=== PATIENT | male | born 1960 | race Caucasian/White ===

== ENCOUNTER 2017-09-18 17:00 | Emergency (ER) | payer OTHER, SELFPAY ==
[2017-09-18 17:04] VITALS: BP 137/88; PULSE 79; RESP 15; TEMP 36.5; O2SAT 99
[2017-09-18] MEDS: Lidocaine 2% Multi-Dose 50 ML VIAL IJ (18:04)
--- NOTE | 2017-09-18 18:21 | ED.GENADUL_ITS ---
Disposition Clinical Impression: Abscess or cellulitis of chest wall Disposition: HOME Condition: Good Instructions: Cellulitis (ED), Abscess (ED), Abscess Incision and Drainage (GEN ) Additional Instructions: Return immediately if you notice any severe worsening of symptoms including fever chills, significant increase of purulence, and also return for reassessment if you are not seeing signs of improvement over the next 48 hours. Otherwise continue to apply warm compresses 4 times daily for 20 minutes each time to encourage drainage. Prescriptions: Sulfameth/Trimeth Ds [Bactrim Ds Tablet] 1 each PO BID #13 tab Referrals: George Pinto DO [Primary Care Provider] - 1 week (Please follow-up with your primary care provider next week for reassessment) Medical Decision Making - Medical Decision Making Patient presenting to the emergency department for abscess to left anterior chest wall. Patient states that 3 days ago it started as a small pimple which he attempted to pop and then over the last 24 hours he has noticed significant increase in erythema, size, and purulent drainage. Just before arrival he did try to express all the drainage from it but noted all the redness and was concerned. Patient has a approximate 2-1/2 cm indurated abscess to the left anterior chest wall there is significant erythema surrounding the area with some streaking so concern for secondary cellulitis as well. Patient gave verbal consent for incision and drainage of abscess. Area was cleaned with Betadine and injected with 2% lidocaine and approximately 7 mL's were instilled around the area of abscess. Once appropriate anesthetic level was achieved. Was re-scrubbed with Betadine and approximately 1 cm incision was made into the greatest area of purulence and pointing. Drainage was noted of a mix of blood and purulence and hemostats were inserted into the incision to break up all the documents. After fully attempting to remove all purulence only blood was noted to come out of area of incision. Patient was then placed upon Bactrim 1 tab twice daily for 7 days and encouraged to return to the emergency department if not improving in the next 48 hours otherwise to follow-up with his primary care provider next week for reexamination. After discussion of diagnosis and plan of care with patient patient agreed and stated no further needs, questions, or concerns at this time. History of Present Illness - General Chief complaint: Cellulitis Stated complaint: INSECT BITE INFECTED Time Seen by Provider: 09/18/17 17:41 Source: patient, RN notes reviewed Mode of arrival: ambulatory Limitations: no limitations - History of Present Illness Initial comments: Patient reports 5 days ago he noticed a small pimple to his left anterior chest. He still states he attempted to pop this pimple and has been applying warm soaks but over the last 24 hours he has noticed a significant increase in redness drainage and swelling to the area with no redness on the significant part of his upper chest. Patient denies any fever chills, cardiac pain or difficulty breathing. Onset/Timin -: days(s) Location: chest Severity scale (1-10): 4 Quality: aching Consistency: constant Improves with: none Worsens with: none Associated Symptoms: denies other symptoms Treatments Prior to Arrival: none - Related Data Acetaminophen [Tylenol] 650 mg PO BID PRN tab-cap 10/24/13 Cetirizine HCl [Zyrtec] 10 mg PO HS #30 tab.chew 08/29/15 Omeprazole 20 mg PO BID #90 tab-cap 06/09/17 Sulfameth/Trimeth Ds [Bactrim Ds Tablet] 1 each PO BID #13 tab 09/18/17 Allergies Allergy/AdvReac Type Severity Reaction Status Date / Time No Known Allergies Allergy Unverified 09/18/17 17:11 Review of Systems Constitutional: denies: chills, fever Respiratory: no symptoms reported Cardiovascular: denies: chest pain Skin: as per HPI, lesions Comment: All other systems reviewed and negative Past Medical History - Past Medical History Medical history: cancer (colon ) Surgical history: other (Bowel resection, left leg crush injury) - Social History Smoking status: current everyday smoker Alcohol use: occasionally Drug use: none Living Situation: lives with family General Exam - General Limitations: no limitations General appearance: alert, in no apparent distress - Respiratory Respiratory exam: Present: normal lung sounds bilaterally, other (Patient has approximately a 2-1/2 cm area of fluctuance to left anterior chest wall with surrounding erythema that encompasses most of the pectoral region. The area of fluctuance itself is very erythematous but the surrounding area only has mild erythema. Area is warm to touch compared to rest of skin.) - Cardiovascular Cardiovascular Exam: Present: regular rate, normal rhythm, normal heart sounds - Neurological Exam Neurological exam: Present: alert, oriented X3, normal gait. Absent: altered - Psychiatric Psychiatric exam: Present: normal affect, normal mood Course Vital Signs - 24 hr 09/18/17 17:04 Temperature 36.5 C Pulse 79 Respiratory 15 Rate Blood Pressure 137/88 Pulse Oximetry 99
[2017-09-18] MEDS: Sulfameth/Trimeth DS TAB 1 TAB PO ×2 (18:34→18:35)
[2017-09-18 18:40] VITALS: BP 141/73; PULSE 76; RESP 16; TEMP 36.7; O2SAT 99
== END 2017-09-18 18:43 | disposition home or self-care (01) ==
PROVIDERS: Emergency Provider Student in an Organized Health Care Education/Training Program; PCP Emergency Medicine
DX: L02.213 Cutaneous abscess of chest wall (principal)
CPT/HCPCS: 10060; 99283

== ENCOUNTER 2017-10-30 07:24 | Outpatient (CLI) | payer OTHER, SELFPAY ==
[2017-10-30 07:53] LABS: Abs Immature Grans 0.01 k/cumm (0.0-0.09); Absolute Basophil Count 0.03 k/cumm (0.0-0.2); Absolute Eosinophil Count 0.21 k/cumm (0.0-0.7); Absolute Lymphocyte Count 2.05 k/cumm (1.2-3.4); Absolute Neutrophil Count 4.34 k/cumm (1.2-6.7); Basophils % 0.4; Eosinophils % 2.9; HCT 42.7 % (40.0-50.0); HGB 14.4 g/dL (13.5-17.5); Immature Grans % 0.1; Lymphocytes % 28.7; Mean Corp. HGB Concentration 33.7 g/dL (32.0-36.0); Mean Corpuscular Hemoglobin 31.4 pg (27.0-33.0); Mean Corpuscular Volume 93.2 fL (80-95); Mean Platelet Volume 9.7 fL (8.0-11.0); Neutrophils % 60.9; Platelet Count 178 x1000/uL (130-400); RBC 4.58 m/cumm (4.50-6.00); White Blood Cell Count 7.14 k/cumm (4.4-10.8)
[2017-10-30 08:17] LABS: ALT 40 U/L (12-78); AST 20 U/L (15-37); Albumin 3.5 g/dL (3.4-5.0); Alkaline Phosphatase 161 U/L (46-116); Anion Gap 10.4 mmol/L (3-11); BUN 16 mg/dL (7-18); Bilirubin, Total 0.5 mg/dL (0.2-1.0); CO2 25.6 mmol/L (21.0-32.0); CREATININE 0.91 mg/dL (0.70-1.30); Calcium 8.9 mg/dL (8.5-10.1); Chloride 104 mmol/L (98-107); Glucose 94 mg/dL (70-100); Potassium 4.2 mmol/L (3.5-5.1); Sodium 140 mmol/L (136-145); Total Protein 7.3 g/dL (6.4-8.2)
== END 2017-10-30 07:44 ==
PROVIDERS: PCP Emergency Medicine; Visit Provider Internal Medicine Hematology & Oncology
DX: C18.2 Malignant neoplasm of ascending colon (principal)
CPT/HCPCS: 36415; 80053; 82378; 85025

== ENCOUNTER 2018-02-08 16:35 | Emergency (ER) | payer OTHER, SELFPAY ==
[2018-02-08 16:43] VITALS: BP 160/100; PULSE 88; RESP 16; TEMP 36.7; O2SAT 96
--- NOTE | 2018-02-08 17:27 | W.ED.GENAD ---
Discharge Plan Disposition Patient Disposition: HOME Condition: Fair Discharge Details Chief Complaint: DentalOral Clinical Impression: Dental infection Reason For Visit: ? neck infection Primary Care Provider: George Pinto ED Provider: Suzi Barnes Home Meds and New Rx's Prescriptions: New penicillin V potassium 500 mg tablet 500 mg PO QID Qty: 24 RF: 0 Continued cyanocobalamin (vitamin B-12) 1,000 mcg capsule 1,000 mcg PO DAILY RF: 0 acetaminophen [Tylenol] 325 MG tablet 650 mg PO BID PRN RF: 0 cetirizine [Zyrtec] 10 MG tablet,chewable 10 mg PO HS Qty: 30 RF: 12 omeprazole 20 MG capsule,delayed release(DR/EC) 20 mg PO BID Qty: 90 RF: 3 ibuprofen 200 mg Tablet 600 mg PO PRN PRNRF: 0 Discharge Instructions Instructions: Dental Abscess (ED) Additional Instructions: Encourage hydration. Tylenol and/or ibuprofen as needed for discomfort. Penicillin as prescribed. Even if symptoms recur or improve, please take entire course. Please follow-up with dentist as soon as possible for reevaluation. If you develop increased pain, fever/chills, swelling, redness or other new/worsening symptoms please seek care urgently once Referrals: George Pinto, DO [Primary Care Provider] - Medical Decision Making Patient is a 37-year-old male presenting today with chief complaint of dental pain that began 2 days ago. He reports that he has had multiple dental infections recently. Finished chemotherapy for colon cancer last spring and reports that since the chemo, he has had difficulty with infections. Reports that one such infection did migrate down his neck. On exam, pain is primarily in the left lower dentition near the #17 and 18 tooth. Not see any swelling or area of fluctuance to suggest an abscess. However, given the patient's history of progression of his infections, I feel that treatment with antibiotics is appropriate at this time. Will give him enough antibiotics for today and tomorrow as tomorrow is [place]. He will follow-up with dentist in the next 2 weeks. We discussed new/worsening symptoms when to seek care urgently once again. All of his questions and concerns were addressed and he is in agreement this plan. HPI General Mode of arrival: ambulatory. Date/Time Provider Initiated Documentation: 02/08/18 16:49. Limitations to Documentation: no limitations. Information obtained by: patient. History of Present Illness 57 year old M presents to the emergency department with the chief complaint of dental pain, described as moderate, Quality is described as aching, and is localized to the mouth. Patient reports no radiation. Patient started experiencing this day(s) (2) and it has been constant. No relieving factors improve symptom(s), Eating worsens symptoms . Patient notes denies chest pain, cough, fever/chills, headaches, loss of appetite and rash. Patient did receive the following treatments prior to arrival, none Related Data Home Medications Medication Instructions Recorded Confirmed acetaminophen [Tylenol] 650 mg PO BID PRN tab-cap 10/24/13 09/18/17 cetirizine [Zyrtec] 10 mg PO HS #30 tab.chew 08/29/15 02/08/18 omeprazole 20 mg PO BID #90 tab-cap 06/09/17 02/08/18 cyanocobalamin (vitamin B-12) 1,000 mcg PO DAILY 12/18/17 02/08/18 1,000 mcg capsule ibuprofen 600 mg PO PRN PRN 02/08/18 02/08/18 penicillin V potassium 500 mg PO QID #24 tab 02/08/18 Previous Rx's Medication Instructions Recorded omeprazole 20 mg PO BID #90 tab-cap 06/09/17 penicillin V potassium 500 mg PO QID #24 tab 02/08/18 Allergies Allergy/AdvReac Type Severity Reaction Status Date / Time No Known Allergies Allergy Verified 12/18/17 10:14 General Stated Complaint: DentalOral RUEL: 4 Review of Systems Constitutional Reports as per HPI, Denies chills, Denies fatigue, Denies fever(s), Denies headache(s) and Denies poor appetite Eyes Denies change in vision and Denies irritation ENT Reports as per HPI, Denies dysphagia, Denies headache(s), Denies lip swelling and Denies odynophagia Cardiovascular Reports as per HPI and Denies chest pain Respiratory Reports as per HPI and Denies cough Gastrointestinal Reports as per HPI, Denies dysphagia, Denies nausea, Denies odynophagia and Denies vomiting Integumentary/Breasts Reports as per HPI, Denies erythema, Denies rash and Denies skin pain Neurologic Denies headache(s) Endocrine Denies fatigue Allergic/Immunologic Denies lip swelling [facility] Surgical History Colonoscopy - MAC Hemicolectomy Exam Const General: cooperative, healthy appearing, comfortable, no acute distress, well developed and well groomed Nutritional Appearance: average body habitus and well nourished Orientation: alert and awake [facility] Head: normal to inspection, normocephalic and atraumatic Ears: hearing grossly normal bilaterally, external ears normal and TM's normal bilaterally General nose exam: external nose normal and nares normal Face and sinus: normal facial exam, sinuses nontender and face symmetric Mouth: oral mucosae normal, lip normal, tongue normal, oropharynx normal, no muffled voice, no trismus and No restricted motion Teeth and gingiva: abnormal dentition (pain along the posterior aspect of the buccal side of he teeth) and gingiva normal Throat: posterior oropharynx normal, tonsils normal and uvula midline Eyes General: appearance normal, both eyes and all related structures Neck Neck: normal visual inspection, full ROM, no meningeal signs, trachea midline, supple, no anterior neck swelling, lymphadenopathy, no midline deformity and tender (over enlarged lymphnodes) Resp Effort & Inspection: normal respiratory effort, able to speak in complete sentences and no respiratory distress Auscultation: clear to auscultation bilaterally, no rales, no rhonchi and no wheezes Cardio Rate: regular rate Rhythm: regular rhythm Heart Sounds: S1 normal and S2 normal Skin General skin exam: no rashes or lesions noted Trauma: no lacerations or abrasions Neuro General: alert and awake Cognition: normal cognition Speech: speech normal Gait: normal gait Psych Appearance: grossly normal and well kempt Mental Status: mental status grossly normal Speech and Movement: speech and movement normal Course Vital Signs Temperature 36.7 C 02/08/18 16:43 Pulse 88 02/08/18 16:43 Respiratory Rate 16 02/08/18 16:43 Blood Pressure 160/100 H 02/08/18 16:43 Pulse Oximetry 96 02/08/18 16:43 Temperature 36.7 C 02/08/18 16:43 Temperature Source Temporal Artery Scan 02/08/18 16:43 Pulse 88 02/08/18 16:43 Respiratory Rate 16 02/08/18 16:43 Blood Pressure 160/100 H 02/08/18 16:43 Blood Pressure Position Sitting 1224/18 16:43 Pulse Oximetry 96 02/08/18 16:43 Oxygen Delivery Method Room Air 02/08/18 16:43 Oxygen Flow Rate 0 02/08/18 16:43 Pain Level 2 02/08/18 16:43
[2018-02-08] MEDS: Penicillin V POTASSIUM 500 MG TAB 2500 MG PO (17:35)
== END 2018-02-08 17:41 | disposition home or self-care (01) ==
PROVIDERS: Emergency Provider Physician Assistant; PCP Emergency Medicine
DX: K04.7 Periapical abscess without sinus (principal)
CPT/HCPCS: 99283

== ENCOUNTER 2018-03-15 01:27 | Outpatient (CLI) | payer OTHER, SELFPAY ==
[2018-03-17 09:24] LABS: DHEA Sulfate 97 ug/dl (49-362)
[2018-03-17 12:46] LABS: Metanephrine, Free 0.22 nmol/L (<0.50); Normetanephrine, Free 1.2 nmol/L (<0.90)
[2018-03-17 13:38] LABS: Renin Activity, Plasma 1.3 ng/mL/h
== END 2018-03-15 01:47 ==
PROVIDERS: PCP Emergency Medicine; Visit Provider Surgery
DX: E27.9 Disorder of adrenal gland, unspecified (principal)
CPT/HCPCS: 36415; 82533; 82627; 82088; 83835; 84244

== ENCOUNTER 2018-06-15 09:27 | Outpatient (CLI) | payer OTHER, SELFPAY ==
[2018-06-16 11:02] LABS: CEA 1.6 ng/ml
== END 2018-06-15 09:47 ==
PROVIDERS: PCP Emergency Medicine; Visit Provider Internal Medicine Hematology & Oncology
DX: C18.9 Malignant neoplasm of colon, unspecified (principal)
CPT/HCPCS: 36415; 82378

== ENCOUNTER 2018-06-23 11:02 | Day surgery (SDC) | payer OTHER, SELFPAY ==
--- NOTE | 2018-06-23 07:03 | W.PM.OP ---
Date of service: 06/23/18 Time of Service: 14:18 Operative Note DATE OF PROCEDURE: 06/23/18 PRE-OP DIAGNOSIS: Metastatic colorectal cancer POST-OP DIAGNOSIS: same PROCEDURE: Mediport placement left subclavian vein SURGEON: Sophia Stovall ANESTHESIA: MAC and local (2% Lidococaine and 0.5% Marcaine with epi) ESTIMATED BLOOD LOSS: 5 PATHOLOGY: none sent COMPLICATIONS: None Patient was transported to: same day Patient's condition: stable Implants: Power Port REF- [id number] LOT- [id number] Indications: Mr. Arriaga is a pleasant 58 year old male who unfortunately has been diagnosed with metastatic colon cancer. He has undergone a right adrenal gland removal and is getting ready to start chemotherapy again. Risks, benefits, complications of the procedure were reviewed with him. Complications include but are not limited to bleeding, pneumothorax, infection, port malfunction, subclavian vein clot formation and adverse reaction to the medications. Questions were entertained and answered to his satisfaction and he wished to proceed. No guarantees were given or implied. Procedure Description: After informed consent was obtained patient was taken to the operating room and placed in the supine position. Monitors were applied and he was given some sedation. Once sedated and comfortable his left chest was prepped and draped in a sterile surgical fashion. At this point a timeout was done and the patient's name, date of , procedure type and site, antibiotic given were all reviewed. Fire risk was assessed. Next 2% lidocaine mixed with half percent Marcaine with epi was injected around the clavicle on the left side as well as along the old scar and into the subcutaneous tissue. A power port kit was opened and using the large 18-gauge needle the subclavian vein was found and venous blood was easily aspirated. The syringe was removed and the guidewire was placed without any difficulty into the subclavian vein. The needle was removed. Fluoroscopy was then done which confirmed the placement of the guidewire. A small incision was made in the skin with the guidewire entered. The old scar was also opened with a 15 blade. Using cautery a new pocket was created for the port. Using the tunneler the catheter was tunneled from the newly created pocket to the guidewire. The dilator and sheath were then placed over the guidewire into the subclavian vein. The dilator and guidewire were removed. The catheter was then advanced through the sheath into the subclavian vein. While holding the catheter in place at the skin the sheath was removed. Fluoroscopy was then used again and the catheter was noted to be within the atrium and so it was pulled up until it was just above the atrium. The catheter was then cut to the right length and attached to the port. The port was placed into the pocket and fit snugly. The port was flushed with normal saline. 10 cc of blood was then withdrawn and discarded and then 20 cc of blood were drawn out of the port and placed into a red, green, blue and purple top and sent to the lab. The port was then flushed with another 10 cc of normal saline and then heparin. The skin was closed using 4-0 Vicryl. The skin was cleaned and dried and skin affix was applied to the port site as well as to the small stab incision underneath the clavicle. The patient was woken up and taken back to same day surgery in stable condition. Sponge, instrument, and needle counts were correct at the end of the case. A stat chest x-ray was ordered and done in same-day surgery it was read by me and it looked good good positioning of the catheter and no pneumothorax.
--- NOTE | 2018-06-23 07:18 | W.PM.DSUDISC ---
Discharge Plan Disposition Patient Disposition: HOME Condition: Good Discharge Details Reason For Visit: Metastatic colon cancer Attending Provider: Sophia Stovall Primary Care Provider: George Pinto Home Meds and New Rx's Prescriptions: Continued mupirocin 2 % ointment 1 applic TP BID Qty: 22 RF: 0 omeprazole 20 mg capsule,delayed release(DR/EC) 20 mg PO BID Qty: 180 RF: 3 acetaminophen [Tylenol] 325 MG tablet 650 mg PO BID PRN RF: 0 cetirizine [Zyrtec] 10 MG tablet,chewable 10 mg PO HS Qty: 30 RF: 12 Discharge Instructions Instructions: Implanted Venous Access Port (DC) Additional Instructions: Activity at Home after surgery: 1. As tolerated 2. Don't keep your left arm above your head for long periods of time. This may kink the catheter. Pain Medications: 1. Alternate Tylenol 650 mg and Ibuprofen 600 mg every 3 hours Other: 1. You may shower daily. Do not scrub the incisions 2. Do not soak the incisions for 1 week 3. You may alternate ice and heat as needed for pain and swelling Wound Care: 1. Keep the incisions clean and dry Please call our office if you develop: 1. Fevers >101.5 2. Nausea or Vomiting 3. Worsening pain 4. Redness and thick discharge from the wounds If after hours please call the Hospital at and ask to speak to the on-call surgeon Stand Alone Forms: DSU Post op Instructions, Melyssa Ospina (DSU) Activity:: Activity as Tolerated Diet:: As Tolerated Discharge Orders Discharge Orders: Discharge Order (Routine); Ordered 06/23/18 Ordered By: Sophia Stovall DS: Diagnosis Discharge Diagnosis (1) Metastatic colorectal cancer: Status: Acute (2) Encounter for central line placement: Status: Acute
--- NOTE | 2018-06-23 07:21 | PDOC.DSDIS_ITS ---
Discharge Plan Disposition Patient Disposition: HOME Condition: Good Discharge Details Reason For Visit: Metastatic colon cancer Attending Provider: Sophia Stovall Primary Care Provider: George Pinto Home Meds and New Rx's Prescriptions: Continued mupirocin 2 % ointment 1 applic TP BID Qty: 22 RF: 0 omeprazole 20 mg capsule,delayed release(DR/EC) 20 mg PO BID Qty: 180 RF: 3 acetaminophen [Tylenol] 325 MG tablet 650 mg PO BID PRN RF: 0 cetirizine [Zyrtec] 10 MG tablet,chewable 10 mg PO HS Qty: 30 RF: 12 Discharge Instructions Instructions: Implanted Venous Access Port (DC) Additional Instructions: Activity at Home after surgery: 1. As tolerated 2. Don't keep your left arm above your head for long periods of time. This may kink the catheter. Pain Medications: 1. Alternate Tylenol 650 mg and Ibuprofen 600 mg every 3 hours Other: 1. You may shower daily. Do not scrub the incisions 2. Do not soak the incisions for 1 week 3. You may alternate ice and heat as needed for pain and swelling Wound Care: 1. Keep the incisions clean and dry Please call our office if you develop: 1. Fevers >101.5 2. Nausea or Vomiting 3. Worsening pain 4. Redness and thick discharge from the wounds If after hours please call the Hospital at and ask to speak to the on-call surgeon Stand Alone Forms: DSU Post op Instructions, Melyssa Ospina (DSU) Activity:: Activity as Tolerated Diet:: As Tolerated Discharge Orders Discharge Orders: Discharge Order (Routine); Ordered 06/23/18 Ordered By: Sophia Stovall DS: Diagnosis Discharge Diagnosis (1) Metastatic colorectal cancer: Status: Acute (2) Encounter for central line placement: Status: Acute
[2018-06-23 11:11] VITALS: BP 146/98; PULSE 64; RESP 16; TEMP 36.6; O2SAT 98
[2018-06-23] MEDS: Lactated Ringers 1,000 ML 80 ML IV (11:36)
--- NOTE | 2018-06-23 13:35 | DI.RAD_ITS ---
SYMPTOMS/DIAGNOSIS: PORT PLACEMENT CHEST IN THE OR: Fluoroscopy Time: 16.9 sec, 2.63 mGy Fluoroscopy was utilized by Dr. Stovall during the placement of an indwelling central venous catheter. Single hard copy image shows the tip of the catheter at the level of the junction of the superior vena cava and right atrium. Please refer to the procedure report for complete details.
[2018-06-23] MEDS: Lidocaine 2% Multi-Dose 50 ML VIAL (14:17)
[2018-06-23] MEDS: Heparin 500 UNITS/5 ML SYRINGE (14:40)
[2018-06-23] MEDS: Normal Saline 50 ML (14:40)
--- NOTE | 2018-06-23 15:06 | DI.RAD_ITS ---
SYMPTOMS/DIAGNOSIS: S/P LEFT SUBCLAVIAN VEIN [facility] CHEST X-RAY, PORTABLE AP VIEW: There is a left subclavian central venous catheter in place; the tip of the catheter is in good position in the superior vena cava. No pneumothorax is identified. The lungs are clear. No effusions or pneumothoraces are present. The heart size and pulmonary vasculature are within normal limits.
[2018-06-23 15:27] VITALS: BP 140/95; PULSE 60; RESP 17; TEMP 36.5; O2SAT 98
== END 2018-06-23 15:33 | disposition home or self-care (01) ==
LOC: SUR 11:02
PROVIDERS: PCP Emergency Medicine; Visit Provider Surgery
PROC: (CPT 36561; principal; 2018-06-23 12:45)
DX: C18.9 Malignant neoplasm of colon, unspecified (principal); Z45.2 Encounter for adjustment and management of vascular access device; C79.9 Secondary malignant neoplasm of unspecified site
CPT/HCPCS: 36561; 77001; 71045; C1788

== ENCOUNTER 2018-07-01 14:26 | Emergency (ER) | payer OTHER, SELFPAY ==
--- NOTE | 2018-07-01 14:32 | NUR.NOTE ---
pt had a port placed 8 days ago upper left chest. the following day pt noticed weakness in his left leg as well numbness and tingling causing unsteadiness. no other symptoms
[2018-07-01 14:36] VITALS: BP 158/103; PULSE 84; RESP 16; TEMP 37.2; O2SAT 97
--- NOTE | 2018-07-01 15:04 | DI.US_ITS ---
SYMPTOMS/DIAGNOSIS: LEFT KNEE PAIN, H/O SUBCLAVIAN PORT FOR CHEMOTHERAPY, ? DVT DUPLEX VENOUS ULTRASOUND, LEFT LOWER EXTREMITY: Duplex evaluation of the deep venous system was performed according to the usual protocol. The deep veins are freely compressible throughout to the level of the popliteal veins. There is normal Doppler flow visible throughout and there is excellent flow augmentation with manual calf compression. CONCLUSION: No evidence of deep venous thrombosis.
--- NOTE | 2018-07-01 16:12 | ED.GENADUL_ITS ---
Discharge Plan Disposition Patient Disposition: HOME Condition: Stable Discharge Details Chief Complaint: GenMedical Clinical Impression: Left knee pain, Knee buckling Primary Care Provider: George Pinto ED Provider: Trish Shah Home Meds and New Rx's Prescriptions: Continued omeprazole 20 mg capsule,delayed release(DR/EC) 20 mg PO BID Qty: 180 RF: 3 acetaminophen [Tylenol] 325 MG tablet 650 mg PO BID PRN RF: 0 cetirizine [Zyrtec] 10 MG tablet,chewable 10 mg PO HS Qty: 30 RF: 12 Discharge Instructions Instructions: Knee Pain (ED) Additional Instructions: Rest, ice, elevate left knee as much as possible. Wear a knee brace or Dominic wrap to the left knee to help with compression and stability. Follow-up with your primary care doctor or orthopedics for reevaluation of your left knee. 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 No known injury. Denies chest pain, shortness of breath, lower leg pain, weakness or numbness. Patient's primary care doctor Dr. Pinto called to report that patient's left leg appeared cool to touch with some mottling in the lower leg and concerned ab out an arterial embolus and sent to the ER for evaluation. His left PT and PT pulses are palpable. His skin color is pink and at his baseline he states. His left foot is slightly cool to touch which he states has been his baseline since a crush injury in his left lower leg 30 years ago but the remainder of his left leg is warm. No ligamentous instability or pain noted with left knee range of motion. Patient states he feels foolish for coming here and that he would rather go home to rest and ice his left knee. Discussed with patient at length that this does not appear consistent with an arterial embolus, but with his recent left subclavian vein port, can check a Doppler ultrasound to rule out DVT. Also offered patient a left knee x-ray to assess the joint, but he is declining this at this time. 1600 --Doppler ultrasound negative. Patient is requesting to go home at this time. Discussed with patient at length that as he is complaining more of mild left knee pain and buckling sensation, this appears more consistent with an orthopedic complaint rather than a vascular issue. Patient states the skin color and temperature of his left leg is at baseline. He is neurovascularly intact. Patient states he would rather go home and try a knee brace, rest, ice, elevate and follow-up with his primary care doctor. He is instructed to return here immediately with any worsening or new concerning symptoms. Medical Records Medical records reviewed: Yes I reviewed the patient's medical records. Imaging Data Radiologic Study: Radiologist's impression: DUPLEX VENOUS ULTRASOUND, LEFT LOWER EXTREMITY: Duplex evaluation of the deep venous system was performed according to the usual protocol. The deep veins are freely compressible throughout to the level of the popliteal veins. There is normal Doppler flow visible throughout and there is excellent flow augmentation with manual calf compression. CONCLUSION: No evidence of deep venous thrombosis. HPI General Mode of arrival: ambulatory . Date/Time Provider Initiated Documentation: 07/01/18 14:37 . Limitations to Documentation: no limitations . Information obtained by: patient . HPI Narrative: Pt is a 58-year-old male with a history of metastatic colorectal cancer and partial adrenalectomy due to mets who is 8 days status post left chest subclavian vein port for chemo who presents with left knee weakness and pain for the past week. Patient states it feels like his left knee is buckling when he walks. He states he started his second chemo recently. Patient does admit to some pain in the knee with range of motion and weightbearing but states that mainly he feels like his left knee will give out or buckle when he walks. He denies any new injury. He denies any fever or recent travel. He has a history of a crush injury in his left lower leg from 1988 in which his leg was caught under a tree and and has had multiple surgeries in his left lower leg and left ankle fusion since his injury. Patient states he has altered sensation and limited mobility in his lower leg due to this crush injury chronically. Patient was seen at his primary care doctor's office today for his left knee pain and Dr. Pinto thought that his left leg appeared cool to touch and sent into the ER for further evaluation including possibility of arterial embolus. Related Data Home Medications Medication Instructions Recorded Confirmed acetaminophen [Tylenol] 650 mg PO BID PRN tab-cap 10/24/13 07/01/18 cetirizine [Zyrtec] 10 mg PO HS #30 tab.chew 08/29/15 07/01/18 omeprazole 20 mg capsule,delayed 20 mg PO BID #180 tab-cap 04/29/18 07/01/18 release Previous Rx's Medication Instructions Recorded omeprazole 20 mg capsule,delayed 20 mg PO BID #180 tab-cap 04/29/18 release Allergies Allergy/AdvReac Type Severity Reaction Status Date / Time No Known Allergies Allergy Verified 07/01/18 14:39 General Stated Complaint: GenMedical RUEL: 3 Review of Systems Review of Systems All systems reviewed & are unremarkable except as noted in HPI and below Constitutional Reports as per HPI, Denies chills and Denies fever(s) Eyes Denies blurry vision ENT Denies dizziness, Denies sore throat and Denies throat swelling Cardiovascular Denies chest pain and Denies dyspnea Respiratory Denies cough and Denies dyspnea Gastrointestinal Denies abdominal pain, Denies diarrhea and Denies vomiting Genitourinary Denies hematuria and Denies dysuria Musculoskeletal Denies back pain, Denies numbness and Reports other (Left knee pain and weakness) Integumentary/Breasts Denies lesions and Denies rash Neurologic Denies dizziness, Denies focal weakness and Denies numbness Allergic/Immunologic Denies throat swelling [facility] Medical History Encounter for central line placement (Acute ~06/23/18) Metastatic colorectal cancer (Acute) Port-A-Cath in place (Acute ~06/23/18) Surgical History History of partial adrenalectomy (Acute) History of removal of Port-a-Cath (Acute) Colonoscopy - MAC Hemicolectomy Social History Smoking/Tobacco Use Status: Current every day Tobacco Type: cigarettes Alcohol Intake: former Drug use: Never Substance use type: does not use Do you feel safe at home: Yes Do you feel safe in your relationship?: Yes Exam Const General: cooperative, healthy appearing and no acute distress HENMT Head: normal to inspection Face and sinus: normal facial exam Eyes General: appearance normal, both eyes and all related structures Neck Neck: normal visual inspection and No submandibular swelling Lymphatic: no lymphadenopathy noted Chest Chest: normal inspection of the chest and no tenderness Resp Effort & Inspection: normal respiratory effort and able to speak in complete sentences Auscultation: clear to auscultation bilaterally Cardio Rate: regular rate Rhythm: regular rhythm GI Inspection: normal to inspection Palpation: soft, not firm, not rigid and nontender Auscultation: normal bowel sounds Skin General skin exam: no rashes or lesions noted Neuro General: alert, awake and oriented x3 Cognition: normal cognition Speech: speech normal Motor: muscle tone normal throughout Sensory Exam: no sensory deficits noted Extrem General: no calf tenderness bilaterally Other: Left knee: Negative anterior and posterior drawer test. No pain with valgus or varus stress. Negative Olesya's test. Right knee within normal limits. Extensive scarring and chronic changes to left leg and foot due to old crush injury 30 years ago. Skin warm to touch and normal in color and similar to right lower extremity extending from left thigh to left ankle. Left foot slightly cool to touch with atrophy and missing left great toe which is patient's baseline due to crush injury per patient. Left PT pulse palpable and obtained with Doppler as well. Left DP pulse faintly palpable and faintly heard with Doppler. No range of motion at left ankle chronically due to ankle fusion due to crush injury. Psych Appearance: grossly normal Mental Status: mental status grossly normal Speech and Movement: speech and movement normal Affect: normal affect Course Vital Signs Temperature 99.0 F 07/01/18 14:36 Pulse 84 07/01/18 14:36 Respiratory Rate 16 07/01/18 14:36 Blood Pressure 158/103 H 07/01/18 14:36 Pulse Oximetry 97 07/01/18 14:36 Temperature 99.0 F 07/01/18 14:36 Temperature Source Core 07/01/18 14:36 Pulse 84 07/01/18 14:36 Respiratory Rate 16 07/01/18 14:36 Respiratory Effort 07/01/18 14:38 Blood Pressure 158/103 H 07/01/18 14:36 Blood Pressure Position Sitting 07/01/18 14:36 Pulse Oximetry 97 07/01/18 14:36 Oxygen Delivery Method Room Air 07/01/18 14:36 Oxygen Flow Rate 0 07/01/18 14:36 Pain Level 1 07/01/18 14:36
[2018-07-01 16:28] VITALS: BP 158/103; PULSE 84; RESP 16; TEMP 37.2; O2SAT 97
== END 2018-07-01 16:32 | disposition home or self-care (01) ==
PROVIDERS: Emergency Provider Physician Assistant; PCP Emergency Medicine
DX: M25.562 Pain in left knee (principal); C18.0 Malignant neoplasm of cecum
CPT/HCPCS: 99284; 93971

== ENCOUNTER 2018-07-16 01:40 | Outpatient (RCR) | payer OTHER, SELFPAY ==
[2018-06-23 14:56] LABS: Abs Immature Grans 0.01 k/cumm (0.0-0.09); Absolute Basophil Count 0.03 k/cumm (0.0-0.2); Absolute Eosinophil Count 0.59 k/cumm (0.0-0.7); Absolute Lymphocyte Count 2.02 k/cumm (1.2-3.4); Absolute Monocyte Count 0.44 k/cumm (0.11-0.7); Absolute Neutrophil Count 2.96 k/cumm (1.2-6.7); Basophils % 0.5; Eosinophils % 9.8; HCT 39.6 % (40.0-50.0); HGB 13.3 g/dL (13.5-17.5); Immature Grans % 0.2; Lymphocytes % 33.4; Mean Corp. HGB Concentration 33.6 g/dL (32.0-36.0); Mean Corpuscular Hemoglobin 30.3 pg (27.0-33.0); Mean Corpuscular Volume 90.2 fL (80-95); Mean Platelet Volume 9.8 fL (8.0-11.0); Monocytes % 7.3; Neutrophils % 48.8; Platelet Count 196 x1000/uL (130-400); RBC 4.39 m/cumm (4.50-6.00); RBC Distribution Width 13.5 % (11.8-14.1); White Blood Cell Count 6.05 k/cumm (4.4-10.8)
[2018-06-23 15:07] LABS: ALT 35 U/L (12-78); AST 23 U/L (15-37); Albumin 3.2 g/dL (3.4-5.0); Alkaline Phosphatase 114 U/L (46-116); Anion Gap 7.7 mmol/L (3-11); BUN 10 mg/dL (7-18); Bilirubin, Total 0.5 mg/dL (0.2-1.0); CO2 26.3 mmol/L (21.0-32.0); CREATININE 0.88 mg/dL (0.70-1.30); Calcium 7.9 mg/dL (8.5-10.1); Chloride 103 mmol/L (98-107); Glucose 97 mg/dL (70-100); Potassium 3.8 mmol/L (3.5-5.1); Sodium 137 mmol/L (136-145); Total Protein 6.9 g/dL (6.4-8.2)
[2018-06-24 10:11] LABS: CEA 1.5 ng/ml
[2018-07-16] MEDS: Normal Saline Flush 10 ML SYR IVP (08:00)
[2018-07-16 08:22] LABS: Absolute Basophil Count 0.04 k/cumm (0.0-0.2); Absolute Eosinophil Count 0.25 k/cumm (0.0-0.7); Absolute Lymphocyte Count 1.72 k/cumm (1.2-3.4); Absolute Monocyte Count 0.41 k/cumm (0.11-0.7); Absolute Neutrophil Count 1.87 k/cumm (1.2-6.7); Basophils % 0.9; Eosinophils % 5.8; HCT 42.6 % (40.0-50.0); HGB 14.6 g/dL (13.5-17.5); Lymphocytes % 40.1; Mean Corp. HGB Concentration 34.3 g/dL (32.0-36.0); Mean Corpuscular Hemoglobin 30.6 pg (27.0-33.0); Mean Corpuscular Volume 89.3 fL (80-95); Mean Platelet Volume 9.8 fL (8.0-11.0); Monocytes % 9.6; Neutrophils % 43.6; Platelet Count 198 x1000/uL (130-400); RBC 4.77 m/cumm (4.50-6.00); RBC Distribution Width 14.3 % (11.8-14.1); White Blood Cell Count 4.29 k/cumm (4.4-10.8)
[2018-07-16 08:36] LABS: ALT 47 U/L (12-78); AST 26 U/L (15-37); Albumin 3.6 g/dL (3.4-5.0); Alkaline Phosphatase 151 U/L (46-116); Anion Gap 7.8 mmol/L (3-11); BUN 14 mg/dL (7-18); Bilirubin, Total 0.5 mg/dL (0.2-1.0); CO2 26.2 mmol/L (21.0-32.0); CREATININE 0.89 mg/dL (0.70-1.30); Calcium 9.3 mg/dL (8.5-10.1); Chloride 102 mmol/L (98-107); Glucose 101 mg/dL (70-100); Potassium 4.2 mmol/L (3.5-5.1); Sodium 136 mmol/L (136-145); Total Protein 7.4 g/dL (6.4-8.2)
[2018-07-19 10:14] LABS: CEA 0.9 ng/ml
== END 2018-07-16 23:59 | disposition home or self-care (01) ==
LOC: INF 01:40
PROVIDERS: PCP Emergency Medicine; Visit Provider Internal Medicine Hematology & Oncology
DX: C18.9 Malignant neoplasm of colon, unspecified (principal); Z45.2 Encounter for adjustment and management of vascular access device
CPT/HCPCS: 36591; 80053; 82378; 85025

== ENCOUNTER 2018-08-13 08:30 | Outpatient (RCR) | payer OTHER, SELFPAY ==
[2018-07-30] MEDS: Normal Saline Flush 10 ML SYR IVP (08:25)
[2018-07-30 08:49] LABS: Abs Immature Grans 0.01 k/cumm (0.0-0.09); Absolute Basophil Count 0.04 k/cumm (0.0-0.2); Absolute Eosinophil Count 0.18 k/cumm (0.0-0.7); Absolute Lymphocyte Count 1.75 k/cumm (1.2-3.4); Absolute Monocyte Count 0.48 k/cumm (0.11-0.7); Absolute Neutrophil Count 2.17 k/cumm (1.2-6.7); Basophils % 0.9; Eosinophils % 3.9; HCT 41.5 % (40.0-50.0); HGB 14.4 g/dL (13.5-17.5); Immature Grans % 0.2; Lymphocytes % 37.8; Mean Corp. HGB Concentration 34.7 g/dL (32.0-36.0); Mean Corpuscular Hemoglobin 30.8 pg (27.0-33.0); Mean Corpuscular Volume 88.7 fL (80-95); Mean Platelet Volume 9.5 fL (8.0-11.0); Monocytes % 10.4; Neutrophils % 46.8; Platelet Count 194 x1000/uL (130-400); RBC 4.68 m/cumm (4.50-6.00); RBC Distribution Width 14.9 % (11.8-14.1); White Blood Cell Count 4.63 k/cumm (4.4-10.8)
[2018-07-30 09:03] LABS: ALT 39 U/L (12-78); AST 21 U/L (15-37); Albumin 3.6 g/dL (3.4-5.0); Alkaline Phosphatase 156 U/L (46-116); Anion Gap 10.3 mmol/L (3-11); BUN 17 mg/dL (7-18); Bilirubin, Total 0.5 mg/dL (0.2-1.0); CO2 24.7 mmol/L (21.0-32.0); CREATININE 0.86 mg/dL (0.70-1.30); Calcium 9.1 mg/dL (8.5-10.1); Chloride 102 mmol/L (98-107); Glucose 88 mg/dL (70-100); Potassium 4.1 mmol/L (3.5-5.1); Sodium 137 mmol/L (136-145); Total Protein 7.6 g/dL (6.4-8.2)
[2018-08-13] MEDS: Normal Saline Flush 10 ML SYR IVP (08:24)
[2018-08-13 08:28] LABS: Abs Immature Grans 0.01 k/cumm (0.0-0.09); Absolute Basophil Count 0.05 k/cumm (0.0-0.2); Absolute Eosinophil Count 0.16 k/cumm (0.0-0.7); Absolute Lymphocyte Count 2.34 k/cumm (1.2-3.4); Absolute Monocyte Count 0.52 k/cumm (0.11-0.7); Absolute Neutrophil Count 2.87 k/cumm (1.2-6.7); Basophils % 0.8; Eosinophils % 2.7; HCT 41.1 % (40.0-50.0); HGB 14.5 g/dL (13.5-17.5); Immature Grans % 0.2; Lymphocytes % 39.3; Mean Corp. HGB Concentration 35.3 g/dL (32.0-36.0); Mean Corpuscular Hemoglobin 30.7 pg (27.0-33.0); Mean Corpuscular Volume 87.1 fL (80-95); Mean Platelet Volume 9.5 fL (8.0-11.0); Monocytes % 8.7; Neutrophils % 48.3; Platelet Count 189 x1000/uL (130-400); RBC 4.72 m/cumm (4.50-6.00); RBC Distribution Width 14.9 % (11.8-14.1); White Blood Cell Count 5.95 k/cumm (4.4-10.8)
[2018-08-13 08:51] LABS: ALT 38 U/L (12-78); AST 16 U/L (15-37); Albumin 3.6 g/dL (3.4-5.0); Alkaline Phosphatase 168 U/L (46-116); Anion Gap 10.5 mmol/L (3-11); BUN 22 mg/dL (7-18); Bilirubin, Total 0.8 mg/dL (0.2-1.0); CO2 24.5 mmol/L (21.0-32.0); CREATININE 1.07 mg/dL (0.70-1.30); Calcium 9.1 mg/dL (8.5-10.1); Chloride 98 mmol/L (98-107); Glucose 110 mg/dL (70-100); Potassium 3.9 mmol/L (3.5-5.1); Sodium 133 mmol/L (136-145); TSH (W/Ref FT4) 3.27 uIU/mL (0.358-3.74); Total Protein 7.6 g/dL (6.4-8.2)
[2018-08-16 09:30] LABS: CEA 1.1 ng/ml
== END 2018-08-15 23:59 | disposition home or self-care (01) ==
LOC: INF 08:30
PROVIDERS: PCP Emergency Medicine; Visit Provider Internal Medicine Hematology & Oncology
DX: C18.9 Malignant neoplasm of colon, unspecified (principal); Z45.2 Encounter for adjustment and management of vascular access device
CPT/HCPCS: 36591; 80053; 82378; 84443; 85025

== ENCOUNTER 2018-09-10 02:25 | Outpatient (RCR) | payer OTHER, SELFPAY ==
[2018-08-27] MEDS: Normal Saline Flush 10 ML SYR IVP (08:20)
[2018-08-27 08:48] LABS: Abs Immature Grans 0.01 k/cumm (0.0-0.09); Absolute Basophil Count 0.03 k/cumm (0.0-0.2); Absolute Eosinophil Count 0.11 k/cumm (0.0-0.7); Absolute Lymphocyte Count 1.98 k/cumm (1.2-3.4); Absolute Monocyte Count 0.48 k/cumm (0.11-0.7); Absolute Neutrophil Count 2.46 k/cumm (1.2-6.7); Basophils % 0.6; Eosinophils % 2.2; HGB 13.7 g/dL (13.5-17.5); Immature Grans % 0.2; Lymphocytes % 39.1; Mean Corp. HGB Concentration 35.1 g/dL (32.0-36.0); Mean Corpuscular Hemoglobin 31.1 pg (27.0-33.0); Mean Corpuscular Volume 88.4 fL (80-95); Mean Platelet Volume 9.6 fL (8.0-11.0); Monocytes % 9.5; Neutrophils % 48.4; Platelet Count 190 x1000/uL (130-400); RBC 4.41 m/cumm (4.50-6.00); RBC Distribution Width 16.1 % (11.8-14.1); White Blood Cell Count 5.07 k/cumm (4.4-10.8)
[2018-08-27 08:58] LABS: ALT 43 U/L (12-78); AST 18 U/L (15-37); Albumin 3.7 g/dL (3.4-5.0); Alkaline Phosphatase 151 U/L (46-116); Anion Gap 10.5 mmol/L (3-11); BUN 23 mg/dL (7-18); Bilirubin, Total 0.9 mg/dL (0.2-1.0); CO2 24.5 mmol/L (21.0-32.0); CREATININE 0.98 mg/dL (0.70-1.30); Calcium 9.4 mg/dL (8.5-10.1); Chloride 101 mmol/L (98-107); Glucose 106 mg/dL (70-100); Sodium 136 mmol/L (136-145); Total Protein 7.5 g/dL (6.4-8.2)
[2018-08-30 11:18] LABS: CEA 1.5 ng/ml
[2018-09-10] MEDS: Normal Saline Flush 10 ML SYR IVP (07:40)
[2018-09-10 08:19] LABS: Abs Immature Grans 0.01 k/cumm (0.0-0.09); Absolute Basophil Count 0.05 k/cumm (0.0-0.2); Absolute Eosinophil Count 0.13 k/cumm (0.0-0.7); Absolute Lymphocyte Count 1.85 k/cumm (1.2-3.4); Absolute Monocyte Count 0.49 k/cumm (0.11-0.7); Basophils % 1.1; HCT 36.6 % (40.0-50.0); HGB 12.8 g/dL (13.5-17.5); Immature Grans % 0.2; Lymphocytes % 42.4; Mean Corpuscular Hemoglobin 31.4 pg (27.0-33.0); Mean Corpuscular Volume 89.9 fL (80-95); Mean Platelet Volume 9.8 fL (8.0-11.0); Monocytes % 11.2; Neutrophils % 42.1; Platelet Count 177 x1000/uL (130-400); RBC 4.07 m/cumm (4.50-6.00); RBC Distribution Width 17.5 % (11.8-14.1); White Blood Cell Count 4.36 k/cumm (4.4-10.8)
[2018-09-10 08:21] LABS: Absolute Neutrophil Count 1.84 k/cumm (1.2-6.7)
[2018-09-10 08:32] LABS: ALT 42 U/L (12-78); AST 17 U/L (15-37); Albumin 3.4 g/dL (3.4-5.0); Alkaline Phosphatase 128 U/L (46-116); Anion Gap 14.7 mmol/L (3-11); BUN 18 mg/dL (7-18); Bilirubin, Total 0.7 mg/dL (0.2-1.0); CO2 23.3 mmol/L (21.0-32.0); CREATININE 1.01 mg/dL (0.70-1.30); Calcium 9.3 mg/dL (8.5-10.1); Chloride 101 mmol/L (98-107); Glucose 123 mg/dL (70-100); Potassium 3.6 mmol/L (3.5-5.1); Sodium 139 mmol/L (136-145); Total Protein 7.3 g/dL (6.4-8.2)
[2018-09-13 10:12] LABS: CEA 1.7 ng/ml
== END 2018-09-15 23:59 | disposition home or self-care (01) ==
LOC: INF 02:25
PROVIDERS: PCP Emergency Medicine; Visit Provider Internal Medicine Hematology & Oncology
DX: C18.9 Malignant neoplasm of colon, unspecified (principal); Z45.2 Encounter for adjustment and management of vascular access device
CPT/HCPCS: 36591; 80053; 82378; 85025

== ENCOUNTER 2018-10-13 01:20 | Outpatient (CLI) | payer OTHER, SELFPAY ==
--- NOTE | 2018-10-13 08:07 | DI.CT_ITS ---
SYMPTOM/DIAGNOSIS: DYSPNEA ON EXERTION, R06.09, ? PE, SOB, ANEMIA, ON CHEMOTHERAPY, COLON CA PE CHEST CT: CT angiography was performed with multi slice acquisition and multi planar and 3D reconstruction. There are pulmonary emboli seen to branches of the pulmonary arteries in all five lobes. The main pulmonary artery is free of disease. Heart size is within normal limits. No significant pericardial effusion is seen. No evidence of right heart strain is noted. The thoracic aorta is intact. No evidence of dissection or aneurysm. Incidental note is made of an aberrant right subclavian artery. No significant thoracic adenopathy, pleural effusion or pneumothorax is identified. Mild to moderate emphysematous changes are present in the lungs. Dependent atelectatic changes are seen in the lung bases. The tracheobronchial tree is unremarkable. Degenerative changes are present in the spine. IMPRESSION: Findings of multiple bilateral pulmonary emboli. No evidence of right heart failure. The findings were discussed with Dr. Pinto on 10/13/18 at 0920 am.
[2018-10-13] MEDS: Omnipaque 350 MG/ML 100 ML BTL IV (09:06)
[2018-10-13 10:11] LABS: Abs Immature Grans 0.01 k/cumm (0.0-0.09); Absolute Basophil Count 0.03 k/cumm (0.0-0.2); Absolute Eosinophil Count 0.32 k/cumm (0.0-0.7); Absolute Lymphocyte Count 1.44 k/cumm (1.2-3.4); Absolute Monocyte Count 0.58 k/cumm (0.11-0.7); Absolute Neutrophil Count 6.11 k/cumm (1.2-6.7); Basophils % 0.4; Eosinophils % 3.8; HCT 32.6 % (40.0-50.0); HGB 10.9 g/dL (13.5-17.5); Immature Grans % 0.1; Mean Corp. HGB Concentration 33.4 g/dL (32.0-36.0); Mean Corpuscular Hemoglobin 31.5 pg (27.0-33.0); Mean Corpuscular Volume 94.2 fL (80-95); Mean Platelet Volume 9.2 fL (8.0-11.0); Monocytes % 6.8; Neutrophils % 71.9; Platelet Count 167 x1000/uL (130-400); RBC 3.46 m/cumm (4.50-6.00); RBC Distribution Width 17.1 % (11.8-14.1); White Blood Cell Count 8.49 k/cumm (4.4-10.8)
[2018-10-13 11:12] LABS: ALT 25 U/L (16-63); AST 19 U/L (15-37); Albumin 3.3 g/dL (3.4-5.0); Alkaline Phosphatase 117 U/L (46-116); Anion Gap 11.2 mmol/L (3-11); BUN 13 mg/dL (7-18); CO2 23.8 mmol/L (21.0-32.0); CREATININE 0.92 mg/dL (0.70-1.30); Calcium 8.4 mg/dL (8.5-10.1); Chloride 100 mmol/L (98-107); Glucose 108 mg/dL (70-100); NT-proBNP 148 pg/mL; Potassium 4.2 mmol/L (3.5-5.1); Sodium 135 mmol/L (136-145); TSH (W/Ref FT4) 1.94 uIU/mL (0.36-3.74)
[2018-10-13 11:17] LABS: D-Dimer > 7500 ng/mlFEU (<500)
[2018-10-13 11:31] LABS: ESR 70 mm/hr (1-20)
== END 2018-10-13 01:40 ==
PROVIDERS: PCP Emergency Medicine; Visit Provider Emergency Medicine
DX: R06.09 Other forms of dyspnea (principal); R06.02 Shortness of breath; I50.9 Heart failure, unspecified; R42 Dizziness and giddiness; R53.83 Other fatigue; I26.99 Other pulmonary embolism without acute cor pulmonale; D64.9 Anemia, unspecified; Z92.21 Personal history of antineoplastic chemotherapy; C18.2 Malignant neoplasm of ascending colon
CPT/HCPCS: 36415; 71275; 80053; 85652; 83880; 84443; 85025; 85379; J3490

== ENCOUNTER 2018-10-13 10:48 | Observation (INO) | payer OTHER, SELFPAY ==
[2018-10-13] VITALS (39 sets, daily range): BP systolic 110–138; BP diastolic 70–84; PULSE 76–107; RESP 18–185; TEMP 37–38.2; O2SAT 95–98
[2018-10-13 11:25] LABS: HCO3 (Venous) 22 mmol/L (22-28); O2 Sat (Venous) 78 % (70-80); TCO2 (Venous) 21 mmol/L (22-29); pCO2 (Venous) 32 mm/Hg (34-47); pH (Venous) 7.44 (7.32-7.43); pO2 (Venous) 38 mm/Hg (28-44)
[2018-10-13 11:28] LABS: Abs Immature Grans 0.01 k/cumm (0.0-0.09); Absolute Basophil Count 0.02 k/cumm (0.0-0.2); Absolute Eosinophil Count 0.29 k/cumm (0.0-0.7); Absolute Lymphocyte Count 1.23 k/cumm (1.2-3.4); Absolute Monocyte Count 0.54 k/cumm (0.11-0.7); Absolute Neutrophil Count 5.11 k/cumm (1.2-6.7); Basophils % 0.3; HCT 29.1 % (40.0-50.0); HGB 9.8 g/dL (13.5-17.5); Immature Grans % 0.1; Lymphocytes % 17.1; Mean Corp. HGB Concentration 33.7 g/dL (32.0-36.0); Mean Corpuscular Hemoglobin 31.6 pg (27.0-33.0); Mean Corpuscular Volume 93.9 fL (80-95); Mean Platelet Volume 9.6 fL (8.0-11.0); Monocytes % 7.5; Platelet Count 158 x1000/uL (130-400); RBC Distribution Width 16.9 % (11.8-14.1)
[2018-10-13 11:33] LABS: Lactate 0.9 mmol/L (0.6-1.4)
[2018-10-13] MEDS: Acetaminophen 500 MG TAB 1000 MG PO (11:33)
--- NOTE | 2018-10-13 11:39 | W.ED.GENAD ---
Discharge Plan Disposition Patient Disposition: [facility] INPATIENT Condition: Good Discharge Details Chief Complaint: SOB Clinical Impression: Pulmonary emboli Primary Care Provider: George Pinto ED Provider: Bassam Muhammad Home Meds and New Rx's Prescriptions: No Action omeprazole 20 mg capsule,delayed release(DR/EC) 20 mg PO BID Qty: 180 RF: 3 acetaminophen [Tylenol] 325 MG tablet 650 mg PO BID PRN RF: 0 cetirizine [Zyrtec] 10 MG tablet,chewable 10 mg PO HS Qty: 30 RF: 12 vitamin B complex Capsule 1 cap PO DAILY RF: 0 Medical Decision Making This is a pleasant 58-year-old male who presents for evaluation of pulmonary embolism. He has known adrenal cancer, did have a partial adrenalectomy. He is currently receiving chemotherapy. He presents today for 5 weeks of shortness of breath. His primary care provider ordered an outpatient CTA for evaluation of PE, radiology reports demonstrates notable pulmonary emboli. No signs of right heart strain on CT scan. Dr. Palafox did contact the hospitalist who recommended that the patient come to the ER for evaluation prior to admission for further assessment of potential right heart strain. Clinically here in the ED the patient is slightly febrile, he has no white count, no significant left shift or bandemia. Reviewing of the CT scan per radiology demonstrates atelectasis but no significant pneumonia or consolidation. Patient is mildly tachycardic, minimally tachypneic. Portable bedside limited ultrasound demonstrates no pericardial effusion, no evidence of severe right heart strain. EKG demonstrates nonspecific ST depressions in the lateral leads, no clinical evidence of STEMI. Platelets are stable. Lactate is normal, electrolytes normal, patient will be heparinized. Troponin less than 0.05. proBNP normal, no clinical evidence of severe right heart strain. With no severe evidence of pneumonia will hold on antibiotics at this time especially in conjunction with a normal lactate, no white count, no left shift. We will add ESR and CRP for further differentiation. We are pending urinalysis. I do feel that the patient is appropriate for admission here. 12:49 PM Urinalysis is benign. Platelets, hemoglobin normal. Troponin and proBNP normal. No clear evidence of infectious etiology. Suspect mild fever potentially from PE. Will hold on antibiotics for the time being. Heparinization started. Discussed the case with Dr. Jerry, she agrees with the assessment and plan. Patient will be admitted for formal echo, Lovenox training, and admission. I have extensively reviewed the treatment plan with the patient. I have addressed all patient concerns at this time. I have also discussed the plan with the admitting physician and they agree with the current assessment and plan and have agreed to assume responsibility for the patient. All parties demonstrate verbal understanding and agreement with our assessment and plan at this time. EKG 10: 54 Rate 109, intervals normal, sinus tachycardia, nonspecific less than [address] depression in V4 V5 and V6. No significant ST elevation. No evidence of STEMI. No inverted T waves. No Q waves. HPI General Date/Time Provider Initiated Documentation: 10/13/18 10:50. HPI Narrative: This is a 58-year-old male with a past medical history of adrenal cancer, currently receiving chemotherapy, who presents with 5 weeks of shortness of breath. He was seen and assessed by his primary care provider Dr. coto earlier this week, labs were ordered and the patient was sent for CTA to rule out PE. CTA performed today demonstrates evidence of multiple pulmonary emboli, per radiology no acute component of right heart strain. Patient was called and recommended he come to the ER for assessment prior to admission which is certainly appropriate. In regards to the shortness of breath for the last 5 weeks the patient states that it is progressively been getting worse, only present on exertion, not at rest. He denies any severe chest pain or chest tightness. He denies any history of LA. Regularly he walks 6 miles per day prior to the last 5 weeks. He denies any history of blood clots prior to this event. He denies any headache, arm neck or shoulder pain, numbness tingling or weakness. He has no other complaints at this time. No other modifying factors. Related Data Home Medications Medication Instructions Recorded Confirmed acetaminophen [Tylenol] 650 mg PO BID PRN tab-cap 10/24/13 10/13/18 cetirizine [Zyrtec] 10 mg PO HS #30 tab.chew 08/29/15 10/13/18 omeprazole 20 mg capsule,delayed 20 mg PO BID #180 tab-cap 04/29/18 10/13/18 release vitamin B complex 1 cap PO DAILY 10/13/18 10/13/18 Previous Rx's Medication Instructions Recorded omeprazole 20 mg capsule,delayed 20 mg PO BID #180 tab-cap 04/29/18 release Allergies Allergy/AdvReac Type Severity Reaction Status Date / Time grass pollen Allergy Mild Verified 10/13/18 11:01 General Stated Complaint: SOB RUEL: 2 Review of Systems Review of Systems All systems reviewed & are unremarkable except as noted in HPI and below [facility] Medical History (Updated 10/12/18 @ 15:24 by George Pinto DO) Adrenal cancer (Acute) METS from Colon CA Encounter for central line placement (Acute ~06/23/18) Metastatic colorectal cancer (Acute) Port-A-Cath in place (Acute ~06/23/18) L Subclavian SOB (shortness of breath) on exertion (Acute) Surgical History Colonoscopy - MAC 11/18/13;[facility] Hemicolectomy 12/01/16; RIGHT @ [facility] History of partial adrenalectomy (Acute) pt. states he had right adrenal gland removed r/t to tumor. 04/10/18 History of removal of Port-a-Cath (Acute) L subclavian Social History Smoking/Tobacco Use Status: Current-Occasional Tobacco Type: cigarettes Alcohol Intake: former Drug use: Never Substance use type: does not use Do you feel safe at home: Yes Do you feel safe in your relationship?: Yes Exam Narrative Exam Narrative: 1.Const: Well-nourished, Well-developed, appearing stated age 2.Eyes: PERRL, no conjunctival injection, and symmetrical lids. 3.ENT: Atraumatic external nose and ears. Moist MM. Neck: Symmetric, trachea midline, No thyromegaly. 4.CVS: +S1/S2, No murmurs or gallops. Peripheral pulses 2+ and equal in all extremities. Brisk capillary refill in all extremities. 5.RESP: Unlabored respiratory effort. Clear to auscultation bilaterally. No wheezes rales or rhonchi 6.GI: Soft, Nontender/Nondistended, No hepatosplenomegaly. No guarding or rebound. 7.MSK: Normocephalic/Atraumatic, Extremities w/o deformity or ttp No cyanosis or clubbing, Normal movement of all extremities. Chronic scars in the lower extremity secondary to previous injuries. 8.Skin: Warm, Dry. No rashes or lesions. 9.Neuro: brake operator II-XII grossly intact. Sensation grossly intact, no focal neurologic deficits. 10.Psych: (AAO) x3. Appropriate mood and affect Course Vital Signs Pulse Oximetry 97 10/13/18 10:45 Temperature 37.7 C H 10/13/18 10:51 Temperature Source Skin 10/13/18 10:51 Pulse 102 H 10/13/18 11:15 Pulse 99 H 10/13/18 11:20 Respiratory Rate 28 H 10/13/18 11:20 Respiratory Effort Labored 10/13/18 10:57 Blood Pressure 133/82 10/13/18 11:15 Blood Pressure Mean 94 10/13/18 11:15 Blood Pressure Position Supine 10/13/18 10:51 Pulse Oximetry 97 10/13/18 11:20 Oxygen Delivery Method Room Air 10/13/18 10:51 Oxygen Flow Rate 0 10/13/18 10:51 Pain Level 2 10/13/18 10:51 Comment 10/13/18 10:51 Lab/Test Results Lab/Test Results: 10/13/18 11:15 Blood Blood Culture - Pending 10/13/18 11:10 Blood Blood Culture - Pending Laboratory Tests Range/Units 10/13/18 10/13/18 11:15 11:15 VBG pH (7.32-7.43) 7.44 H VBG pCO2 (34-47) mm/Hg 32 L VBG pO2 (28-44) mm/Hg 38 VBG HCO3 (22-28) mmol/L 22 VBG Total CO2 (22-29) mmol/L 21 L VBG O2 Saturation (70-80) % 78 VBG Base Excess (-3-3) mmol/L -2.0 Lactate (0.6-1.4) mmol/L 0.9
[2018-10-13 11:46] LABS: INR 1.1 (0.9-1.1); PTT Activated 28.3 sec (21.0-31.4); Prothrombin Time 11.4 sec (9.3-11.0)
[2018-10-13 11:49] LABS: ALT 26 U/L (16-63); AST 18 U/L (15-37); Albumin 2.9 g/dL (3.4-5.0); Alkaline Phosphatase 102 U/L (46-116); Anion Gap 12.7 mmol/L (3-11); BUN 13 mg/dL (7-18); CO2 21.3 mmol/L (21.0-32.0); CREATININE 0.91 mg/dL (0.70-1.30); Calcium 8.2 mg/dL (8.5-10.1); Chloride 99 mmol/L (98-107); Glucose 120 mg/dL (70-100); NT-proBNP 153 pg/mL; Potassium 3.7 mmol/L (3.5-5.1); Sodium 133 mmol/L (136-145); Total Protein 6.8 g/dL (6.4-8.2)
[2018-10-13 11:52] LABS: Anisocytosis 2+; Diff Comment RBC Morph Reviewed; Hypochromasia 1+; Polychromasia Present
[2018-10-13 11:53] LABS: Troponin I < 0.05 ng/mL (0.00-0.06)
[2018-10-13] MEDS: Normal Saline 1,000 ML 1000 ML IV (12:00)
[2018-10-13 12:08] LABS: C-Reactive Protein 8.47 mg/dL (0.0-0.3)
[2018-10-13 12:39] LABS: Bilirubin Negative (Negative); Blood Negative (Negative); Clarity Clear (Clear); Glucose Negative (Negative); Ketones Negative (Negative); Leukocyte Esterase Negative (Negative); Nitrite Negative (Negative); Specific Gravity <= 1.005 (1.005-1.025); Urobilinogen 0.2 EU/dL (Up TO 0.2); pH 5.5 (5-8)
[2018-10-13 12:51] LABS: Bacteria Negative HPF (Negative); C & S Indicated? No; Casts Negative LPF (Negative); Crystals Negative HPF (Negative); Epithelial Cells Rare HPF (Negative); Mucus Trace (Negative); Other Cells Negative (Negative); RBC 0-2 (0-2); WBC 0-2 HPF (0-5)
--- NOTE | 2018-10-13 13:37 | W.PM.HP.N ---
Date of service: 10/13/18 Time of Service: 13:38 Assessment and Plan (1) Pulmonary embolism: Current visit: Yes Status: Chronic Will be referred to observation. started on heparin in ED, will transition to lovenox. no evidence of right sided heart strain on CT scan or bedside echo performed in ED by ED provider. will obtain formal echocardiogram and bilateral lower extremity US. (2) Metastatic colorectal cancer: Current visit: No Status: Acute followed by [facility] locally. Last chemo was on 10/01/18 he is to have another chemo tx this Thursday. has mediport in place and accessed. uses magic mouth wash prn, has not needed for several days. has diarrhea associated with chemo which he has not had recently (3) Essential hypertension: Current visit: No Status: Acute blood pressures stable off all his medications recently discontinued for hypotension. was taking hctz 25 mg daily, amlodipine 10 mg daily and losartan 100 mg at bedtime, which was decreased to 50 mg, then stopped altogether. continue to monitor blood pressure closely and add medications back as needed. (4) Gastroesophageal reflux disease without esophagitis: Current visit: No Status: Chronic has been stable, continue omeprazole. (5) DVT prophylaxis: Current visit: Yes Status: Acute will be fully anticoagulated. is ambulatory. bilateral lower extremity ultrasounds (6) Discharge planning issues: Current visit: Yes Status: Acute anticipate discharge to home with no services. lovenox teaching: with RN and feels comfortable with administration. History of Present Illness Chief Complaint: shortness of breath Narrative: patient with history of adrenal cancer undergoing chemo at [facility] on 2 week 3 day cycle, due this thursday who was referred to ED for evaluation of bilateral PE's discovered on outpatient work up for his shortness of breath. he had a CTA of the chest which shows no signs of right heart strain. He has been afebrile with no chest pain. he has no similar history. activity increases his shortness of breath which improves with rest, He is able to ambulate very short distances only. no peripheral edema noted. His heart rate was in low 100's on presentation which improved to 90's with IV fluids. he reports his appetite and po intake has been poor for past few weeks. Review of Systems Constitutional Denies chills, Denies difficulty sleeping, Denies fever(s), Denies frequent falls and Denies headache(s) ENT Denies dysphagia, Denies dizziness, Denies headache(s) and Reports mouth lesions Cardiovascular Denies chest pain, Denies syncope, Denies edema, Denies leg edema, Denies lightheadedness, Denies palpitations, Reports dyspnea, Reports dyspnea on exertion and Denies orthopnea Respiratory Denies chest congestion, Denies cough, Denies pain on inspiration, Reports dyspnea, Reports dyspnea on exertion and Denies wheezing Gastrointestinal Denies abdominal pain, Denies dysphagia and Reports diarrhea (associated with chemo, not currently experiencing) Genitourinary Denies difficulty urinating Musculoskeletal Denies back pain and Denies myalgias Integumentary/Breasts Denies lesions Neurologic Denies dizziness, Denies syncope, Denies frequent falls and Denies headache(s) Endocrine Denies palpitations Hematologic/Lymphatic Denies easy bleeding and Denies easy bruising Allergic/Immunologic Denies wheezing [facility] Medical History Adrenal cancer (Acute) METS from Colon CA Encounter for central line placement (Acute ~06/23/18) Metastatic colorectal cancer (Acute) Port-A-Cath in place (Acute ~06/23/18) L Subclavian SOB (shortness of breath) on exertion (Acute) Surgical History Colonoscopy - [facility] 11/18/13;[facility] Hemicolectomy 12/01/16; RIGHT @ [facility] History of partial adrenalectomy (Acute) pt. states he had right adrenal gland removed r/t to tumor. 04/10/18 History of removal of Port-a-Cath (Acute) L subclavian Social History Smoking/Tobacco Use Status: Current-Occasional Tobacco Type: cigarettes Alcohol Intake: former Drug use: Never Substance use type: does not use Do you feel safe at home: Yes Do you feel safe in your relationship?: Yes Meds Home Medications Medication Instructions Recorded Confirmed Type acetaminophen [Tylenol] 650 mg PO BID PRN tab-cap 10/24/13 10/13/18 History cetirizine [Zyrtec] 10 mg PO HS #30 tab.chew 08/29/15 10/13/18 History omeprazole 20 mg capsule,delayed 20 mg PO BID #180 tab-cap 04/29/18 10/13/18 Rx release vitamin B complex 1 cap PO DAILY 10/13/18 10/13/18 History enoxaparin [Lovenox] 100 mg SC Q12H #60 ml 10/14/18 Rx Allergies Allergy/AdvReac Type Severity Reaction Status Date / Time grass pollen Allergy Mild Verified 10/13/18 11:01 Exam Const General: cooperative, healthy appearing, comfortable, no acute distress and well groomed Nutritional Appearance: average body habitus Orientation: alert, awake and oriented x3 HENMT Head: normal to inspection, normocephalic and atraumatic Mouth: moist mucous membranes abnormal (white coat on tongue, ) Throat: posterior oropharynx normal Resp Effort & Inspection: normal respiratory effort Auscultation: crackles bilaterally at the base, diminished lung sounds, no rhonchi, no wheezes and no rubs Tactile Fremitus: tactile fremitus absent Cardio Palpation: normal PMI Rate: regular rate Rhythm: regular rhythm Heart Sounds: no murmurs GI Inspection: normal to inspection Palpation: soft Neuro General: alert, awake and oriented x3 Extrem General: normal to inspection, full ROM and pedal edema present Results Labs : 10/14/18 06:40 10/14/18 06:40 Laboratory Results - last 24 hr 10/13/18 10/13/18 10/13/18 11:15 11:15 11:15 WBC 7.20 RBC 3.10 L Hgb 9.8 L Hct 29.1 L MCV 93.9 MCH 31.6 MCHC 33.7 RDW 16.9 H Plt Count 158 MPV 9.6 Immature Gran % 0.1 Neutrophils % 71.0 Lymphocytes % 17.1 Monocytes % 7.5 Eosinophils % 4.0 Basophils % 0.3 Absolute Neutrophils 5.11 Absolute Lymphocytes 1.23 Absolute Monocytes 0.54 Absolute Eosinophils 0.29 Absolute Basophils 0.02 Differential Comment Rbc morph reviewed RBC Morphology See below Polychromasia Present Hypochromasia 1+ Anisocytosis 2+ PT 11.4 H INR 1.1 APTT 28.3 VBG pH VBG pCO2 VBG pO2 VBG HCO3 VBG Total CO2 VBG O2 Saturation VBG Base Excess Sodium 133 L Potassium 3.7 Chloride 99 Carbon Dioxide 21.3 Anion Gap 12.7 H BUN 13 Creatinine 0.91 Estimated GFR/1.73 m2 >= 60.00 Glucose 120 H Lactate Calcium 8.2 L Total Bilirubin 1.0 AST 18 ALT 26 Alkaline Phosphatase 102 Troponin I < 0.05 C-Reactive Protein NT-Pro-B Natriuret Pep 153 Total Protein 6.8 Albumin 2.9 L Urine Color Urine Clarity Urine pH Ur Specific [place] Urine Protein Urine Ketones Urine Blood Urine Nitrite Urine Bilirubin Urine Urobilinogen Ur Leukocyte Esterase Urine RBC Urine WBC Ur Epithelial Cells Urine Crystals Urine Bacteria Urine Casts Urine Mucus Urine Other Ur Culture Indicated? Urine Glucose 10/13/18 10/13/18 10/13/18 11:15 11:15 11:15 WBC RBC Hgb Hct MCV MCH MCHC RDW Plt Count MPV Immature Gran % Neutrophils % Lymphocytes % Monocytes % Eosinophils % Basophils % Absolute Neutrophils Absolute Lymphocytes Absolute Monocytes Absolute Eosinophils Absolute Basophils Differential Comment RBC Morphology Polychromasia Hypochromasia Anisocytosis PT INR APTT VBG pH 7.44 H VBG pCO2 32 L VBG pO2 38 VBG HCO3 22 VBG Total CO2 21 L VBG O2 Saturation 78 VBG Base Excess -2.0 Sodium Potassium Chloride Carbon Dioxide Anion Gap BUN Creatinine Estimated GFR/1.73 m2 Glucose Lactate 0.9 Calcium Total Bilirubin AST ALT Alkaline Phosphatase Troponin I C-Reactive Protein 8.47 H NT-Pro-B Natriuret Pep Total Protein Albumin Urine Color Urine Clarity Urine pH Ur Specific [place] Urine Protein Urine Ketones Urine Blood Urine Nitrite Urine Bilirubin Urine Urobilinogen Ur Leukocyte Esterase Urine RBC Urine WBC Ur Epithelial Cells Urine Crystals Urine Bacteria Urine Casts Urine Mucus Urine Other Ur Culture Indicated? Urine Glucose 10/13/18 11:45 WBC RBC Hgb Hct MCV MCH MCHC RDW Plt Count MPV Immature Gran % Neutrophils % Lymphocytes % Monocytes % Eosinophils % Basophils % Absolute Neutrophils Absolute Lymphocytes Absolute Monocytes Absolute Eosinophils Absolute Basophils Differential Comment RBC Morphology Polychromasia Hypochromasia Anisocytosis PT INR APTT VBG pH VBG pCO2 VBG pO2 VBG HCO3 VBG Total CO2 VBG O2 Saturation VBG Base Excess Sodium Potassium Chloride Carbon Dioxide Anion Gap BUN Creatinine Estimated GFR/1.73 m2 Glucose Lactate Calcium Total Bilirubin AST ALT Alkaline Phosphatase Troponin I C-Reactive Protein NT-Pro-B Natriuret Pep Total Protein Albumin Urine Color Yellow Urine Clarity Clear Urine pH 5.5 Ur Specific [place] <= 1.005 Urine Protein Trace H Urine Ketones Negative Urine Blood Negative Urine Nitrite Negative Urine Bilirubin Negative Urine Urobilinogen 0.2 Ur Leukocyte Esterase Negative Urine RBC 0-2 Urine WBC 0-2 Ur Epithelial Cells Rare Urine Crystals Negative Urine Bacteria Negative Urine Casts Negative Urine Mucus Trace Urine Other Negative Ur Culture Indicated? No Urine Glucose Negative Last Vital Signs Temp 37.7 C H 10/13/18 10:51 Pulse 86 10/13/18 13:15 Resp 21 10/13/18 13:15 BP 115/71 10/13/18 13:15 Pulse Ox 96 10/13/18 13:15
--- NOTE | 2018-10-13 15:31 | DI.US_ITS ---
SYMPTOM/DIAGNOSIS: BILATERAL PULMONARY EMBOLISM BILATERAL LOWER EXTREMITY ULTRASOUND: The deep veins of the left lower extremity show normal compression, augmentation and color flow. There is no evidence of a deep venous thrombus in the left lower extremity. The saphenofemoral junction on the left is unremarkable. On the right there is occlusive thrombus seen in the distal femoral vein extending through the popliteal vein and in to the posterior tibialis vein. The common femoral vein and proximal femoral veins are patent with normal flow and compression. The right saphenofemoral junction is unremarkable. IMPRESSION: 1. Thrombus seen in the right femoral vein, right popliteal vein and right posterior tibialis veins. 2. No evidence of a left lower extremity deep venous thrombus.
--- NOTE | 2018-10-13 16:24 | DI.VRAD_ITS ---
EXAM: US Duplex Bilateral Lower Extremity Veins EXAM DATE/TIME: 10/13/2018 4:14 PM CLINICAL HISTORY: 58 years old, male; Condition or disease; Other: Bilateral pulmonary embolism; Prior surgery; Surgery date: 6+ months; Surgery type: Multiple post-traumatic surgeries left leg when patient was 30 yo TECHNIQUE: Imaging protocol: Real-time duplex ultrasound of the Bilateral Lower Extremities with 2-D teresa scale, color Doppler flow and spectral waveform analysis with image documentation. Complete exam focused on the bilateral lower extremity veins. COMPARISON: No relevant prior studies available. FINDINGS: Right deep veins: Common femoral and proximal femoral veins patent with normal Doppler flow and compressibility. Occlusive thrombus right distal femoral, right popliteal and posterior tibial veins veins. Nonocclusive thrombus mid right femoral vein. Right superficial veins: Saphenofemoral junction is patent without thrombus. Left deep veins: Unremarkable. The common femoral, femoral, proximal profunda femoral and popliteal veins are patent without thrombus. Normal Doppler waveforms. Normal compressibility and/or augmentation response. Left superficial veins: Saphenofemoral junction is patent without thrombus. Soft tissues: Unremarkable. IMPRESSION: Occlusive thrombus right distal femoral, right popliteal and posterior tibial veins veins. Nonocclusive thrombus mid right femoral vein. Dictated and Authenticated by: Rudolph Caraballo MD. Ordering:ANUSHA Mcmullen MD
[2018-10-13 18:18] LABS: PTT Activated 75.4 sec (21.0-31.4)
[2018-10-13] MEDS: Omeprazole 20 MG CAPCR PO (20:03)
[2018-10-13] MEDS: Acetaminophen 325 MG TAB 650 MG PO (20:09)
[2018-10-13] MEDS: Cetirizine 10 MG TAB PO (21:34)
[2018-10-14 02:43] LABS: PTT Activated 48.4 sec (21.0-31.4)
[2018-10-14 04:10] VITALS: BP 110/71; PULSE 65; RESP 18; TEMP 37.7; O2SAT 97
[2018-10-14 07:00] VITALS: PULSE 74
[2018-10-14 07:22] LABS: Abs Immature Grans 0.01 k/cumm (0.0-0.09); Absolute Basophil Count 0.02 k/cumm (0.0-0.2); Absolute Eosinophil Count 0.38 k/cumm (0.0-0.7); Absolute Lymphocyte Count 1.91 k/cumm (1.2-3.4); Absolute Monocyte Count 0.49 k/cumm (0.11-0.7); Basophils % 0.3; Eosinophils % 6.3; HCT 28.3 % (40.0-50.0); HGB 9.3 g/dL (13.5-17.5); Immature Grans % 0.2; Lymphocytes % 31.8; Mean Corp. HGB Concentration 32.9 g/dL (32.0-36.0); Mean Corpuscular Hemoglobin 31.4 pg (27.0-33.0); Mean Corpuscular Volume 95.6 fL (80-95); Mean Platelet Volume 9.9 fL (8.0-11.0); Monocytes % 8.2; Neutrophils % 53.2; Platelet Count 166 x1000/uL (130-400); RBC 2.96 m/cumm (4.50-6.00); RBC Distribution Width 17.2 % (11.8-14.1); White Blood Cell Count 6.01 k/cumm (4.4-10.8)
[2018-10-14 07:27] VITALS: BP 111/69; PULSE 83; RESP 19; TEMP 37; O2SAT 96
[2018-10-14 07:38] LABS: Anion Gap 11.8 mmol/L (3-11); BUN 12 mg/dL (7-18); CO2 22.2 mmol/L (21.0-32.0); CREATININE 0.84 mg/dL (0.70-1.30); Calcium 8.3 mg/dL (8.5-10.1); Chloride 104 mmol/L (98-107); Glucose 104 mg/dL (70-100); Potassium 3.8 mmol/L (3.5-5.1); Sodium 138 mmol/L (136-145)
--- NOTE | 2018-10-14 08:27 | PHARADMIT ---
Admission Pharmacy Clinical Review multiple PEs (Hx of metastatic colon cancer to adrenals) Code Status Full Code Current Weight Wgt-107.5 kg Renally Cleared and Narrow Therapeutic Index Meds CrCl~ 114 mL/min Meds-OK QTc Value / Action TakenQTc-431 na BP Control, Fever BP-110/71 Tmax-37.7C Electrolytes reviewed Na-138 K+3.8 DVT Prophylaxis Heparin Opiate Usage / Scheduled Bowel Regimen Ordered No No Plt/SCr for Heparin / Enoxaparin Plts-166 SCr- 0.84 INR for Warfarin inr-1.1 H/H stable, WBC/Bands H&H- 9.3/28.3 WBC- 6.01 Antibiotic appropriateness none Cultures and Sensitivities Blood-Pending Surgical ABX d/c within 24 hr na DM control / Insulin Dosing BG-104 Heart Failure (Check EF%) (DOUG's, B-Block, Diuretics) none IV to PO Switch NA Home Meds Reviewed Yes Home Meds Not Ordered Ordered Comments C-REACT PROT-8.47
[2018-10-14] MEDS: Vitamins B Comp w/C TAB 1 TAB PO (08:35)
[2018-10-14] MEDS: Omeprazole 20 MG CAPCR PO (08:35)
--- NOTE | 2018-10-14 09:00 | MERGE_ITS ---
*[facility]* *[facility]* [address] [place] [address] Date of study: 10/14/2018 Transthoracic Echocardiography M-mode, complete 2D, complete spectral Doppler, and color Doppler *STUDY CONCLUSIONS* Summary: 1. Left ventricle: The cavity size was normal. Systolic function was normal. The estimated ejection fraction was 60-65%. Diastolic parameters were normal. There was no evidence of elevated ventricular filling pressure by Doppler parameters. 2. Right ventricle: The cavity size was mildly dilated. Systolic function was normal. 3. Atrial septum: No defect or patent foramen ovale was identified. 4. Pulmonary arteries: Pulmonary systolic pressure was in the range of 20mm Hg to 30mm Hg. 5. Inferior vena cava: The vessel was patent and normal in size. The respirophasic diameter changes were in the normal range (greater than or equal to 50%), consistent with normal central venous pressure. *PATIENT PRESENTATION* Height: 190.5cm (75in ) S/D Pressure: 111 / 69 Weight: 108kg (237.5lb ) BSA: 2.41m^2 Test start time: 09:10 AM. Test stop time: 10:10 AM. PERFORMING Unknown PERFORMING [facility] [employer] SERVICE ADVISER RT Bartolome (Etienne)(CT), [facility] CONSULTING Inessa Jerry ORDERING Inessa Jerry REFERRING Inessa Jerry *PROCEDURE DATA* Procedure information: The patient was identified by two identifiers. This study was interpreted by [facility]. Pertinent images and digital data are archived for permanent storage and are available for subsequent review. No prior study was available for comparison. Study status: Routine. Transthoracic echocardiography. M-mode, complete 2D, complete spectral Doppler, and color Doppler. A Transthoracic Echocardiogram was performed. Scanning was performed from the parasternal, apical, subcostal, and suprasternal notch acoustic windows. Images were obtained using an [id number] cardiac ultrasound machine. Image quality was adequate. Study completion: The patient tolerated the procedure well. History: PMH: Bilateral pulmonary embolism. *CARDIAC ANATOMY* Left ventricle: The cavity size was normal. Systolic function was normal. The estimated ejection fraction was 60-65%. The tissue Doppler parameters were normal. Diastolic parameters were normal. There was no evidence of elevated ventricular filling pressure by Doppler parameters. Aortic valve: Trileaflet. Doppler: There was no stenosis. There was no regurgitation. VTI ratio of LVOT to aortic valve: 0.79. Valve area (VTI): 3.3cm^2. Indexed valve area (VTI): 1.4cm^2/m^2. Peak velocity ratio of LVOT to aortic valve: 0.8. Valve area (Vmax): 3.4cm^2. Indexed valve area (Vmax): 1.4cm^2/m^2. Mean velocity ratio of LVOT to aortic valve: 0.75. Valve area (Vmean): 3.2cm^2. Indexed valve area (Vmean): 1.3cm^2/m^2. Mean gradient (S): 5.2mm Hg. Peak gradient (S): 7.6mm Hg. Aorta: Aortic root: The aortic root was normal in size. Ascending aorta: The ascending aorta was mildly dilated. Mitral valve: Doppler: There was no evidence for stenosis. There was trivial regurgitation. Valve area by pressure half-time: 2.7cm^2. Indexed valve area by pressure half-time: 1.1cm^2/m^2. Left atrium: The atrium was normal in size. Atrial septum: No defect or patent foramen ovale was identified. Right ventricle: The cavity size was mildly dilated. Systolic function was normal. Pulmonic valve: Doppler: There was no evidence for stenosis. There was trivial regurgitation. Peak gradient (S): 2.8mm Hg. Tricuspid valve: Doppler: There was mild regurgitation. Pulmonary artery: Poorly visualized. Pulmonary systolic pressure was in the range of 20mm Hg to 30mm Hg. Right atrium: The atrium was normal in size. Pericardium: There was no pericardial effusion. Systemic veins: Inferior vena cava: Well visualized. The vessel was patent and normal in size. The respirophasic diameter changes were in the normal range (greater than or equal to 50%), consistent with normal central venous pressure. Baseline ECG: Normal sinus rhythm. Measurements Left ventricle Value Reference LV ID, ED, PLAX 5.4 cm 3.5 - 6.0 LV ID, ES, PLAX 3.5 cm 2.1 - 4.0 LV PW thickness, ED, PLAX 1.1 cm LV end-diastolic volume, 1-p A2C 89 ml LV ejection fraction, 1-p A2C 52 % LV end-diastolic volume, 1-p A4C 102 ml LV ejection fraction, 1-p A4C 60 % LV e', lateral 0.111 m/sec LV E/e', lateral 4 LV e', medial 0.102 m/sec LV E/e', medial 4 LV e', average 0.107 m/sec LV E/e', average 4 Ventricular septum Value Reference IVS thickness, ED, PLAX 1.1 cm LVOT Value Reference LVOT ID, A-P 2.3 cm LVOT area 4.3 cm^2 LVOT peak velocity, S 1.1 m/sec LVOT mean velocity, S 0.84 m/sec LVOT VTI, S 19.7 cm LVOT peak gradient, S 4.8 mm Hg LVOT mean gradient, S 3 mm Hg Stroke volume (SV), LVOT DP 84 ml Stroke index (SV/bsa), LVOT DP 35 ml/m^2 Aortic valve Value Reference Aortic valve peak velocity, S 1.4 m/sec Aortic valve mean velocity, S 1.1 m/sec Aortic valve VTI, S 25.0 cm Aortic mean gradient, S 5.2 mm Hg Aortic peak gradient, S 7.6 mm Hg VTI ratio, LVOT/AV 0.79 Aortic valve area, VTI 3.3 cm^2 Velocity ratio, peak, LVOT/AV 0.8 Aortic valve area, peak velocity 3.4 cm^2 Velocity ratio, mean, LVOT/AV 0.75 Aortic valve area, mean velocity 3.2 cm^2 Aortic valve area/bsa, mean velocity 1.3 cm^2/m^2 Aorta Value Reference Aortic root ID, ED 3.7 cm Ascending aorta ID, A-P, S 3.6 cm Left atrium Value Reference LA ID, A-P, ES 3.2 cm LA ID/bsa, A-P 1.3 cm/m^2 <=2.2 LA volume/bsa, ES, 1-p A4C 24 ml/m^2 LA volume, ES, 2-p 49 ml LA volume/bsa, ES, 2-p 21 ml/m^2 LA/aortic root ratio 0.84 Mitral valve Value Reference Mitral E-wave peak velocity 0.45 m/sec Mitral A-wave peak velocity 0.61 m/sec Mitral deceleration time (H) 276 ms 150 - 230 Mitral pressure half-time 80 ms Mitral E/A ratio, peak 0.74 Mitral valve area, PHT, DP 2.7 cm^2 Tricuspid valve Value Reference Tricuspid regurg peak velocity 2.5 m/sec Tricuspid peak RV-RA gradient 24.6 mm Hg Right atrium Value Reference RA area, ES, A4C 15.4 cm^2 8.3 - 19.5 Pulmonic valve Value Reference Pulmonic peak gradient, S 2.8 mm Hg Legend: (L) and (H) breonna values outside specified reference range. I have personally reviewed the images and have reviewed and edited the reported findings. Electronically signed by Mushtaq Menchaca MD 10/14/2018 12:16
[2018-10-14 09:04] LABS: PTT Activated 53.2 sec (21.0-31.4)
--- NOTE | 2018-10-14 09:12 | W.PM.DS.N ---
Date of service: 10/14/18 Time of Service: 09:12 DS: Diagnosis Discharge Diagnosis (1) Pulmonary embolism: Status: Chronic (2) Metastatic colorectal cancer: Status: Acute (3) Essential hypertension: Status: Acute (4) Gastroesophageal reflux disease without esophagitis: Status: Chronic (5) DVT prophylaxis: Status: Acute (6) Discharge planning issues: Status: Acute Discharge Plan Disposition Patient Disposition: HOME Condition: Good Discharge Details Chief Complaint: SOB Clinical Impression: Pulmonary emboli Reason For Visit: PE Admit Date/Time: 10/13/18 12:48 Admit Provider: Inessa Jerry Attending Provider: Inessa Jerry Primary Care Provider: George Pinto ED Provider: Bassam Muhammad Hospital Course Hospital Course: 58 year old male with history of adrenal cancer undergoing chemo at [facility] on 2 week 3 day cycle, due this thursday who was referred to ED for evaluation of bilateral PE's discovered on outpatient work up for his shortness of breath. he had a CTA of the chest which shows no signs of right heart strain. He has been afebrile with no chest pain. he was started on heparin drip and was transitioned to lovenox. his lower extremity ultrasound shows extensive right lower extremity DVT. he also had an echocardiogram prior to discharge. results: 1. Left ventricle: The cavity size was normal. Systolic function was normal. The estimated ejection fraction was 60-65%. Diastolic parameters were normal. There was no evidence of elevated ventricular filling pressure by Doppler parameters. 2. Right ventricle: The cavity size was mildly dilated. Systolic function was normal. 3. Atrial septum: No defect or patent foramen ovale was identified. 4. Pulmonary arteries: Pulmonary systolic pressure was in the range of 20mm Hg to 30mm Hg. 5. Inferior vena cava: The vessel was patent and normal in size. The respirophasic diameter changes were in the normal range (greater than or equal to 50%), consistent with normal central venous pressure. he has remained medically and hemodynamically stable, oxygenating well on room air. he will be discharged to home with no services, instructed on lovonex injection. Home Meds and New Rx's Prescriptions: New enoxaparin [Lovenox] 100 mg/mL syringe 100 mg SC Q12H Qty: 60 RF: 0 Continued omeprazole 20 mg capsule,delayed release(DR/EC) 20 mg PO BID Qty: 180 RF: 3 acetaminophen [Tylenol] 325 MG tablet 650 mg PO BID PRN RF: 0 cetirizine [Zyrtec] 10 MG tablet,chewable 10 mg PO HS Qty: 30 RF: 12 vitamin B complex Capsule 1 cap PO DAILY RF: 0 Discharge Instructions Instructions: Pulmonary Embolism (DC), Deep Venous Thrombosis (DC) Additional Instructions: continue lovenox as directed. Stand Alone Forms: Nursing Discharge Form Referrals: George Pinto DO [Primary Care Provider] - 10/19/18 3:00 pm Activity:: Activity as Tolerated Equipment/Supplies:: No Equipment Needed Diet:: As Tolerated Discharge Orders Discharge Orders: Discharge Order (Routine); Ordered 10/14/18 Ordered By: Kemi Lopez Discharge Data Discharge Date/Time-TO BE ENTERED AT DEPARTURE: 10/14/18 13:40 Exam Const General: cooperative, comfortable and no acute distress HENMT Head: normal to inspection, normocephalic and atraumatic Mouth: oral mucosae normal Neck Neck: normal visual inspection Resp Effort & Inspection: normal respiratory effort Auscultation: crackles bilaterally at the base Cardio Rate: regular rate Rhythm: regular rhythm GI Inspection: normal to inspection Skin General skin exam: no rashes or lesions noted Neuro General: alert, awake and oriented x3 Extrem General: normal to inspection, full ROM and edema Laterality: right (reports it is chronically larger than the left but has been noting cramps and pain for past month) DS: Data Vitals/I&O Vitals and I&O: Vital Signs Temperature 37.0 C 10/14/18 07:27 Temperature Source Tympanic 10/14/18 07:27 Pulse 83 10/14/18 07:27 Pulse Rhythm Regular 10/13/18 20:39 Pulse 87 10/13/18 13:15 Respiratory Rate 19 10/14/18 07:27 Respiratory Effort Non-Labored 10/14/18 04:59 Respiratory Depth Normal 10/14/18 04:59 Respiratory Pattern Normal 10/14/18 04:59 Blood Pressure 111/69 10/14/18 07:27 Blood Pressure Mean 81 10/13/18 13:15 Blood Pressure Position Supine 10/13/18 10:51 Pulse Oximetry 96 10/14/18 07:27 Oxygen Delivery Method Room Air 10/14/18 07:27 Oxygen Flow Rate 0 10/14/18 07:27 Pain Level 0 10/14/18 07:27 Comment 10/14/18 04:10 Intake & Output 10/13/18 10/13/18 10/14/18 11:59 23:59 11:59 Intake Total 1167.65 / 1167.65 240 / 240 Balance 1167.65 / 1167.65 240 / 240 Weight 108.3 kg 108.3 kg 107.5 kg Intake: IV 1167.65 / 1167.65 Oral 240 / 240 Other: Urine Color Yellow Yellow Urine Appearance Clear Clear Urine Odor Normal Normal Voiding Methods Toilet Toilet Labs on day of discharge: Labs from last 24 hours 10/14/18 10/14/18 10/14/18 07:55 06:40 06:40 WBC 6.01 RBC 2.96 L Hgb 9.3 L Hct 28.3 L MCV 95.6 H MCH 31.4 MCHC 32.9 RDW 17.2 H Plt Count 166 MPV 9.9 Immature Gran % 0.2 Neutrophils % 53.2 Lymphocytes % 31.8 Monocytes % 8.2 Eosinophils % 6.3 Basophils % 0.3 Absolute Neutrophils 3.20 Absolute Lymphocytes 1.91 Absolute Monocytes 0.49 Absolute Eosinophils 0.38 Absolute Basophils 0.02 Differential Comment RBC Morphology Polychromasia Hypochromasia Anisocytosis ESR PT INR APTT 53.2 H VBG pH VBG pCO2 VBG pO2 VBG HCO3 VBG Total CO2 VBG O2 Saturation VBG Base Excess Sodium 138 Potassium 3.8 Chloride 104 Carbon Dioxide 22.2 Anion Gap 11.8 H BUN 12 Creatinine 0.84 Estimated GFR/1.73 m2 >= 60.00 Glucose 104 H Lactate Calcium 8.3 L Total Bilirubin AST ALT Alkaline Phosphatase Troponin I C-Reactive Protein NT-Pro-B Natriuret Pep Total Protein Albumin Urine Color Urine Clarity Urine pH Ur Specific [place] Urine Protein Urine Ketones Urine Blood Urine Nitrite Urine Bilirubin Urine Urobilinogen Ur Leukocyte Esterase Urine RBC Urine WBC Ur Epithelial Cells Urine Crystals Urine Bacteria Urine Casts Urine Mucus Urine Other Ur Culture Indicated? Urine Glucose 10/14/18 10/13/18 10/13/18 02:06 17:45 11:45 WBC RBC Hgb Hct MCV MCH MCHC RDW Plt Count MPV Immature Gran % Neutrophils % Lymphocytes % Monocytes % Eosinophils % Basophils % Absolute Neutrophils Absolute Lymphocytes Absolute Monocytes Absolute Eosinophils Absolute Basophils Differential Comment RBC Morphology Polychromasia Hypochromasia Anisocytosis ESR PT INR APTT 48.4 H D 75.4 H D VBG pH VBG pCO2 VBG pO2 VBG HCO3 VBG Total CO2 VBG O2 Saturation VBG Base Excess Sodium Potassium Chloride Carbon Dioxide Anion Gap BUN Creatinine Estimated GFR/1.73 m2 Glucose Lactate Calcium Total Bilirubin AST ALT Alkaline Phosphatase Troponin I C-Reactive Protein NT-Pro-B Natriuret Pep Total Protein Albumin Urine Color Yellow Urine Clarity Clear Urine pH 5.5 Ur Specific [place] <= 1.005 Urine Protein Trace H Urine Ketones Negative Urine Blood Negative Urine Nitrite Negative Urine Bilirubin Negative Urine Urobilinogen 0.2 Ur Leukocyte Esterase Negative Urine RBC 0-2 Urine WBC 0-2 Ur Epithelial Cells Rare Urine Crystals Negative Urine Bacteria Negative Urine Casts Negative Urine Mucus Trace Urine Other Negative Ur Culture Indicated? No Urine Glucose Negative 10/13/18 10/13/18 10/13/18 11:15 11:15 11:15 WBC RBC Hgb Hct MCV MCH MCHC RDW Plt Count MPV Immature Gran % Neutrophils % Lymphocytes % Monocytes % Eosinophils % Basophils % Absolute Neutrophils Absolute Lymphocytes Absolute Monocytes Absolute Eosinophils Absolute Basophils Differential Comment RBC Morphology Polychromasia Hypochromasia Anisocytosis ESR Cancelled PT INR APTT VBG pH VBG pCO2 VBG pO2 VBG HCO3 VBG Total CO2 VBG O2 Saturation VBG Base Excess Sodium Potassium Chloride Carbon Dioxide Anion Gap BUN Creatinine Estimated GFR/1.73 m2 Glucose Lactate 0.9 Calcium Total Bilirubin AST ALT Alkaline Phosphatase Troponin I C-Reactive Protein 8.47 H NT-Pro-B Natriuret Pep Total Protein Albumin Urine Color Urine Clarity Urine pH Ur Specific [place] Urine Protein Urine Ketones Urine Blood Urine Nitrite Urine Bilirubin Urine Urobilinogen Ur Leukocyte Esterase Urine RBC Urine WBC Ur Epithelial Cells Urine Crystals Urine Bacteria Urine Casts Urine Mucus Urine Other Ur Culture Indicated? Urine Glucose 10/13/18 10/13/18 10/13/18 11:15 11:15 11:15 WBC 7.20 RBC 3.10 L Hgb 9.8 L Hct 29.1 L MCV 93.9 MCH 31.6 MCHC 33.7 RDW 16.9 H Plt Count 158 MPV 9.6 Immature Gran % 0.1 Neutrophils % 71.0 Lymphocytes % 17.1 Monocytes % 7.5 Eosinophils % 4.0 Basophils % 0.3 Absolute Neutrophils 5.11 Absolute Lymphocytes 1.23 Absolute Monocytes 0.54 Absolute Eosinophils 0.29 Absolute Basophils 0.02 Differential Comment Rbc morph reviewed RBC Morphology See below Polychromasia Present Hypochromasia 1+ Anisocytosis 2+ ESR PT 11.4 H INR 1.1 APTT 28.3 VBG pH 7.44 H VBG pCO2 32 L VBG pO2 38 VBG HCO3 22 VBG Total CO2 21 L VBG O2 Saturation 78 VBG Base Excess -2.0 Sodium Potassium Chloride Carbon Dioxide Anion Gap BUN Creatinine Estimated GFR/1.73 m2 Glucose Lactate Calcium Total Bilirubin AST ALT Alkaline Phosphatase Troponin I C-Reactive Protein NT-Pro-B Natriuret Pep Total Protein Albumin Urine Color Urine Clarity Urine pH Ur Specific [place] Urine Protein Urine Ketones Urine Blood Urine Nitrite Urine Bilirubin Urine Urobilinogen Ur Leukocyte Esterase Urine RBC Urine WBC Ur Epithelial Cells Urine Crystals Urine Bacteria Urine Casts Urine Mucus Urine Other Ur Culture Indicated? Urine Glucose 10/13/18 11:15 WBC RBC Hgb Hct MCV MCH MCHC RDW Plt Count MPV Immature Gran % Neutrophils % Lymphocytes % Monocytes % Eosinophils % Basophils % Absolute Neutrophils Absolute Lymphocytes Absolute Monocytes Absolute Eosinophils Absolute Basophils Differential Comment RBC Morphology Polychromasia Hypochromasia Anisocytosis ESR PT INR APTT VBG pH VBG pCO2 VBG pO2 VBG HCO3 VBG Total CO2 VBG O2 Saturation VBG Base Excess Sodium 133 L Potassium 3.7 Chloride 99 Carbon Dioxide 21.3 Anion Gap 12.7 H BUN 13 Creatinine 0.91 Estimated GFR/1.73 m2 >= 60.00 Glucose 120 H Lactate Calcium 8.2 L Total Bilirubin 1.0 AST 18 ALT 26 Alkaline Phosphatase 102 Troponin I < 0.05 C-Reactive Protein NT-Pro-B Natriuret Pep 153 Total Protein 6.8 Albumin 2.9 L Urine Color Urine Clarity Urine pH Ur Specific [place] Urine Protein Urine Ketones Urine Blood Urine Nitrite Urine Bilirubin Urine Urobilinogen Ur Leukocyte Esterase Urine RBC Urine WBC Ur Epithelial Cells Urine Crystals Urine Bacteria Urine Casts Urine Mucus Urine Other Ur Culture Indicated? Urine Glucose 10/13/18 11:40 Blood Blood Culture - Pending 10/13/18 11:15 Blood Blood Culture - Pending Preliminary micro results at discharge 10/13/18 11:40 Blood Culture - Pending Blood 10/13/18 11:15 Blood Culture - Pending Blood [facility] Medical History Adrenal cancer (Acute) METS from Colon CA Encounter for central line placement (Acute ~06/23/18) Metastatic colorectal cancer (Acute) Port-A-Cath in place (Acute ~06/23/18) L Subclavian SOB (shortness of breath) on exertion (Acute) Surgical History Colonoscopy - [facility] 11/18/13;[facility] Hemicolectomy 12/01/16; RIGHT @ [facility] History of partial adrenalectomy (Acute) pt. states he had right adrenal gland removed r/t to tumor. 04/10/18 History of removal of Port-a-Cath (Acute) L subclavian Social History Smoking/Tobacco Use Status: Current-Occasional Tobacco Type: cigarettes Alcohol Intake: former Drug use: Never Substance use type: does not use Do you feel safe at home: Yes Do you feel safe in your relationship?: Yes
[2018-10-14 11:16] VITALS: BP 123/73; PULSE 78; RESP 18; TEMP 37.3; O2SAT 99
[2018-10-14] MEDS: Enoxaparin 100 MG/ML SYR SC (11:35)
[2018-10-14 12:51] VITALS: PULSE 79
[2018-10-14] MEDS: Normal Saline Flush 10 ML SYR IVP (13:17)
[2018-10-14] MEDS: Heparin 500 UNITS/5 ML SYRINGE IVP (13:17)
== END 2018-10-14 13:40 | disposition home or self-care (01) ==
LOC: ER 13:16 → MS 13:36
PROVIDERS: Internal Medicine; Nurse Practitioner Acute Care; Admitting Provider Internal Medicine; Emergency Provider Student in an Organized Health Care Education/Training Program; PCP Emergency Medicine; Visit Provider Internal Medicine
DX: I26.99 Other pulmonary embolism without acute cor pulmonale (principal); I82.411 Acute embolism and thrombosis of right femoral vein; I82.431 Acute embolism and thrombosis of right popliteal vein; I82.441 Acute embolism and thrombosis of right tibial vein; C19 Malignant neoplasm of rectosigmoid junction; C79.70 Secondary malignant neoplasm of unspecified adrenal gland; Z45.2 Encounter for adjustment and management of vascular access device; K21.9 Gastro-esophageal reflux disease without esophagitis; I10 Essential (primary) hypertension
CPT/HCPCS: 36415; 80048; 80053; 82805; 85652; 87040; 93005; 96361; 96365; 96366; 96376; 99220; 99238; 99285; 81003; 81015; 83605; 83880; 84484; 85025; 85610; 85730; 86140; 93010; 93306; 93970; 99217; 99284; G0378; J1650

== ENCOUNTER 2018-10-15 01:07 | Outpatient (RCR) | payer OTHER, SELFPAY ==
[2018-09-24] MEDS: Normal Saline Flush 10 ML SYR IVP (06:55)
[2018-09-24 07:20] LABS: Absolute Basophil Count 0.04 k/cumm (0.0-0.2); Absolute Eosinophil Count 0.13 k/cumm (0.0-0.7); Absolute Lymphocyte Count 1.48 k/cumm (1.2-3.4); Absolute Monocyte Count 0.56 k/cumm (0.11-0.7); Absolute Neutrophil Count 1.18 k/cumm (1.2-6.7); Basophils % 1.2; Eosinophils % 3.8; HCT 34.7 % (40.0-50.0); HGB 11.9 g/dL (13.5-17.5); Lymphocytes % 43.7; Mean Corp. HGB Concentration 34.3 g/dL (32.0-36.0); Mean Corpuscular Hemoglobin 31.9 pg (27.0-33.0); Mean Platelet Volume 9.5 fL (8.0-11.0); Monocytes % 16.5; Neutrophils % 34.8; Platelet Count 226 x1000/uL (130-400); RBC 3.73 m/cumm (4.50-6.00); RBC Distribution Width 18.4 % (11.8-14.1); White Blood Cell Count 3.39 k/cumm (4.4-10.8)
[2018-09-24 07:35] LABS: ALT 28 U/L (12-78); AST 15 U/L (15-37); Albumin 3.1 g/dL (3.4-5.0); Alkaline Phosphatase 111 U/L (46-116); Anion Gap 13.9 mmol/L (3-11); BUN 12 mg/dL (7-18); Bilirubin, Total 1.1 mg/dL (0.2-1.0); CO2 23.1 mmol/L (21.0-32.0); CREATININE 1.06 mg/dL (0.70-1.30); Calcium 8.5 mg/dL (8.5-10.1); Chloride 101 mmol/L (98-107); Glucose 140 mg/dL (70-100); Potassium 3.6 mmol/L (3.5-5.1); Sodium 138 mmol/L (136-145); Total Protein 7.1 g/dL (6.4-8.2)
[2018-09-24 07:37] LABS: Anisocytosis 2+; Basophilic Stippling Present; Diff Comment Diff Reviewed; Polychromasia Present
[2018-09-24 10:13] LABS: Ferritin 639 ng/mL (8-388); Vitamin B12 786 pg/mL (193-986)
[2018-09-27 09:28] LABS: CEA 1.8 ng/ml
[2018-10-01] MEDS: Normal Saline Flush 10 ML SYR IVP (07:06)
[2018-10-01 07:17] LABS: Abs Immature Grans 0.08 k/cumm (0.0-0.09); Absolute Basophil Count 0.08 k/cumm (0.0-0.2); Absolute Eosinophil Count 0.36 k/cumm (0.0-0.7); Absolute Lymphocyte Count 2.68 k/cumm (1.2-3.4); Absolute Monocyte Count 0.85 k/cumm (0.11-0.7); Basophils % 0.7; Eosinophils % 3.3; HCT 38.1 % (40.0-50.0); HGB 12.6 g/dL (13.5-17.5); Immature Grans % 0.7; Lymphocytes % 24.6; Mean Corp. HGB Concentration 33.1 g/dL (32.0-36.0); Mean Corpuscular Hemoglobin 31.2 pg (27.0-33.0); Mean Corpuscular Volume 94.3 fL (80-95); Mean Platelet Volume 9.3 fL (8.0-11.0); Monocytes % 7.8; Neutrophils % 62.9; Platelet Count 429 x1000/uL (130-400); RBC 4.04 m/cumm (4.50-6.00); RBC Distribution Width 18.2 % (11.8-14.1); White Blood Cell Count 10.88 k/cumm (4.4-10.8)
[2018-10-01 07:24] LABS: Absolute Neutrophil Count 6.84 k/cumm (1.2-6.7)
[2018-10-01 07:43] LABS: ALT 28 U/L (12-78); AST 20 U/L (15-37); Albumin 3.3 g/dL (3.4-5.0); Alkaline Phosphatase 140 U/L (46-116); Anion Gap 12.2 mmol/L (3-11); BUN 15 mg/dL (7-18); Bilirubin, Total 0.6 mg/dL (0.2-1.0); CO2 23.8 mmol/L (21.0-32.0); CREATININE 1.16 mg/dL (0.70-1.30); Calcium 9.3 mg/dL (8.5-10.1); Chloride 101 mmol/L (98-107); Glucose 135 mg/dL (70-100); Potassium 4.2 mmol/L (3.5-5.1); Sodium 137 mmol/L (136-145); Total Protein 7.8 g/dL (6.4-8.2)
[2018-10-01 07:46] LABS: Folate > 20.0 ng/mL (8.6-20.0)
[2018-10-01 08:06] LABS: Iron 55 ug/dL (50-175); Total Iron Binding Capacity 312 ug/dL (250-450); Transferrin Sat 18 % (20-55)
[2018-10-04 09:13] LABS: CEA 1.6 ng/ml
== END 2018-10-16 23:59 | disposition home or self-care (01) ==
LOC: INF 01:07
PROVIDERS: PCP Emergency Medicine; Visit Provider Internal Medicine Hematology & Oncology
DX: C18.9 Malignant neoplasm of colon, unspecified (principal); Z45.2 Encounter for adjustment and management of vascular access device
CPT/HCPCS: 36591; 80053; 82378; 82607; 82728; 82746; 83540; 83550; 85025

== ENCOUNTER 2018-11-10 01:07 | Outpatient (CLI) | payer OTHER, SELFPAY ==
--- NOTE | 2018-11-10 10:16 | DI.CT_ITS ---
EXAM: CT CHEST/ABD/PEL W CLINICAL HISTORY: STAGE IV COLON CA WITH METS TO OTHER SITE, C18.9, ON CHEMO, RESTAGING. TECHNIQUE: Study was carried out with intravenous administration of 100 cc of Omnipaque 350. COMPARISON: Comparison with 09/06/18 FINDINGS: CHEST CT: Comparison is made with the previous examination of 09/06/2018. There has been no change in the statu s of two right middle lobe nodules adjacent to the minor fissure. A left lung nodule is not demonstr ated on today's examination. There are no demonstrated new areas of nodularity. There is no evidenc e airspace consolidation. There is no evidence of a pleural effusion. There is no evidence of hilar or mediastinal adenopathy. There is no evidence of bony metastasis. There is no evidence of adenopa thy. Abdominal and Pelvic CT: The liver is unremarkable. Gallbladder is intact. There are no stones or ductal dilatation. The spl een is unremarkable. The pancreas is normal. The patient is status post right adrenalectomy. There i s a left adrenal gland mass, which today in the transverse plane measures 4.3 x 2.3 cm, and 2.6 x 3.2 cm in the axial plane somewhat decreased in size when compared with the prior study. The kidneys ar e unremarkable with note again made of a lower pole left renal cyst. No retroperitoneal adenopathy i s identified. The patient is status post right hemicolectomy. There is no evidence of bowel obstruct ion. No localized bowel wall adenopathy is demonstrated. There is no evidence of free air or free f luid in the intraperitoneal space. The bladder is normal. The reproductive organs as visualized are unremarkable. There are atherosclerotic changes involving the aorta without evidence of an aneurysm. There are no bony findings to suggest metastatic disease. IMPRESSION: There has been no interval change in the status of two small right lung nodules. No definite left ab g nodule is noted on today's examination. There is no evidence of adenopathy in the chest. A left ad renal mass somewhat decreased in size today measuring 2.6 x 3.2 cm. Compared with the previous measu rement of 5.1 by 2.4 cm. There is no evidence of retroperitoneal adenopathy. No enlarged lymph node s are demonstrated in the pelvis. There are no bony findings to suggest metastatic disease. Interval decrease in the size of a left adrenal mass is demonstrated. There is no evidence of hepatic metastasis or intra-abdominal or retroperitoneal adenopathy.
[2018-11-10] MEDS: Omnipaque 350 MG/ML 50 ML BTL PO (10:19)
[2018-11-10] MEDS: Breeza Beverage 473 ML BTL PO (10:20)
[2018-11-10] MEDS: Omnipaque 350 MG/ML 100 ML BTL IV (10:20)
== END 2018-11-10 01:27 ==
PROVIDERS: PCP Emergency Medicine; Visit Provider Internal Medicine Hematology & Oncology
DX: C18.9 Malignant neoplasm of colon, unspecified (principal); Z92.21 Personal history of antineoplastic chemotherapy; Z90.49 Acquired absence of other specified parts of digestive tract; R91.8 Other nonspecific abnormal finding of lung field; E27.8 Other specified disorders of adrenal gland
CPT/HCPCS: 74177; 71260; J3490; Q9967

== ENCOUNTER 2018-11-10 01:17 | Outpatient (RCR) | payer OTHER, SELFPAY ==
[2018-10-22] MEDS: Normal Saline Flush 10 ML SYR IVP (07:11)
[2018-10-22 07:21] LABS: Abs Immature Grans 0.02 k/cumm (0.0-0.09); Absolute Basophil Count 0.04 k/cumm (0.0-0.2); Absolute Eosinophil Count 0.27 k/cumm (0.0-0.7); Absolute Lymphocyte Count 1.98 k/cumm (1.2-3.4); Absolute Monocyte Count 0.51 k/cumm (0.11-0.7); Absolute Neutrophil Count 2.27 k/cumm (1.2-6.7); Basophils % 0.8; Eosinophils % 5.3; HCT 35.1 % (40.0-50.0); Immature Grans % 0.4; Lymphocytes % 38.9; Mean Corp. HGB Concentration 31.3 g/dL (32.0-36.0); Mean Corpuscular Hemoglobin 30.7 pg (27.0-33.0); Mean Platelet Volume 9.2 fL (8.0-11.0); Neutrophils % 44.6; Platelet Count 478 x1000/uL (130-400); RBC 3.58 m/cumm (4.50-6.00); RBC Distribution Width 17.4 % (11.8-14.1); White Blood Cell Count 5.09 k/cumm (4.4-10.8)
[2018-10-22 07:37] LABS: ALT 39 U/L (16-63); AST 23 U/L (15-37); Alkaline Phosphatase 140 U/L (46-116); Anion Gap 10.9 mmol/L (3-11); BUN 13 mg/dL (7-18); Bilirubin, Total 0.3 mg/dL (0.2-1.0); CO2 23.1 mmol/L (21.0-32.0); CREATININE 0.97 mg/dL (0.70-1.30); Chloride 105 mmol/L (98-107); Glucose 130 mg/dL (70-100); Potassium 3.9 mmol/L (3.5-5.1); Sodium 139 mmol/L (136-145); Total Protein 7.5 g/dL (6.4-8.2)
[2018-10-25 11:48] LABS: CEA 1.3 ng/ml
[2018-11-05] MEDS: Normal Saline Flush 10 ML SYR IVP (08:24)
[2018-11-05 08:29] LABS: Abs Immature Grans 0.01 k/cumm (0.0-0.09); Absolute Basophil Count 0.01 k/cumm (0.0-0.2); Absolute Eosinophil Count 0.15 k/cumm (0.0-0.7); Absolute Lymphocyte Count 1.77 k/cumm (1.2-3.4); Absolute Monocyte Count 0.52 k/cumm (0.11-0.7); Absolute Neutrophil Count 2.81 k/cumm (1.2-6.7); Basophils % 0.2; Eosinophils % 2.8; HCT 34.9 % (40.0-50.0); HGB 11.1 g/dL (13.5-17.5); Immature Grans % 0.2; Lymphocytes % 33.6; Mean Corp. HGB Concentration 31.8 g/dL (32.0-36.0); Mean Corpuscular Hemoglobin 31.3 pg (27.0-33.0); Mean Corpuscular Volume 98.3 fL (80-95); Monocytes % 9.9; Neutrophils % 53.3; Platelet Count 273 x1000/uL (130-400); RBC 3.55 m/cumm (4.50-6.00); RBC Distribution Width 16.8 % (11.8-14.1); White Blood Cell Count 5.27 k/cumm (4.4-10.8)
[2018-11-05 08:43] LABS: ALT 50 U/L (16-63); AST 26 U/L (15-37); Albumin 3.3 g/dL (3.4-5.0); Alkaline Phosphatase 116 U/L (46-116); Anion Gap 11.1 mmol/L (3-11); BUN 12 mg/dL (7-18); Bilirubin, Total 0.5 mg/dL (0.2-1.0); CO2 22.9 mmol/L (21.0-32.0); CREATININE 0.89 mg/dL (0.70-1.30); Calcium 8.6 mg/dL (8.5-10.1); Chloride 106 mmol/L (98-107); Glucose 116 mg/dL (70-100); Potassium 3.9 mmol/L (3.5-5.1); Sodium 140 mmol/L (136-145); Total Protein 7.3 g/dL (6.4-8.2)
[2018-11-10] MEDS: Normal Saline Flush 10 ML SYR IVP (08:05)
[2018-11-10] MEDS: Heparin 500 UNITS/5 ML SYRINGE IV (08:18)
== END 2018-11-15 23:59 | disposition home or self-care (01) ==
LOC: INF 01:17
PROVIDERS: PCP Emergency Medicine; Visit Provider Internal Medicine Hematology & Oncology
DX: C18.9 Malignant neoplasm of colon, unspecified (principal); Z45.2 Encounter for adjustment and management of vascular access device
CPT/HCPCS: 36591; 80053; 96523; 82378; 85025

== ENCOUNTER 2018-12-03 02:38 | Outpatient (RCR) | payer OTHER, SELFPAY ==
[2018-11-19] MEDS: Normal Saline Flush 10 ML SYR IVP (07:09)
[2018-11-19 07:15] LABS: Abs Immature Grans 0.01 k/cumm (0.0-0.09); Absolute Basophil Count 0.04 k/cumm (0.0-0.2); Absolute Eosinophil Count 0.16 k/cumm (0.0-0.7); Absolute Lymphocyte Count 1.46 k/cumm (1.2-3.4); Absolute Monocyte Count 0.35 k/cumm (0.11-0.7); Absolute Neutrophil Count 2.43 k/cumm (1.2-6.7); Basophils % 0.9; Eosinophils % 3.6; HCT 36.7 % (40.0-50.0); HGB 11.8 g/dL (13.5-17.5); Immature Grans % 0.2; Lymphocytes % 32.8; Mean Corp. HGB Concentration 32.2 g/dL (32.0-36.0); Mean Corpuscular Hemoglobin 31.6 pg (27.0-33.0); Mean Corpuscular Volume 98.1 fL (80-95); Mean Platelet Volume 9.2 fL (8.0-11.0); Monocytes % 7.9; Neutrophils % 54.6; Platelet Count 279 x1000/uL (130-400); RBC 3.74 m/cumm (4.50-6.00); RBC Distribution Width 16.5 % (11.8-14.1); White Blood Cell Count 4.45 k/cumm (4.4-10.8)
[2018-11-19 07:46] LABS: ALT 47 U/L (16-63); AST 25 U/L (15-37); Albumin 3.5 g/dL (3.4-5.0); Alkaline Phosphatase 128 U/L (46-116); BUN 11 mg/dL (7-18); Bilirubin, Total 0.5 mg/dL (0.2-1.0); CREATININE 0.85 mg/dL (0.70-1.30); Calcium 9.1 mg/dL (8.5-10.1); Chloride 105 mmol/L (98-107); Glucose 136 mg/dL (70-100); Potassium 3.8 mmol/L (3.5-5.1); Sodium 140 mmol/L (136-145); Total Protein 7.5 g/dL (6.4-8.2)
[2018-11-22 09:23] LABS: CEA 1.4 ng/ml
[2018-12-03] MEDS: Normal Saline Flush 10 ML SYR IVP (07:19)
[2018-12-03 07:26] LABS: Abs Immature Grans 0.01 k/cumm (0.0-0.09); Absolute Basophil Count 0.03 k/cumm (0.0-0.2); Absolute Eosinophil Count 0.14 k/cumm (0.0-0.7); Absolute Lymphocyte Count 1.54 k/cumm (1.2-3.4); Absolute Monocyte Count 0.33 k/cumm (0.11-0.7); Absolute Neutrophil Count 1.98 k/cumm (1.2-6.7); Basophils % 0.7; Eosinophils % 3.5; HCT 38.2 % (40.0-50.0); HGB 12.3 g/dL (13.5-17.5); Immature Grans % 0.2; Lymphocytes % 38.2; Mean Corp. HGB Concentration 32.2 g/dL (32.0-36.0); Mean Corpuscular Hemoglobin 31.4 pg (27.0-33.0); Mean Corpuscular Volume 97.4 fL (80-95); Mean Platelet Volume 9.6 fL (8.0-11.0); Monocytes % 8.2; Neutrophils % 49.2; Platelet Count 238 x1000/uL (130-400); RBC 3.92 m/cumm (4.50-6.00); RBC Distribution Width 16.3 % (11.8-14.1); White Blood Cell Count 4.03 k/cumm (4.4-10.8)
[2018-12-03 07:53] LABS: ALT 44 U/L (16-63); AST 25 U/L (15-37); Albumin 3.4 g/dL (3.4-5.0); Alkaline Phosphatase 120 U/L (46-116); Anion Gap 11.6 mmol/L (3-11); BUN 12 mg/dL (7-18); Bilirubin, Total 0.5 mg/dL (0.2-1.0); CO2 24.4 mmol/L (21.0-32.0); CREATININE 0.88 mg/dL (0.70-1.30); Calcium 9.4 mg/dL (8.5-10.1); Chloride 105 mmol/L (98-107); Glucose 140 mg/dL (70-100); Potassium 3.6 mmol/L (3.5-5.1); Sodium 141 mmol/L (136-145); Total Protein 7.1 g/dL (6.4-8.2)
[2018-12-06 10:55] LABS: CEA 2.4 ng/ml
== END 2018-12-16 23:59 | disposition home or self-care (01) ==
LOC: INF 02:38
PROVIDERS: PCP Emergency Medicine; Visit Provider Internal Medicine Hematology & Oncology
DX: C18.9 Malignant neoplasm of colon, unspecified (principal); Z45.2 Encounter for adjustment and management of vascular access device
CPT/HCPCS: 36591; 80053; 82378; 85025

== ENCOUNTER 2018-12-16 07:34 | Outpatient (CLI) | payer OTHER, SELFPAY ==
[2018-12-16 08:13] LABS: Absolute Basophil Count 0.04 k/cumm (0.0-0.2); Absolute Eosinophil Count 0.15 k/cumm (0.0-0.7); Absolute Lymphocyte Count 1.59 k/cumm (1.2-3.4); Absolute Monocyte Count 0.45 k/cumm (0.11-0.7); Basophils % 0.9; Eosinophils % 3.3; HCT 37.9 % (40.0-50.0); HGB 12.4 g/dL (13.5-17.5); Lymphocytes % 35.1; Mean Corp. HGB Concentration 32.7 g/dL (32.0-36.0); Mean Corpuscular Hemoglobin 31.6 pg (27.0-33.0); Mean Corpuscular Volume 96.4 fL (80-95); Mean Platelet Volume 9.1 fL (8.0-11.0); Monocytes % 9.9; Neutrophils % 50.8; Platelet Count 222 x1000/uL (130-400); RBC 3.93 m/cumm (4.50-6.00); RBC Distribution Width 16.5 % (11.8-14.1); White Blood Cell Count 4.53 k/cumm (4.4-10.8)
[2018-12-16 08:34] LABS: ALT 55 U/L (16-63); AST 25 U/L (15-37); Albumin 3.6 g/dL (3.4-5.0); Alkaline Phosphatase 117 U/L (46-116); Anion Gap 6.6 mmol/L (3-11); BUN 14 mg/dL (7-18); Bilirubin, Total 0.4 mg/dL (0.2-1.0); CO2 26.4 mmol/L (21.0-32.0); CREATININE 0.96 mg/dL (0.70-1.30); Calcium 9.2 mg/dL (8.5-10.1); Chloride 106 mmol/L (98-107); Glucose 97 mg/dL (70-100); Potassium 4.4 mmol/L (3.5-5.1); Sodium 139 mmol/L (136-145); Total Protein 7.2 g/dL (6.4-8.2)
[2018-12-17 11:07] LABS: CEA 1.2 ng/ml
== END 2018-12-16 07:54 ==
PROVIDERS: PCP Emergency Medicine; Visit Provider Internal Medicine Hematology & Oncology
DX: C18.9 Malignant neoplasm of colon, unspecified (principal)
CPT/HCPCS: 36415; 80053; 82378; 85025

== ENCOUNTER 2019-01-11 00:50 | Outpatient (CLI) | payer OTHER, SELFPAY ==
--- NOTE | 2019-01-11 08:00 | DI.CT_ITS ---
EXAM: CT CHEST/ABD/PEL W CLINICAL HISTORY: PRIMARY COLON CA WITH METS TO OTHER SITES,C18.9,METASTATIC TO TECHNIQUE: Post IV and oral contrast. 100 cc's of Omnipaque 350 was utilized. COMPARISON: CT CHEST/ABD/PEL W from 11/10/2018 FINDINGS: Chest CT: An aberrant right subclavian artery is again noted. The heart size is normal. The aorta and pulmonary arteries are unremarkable. No pleural or pericardial effusions are seen. There are mi ld underlying emphysematous changes. Minimal nodularity is again noted along the right minor fissure . No pulmonary nodules, infiltrates or adenopathy is seen. No suspicious bony lesions are seen in t he thoracic spine. Abdomen and pelvic CT: The liver, gallbladder, spleen, pancreas and kidneys are unremarkable. The p atient is again noted to be status post right adrenalectomy. Low-density masses are again noted on t he left adrenal gland which appear unchanged. No adenopathy is seen in the abdomen or pelvis. No marino wel dilatation is seen. There are no suspicious bony abnormalities. IMPRESSION: Stable tiny nodules in region of the right minor fissure. Stable low-density lesions of the left adr enal gland. No new abnormalities are seen.
[2019-01-11] MEDS: Omnipaque 350 MG/ML 50 ML BTL IJ (09:51)
[2019-01-11] MEDS: Breeza Beverage 473 ML BTL PO (09:52)
[2019-01-11] MEDS: Omnipaque 350 MG/ML 100 ML BTL IJ (09:52)
== END 2019-01-11 01:10 ==
PROVIDERS: PCP Emergency Medicine; Visit Provider Internal Medicine Hematology & Oncology
DX: C18.2 Malignant neoplasm of ascending colon (principal); C79.72 Secondary malignant neoplasm of left adrenal gland; R91.8 Other nonspecific abnormal finding of lung field; J43.8 Other emphysema
CPT/HCPCS: 74177; 71260; J3490; Q9967

== ENCOUNTER 2019-01-11 01:15 | Outpatient (RCR) | payer OTHER, SELFPAY ==
[2018-12-31] MEDS: Normal Saline Flush 10 ML SYR IVP (07:17)
[2018-12-31 07:22] LABS: Absolute Basophil Count 0.03 k/cumm (0.0-0.2); Absolute Eosinophil Count 0.12 k/cumm (0.0-0.7); Absolute Lymphocyte Count 1.49 k/cumm (1.2-3.4); Absolute Monocyte Count 0.37 k/cumm (0.11-0.7); Absolute Neutrophil Count 1.81 k/cumm (1.2-6.7); Basophils % 0.8; Eosinophils % 3.1; HCT 39.3 % (40.0-50.0); HGB 12.5 g/dL (13.5-17.5); Mean Corp. HGB Concentration 31.8 g/dL (32.0-36.0); Mean Corpuscular Hemoglobin 30.6 pg (27.0-33.0); Mean Corpuscular Volume 96.1 fL (80-95); Mean Platelet Volume 9.9 fL (8.0-11.0); Monocytes % 9.7; Neutrophils % 47.4; Platelet Count 195 x1000/uL (130-400); RBC 4.09 m/cumm (4.50-6.00); RBC Distribution Width 16.9 % (11.8-14.1); White Blood Cell Count 3.82 k/cumm (4.4-10.8)
[2018-12-31 08:40] LABS: ALT 46 U/L (16-63); AST 22 U/L (15-37); Albumin 3.6 g/dL (3.4-5.0); Alkaline Phosphatase 109 U/L (46-116); Anion Gap 10.6 mmol/L (3-11); BUN 15 mg/dL (7-18); Bilirubin, Total 0.4 mg/dL (0.2-1.0); CO2 22.4 mmol/L (21.0-32.0); CREATININE 0.93 mg/dL (0.70-1.30); Calcium 8.9 mg/dL (8.5-10.1); Chloride 108 mmol/L (98-107); Glucose 107 mg/dL (70-100); Sodium 141 mmol/L (136-145); Total Protein 7.2 g/dL (6.4-8.2)
[2019-01-03 17:31] LABS: CEA 1.4 ng/mL (See Note)
== END 2019-01-15 23:59 | disposition home or self-care (01) ==
LOC: INF 01:15
PROVIDERS: PCP Emergency Medicine; Visit Provider Internal Medicine Hematology & Oncology
DX: C18.9 Malignant neoplasm of colon, unspecified (principal); Z45.2 Encounter for adjustment and management of vascular access device
CPT/HCPCS: 36591; 80053; 82378; 85025

== ENCOUNTER 2019-02-11 04:51 | Outpatient (RCR) | payer OTHER, SELFPAY ==
[2019-01-21] MEDS: Normal Saline Flush 10 ML SYR IVP (07:40)
[2019-01-21 08:06] LABS: Abs Immature Grans 0.02 k/cumm (0.0-0.09); Absolute Basophil Count 0.04 k/cumm (0.0-0.2); Absolute Eosinophil Count 0.22 k/cumm (0.0-0.7); Absolute Lymphocyte Count 1.77 k/cumm (1.2-3.4); Absolute Monocyte Count 0.56 k/cumm (0.11-0.7); Absolute Neutrophil Count 1.72 k/cumm (1.2-6.7); Basophils % 0.9; Eosinophils % 5.1; HCT 41.8 % (40.0-50.0); HGB 13.4 g/dL (13.5-17.5); Immature Grans % 0.5; Lymphocytes % 40.9; Mean Corp. HGB Concentration 32.1 g/dL (32.0-36.0); Mean Corpuscular Hemoglobin 31.2 pg (27.0-33.0); Mean Corpuscular Volume 97.2 fL (80-95); Monocytes % 12.9; Neutrophils % 39.7; Platelet Count 238 x1000/uL (130-400); RBC Distribution Width 17.3 % (11.8-14.1); White Blood Cell Count 4.33 k/cumm (4.4-10.8)
[2019-01-21 09:07] LABS: ALT 52 U/L (16-63); AST 25 U/L (15-37); Albumin 3.7 g/dL (3.4-5.0); Alkaline Phosphatase 128 U/L (46-116); Anion Gap 9.5 mmol/L (3-11); BUN 15 mg/dL (7-18); Bilirubin, Total 0.4 mg/dL (0.2-1.0); CO2 24.5 mmol/L (21.0-32.0); CREATININE 0.86 mg/dL (0.70-1.30); Calcium 9.2 mg/dL (8.5-10.1); Chloride 106 mmol/L (98-107); Glucose 96 mg/dL (74-106); Potassium 4.1 mmol/L (3.5-5.1); Sodium 140 mmol/L (136-145); Total Protein 7.4 g/dL (6.4-8.2)
[2019-01-24 11:13] LABS: CEA 1.9 ng/mL (See Note)
[2019-02-11] MEDS: Normal Saline Flush 10 ML SYR IVP (08:07)
[2019-02-11 08:18] LABS: Abs Immature Grans 0.03 k/cumm (0.0-0.09); Absolute Basophil Count 0.03 k/cumm (0.0-0.2); Absolute Eosinophil Count 0.23 k/cumm (0.0-0.7); Absolute Lymphocyte Count 1.69 k/cumm (1.2-3.4); Absolute Monocyte Count 0.52 k/cumm (0.11-0.7); Absolute Neutrophil Count 1.62 k/cumm (1.2-6.7); Basophils % 0.7; Eosinophils % 5.6; HCT 39.6 % (40.0-50.0); HGB 12.8 g/dL (13.5-17.5); Immature Grans % 0.7; Mean Corp. HGB Concentration 32.3 g/dL (32.0-36.0); Mean Corpuscular Hemoglobin 31.4 pg (27.0-33.0); Mean Corpuscular Volume 97.3 fL (80-95); Mean Platelet Volume 9.4 fL (8.0-11.0); Monocytes % 12.6; Neutrophils % 39.4; Platelet Count 223 x1000/uL (130-400); RBC 4.07 m/cumm (4.50-6.00); White Blood Cell Count 4.12 k/cumm (4.4-10.8)
[2019-02-11 08:27] LABS: ALT 58 U/L (16-63); AST 33 U/L (15-37); Albumin 3.6 g/dL (3.4-5.0); Alkaline Phosphatase 120 U/L (46-116); Anion Gap 9.8 mmol/L (3-11); BUN 14 mg/dL (7-18); Bilirubin, Total 0.4 mg/dL (0.2-1.0); CO2 25.2 mmol/L (21.0-32.0); CREATININE 0.75 mg/dL (0.70-1.30); Chloride 107 mmol/L (98-107); Glucose 102 mg/dL (74-106); Potassium 4.3 mmol/L (3.5-5.1); Sodium 142 mmol/L (136-145); Total Protein 7.2 g/dL (6.4-8.2)
[2019-02-14 11:22] LABS: CEA 1.4 ng/mL (See Note)
== END 2019-02-15 23:59 | disposition home or self-care (01) ==
LOC: INF 04:51
PROVIDERS: PCP Emergency Medicine; Visit Provider Internal Medicine Hematology & Oncology
DX: C18.9 Malignant neoplasm of colon, unspecified (principal); Z45.2 Encounter for adjustment and management of vascular access device
CPT/HCPCS: 36591; 80053; 82378; 85025

== ENCOUNTER 2019-03-03 00:51 | Outpatient (CLI) | payer OTHER, SELFPAY ==
[2019-03-03] MEDS: Breeza Beverage 473 ML BTL PO ×2 (09:24→09:25)
[2019-03-03] MEDS: Omnipaque 350 MG/ML 50 ML BTL PO (09:24)
[2019-03-03] MEDS: Omnipaque 350 MG/ML 100 ML BTL IJ (09:30)
[2019-03-03] MEDS: Normal Saline - Diluent 50 ML VIAL IV (09:32)
--- NOTE | 2019-03-03 10:10 | DI.CT_ITS ---
EXAM: CT CHEST/ABD/PEL W CLINICAL HISTORY: COLON CANCER W/ METASTASIS TO OTHER SITES C18.9, RESTAGING TECHNIQUE: After IV and oral contrast. COMPARISON: CT CHEST/ABD/PELVIS W/CONTRAST-M2 from 09/06/2018 CT CHEST PE CTA from 10/13/2018 CT CHEST/ABD/PEL W from 01/11/2019 FINDINGS: Chest CT: Emphysematous changes are again noted. There is stable nodularity along the right minor fissure. No suspicious pulmonary nodules, adenopathy, infiltrates, pleural or pericardial effusions are seen. There are no suspicious bony abnormalities. Abdomen and pelvic CT: The liver shows mild fatty infiltration. Gallbladder, spleen, pancreas and ri ght kidney are unremarkable. A left renal cyst is again noted. The left adrenal gland is again note d to be enlarged with multiple low-density masses. The left adrenal gland now measures 5.5 AP by 4.3 cm transverse by roughly 5.2 cm cephalo caudad. This has increased when compared with the previous exam. It also has a more heterogeneous appearance. The patient is status post right adrenalectomy. No adenopathy is seen. The stomach, small bowel and colon are unremarkable. The appendix appears no rmal. Bladder and prostate also appear normal. No lytic or blastic bony lesions are identified. Th ere is a chronic deformity of the left posterior ilium. IMPRESSION: Stable appearance of the chest. Interval increase in size of the left adrenal gland with multiple lo w-density masses.
== END 2019-03-03 01:11 ==
PROVIDERS: PCP Emergency Medicine; Visit Provider Internal Medicine Hematology & Oncology
DX: C18.9 Malignant neoplasm of colon, unspecified (principal); Z12.89 Encounter for screening for malignant neoplasm of other sites; J43.9 Emphysema, unspecified; K76.0 Fatty (change of) liver, not elsewhere classified; D35.02 Benign neoplasm of left adrenal gland; N28.1 Cyst of kidney, acquired
CPT/HCPCS: 74177; 71260; J3490; Q9967

== ENCOUNTER 2019-03-11 04:04 | Outpatient (RCR) | payer OTHER, SELFPAY ==
[2019-02-25] MEDS: Normal Saline Flush 10 ML SYR IVP (07:40)
[2019-02-25 07:41] LABS: Abs Immature Grans 0.01 k/cumm (0.0-0.09); Absolute Basophil Count 0.02 k/cumm (0.0-0.2); Absolute Eosinophil Count 0.22 k/cumm (0.0-0.7); Absolute Lymphocyte Count 1.41 k/cumm (1.2-3.4); Absolute Monocyte Count 0.49 k/cumm (0.11-0.7); Absolute Neutrophil Count 3.03 k/cumm (1.2-6.7); Basophils % 0.4; Eosinophils % 4.2; HCT 38.7 % (40.0-50.0); HGB 12.8 g/dL (13.5-17.5); Immature Grans % 0.2 %; Lymphocytes % 27.2; Mean Corp. HGB Concentration 33.1 g/dL (32.0-36.0); Mean Corpuscular Hemoglobin 31.9 pg (27.0-33.0); Mean Corpuscular Volume 96.5 fL (80-95); Mean Platelet Volume 9.1 fL (8.0-11.0); Monocytes % 9.5; Neutrophils % 58.5; Platelet Count 212 x1000/uL (130-400); RBC 4.01 m/cumm (4.50-6.00); RBC Distribution Width 14.9 % (11.8-14.1); White Blood Cell Count 5.18 k/cumm (4.4-10.8)
[2019-02-25 08:01] LABS: ALT 27 U/L (16-63); AST 18 U/L (15-37); Albumin 3.6 g/dL (3.4-5.0); Alkaline Phosphatase 132 U/L (46-116); BUN 16 mg/dL (7-18); Bilirubin, Total 0.7 mg/dL (0.2-1.0); CREATININE 0.92 mg/dL (0.70-1.30); Calcium 9.1 mg/dL (8.5-10.1); Chloride 107 mmol/L (98-107); Glucose 91 mg/dL (74-106); Potassium 4.1 mmol/L (3.5-5.1); Sodium 142 mmol/L (136-145)
[2019-02-28 10:41] LABS: CEA 1.2 ng/mL (See Note)
[2019-03-11] MEDS: Normal Saline Flush 10 ML SYR IVP (07:15)
[2019-03-11 07:45] LABS: Abs Immature Grans 0.01 k/cumm (0.0-0.09); Absolute Basophil Count 0.02 k/cumm (0.0-0.2); Absolute Eosinophil Count 0.17 k/cumm (0.0-0.7); Absolute Lymphocyte Count 1.34 k/cumm (1.2-3.4); Absolute Monocyte Count 0.54 k/cumm (0.11-0.7); Absolute Neutrophil Count 3.13 k/cumm (1.2-6.7); Basophils % 0.4; Eosinophils % 3.3; HCT 38.5 % (40.0-50.0); HGB 12.5 g/dL (13.5-17.5); Immature Grans % 0.2 %; Lymphocytes % 25.7; Mean Corp. HGB Concentration 32.5 g/dL (32.0-36.0); Mean Corpuscular Hemoglobin 31.6 pg (27.0-33.0); Mean Corpuscular Volume 97.2 fL (80-95); Mean Platelet Volume 9.5 fL (8.0-11.0); Monocytes % 10.4; Platelet Count 221 x1000/uL (130-400); RBC 3.96 m/cumm (4.50-6.00); RBC Distribution Width 14.9 % (11.8-14.1); White Blood Cell Count 5.21 k/cumm (4.4-10.8)
[2019-03-11 07:54] LABS: ALT 26 U/L (16-63); AST 19 U/L (15-37); Albumin 3.6 g/dL (3.4-5.0); Alkaline Phosphatase 145 U/L (46-116); Anion Gap 10.1 mmol/L (3-11); BUN 12 mg/dL (7-18); Bilirubin, Total 0.5 mg/dL (0.2-1.0); CO2 25.9 mmol/L (21.0-32.0); CREATININE 0.83 mg/dL (0.70-1.30); Chloride 106 mmol/L (98-107); Glucose 95 mg/dL (74-106); Potassium 4.3 mmol/L (3.5-5.1); Sodium 142 mmol/L (136-145); Total Protein 7.1 g/dL (6.4-8.2)
[2019-03-11 09:27] LABS: Magnesium 1.9 mg/dL (1.8-2.4)
[2019-03-14 11:05] LABS: CEA 1.8 ng/mL (See Note)
== END 2019-03-18 23:59 | disposition home or self-care (01) ==
LOC: INF 04:04
PROVIDERS: PCP Emergency Medicine; Visit Provider Internal Medicine Hematology & Oncology
DX: C18.9 Malignant neoplasm of colon, unspecified (principal); Z45.2 Encounter for adjustment and management of vascular access device
CPT/HCPCS: 36591; 80053; 82378; 83735; 85025

== ENCOUNTER 2019-04-08 02:50 | Outpatient (RCR) | payer OTHER, SELFPAY ==
[2019-03-25] MEDS: Normal Saline Flush 10 ML SYR IVP (07:25)
[2019-03-25 07:44] LABS: Abs Immature Grans 0.01 k/cumm (0.0-0.09); Absolute Basophil Count 0.03 k/cumm (0.0-0.2); Absolute Eosinophil Count 0.15 k/cumm (0.0-0.7); Absolute Lymphocyte Count 1.53 k/cumm (1.2-3.4); Absolute Monocyte Count 0.37 k/cumm (0.11-0.7); Absolute Neutrophil Count 3.21 k/cumm (1.2-6.7); Basophils % 0.6; Eosinophils % 2.8; HGB 13.9 g/dL (13.5-17.5); Immature Grans % 0.2 %; Lymphocytes % 28.9; Mean Corp. HGB Concentration 33.1 g/dL (32.0-36.0); Mean Corpuscular Hemoglobin 31.9 pg (27.0-33.0); Mean Corpuscular Volume 96.3 fL (80-95); Mean Platelet Volume 10.2 fL (8.0-11.0); Neutrophils % 60.5; Platelet Count 239 x1000/uL (130-400); RBC 4.36 m/cumm (4.50-6.00); RBC Distribution Width 15.2 % (11.8-14.1)
[2019-03-25 07:46] LABS: ALT 31 U/L (16-63); AST 24 U/L (15-37); Albumin 3.8 g/dL (3.4-5.0); Alkaline Phosphatase 143 U/L (46-116); Anion Gap 9.9 mmol/L (3-11); BUN 11 mg/dL (7-18); Bilirubin, Total 0.6 mg/dL (0.2-1.0); CO2 25.1 mmol/L (21.0-32.0); CREATININE 0.89 mg/dL (0.70-1.30); Calcium 8.9 mg/dL (8.5-10.1); Chloride 106 mmol/L (98-107); Glucose 114 mg/dL (74-106); Magnesium 1.9 mg/dL (1.8-2.4); Potassium 3.7 mmol/L (3.5-5.1); Sodium 141 mmol/L (136-145); Total Protein 7.3 g/dL (6.4-8.2)
[2019-03-28 09:58] LABS: CEA 1.1 ng/mL (See Note)
[2019-04-08] MEDS: Normal Saline Flush 10 ML SYR IVP (08:00)
[2019-04-08 08:40] LABS: Abs Immature Grans 0.01 k/cumm (0.0-0.09); Absolute Basophil Count 0.04 k/cumm (0.0-0.2); Absolute Eosinophil Count 0.23 k/cumm (0.0-0.7); Absolute Lymphocyte Count 1.72 k/cumm (1.2-3.4); Absolute Monocyte Count 0.56 k/cumm (0.11-0.7); Absolute Neutrophil Count 5.15 k/cumm (1.2-6.7); Basophils % 0.5; HCT 41.5 % (40.0-50.0); HGB 13.6 g/dL (13.5-17.5); Immature Grans % 0.1 %; Lymphocytes % 22.3; Mean Corp. HGB Concentration 32.8 g/dL (32.0-36.0); Mean Corpuscular Hemoglobin 31.8 pg (27.0-33.0); Mean Platelet Volume 9.9 fL (8.0-11.0); Monocytes % 7.3; Neutrophils % 66.8; Platelet Count 264 x1000/uL (130-400); RBC 4.28 m/cumm (4.50-6.00); RBC Distribution Width 14.9 % (11.8-14.1); White Blood Cell Count 7.71 k/cumm (4.4-10.8)
[2019-04-08 08:53] LABS: ALT 33 U/L (16-63); AST 22 U/L (15-37); Albumin 3.7 g/dL (3.4-5.0); Alkaline Phosphatase 140 U/L (46-116); Anion Gap 10.8 mmol/L (3-11); BUN 13 mg/dL (7-18); Bilirubin, Total 0.4 mg/dL (0.2-1.0); CO2 24.2 mmol/L (21.0-32.0); CREATININE 0.79 mg/dL (0.70-1.30); Calcium 8.7 mg/dL (8.5-10.1); Chloride 109 mmol/L (98-107); Glucose 95 mg/dL (74-106); Magnesium 1.8 mg/dL (1.8-2.4); Potassium 4.4 mmol/L (3.5-5.1); Sodium 144 mmol/L (136-145); Total Protein 7.2 g/dL (6.4-8.2)
[2019-04-11 10:17] LABS: CEA 0.7 ng/mL (See Note)
== END 2019-04-16 23:59 | disposition home or self-care (01) ==
LOC: INF 02:50
PROVIDERS: PCP Emergency Medicine; Visit Provider Internal Medicine Hematology & Oncology
DX: C18.9 Malignant neoplasm of colon, unspecified (principal); Z45.2 Encounter for adjustment and management of vascular access device
CPT/HCPCS: 36591; 80053; 82378; 83735; 85025

== ENCOUNTER 2019-05-06 03:14 | Outpatient (RCR) | payer OTHER, SELFPAY ==
[2019-04-22] MEDS: Normal Saline Flush 10 ML SYR IVP (09:04)
[2019-04-22 09:14] LABS: Abs Immature Grans 0.01 k/cumm (0.0-0.09); Absolute Basophil Count 0.03 k/cumm (0.0-0.2); Absolute Eosinophil Count 0.21 k/cumm (0.0-0.7); Absolute Lymphocyte Count 1.71 k/cumm (1.2-3.4); Absolute Neutrophil Count 4.98 k/cumm (1.2-6.7); Basophils % 0.4; Eosinophils % 2.8; HCT 41.8 % (40.0-50.0); HGB 13.7 g/dL (13.5-17.5); Immature Grans % 0.1 %; Lymphocytes % 22.7; Mean Corp. HGB Concentration 32.8 g/dL (32.0-36.0); Mean Corpuscular Hemoglobin 31.1 pg (27.0-33.0); Mean Corpuscular Volume 94.8 fL (80-95); Mean Platelet Volume 9.9 fL (8.0-11.0); Platelet Count 238 x1000/uL (130-400); RBC 4.41 m/cumm (4.50-6.00); RBC Distribution Width 14.9 % (11.8-14.1); White Blood Cell Count 7.54 k/cumm (4.4-10.8)
[2019-04-22 09:29] LABS: ALT 39 U/L (16-63); AST 25 U/L (15-37); Albumin 3.7 g/dL (3.4-5.0); Alkaline Phosphatase 134 U/L (46-116); Anion Gap 10.8 mmol/L (3-11); BUN 9 mg/dL (7-18); Bilirubin, Total 0.5 mg/dL (0.2-1.0); CO2 25.2 mmol/L (21.0-32.0); Calcium 8.8 mg/dL (8.5-10.1); Chloride 105 mmol/L (98-107); Glucose 91 mg/dL (74-106); Magnesium 1.5 mg/dL (1.8-2.4); Potassium 4.1 mmol/L (3.5-5.1); Sodium 141 mmol/L (136-145); Total Protein 7.2 g/dL (6.4-8.2)
[2019-04-25 13:34] LABS: CEA 1.6 ng/mL (See Note)
[2019-05-06 08:11] LABS: Abs Immature Grans 0.01 k/cumm (0.0-0.09); Absolute Basophil Count 0.02 k/cumm (0.0-0.2); Absolute Eosinophil Count 0.18 k/cumm (0.0-0.7); Absolute Lymphocyte Count 1.52 k/cumm (1.2-3.4); Absolute Monocyte Count 0.42 k/cumm (0.11-0.7); Absolute Neutrophil Count 5.45 k/cumm (1.2-6.7); Basophils % 0.3; Eosinophils % 2.4; HCT 41.5 % (40.0-50.0); HGB 13.6 g/dL (13.5-17.5); Immature Grans % 0.1 %; Mean Corp. HGB Concentration 32.8 g/dL (32.0-36.0); Mean Corpuscular Volume 94.5 fL (80-95); Mean Platelet Volume 9.9 fL (8.0-11.0); Monocytes % 5.5; Neutrophils % 71.7; Platelet Count 272 x1000/uL (130-400); RBC 4.39 m/cumm (4.50-6.00); RBC Distribution Width 14.9 % (11.8-14.1)
[2019-05-06] MEDS: Normal Saline Flush 10 ML SYR IVP (08:11)
[2019-05-06 08:25] LABS: ALT 39 U/L (16-63); AST 23 U/L (15-37); Albumin 3.4 g/dL (3.4-5.0); Alkaline Phosphatase 147 U/L (46-116); Anion Gap 10.2 mmol/L (3-11); BUN 12 mg/dL (7-18); Bilirubin, Total 0.4 mg/dL (0.2-1.0); CO2 24.8 mmol/L (21.0-32.0); CREATININE 0.84 mg/dL (0.70-1.30); Calcium 8.9 mg/dL (8.5-10.1); Chloride 107 mmol/L (98-107); Glucose 116 mg/dL (74-106); Magnesium 1.4 mg/dL (1.8-2.4); Sodium 142 mmol/L (136-145); Total Protein 7.3 g/dL (6.4-8.2)
== END 2019-05-17 23:59 | disposition home or self-care (01) ==
LOC: INF 03:14
PROVIDERS: PCP Emergency Medicine; Visit Provider Internal Medicine Hematology & Oncology
DX: C18.9 Malignant neoplasm of colon, unspecified (principal); Z45.2 Encounter for adjustment and management of vascular access device
CPT/HCPCS: 36591; 80053; 82378; 83735; 85025

== ENCOUNTER 2019-05-17 03:21 | Outpatient (CLI) | payer OTHER, SELFPAY ==
[2019-05-17] MEDS: Omnipaque 350 MG/ML 50 ML BTL IJ (08:24)
[2019-05-17] MEDS: Breeza Beverage 473 ML BTL PO (08:26)
[2019-05-17 09:26] LABS: Abs Immature Grans 0.01 k/cumm (0.0-0.09); Absolute Basophil Count 0.02 k/cumm (0.0-0.2); Absolute Eosinophil Count 0.13 k/cumm (0.0-0.7); Absolute Lymphocyte Count 1.37 k/cumm (1.2-3.4); Absolute Monocyte Count 0.43 k/cumm (0.11-0.7); Absolute Neutrophil Count 3.17 k/cumm (1.2-6.7); Basophils % 0.4; Eosinophils % 2.5; HCT 41.1 % (40.0-50.0); HGB 13.6 g/dL (13.5-17.5); Immature Grans % 0.2 %; Lymphocytes % 26.7; Mean Corp. HGB Concentration 33.1 g/dL (32.0-36.0); Mean Corpuscular Hemoglobin 31.3 pg (27.0-33.0); Mean Corpuscular Volume 94.7 fL (80-95); Mean Platelet Volume 9.8 fL (8.0-11.0); Monocytes % 8.4; Neutrophils % 61.8; Platelet Count 252 x1000/uL (130-400); RBC 4.34 m/cumm (4.50-6.00); RBC Distribution Width 14.9 % (11.8-14.1); White Blood Cell Count 5.13 k/cumm (4.4-10.8)
[2019-05-17 09:45] LABS: ALT 40 U/L (16-63); AST 22 U/L (15-37); Albumin 3.6 g/dL (3.4-5.0); Alkaline Phosphatase 137 U/L (46-116); Anion Gap 8.1 mmol/L (3-11); BUN 13 mg/dL (7-18); Bilirubin, Total 0.4 mg/dL (0.2-1.0); CO2 27.9 mmol/L (21.0-32.0); CREATININE 0.86 mg/dL (0.70-1.30); Chloride 107 mmol/L (98-107); Glucose 91 mg/dL (74-106); Magnesium 1.7 mg/dL (1.8-2.4); Potassium 4.3 mmol/L (3.5-5.1); Sodium 143 mmol/L (136-145); Total Protein 7.3 g/dL (6.4-8.2)
[2019-05-17] MEDS: Omnipaque 350 MG/ML 100 ML BTL IJ (10:00)
[2019-05-17] MEDS: Normal Saline - Diluent 50 ML VIAL IV (10:00)
--- NOTE | 2019-05-17 10:12 | DI.CT_ITS ---
EXAM: CT CHEST/ABD/PEL W CLINICAL HISTORY: PRIMARY COLON CA WITH METS TO OTHER SITS, C18.9,ADRENAL METS. TECHNIQUE: Imaging Protocol: Axial computed tomography images with coronal and sagittal reformatted images were created and reviewed CONTRAST MATERIAL: Intravenous: Omnipaque 350 Contrast volume:100 ml Oral: yes COMPARISON: CT CHEST/ABD/PEL W from 03/03/2019 FINDINGS: CHEST: Thyroid: Normal Tracheobronchial tree: Patent where visualized. Mediastinum and Rebekah: No dominant adenopathy or fluid collection. Pulmonary parenchyma: No consolidation or dominant measurable mass. Mild emphysematous changes. Min imal areas of scarring. Pleura: No effusion or pneumothorax. Lymph nodes: Stable tiny hilar and mediastinal lymph nodes, less than a centimeter in size.. Aorta: Thoracic portion non-dilated. Aberrant right subclavian artery. Heart: Normal in size. No pericardial effusion Bones: Degenerative disc changes in the mid to lower thoracic spine. ABDOMEN: Liver: Normal density. No measurable mass. Gallbladder and biliary tract: No radiodense calculus or dilation. Pancreas: Normal density, no abnormal calcifications or inflammatory process. Spleen: Normal. Kidneys: Normal size, contour and axis. No radiodense stones or obstructive uropathy. No masses seen. A left renal cyst is again noted. Adrenal glands: Status post right adrenalectomy. There is again noted to be enlargement of the left adrenal gland with multiple masses. The overall size has decreased when compared with the previous e xam, with the overall measurement of the left adrenal 4.7 x 2.6 cm. Aorta: Abdominal portion non-dilated. [id number] calcifications Lymph nodes: Within normal limits. PELVIS: Bladder: Symmetric distention, no gross wall thickening. Bowel: No obstruction or bowel wall thickening. Peritoneal cavity: No ascites, collection or mesenteric inflammatory response. Bones: Within normal limits. Reproductive organs: Within normal limits. IMPRESSION: Stable appearance of the chest with small hilar and mediastinal lymph nodes. Interval overall decrease in size left adrenal gland with multiple small masses. No new findings a re seen. DATA REPOSITORY: All CT scans at this facility are submitted to the National Radiology Data Registry (NRDR) Dose Index Registry (DIR) with the [employer] ([employer]). RADIATION OPTIMIZATION: All CT scans at this facility use at least one of these dose optimization te chniques: automated exposure control; mA and/or kV adjustment per patient size (includes targeted exa ms where dose is matched to clinical indication); or iterative reconstruction.
[2019-05-18 10:14] LABS: CEA 1.1 ng/mL (See Note)
== END 2019-05-17 03:41 ==
PROVIDERS: PCP Emergency Medicine; Visit Provider Internal Medicine Hematology & Oncology
DX: C18.2 Malignant neoplasm of ascending colon (principal); C79.72 Secondary malignant neoplasm of left adrenal gland; R59.0 Localized enlarged lymph nodes; N28.1 Cyst of kidney, acquired
CPT/HCPCS: 74177; 80053; 71260; 82378; 83735; 85025; J3490; Q9967

== ENCOUNTER 2019-06-03 01:58 | Outpatient (RCR) | payer OTHER, SELFPAY ==
[2019-05-20] MEDS: Normal Saline Flush 10 ML SYR IVP (08:00)
[2019-06-03] MEDS: Normal Saline Flush 10 ML SYR IVP (08:01)
[2019-06-03 08:13] LABS: Abs Immature Grans 0.02 k/cumm (0.0-0.09); Absolute Basophil Count 0.02 k/cumm (0.0-0.2); Absolute Eosinophil Count 0.17 k/cumm (0.0-0.7); Absolute Lymphocyte Count 1.45 k/cumm (1.2-3.4); Absolute Monocyte Count 0.39 k/cumm (0.11-0.7); Basophils % 0.3; HCT 41.6 % (40.0-50.0); HGB 13.6 g/dL (13.5-17.5); Immature Grans % 0.3 %; Lymphocytes % 25.2; Mean Corp. HGB Concentration 32.7 g/dL (32.0-36.0); Mean Corpuscular Hemoglobin 30.4 pg (27.0-33.0); Mean Corpuscular Volume 93.1 fL (80-95); Mean Platelet Volume 10.1 fL (8.0-11.0); Monocytes % 6.8; Neutrophils % 64.4; Platelet Count 228 x1000/uL (130-400); RBC 4.47 m/cumm (4.50-6.00); RBC Distribution Width 15.1 % (11.8-14.1); White Blood Cell Count 5.75 k/cumm (4.4-10.8)
[2019-06-03 08:27] LABS: ALT 36 U/L (16-63); AST 23 U/L (15-37); Albumin 3.5 g/dL (3.4-5.0); Alkaline Phosphatase 152 U/L (46-116); Anion Gap 9.2 mmol/L (3-11); BUN 12 mg/dL (7-18); Bilirubin, Total 0.6 mg/dL (0.2-1.0); CO2 25.8 mmol/L (21.0-32.0); Calcium 8.6 mg/dL (8.5-10.1); Chloride 105 mmol/L (98-107); Glucose 112 mg/dL (74-106); Magnesium 1.4 mg/dL (1.8-2.4); Potassium 3.6 mmol/L (3.5-5.1); Sodium 140 mmol/L (136-145); Total Protein 7.2 g/dL (6.4-8.2)
[2019-06-06 10:41] LABS: CEA 1.4 ng/mL (See Note)
== END 2019-06-16 23:59 | disposition home or self-care (01) ==
LOC: INF 01:58
PROVIDERS: PCP Emergency Medicine; Visit Provider Internal Medicine Hematology & Oncology
DX: C18.9 Malignant neoplasm of colon, unspecified (principal); Z45.2 Encounter for adjustment and management of vascular access device
CPT/HCPCS: 36591; 80053; 96523; 82378; 83735; 85025

== ENCOUNTER 2019-07-15 02:52 | Outpatient (RCR) | payer OTHER, SELFPAY ==
[2019-06-17 08:04] LABS: Abs Immature Grans 0.01 k/cumm (0.0-0.09); Absolute Basophil Count 0.03 k/cumm (0.0-0.2); Absolute Eosinophil Count 0.15 k/cumm (0.0-0.7); Absolute Lymphocyte Count 1.46 k/cumm (1.2-3.4); Absolute Monocyte Count 0.53 k/cumm (0.11-0.7); Absolute Neutrophil Count 5.08 k/cumm (1.2-6.7); Basophils % 0.4; Eosinophils % 2.1; HGB 13.8 g/dL (13.5-17.5); Immature Grans % 0.1 %; Lymphocytes % 20.1; Mean Corp. HGB Concentration 33.7 g/dL (32.0-36.0); Mean Corpuscular Hemoglobin 31.2 pg (27.0-33.0); Mean Corpuscular Volume 92.6 fL (80-95); Mean Platelet Volume 10.1 fL (8.0-11.0); Monocytes % 7.3; Platelet Count 241 x1000/uL (130-400); RBC 4.43 m/cumm (4.50-6.00); RBC Distribution Width 15.1 % (11.8-14.1); White Blood Cell Count 7.26 k/cumm (4.4-10.8)
[2019-06-17] MEDS: Normal Saline Flush 10 ML SYR IVP (08:13)
[2019-06-17 08:18] LABS: ALT 33 U/L (16-63); AST 22 U/L (15-37); Albumin 3.5 g/dL (3.4-5.0); Alkaline Phosphatase 151 U/L (46-116); Anion Gap 9.1 mmol/L (3-11); BUN 9 mg/dL (7-18); Bilirubin, Total 0.7 mg/dL (0.2-1.0); CO2 24.9 mmol/L (21.0-32.0); CREATININE 0.85 mg/dL (0.70-1.30); Calcium 8.8 mg/dL (8.5-10.1); Chloride 105 mmol/L (98-107); Glucose 117 mg/dL (74-106); Magnesium 1.4 mg/dL (1.8-2.4); Potassium 3.8 mmol/L (3.5-5.1); Sodium 139 mmol/L (136-145); Total Protein 7.3 g/dL (6.4-8.2)
[2019-06-20 09:50] LABS: CEA 1.6 ng/mL (See Note)
[2019-07-01] MEDS: Normal Saline Flush 10 ML SYR IVP (07:55)
[2019-07-01 08:13] LABS: Abs Immature Grans 0.01 k/cumm (0.0-0.09); Absolute Basophil Count 0.04 k/cumm (0.0-0.2); Absolute Eosinophil Count 0.17 k/cumm (0.0-0.7); Absolute Lymphocyte Count 1.53 k/cumm (1.2-3.4); Absolute Monocyte Count 0.32 k/cumm (0.11-0.7); Absolute Neutrophil Count 2.72 k/cumm (1.2-6.7); Basophils % 0.8; Eosinophils % 3.5; HCT 40.9 % (40.0-50.0); HGB 13.4 g/dL (13.5-17.5); Immature Grans % 0.2 %; Lymphocytes % 31.9; Mean Corp. HGB Concentration 32.8 g/dL (32.0-36.0); Mean Corpuscular Volume 91.7 fL (80-95); Mean Platelet Volume 10.3 fL (8.0-11.0); Monocytes % 6.7; Neutrophils % 56.9; Platelet Count 252 x1000/uL (130-400); RBC 4.46 m/cumm (4.50-6.00); RBC Distribution Width 15.5 % (11.8-14.1); White Blood Cell Count 4.79 k/cumm (4.4-10.8)
[2019-07-01 08:29] LABS: ALT 33 U/L (16-63); AST 24 U/L (15-37); Albumin 3.4 g/dL (3.4-5.0); Alkaline Phosphatase 141 U/L (46-116); Anion Gap 8.5 mmol/L (3-11); BUN 9 mg/dL (7-18); Bilirubin, Total 0.7 mg/dL (0.2-1.0); CO2 25.5 mmol/L (21.0-32.0); CREATININE 0.88 mg/dL (0.70-1.30); Calcium 8.7 mg/dL (8.5-10.1); Chloride 105 mmol/L (98-107); Glucose 117 mg/dL (74-106); Magnesium 1.6 mg/dL (1.8-2.4); Potassium 3.8 mmol/L (3.5-5.1); Sodium 139 mmol/L (136-145); Total Protein 6.9 g/dL (6.4-8.2)
[2019-07-04 10:53] LABS: CEA 1.7 ng/mL (See Note)
[2019-07-15 07:35] LABS: Abs Immature Grans 0.01 k/cumm (0.0-0.09); Absolute Basophil Count 0.02 k/cumm (0.0-0.2); Absolute Eosinophil Count 0.19 k/cumm (0.0-0.7); Absolute Lymphocyte Count 1.39 k/cumm (1.2-3.4); Absolute Neutrophil Count 4.57 k/cumm (1.2-6.7); Basophils % 0.3; Eosinophils % 2.8; HCT 39.7 % (40.0-50.0); HGB 13.1 g/dL (13.5-17.5); Immature Grans % 0.1 %; Lymphocytes % 20.8; Mean Corpuscular Hemoglobin 29.8 pg (27.0-33.0); Mean Corpuscular Volume 90.4 fL (80-95); Mean Platelet Volume 10.2 fL (8.0-11.0); Monocytes % 7.5; Neutrophils % 68.5; Platelet Count 243 x1000/uL (130-400); RBC 4.39 m/cumm (4.50-6.00); RBC Distribution Width 15.3 % (11.8-14.1); White Blood Cell Count 6.68 k/cumm (4.4-10.8)
[2019-07-15] MEDS: Normal Saline Flush 10 ML SYR IVP (07:40)
[2019-07-15 07:47] LABS: ALT 31 U/L (16-63); AST 21 U/L (15-37); Albumin 3.3 g/dL (3.4-5.0); Alkaline Phosphatase 141 U/L (46-116); Anion Gap 6.2 mmol/L (3-11); BUN 8 mg/dL (7-18); Bilirubin, Total 0.5 mg/dL (0.2-1.0); CO2 25.8 mmol/L (21.0-32.0); CREATININE 0.83 mg/dL (0.70-1.30); Calcium 8.8 mg/dL (8.5-10.1); Chloride 106 mmol/L (98-107); Glucose 99 mg/dL (74-106); Magnesium 1.6 mg/dL (1.8-2.4); Potassium 3.9 mmol/L (3.5-5.1); Sodium 138 mmol/L (136-145)
[2019-07-18 10:37] LABS: CEA 2.1 ng/mL (See Note)
== END 2019-07-17 23:59 | disposition home or self-care (01) ==
LOC: INF 02:52
PROVIDERS: PCP Emergency Medicine; Visit Provider Internal Medicine Hematology & Oncology
DX: C18.9 Malignant neoplasm of colon, unspecified (principal); Z45.2 Encounter for adjustment and management of vascular access device
CPT/HCPCS: 36591; 80053; 82378; 83735; 85025

== ENCOUNTER 2019-07-27 07:18 | Outpatient (CLI) | payer OTHER, SELFPAY ==
--- NOTE | 2019-07-27 09:50 | DI.CT_ITS ---
EXAM: CT CHEST/ABD/PEL W CLINICAL HISTORY: PRIMARY COLON CA WITH METASTASIS,C18.9,ADRENAL METS, ON THERAPY, RESTAGING TECHNIQUE: Imaging Protocol: Axial computed tomography images with coronal and sagittal reformatted images were created and reviewed CONTRAST MATERIAL: Intravenous: Omnipaque 350 Contrast volume:100 mL Oral: Yes COMPARISON: CT CT CHEST/ABD/PEL W from 05/17/2019 FINDINGS: CHEST: Tracheobronchial tree: Patent where visualized. Mediastinum and Rebekah: No dominant adenopathy or fluid collection. Pulmonary parenchyma: No consolidation or dominant measurable mass. Centrilobular and paraseptal emph ysematous changes are present. Small peripheral nodules are again seen within the lungs. No new pul monary nodules are present. Dependent atelectatic changes are seen in the lung bases. Pleura: No effusion or pneumothorax. Heart: The heart is not dilated. Mild coronary artery calcification is present. No significant peric ardial effusion. Aorta: Thoracic aorta non-dilated. Note is again made of an aberrant right subclavian artery. Lymph nodes: Within normal limits. Bones:Degenerative changes are seen in the spine. ABDOMEN: Liver: Normal density. No measurable mass. Portal, Superior Mesenteric, and Splenic Veins: Unremarkable. Gallbladder and Biliary Tract: No radiodense calculus or dilation. Pancreas: Normal density, no abnormal calcifications or inflammatory process. Spleen: Normal. Adrenals: Status post right adrenalectomy. The left adrenal gland is enlarged and nodular measuring 5.7 cm x 3.8 cm. This compares with 4.8 x 3 cm on the prior examination. Kidneys: Normal size, contour and axis. No radiodense stones or obstructive uropathy. No masses seen. There is a stable cyst on the left kidney. Abdominal Aorta: Abdominal portion non-dilated. Atherosclerosis. Bowel: No obstruction or bowel wall thickening. No evidence of acute appendicitis. Peritoneal Cavity: No ascites, collection or mesenteric inflammatory response. Lymph Nodes: Within normal limits. Bones: Degenerative changes are present. Soft Tissues: Unremarkable. PELVIS: Bladder: Symmetric distention, no gross wall thickening. Reproductive Organs: Unremarkable as visualized. Lymph Nodes: Within normal limits. Bones: Degenerative changes are present. IMPRESSION: 1. Interval increase in size of left adrenal gland. 2. Otherwise stable findings of the chest, abdomen and pelvis. RADIATION DOSE DELIVERED: 1,865.12mGy.cm Total DLP DATA REPOSITORY: All CT scans at this facility are submitted to the National Radiology Data Registry (NRDR) Dose Index Registry (DIR) with the [employer] (ACR). RADIATION OPTIMIZATION: All CT scans at this facility use at least one of these dose optimization te chniques: automated exposure control; mA and/or kV adjustment per patient size (includes targeted exa ms where dose is matched to clinical indication); or iterative reconstruction.
[2019-07-27] MEDS: Normal Saline - Diluent 50 ML VIAL IV (09:52)
[2019-07-27] MEDS: Omnipaque 350 MG/ML 100 ML BTL IJ (09:52)
[2019-07-27] MEDS: Normal Saline Flush 10 ML SYR IVP (09:53)
[2019-07-27] MEDS: Omnipaque 350 MG/ML 50 ML BTL PO (09:54)
[2019-07-27] MEDS: Breeza Beverage 473 ML BTL PO ×2 (09:54→09:55)
== END 2019-07-27 07:38 ==
PROVIDERS: PCP Emergency Medicine; Visit Provider Internal Medicine Hematology & Oncology
DX: C18.2 Malignant neoplasm of ascending colon (principal); C79.72 Secondary malignant neoplasm of left adrenal gland; J43.8 Other emphysema; Z92.21 Personal history of antineoplastic chemotherapy
CPT/HCPCS: 74177; 71260; J3490; Q9967

== ENCOUNTER 2019-08-06 12:37 | Emergency (ER) | payer OTHER, SELFPAY ==
[2019-08-06] VITALS (21 sets, daily range): BP systolic 121–134; BP diastolic 72–89; PULSE 65–86; RESP 17–28; TEMP 36.3; O2SAT 93–99
--- NOTE | 2019-08-06 13:19 | ED.GENADUL_ITS ---
Discharge Plan Disposition Patient Disposition: HOME Condition: Stable Discharge Details Chief Complaint: Dizzy/Sync Clinical Impression: Acute otitis media, right, Pre-syncope, Hypomagnesemia Primary Care Provider: George Pinto ED Provider: Koko Tejaad Home Meds and New Rx's Prescriptions: New amoxicillin-pot clavulanate [Augmentin] 875-125 mg tablet 1 tab PO BID Qty: 13 RF: 0 Continued losartan 25 mg tablet 25 mg PO DAILY Qty: 30 RF: 4 Eliquis 5 mg tablet 5 mg PO BID RF: 0 acetaminophen [Tylenol] 325 MG tablet 650 mg PO BID PRN RF: 0 cetirizine [Zyrtec] 10 MG tablet,chewable 10 mg PO HS Qty: 30 RF: 12 omeprazole 20 mg capsule,delayed release(DR/EC) 20 mg PO BID Qty: 180 RF: 3 magnesium oxide 400 mg (241.3 mg magnesium) tablet 400 mg PO BID RF: 0 vitamin B complex Capsule 1 cap PO DAILY RF: 0 Discharge Instructions Instructions: Ear Infection (ED), Hypomagnesemia (ED), Near Syncope (ED) Additional Instructions: Please drink plenty of fluids to stay hydrated. Take antibiotic as prescribed. Rest over the next few days. Please contact your primary care physician to arrange follow-up. Return to the ER for any worsening or new concerning symptoms. 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 Patient had an episode just prior to arrival today. Episodes are brief and always occur after having just stood up. I am concerned about the potential for orthostatic hypotension possibly as a side effect of chemotherapy. Orthostatic vital signs here are normal at this time. Patient notes she has been maintaining adequate hydration. Consider arrhythmia. Will check screening ECG. I did interpret telemetry monitor and no arrhythmia noted. Of note, patient states he had similar symptoms in the past years ago when he had a sinus infection. Patient has had recent fullness in his right ear that did seem to improve after he had wax cleared couple days ago. On examination of his ears, left TM is normal, right TM is bulging with hyperemia. Consider otitis media. -- screening ECG was reviewed and interpreted by me: Sinus rhythm 81 bpm, normal axis, no STEMI, no signs of HOCM, Brugada or WPW. --Labs reviewed and patient does have mild hypomagnesemia. Magnesium 800 mg was administered. Labs otherwise nondiagnostic. Plan will be to discharge him to follow-up with PCP. I will treat for otitis media with Augmentin. Patient may benefit from outpatient Holter monitor placement should symptoms persist. Patient was encouraged to rest and maintain adequate hydration over the next few days. HPI General Mode of arrival: ambulatory . Date/Time Provider Initiated Documentation: 08/06/19 12:55 . Limitations to Documentation: no limitations . Information obtained by: patient . HPI Narrative: 59-year-old male with history of adrenal cancer status post removal, colon cancer, currently on immunomodulator and chemotherapy, here with intermittent dizzy spells. Patient notes he is had 3 spells over the past 4 days. Spells always occur shortly after standing up. They are brief lasting seconds. When they occur his has noted that he seems a bit confused. Today episode occurred just prior to arrival after spending the morning outside golfing. He has no associated chest pain or shortness of breath. No abdominal pain. No nausea or vomiting. Related Data Home Medications Medication Instructions Recorded Confirmed acetaminophen [Tylenol] 650 mg PO BID PRN tab-cap 10/24/13 08/06/19 cetirizine [Zyrtec] 10 mg PO HS #30 tab.chew 08/29/15 08/06/19 vitamin B complex 1 cap PO DAILY 10/13/18 08/06/19 losartan 25 mg tablet 25 mg PO DAILY #30 tab 11/04/18 08/06/19 apixaban 5 mg tablet 5 mg PO BID 02/18/19 08/06/19 omeprazole 20 mg capsule,delayed 20 mg PO BID #180 tab-cap 04/29/19 08/06/19 release amoxicillin-pot clavulanate 1 tab PO BID #13 tab 08/06/19 [Augmentin] magnesium oxide 400 mg PO BID 08/06/19 08/06/19 Previous Rx's Medication Instructions Recorded losartan 25 mg tablet 25 mg PO DAILY #30 tab 09/19/19 omeprazole 20 mg capsule,delayed 20 mg PO BID #180 tab-cap 04/29/19 release amoxicillin-pot clavulanate 1 tab PO BID #13 tab 08/06/19 [Augmentin] Allergies Allergy/AdvReac Type Severity Reaction Status Date / Time grass pollen Allergy Mild Verified 02/18/19 16:01 General Stated Complaint: Dizzy/Sync RUEL: 3 Review of Systems Constitutional Constitutional: Denies fever(s) ENT Ears, Nose, Mouth, and Throat: Reports as per HPI, Denies vertigo and Denies sore throat Comments: Patient notes right ear fullness recently, had wax cleared 2 days ago and seemed to improve Cardiovascular Cardiovascular: Denies chest pain, Denies leg edema and Denies dyspnea Respiratory Respiratory: Denies cough and Denies dyspnea Gastrointestinal Gastrointestinal: Denies abdominal pain and Denies vomiting Integumentary/Breasts Skin/Breast: Denies rash Neurologic Neurologic: Reports as per HPI and Denies vertigo [facility] Medical History Adrenal cancer (Acute) METS from Colon CA Encounter for central line placement (Acute ~06/23/18) Metastatic colorectal cancer (Acute) Port-A-Cath in place (Acute ~06/23/18) L Subclavian SOB (shortness of breath) on exertion (Acute) Surgical History Colonoscopy - MAC 11/18/13;[facility] Hemicolectomy 12/01/16; RIGHT @ [facility] History of partial adrenalectomy (Acute) pt. states he had right adrenal gland removed r/t to tumor. 04/10/18 History of removal of Port-a-Cath (Acute) L subclavian Family History Mother , age 82 No problems noted. Father No problems noted. Social History Smoking/Tobacco Use Status: Current-Occasional Tobacco Type: cigarettes Quit status: quit date established Smoking risk assessment performed?: Yes Alcohol Intake: current Alcohol Intake frequency: holidays/special occasions only Alcohol type: beer Drug use: Never Substance use type: does not use Caregiver/Support person: Yes Household members: spouse and children Housing: house Communication Needs: None Do you need help understanding health information?: Rarely Pets and animals: Yes Sexually active: Yes Do you think of yourself as: straight/heterosexual Current gender identity: male What is your relationship status?: How often do you talk on the phone with friends or family?: three or more times per week How often do you get together with friends or relatives?: once per week How often do you attend orthodox or zoroastrianism services?: 1-3 times per year Do you belong to any clubs or organized social groups?: no Panel score (0-1 are the most socially isolated patients): 2 What type of physical activity do you participate in: walking Duration: 30-45 minutes/day Frequency: daily Kesha/Scientologist: Mosque Special kesha needs: No Seatbelt use: always Drive intox or ride w/intox industrial tractor driver: No Do you feel safe at home: Yes Do you feel safe in your relationship?: Yes Exam Const General: cooperative and no acute distress HENMT Mouth: moist mucous membranes Eyes Conjunctivae: normal conjunctivae Sclera: normal sclerae Neck Neck: supple Resp Auscultation: clear to auscultation bilaterally, no rales, no rhonchi and no wheezes Cardio Jugular venous pressure: no JVD Rate: regular rate and not tachycardic Rhythm: regular rhythm Heart Sounds: S1 normal, S2 normal, no click, no gallops and no murmurs GI Palpation: soft, not firm, no guarding, no masses, not rigid and nontender Skin General skin exam: no rashes or lesions noted Neuro General: patient alert, patient awake, patient oriented x3 and tone normal Cranial Nerves: CN's II-XI intact bilaterally Cognition: normal cognition Speech: speech normal Gait: normal gait Motor: strength 5/5 throughout Sensory Exam: no sensory deficits noted Extrem General: no edema Psych Appearance: grossly normal Mental Status: mental status grossly normal Speech and Movement: speech and movement normal Course Vital Signs Vital signs: Vital Signs Temperature 36.3 C L 08/06/19 12:49 Pulse 81 08/06/19 12:49 Respiratory Rate 20 08/06/19 12:49 Blood Pressure 134/89 08/06/19 12:49 Pulse Oximetry 97 08/06/19 12:49 Temperature 36.3 C L 08/06/19 12:49 Temperature Source Skin 08/06/19 12:49 Pulse 81 08/06/19 12:49 Respiratory Rate 20 08/06/19 12:49 Respiratory Effort Non-Labored 08/06/19 12:56 Blood Pressure 134/89 08/06/19 12:49 Blood Pressure Position Sitting 08/06/19 12:49 Pulse Oximetry 97 08/06/19 12:49 Oxygen Delivery Method Room Air 08/06/19 12:49 Oxygen Flow Rate 0 08/06/19 12:49 Pain Level 0 08/06/19 12:49
[2019-08-06 13:28] LABS: Abs Immature Grans 0.02 k/cumm (0.0-0.09); Absolute Basophil Count 0.02 k/cumm (0.0-0.2); Absolute Eosinophil Count 0.25 k/cumm (0.0-0.7); Absolute Lymphocyte Count 1.49 k/cumm (1.2-3.4); Absolute Monocyte Count 0.52 k/cumm (0.11-0.7); Absolute Neutrophil Count 3.68 k/cumm (1.2-6.7); Basophils % 0.3; Eosinophils % 4.2; HGB 12.5 g/dL (13.5-17.5); Immature Grans % 0.3 %; Lymphocytes % 24.9; Mean Corp. HGB Concentration 32.9 g/dL (32.0-36.0); Mean Corpuscular Hemoglobin 29.9 pg (27.0-33.0); Mean Corpuscular Volume 90.9 fL (80-95); Mean Platelet Volume 9.7 fL (8.0-11.0); Monocytes % 8.7; Neutrophils % 61.6; Platelet Count 233 x1000/uL (130-400); RBC 4.18 m/cumm (4.50-6.00); RBC Distribution Width 15.8 % (11.8-14.1); White Blood Cell Count 5.98 k/cumm (4.4-10.8)
[2019-08-06 13:44] LABS: ALT 32 U/L (16-63); AST 21 U/L (15-37); Albumin 3.3 g/dL (3.4-5.0); Alkaline Phosphatase 141 U/L (46-116); Anion Gap 8.6 mmol/L (3-11); BUN 13 mg/dL (7-18); Bilirubin, Total 0.4 mg/dL (0.2-1.0); CO2 26.4 mmol/L (21.0-32.0); CREATININE 0.88 mg/dL (0.70-1.30); Calcium 8.6 mg/dL (8.5-10.1); Chloride 106 mmol/L (98-107); Glucose 93 mg/dL (74-106); Magnesium 1.6 mg/dL (1.8-2.4); Potassium 3.7 mmol/L (3.5-5.1); Sodium 141 mmol/L (136-145); Total Protein 6.7 g/dL (6.4-8.2); Troponin I < 0.05 ng/mL (<0.06)
[2019-08-06] MEDS: Magnesium Oxide 400 MG TAB 800 MG PO (14:05)
[2019-08-06] MEDS: Amoxicillin 875/Clav. 125 TAB PO (14:55)
== END 2019-08-06 15:12 | disposition home or self-care (01) ==
PROVIDERS: Emergency Provider Student in an Organized Health Care Education/Training Program; PCP Emergency Medicine
DX: H66.91 Otitis media, unspecified, right ear (principal); R42 Dizziness and giddiness; E83.42 Hypomagnesemia; C18.9 Malignant neoplasm of colon, unspecified; Z79.899 Other long term (current) drug therapy
CPT/HCPCS: 36415; 80053; 93005; 99284; 83735; 84484; 85025; 93010

== ENCOUNTER 2019-08-11 07:47 | Outpatient (CLI) | payer OTHER, SELFPAY ==
--- NOTE | 2019-08-11 09:15 | DI.CT_ITS ---
EXAM: CT HEAD WO/W CLINICAL HISTORY: mets. possible seizure, C79.9 MALIGNANT NEOPLASM TECHNIQUE: COMPARISON: No exams were available for comparison FINDINGS: Noncontrast cranial CT was performed followed contrast enhanced CT with intravenous infusion of 100 c c of Omnipaque 350. There is a ring-enhancing lesion measuring 21 x 26 millimeters in diameter on tr ansaxial images located in the head of the caudate nucleus on the right with marked surrounding edema and moderate midline shift to the. In the setting of known primary malignancy, the findings are hig hly suggestive of metastatic disease. Additionally there is a 7 x 4 millimeter in diameter enhancing lesion of the right frontal lobe near the apex just to the right of midline with surrounding edema noted at this site as well, this lesion is also likely to represent a metastatic focus. No additional focal lesions identified. The orbital and temporal bone structures appear intact. Vis ualized paranasal sinuses and mastoid air cells are clear. No evidence of acute hemorrhage in the brain. IMPRESSION: Findings highly suggestive of intracranial metastatic lesions as described above.
[2019-08-11] MEDS: Omnipaque 350 MG/ML 100 ML BTL IJ (09:34)
== END 2019-08-11 08:07 ==
PROVIDERS: PCP Emergency Medicine; Visit Provider Emergency Medicine
DX: C79.31 Secondary malignant neoplasm of brain (principal); C18.2 Malignant neoplasm of ascending colon; C79.72 Secondary malignant neoplasm of left adrenal gland
CPT/HCPCS: 70470; J3490

== ENCOUNTER 2019-08-12 04:17 | Outpatient (RCR) | payer OTHER, SELFPAY ==
[2019-07-29] MEDS: Normal Saline Flush 10 ML SYR IVP (07:47)
[2019-07-29 07:49] LABS: Abs Immature Grans 0.01 k/cumm (0.0-0.09); Absolute Basophil Count 0.02 k/cumm (0.0-0.2); Absolute Eosinophil Count 0.21 k/cumm (0.0-0.7); Absolute Lymphocyte Count 1.56 k/cumm (1.2-3.4); Absolute Monocyte Count 0.39 k/cumm (0.11-0.7); Absolute Neutrophil Count 3.55 k/cumm (1.2-6.7); Basophils % 0.3; Eosinophils % 3.7; HCT 40.1 % (40.0-50.0); HGB 13.3 g/dL (13.5-17.5); Immature Grans % 0.2 %; Lymphocytes % 27.2; Mean Corp. HGB Concentration 33.2 g/dL (32.0-36.0); Mean Corpuscular Volume 90.3 fL (80-95); Mean Platelet Volume 10.1 fL (8.0-11.0); Monocytes % 6.8; Neutrophils % 61.8; Platelet Count 239 x1000/uL (130-400); RBC 4.44 m/cumm (4.50-6.00); RBC Distribution Width 15.8 % (11.8-14.1); White Blood Cell Count 5.74 k/cumm (4.4-10.8)
[2019-07-29 08:28] LABS: ALT 30 U/L (16-63); AST 21 U/L (15-37); Albumin 3.3 g/dL (3.4-5.0); Alkaline Phosphatase 144 U/L (46-116); Anion Gap 8.5 mmol/L (3-11); BUN 10 mg/dL (7-18); Bilirubin, Total 0.6 mg/dL (0.2-1.0); CO2 25.5 mmol/L (21.0-32.0); CREATININE 0.84 mg/dL (0.70-1.30); Calcium 8.8 mg/dL (8.5-10.1); Chloride 108 mmol/L (98-107); Glucose 125 mg/dL (74-106); Magnesium 1.7 mg/dL (1.8-2.4); Potassium 3.8 mmol/L (3.5-5.1); Sodium 142 mmol/L (136-145)
[2019-08-01 10:16] LABS: CEA 1.9 ng/mL (See Note)
[2019-08-12] MEDS: Normal Saline Flush 10 ML SYR IVP (08:13)
[2019-08-12 08:34] LABS: Abs Immature Grans 0.01 k/cumm (0.0-0.09); Absolute Basophil Count 0.03 k/cumm (0.0-0.2); Absolute Eosinophil Count 0.19 k/cumm (0.0-0.7); Absolute Lymphocyte Count 1.37 k/cumm (1.2-3.4); Absolute Neutrophil Count 4.24 k/cumm (1.2-6.7); Basophils % 0.5; HCT 41.9 % (40.0-50.0); HGB 13.7 g/dL (13.5-17.5); Immature Grans % 0.2 %; Lymphocytes % 21.6; Mean Corp. HGB Concentration 32.7 g/dL (32.0-36.0); Mean Corpuscular Hemoglobin 29.5 pg (27.0-33.0); Mean Corpuscular Volume 90.3 fL (80-95); Mean Platelet Volume 10.1 fL (8.0-11.0); Monocytes % 7.9; Neutrophils % 66.8; Platelet Count 267 x1000/uL (130-400); RBC 4.64 m/cumm (4.50-6.00); RBC Distribution Width 15.8 % (11.8-14.1); White Blood Cell Count 6.34 k/cumm (4.4-10.8)
[2019-08-12 08:46] LABS: ALT 29 U/L (16-63); AST 23 U/L (15-37); Albumin 3.7 g/dL (3.4-5.0); Alkaline Phosphatase 140 U/L (46-116); Anion Gap 9.5 mmol/L (3-11); BUN 9 mg/dL (7-18); Bilirubin, Total 0.8 mg/dL (0.2-1.0); CO2 26.5 mmol/L (21.0-32.0); CREATININE 0.94 mg/dL (0.70-1.30); Calcium 9.2 mg/dL (8.5-10.1); Chloride 103 mmol/L (98-107); Glucose 97 mg/dL (74-106); Magnesium 1.8 mg/dL (1.8-2.4); Potassium 3.7 mmol/L (3.5-5.1); Sodium 139 mmol/L (136-145); Total Protein 7.4 g/dL (6.4-8.2)
[2019-08-15 10:32] LABS: CEA 2.7 ng/mL (See Note)
== END 2019-08-16 23:59 | disposition home or self-care (01) ==
LOC: INF 04:17
PROVIDERS: PCP Emergency Medicine; Visit Provider Internal Medicine Hematology & Oncology
DX: C18.2 Malignant neoplasm of ascending colon (principal); Z45.2 Encounter for adjustment and management of vascular access device
CPT/HCPCS: 36591; 80053; 82378; 83735; 85025

== ENCOUNTER 2019-08-31 00:46 | Outpatient (CLI) | payer OTHER, SELFPAY ==
[2019-08-31] MEDS: Gadoterate meglumine 20 ML VIAL IV (11:43)
[2019-08-31] MEDS: Normal Saline Flush 10 ML SYR IV (11:44)
--- NOTE | 2019-08-31 12:00 | DI.MRI_ITS ---
EXAM: MR BRAIN WO/W CLINICAL HISTORY: STEREOTACTIC RADIOSURGERY PLANNING PROTOCOL, MALIGNANT NEOPLASM OF BRAIN,c79.31,ME TASTATIC COLORECTAL CA TECHNIQUE: Multiplanar multisequence MRI was performed. FINDINGS: MR examination of the brain was performed according to the usual protocol with additional post contra st axial and coronal T1 weighted images. The examination is compared with most recent prior study of August 11 from [facility], the previously described right caudate nucleus mass is again seen and has decrea sed in size from 25 x 27 by 28 millimeters on the prior study to about 26 x 24 x 22 millimeters on e current examination. The degree of surrounding edema seen on FLAIR imaging appears a little less ex tensive on today's examination. Decreased midline shift also noted in comparison with prior examinati on. No hydrocephalus. The previously noted enhancing lesion of the right parietal lobe is again seen as well, this has decr eased in size and now measures about 10 x 5 millimeters in diameter on axial imaging. No new lesion i dentified. Scattered focal white matter signal abnormalities seen consistent with mild microvascular ischemic change. IMPRESSION: Interval decrease in size of 2 presumed metastatic lesions, right caudate nucleus and right parietal cortex, in comparison with previous examination of August 11. DATA REPOSITORY:
== END 2019-08-31 01:06 ==
PROVIDERS: PCP Emergency Medicine; Visit Provider Radiology Radiation Oncology
DX: C79.31 Secondary malignant neoplasm of brain (principal); C18.2 Malignant neoplasm of ascending colon
CPT/HCPCS: 70553

== ENCOUNTER 2019-09-09 04:24 | Outpatient (RCR) | payer OTHER, SELFPAY ==
[2019-08-23] MEDS: Normal Saline Flush 10 ML SYR IVP (10:40)
[2019-08-23 10:52] LABS: Abs Immature Grans 0.12 k/cumm (0.0-0.09); Absolute Basophil Count 0.01 k/cumm (0.0-0.2); Absolute Eosinophil Count 0.01 k/cumm (0.0-0.7); Absolute Lymphocyte Count 1.23 k/cumm (1.2-3.4); Absolute Monocyte Count 0.87 k/cumm (0.11-0.7); Absolute Neutrophil Count 12.57 k/cumm (1.2-6.7); Basophils % 0.1; Eosinophils % 0.1; HCT 43.3 % (40.0-50.0); Immature Grans % 0.8 %; Lymphocytes % 8.3; Mean Corp. HGB Concentration 32.3 g/dL (32.0-36.0); Mean Corpuscular Hemoglobin 29.5 pg (27.0-33.0); Mean Corpuscular Volume 91.4 fL (80-95); Mean Platelet Volume 10.5 fL (8.0-11.0); Monocytes % 5.9; Neutrophils % 84.8; Platelet Count 252 x1000/uL (130-400); RBC 4.74 m/cumm (4.50-6.00); RBC Distribution Width 17.4 % (11.8-14.1); White Blood Cell Count 14.82 k/cumm (4.4-10.8)
[2019-08-23 11:04] LABS: ALT 32 U/L (16-63); AST 17 U/L (15-37); Alkaline Phosphatase 157 U/L (46-116); Anion Gap 9.2 mmol/L (3-11); BUN 17 mg/dL (7-18); Bilirubin, Total 0.5 mg/dL (0.2-1.0); CO2 24.8 mmol/L (21.0-32.0); CREATININE 0.75 mg/dL (0.70-1.30); Calcium 8.3 mg/dL (8.5-10.1); Chloride 105 mmol/L (98-107); Glucose 130 mg/dL (74-106); Potassium 3.7 mmol/L (3.5-5.1); Sodium 139 mmol/L (136-145); Total Protein 6.8 g/dL (6.4-8.2)
[2019-08-23 13:26] LABS: Magnesium 1.8 mg/dL (1.8-2.4)
[2019-08-24 08:51] LABS: CEA 2.6 ng/mL (See Note)
[2019-09-09] MEDS: Normal Saline Flush 10 ML SYR IVP (07:10)
[2019-09-09] MEDS: Heparin 500 UNITS/5 ML SYRINGE IV (07:10)
[2019-09-09 07:18] LABS: Abs Immature Grans 0.03 k/cumm (0.0-0.09); Absolute Eosinophil Count 0.08 k/cumm (0.0-0.7); Absolute Lymphocyte Count 1.12 k/cumm (1.2-3.4); Absolute Monocyte Count 0.76 k/cumm (0.11-0.7); Absolute Neutrophil Count 4.19 k/cumm (1.2-6.7); Eosinophils % 1.3; HCT 42.2 % (40.0-50.0); Immature Grans % 0.5 %; Lymphocytes % 18.1; Mean Corp. HGB Concentration 33.2 g/dL (32.0-36.0); Mean Corpuscular Hemoglobin 30.6 pg (27.0-33.0); Mean Corpuscular Volume 92.3 fL (80-95); Mean Platelet Volume 9.6 fL (8.0-11.0); Monocytes % 12.3; Neutrophils % 67.8; Platelet Count 144 x1000/uL (130-400); RBC 4.57 m/cumm (4.50-6.00); RBC Distribution Width 19.3 % (11.8-14.1); White Blood Cell Count 6.18 k/cumm (4.4-10.8)
[2019-09-09 07:33] LABS: ALT 50 U/L (16-63); AST 36 U/L (15-37); Albumin 2.8 g/dL (3.4-5.0); Alkaline Phosphatase 162 U/L (46-116); BUN 17 mg/dL (7-18); Bilirubin, Total 0.7 mg/dL (0.2-1.0); CREATININE 0.78 mg/dL (0.70-1.30); Calcium 8.3 mg/dL (8.5-10.1); Chloride 103 mmol/L (98-107); Glucose 128 mg/dL (74-106); Magnesium 1.7 mg/dL (1.8-2.4); Potassium 3.6 mmol/L (3.5-5.1); Sodium 138 mmol/L (136-145); Total Protein 6.4 g/dL (6.4-8.2)
[2019-09-12 09:19] LABS: CEA 6.7 ng/mL (See Note)
== END 2019-09-16 23:59 | disposition home or self-care (01) ==
LOC: INF 04:24
PROVIDERS: PCP Emergency Medicine; Visit Provider Internal Medicine Hematology & Oncology
DX: C18.2 Malignant neoplasm of ascending colon (principal); Z45.2 Encounter for adjustment and management of vascular access device
CPT/HCPCS: 36591; 80053; 82378; 83735; 85025

== ENCOUNTER 2019-09-26 20:00 | Inpatient (IN) | payer OTHER, SELFPAY ==
[2019-09-26 20:04] VITALS: BP 110/78; PULSE 127; RESP 18; TEMP 37.3; O2SAT 95
--- NOTE | 2019-09-26 20:33 | W.ED.GENAD ---
Discharge Plan Disposition Patient Disposition: [facility] INPATIENT Condition: Stable Discharge Details Chief Complaint: Fever Clinical Impression: Fever Admit Date/Time: 09/28/19 14:20 Admit Provider: Rudolph Marino Attending Provider: Inessa Jerry Primary Care Provider: George Pinto ED Provider: Suzi Barnes Discharge Instructions Activity:: Activity as Tolerated Equipment/Supplies:: No Equipment Needed Diet:: As Tolerated Discharge Orders Discharge Orders: Discharge Order (Routine); Ordered 09/29/19 Ordered By: Inessa Jerry Discharge Data Discharge Date/Time-TO BE ENTERED AT DEPARTURE: 09/27/19 00:55 Medical Decision Making Patient is a pleasant 59-year-old gentleman currently undergoing chemotherapy for colon cancer removal to assist with the adrenal gland and head. He reports that he was noted by his to have a temp of 102 ?F this afternoon after receiving chemotherapy. He states it was quite unusual for him. He does report he has a chronic cough. Patient denies any shortness of breath or chest pain. States that his cough may have increased slightly. He denies any hemoptysis. His does report that she is concerned that he did appear more short of breath than his baseline. He denies any GI upset. No HEENT complaints. Denies any headache. Denies any rash. On exam, patient appears to be in no acute distress. He is notably tachycardic with a heart rate of 127. His lungs are clear but patient is tachypneic. Heart sounds are otherwise normal. Normal abdominal exam. No rash. No nuchal rigidity. I am concerned with the patient's history, tachycardia, tachypnea and current diagnosis that he may have a pulmonary embolism. I do feel that CT for PE protocol would be appropriate. This will also evaluate further for any infectious etiologies. I am concerned as well for potential neutropenic fever. Patient is currently afebrile although to give him Tylenol prior to arrival. Pulmonary arteries: Pulmonary arteries well opacified. No evidence of pulmonary arterial embolism. Aorta: Thoracic aorta is unremarkable in appearance. 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 This is a normal variation. Lungs: Emphysematous lung changes. Multiple areas of subpleural blebs. Bronchiectasis. Interstitial septal thickening. No acute lung infiltrates or consolidation. Nonspecific right middle lobe nodule measuring 7 by 6 mm on series 5, image 374. This appears to be associated with the horizontal fissure. There is a vague small ground-glass opacification in the right upper lobe on series 5, image 151. This measures approximately 10 mm. Pleural space: No pleural effusion. Heart: Unremarkable. No cardiomegaly. No pericardial effusion. Lymph nodes: Posterior right mediastinal lymph node measuring 14 x 13 mm. See series 4, image 36. Subcarinal lymph node measuring 11 x 10 mm. Subcentimeter right paratracheal lymph node. Adrenals: Suggestion of a left adrenal mass. This is seen in a limited fashion and measures approximately 3.8 cm on this limited view. Recommend clinical correlation. Bones/joints: Degenerative thoracic spine. No acute fracture. Soft tissues: Unremarkable. IMPRESSION: 1. No evidence of pulmonary arterial embolism. 2. Emphysematous lung changes and bronchiectasis. 3. Small right middle lobe nodular focus which appears to be within the region of the horizontal fissure. 4. Ill-defined right apical ground-glass opacification measuring 10 mm. 5. Left chest Port-A-Cath suggesting patient has a known history of malignancy. Recommend clinical correlation. 6. Mildly enlarged mediastinal lymph nodes. 7. Possible left adrenal mass. Labs reviewed. White count of 3.29 with an ANC of 2.96. Hemoglobin stable at 12.9. This is unchanged from last week. Patient's anion gap is 13.1. His initial lactate is was 2.7, he is currently downtrending 1.5 after hydration. Magnesium is 1.2, I did offer IV replenishment of this magnesium which patient declines. He reports that he has had hypomagnesemia historically and does have oral supplementation who prefer to take at home. Alk phos is elevated at 136 but this is baseline for the patient. Albumin is low at 3.0. This is also baseline patient. Urine without evidence to suggest infection. Patient does remain febrile with a low-grade temp of 100.3 ?F. Consulted with Dr. Weller with oncology at [facility]. We discussed presentation, course and labs thus far. He will call back after discussing case with his attending. He attempted to get ahold of his attending but was unable to do so. He advised keeping patietn overnight for observation and continued workup with plan to touch base in the morning with heme/onc once again. They advised that we could hold off on abx at this point. However, advised Vanc and cefapime if patient began to appear septic. Discussed with patient and who are in agreement Consulted with Dr. Marino who agrees to admission, he has asked that I place holding orders. HPI General Mode of arrival: ambulatory. Date/Time Provider Initiated Documentation: 09/26/19 20:05. Limitations to Documentation: no limitations. Information obtained by: patient and RN notes reviewed. HPI Narrative: Patient is a pleasant 59-year-old gentleman presenting today with chief complaint of fever. Patient is currently undergoing his 43rd round of a chemotherapy for colon cancer with metastasis to the adrenals and brain. States that today he noted fever with a T-max of 102 as recorded by his . States that he has been feeling more short of breath. States over the past few days he has been more fatigued and foggy than his typical. He does report a chronic headache that is unchanged from baseline. He also reports chronic chemotherapy cough. States the cough has been slightly worse today. Reports that typically he does not develop a fever after chemotherapy. Denies any GI upset. No headache, Related Data Home Medications Medication Instructions Recorded Confirmed acetaminophen [Tylenol] 650 mg PO BID PRN tab-cap 10/24/13 09/26/19 cetirizine [Zyrtec] 10 mg PO HS #30 tab.chew 08/29/15 09/26/19 vitamin B complex 1 cap PO DAILY 10/13/18 09/26/19 apixaban 5 mg tablet 5 mg PO BID 02/18/19 09/26/19 omeprazole 20 mg capsule,delayed 20 mg PO BID #180 tab-cap 04/29/19 09/26/19 release levetiracetam 500 mg PO BID 09/26/19 09/26/19 losartan 25 mg PO DAILY PRN 09/26/19 09/26/19 levofloxacin [Levaquin] 750 mg PO QAM #4 tab 09/29/19 Previous Rx's Medication Instructions Recorded omeprazole 20 mg capsule,delayed 20 mg PO BID #180 tab-cap 04/29/19 release levofloxacin [Levaquin] 750 mg PO QAM #4 tab 09/29/19 Allergies Allergy/AdvReac Type Severity Reaction Status Date / Time grass pollen Allergy Mild Verified 09/26/19 20:12 General Stated Complaint: Fever RUEL: 3 Review of Systems Constitutional Constitutional: Reports as per HPI, Denies chills, Reports fever(s), Denies headache(s) and Denies poor appetite Eyes Eyes: Reports as per HPI, Denies eye discharge and Denies irritation ENT Ears, Nose, Mouth, and Throat: Reports as per HPI and Denies headache(s) Cardiovascular Cardiovascular: Reports as per HPI, Denies chest pain, Denies chest pain at rest, Denies chest pain with activity, Denies dyspnea and Denies dyspnea on exertion Respiratory Respiratory: Reports as per HPI, Denies chest congestion, Reports cough (largely chronic cough.), Denies hemoptysis, Denies pain on inspiration, Denies pain with cough, Denies dyspnea and Denies dyspnea on exertion Gastrointestinal Gastrointestinal: Reports as per HPI, Denies abdominal pain, Denies change in bowel habits, Denies nausea and Denies vomiting Integumentary/Breasts Skin/Breast: Reports as per HPI and Denies rash Neurologic Neurologic: Reports as per HPI and Denies headache(s) [facility] Medical History Adrenal cancer (Acute) METS from Colon CA Chronic diarrhea (Acute) Encounter for central line placement (Acute ~06/23/18) Metastatic colorectal cancer (Chronic) Port-A-Cath in place (Acute ~06/23/18) L Subclavian SOB (shortness of breath) on exertion (Acute) Surgical History Colonoscopy - MAC 11/18/13;[facility] Hemicolectomy 12/01/16; RIGHT @ [facility] History of partial adrenalectomy (Acute) pt. states he had right adrenal gland removed r/t to tumor. 04/10/18 History of removal of Port-a-Cath (Acute) L subclavian Family History Mother , age 82 No problems noted. Father No problems noted. Social History Smoking/Tobacco Use Status: Current-Occasional Tobacco Type: cigarettes Quit status: quit date established Smoking risk assessment performed?: Yes Alcohol Intake: former Drug use: Never Substance use type: does not use Details: no alcohol for 2 years Caregiver/Support person: Yes Household members: spouse and children Housing: house Communication Needs: None Do you need help understanding health information?: Rarely Pets and animals: Yes Sexually active: Yes Do you think of yourself as: straight/heterosexual Current gender identity: male What is your relationship status?: How often do you talk on the phone with friends or family?: three or more times per week How often do you get together with friends or relatives?: once per week How often do you attend hoahaoism or presybeterian services?: 1-3 times per year Do you belong to any clubs or organized social groups?: no Panel score (0-1 are the most socially isolated patients): 2 What type of physical activity do you participate in: walking Duration: 30-45 minutes/day Frequency: daily Kesha/Yazidi: Islam Special kesha needs: No Seatbelt use: always Drive intox or ride w/intox tour driver: No Do you feel safe at home: Yes Do you feel safe in your relationship?: Yes Exam Const General: cooperative, healthy appearing, comfortable, no acute distress, well developed and well groomed Nutritional Appearance: average body habitus and well nourished Orientation: alert and awake [facility] Head: normal to inspection, normocephalic and atraumatic Ears: hearing grossly normal bilaterally, external ears normal and TM's normal bilaterally General nose exam: external nose normal and nares normal Face and sinus: normal facial exam, sinuses nontender and face symmetric Mouth: oral mucosae normal, lip normal, tongue normal, oropharynx normal and moist mucous membranes Teeth and gingiva: dentition normal Throat: posterior oropharynx normal, tonsils normal and uvula midline Eyes General: appearance normal, both eyes and all related structures Neck Neck: normal visual inspection, full ROM, no lymphadenopathy and no meningeal signs Resp Effort & Inspection: normal respiratory effort, able to speak in complete sentences and no respiratory distress Auscultation: clear to auscultation bilaterally, no rales, no rhonchi and no wheezes Cardio Rate: regular rate Rhythm: regular rhythm Heart Sounds: S1 normal and S2 normal GI Inspection: normal to inspection Palpation: soft, no hepatosplenomegaly, not firm, no guarding, not rigid and nontender Percussion: normal to percussion Auscultation: normal bowel sounds Back/Spine/Pelvis Back: no CVA tenderness Skin General skin exam: no rashes or lesions noted Neuro General: patient alert and patient awake Cognition: normal cognition Speech: speech normal Gait: normal gait Psych Appearance: grossly normal and well kempt Mental Status: mental status grossly normal Speech and Movement: speech and movement normal Course Vital Signs Vital signs: Vital Signs Temperature 37.3 C 09/26/19 20:04 Pulse 127 H 09/26/19 20:04 Respiratory Rate 18 09/26/19 20:04 Blood Pressure 110/78 09/26/19 20:04 Pulse Oximetry 95 09/26/19 20:04 Temperature 37.3 C 09/26/19 20:04 Temperature Source Skin 09/26/19 20:04 Pulse 127 H 09/26/19 20:04 Respiratory Rate 18 09/26/19 20:04 Respiratory Effort 09/26/19 20:14 Blood Pressure 110/78 09/26/19 20:04 Blood Pressure Position Sitting 09/26/19 20:04 Pulse Oximetry 95 09/26/19 20:04 Oxygen Delivery Method Room Air 09/26/19 20:04 Oxygen Flow Rate 0 09/26/19 20:04 Pain Level 2 09/26/19 20:04 Comment dull throb/headache 09/26/19 20:04
[2019-09-26 20:58] LABS: Abs Immature Grans 0.03 10^3/uL (0.0-0.06); Absolute Basophil Count 0.01 10^3/uL (0.0-0.2); Absolute Monocyte Count 0.19 10^3/uL (0.1-0.8); Absolute Neutrophil Count 2.96 10^3/uL (1.2-6.7); Basophils % 0.3; HCT 39.6 % (40.0-50.0); HGB 12.9 g/dL (13.5-17.5); Immature Grans % 0.9; MCH 29.6 pg (27.0-33.0); MCHC 32.6 % (32.0-36.0); MCV 90.8 fL (80-95); MPV 9.4 fL (8.0-11.0); Monocytes % 5.8; Nucleated RBC 0 %; Platelet Count 196 10^3/uL (130-400); RBC 4.36 10^6/uL (4.36-5.78); RDW 17.5 % (11.8-14.1); RDW-SD 57.8 fL; WBC 3.29 10^3/uL (4.4-10.8)
[2019-09-26] MEDS: Lactated Ringers 1,000 ML 500 ML IV (21:05)
[2019-09-26 21:11] LABS: Lactate 2.7 mmol/L (0.6-1.4)
[2019-09-26 21:12] VITALS: BP 119/66; PULSE 111; RESP 24; TEMP 38; O2SAT 95
[2019-09-26 21:30] LABS: ALT 43 U/L (16-63); AST 29 U/L (15-37); Alkaline Phosphatase 136 U/L (46-116); Anion Gap 13.1 mmol/L (3-11); BUN 14 mg/dL (7-18); Bilirubin, Total 0.6 mg/dL (0.2-1.0); CO2 19.9 mmol/L (21.0-32.0); CREATININE 1.14 mg/dL (0.70-1.30); Calcium 9.2 mg/dL (8.5-10.1); Chloride 104 mmol/L (98-107); Glucose 163 mg/dL (74-106); Magnesium 1.2 mg/dL (1.8-2.4); Sodium 137 mmol/L (136-145); Total Protein 7.2 g/dL (6.4-8.2)
--- NOTE | 2019-09-26 21:30 | DI.CT_ITS ---
EXAM: CT CHEST PE CTA CLINICAL HISTORY: SOB, tachycardia, fever, hx of DVT. TECHNIQUE: Imaging Protocol: Axial CT angiography was performed with multi-slice acquisition and mu lti-planar and/or 3D reconstructions. CONTRAST MATERIAL: Intravenous: Omnipaque 350 Contrast volume:100 mL COMPARISON: CT CT CHEST/ABD/PEL W from 07/27/2019 FINDINGS: Pulmonary Arteries: No evidence of filling defect to suggest pulmonary emboli. Tracheobronchial tree: Mild bronchiectasis. Mediastinum and Rebekah: Stable mediastinal lymph nodes. Pulmonary parenchyma: Emphysematous changes within the lungs. Scattered interstitial septal thickeni ng. No acute consolidating infiltrates. The right middle lobe nodule associated with the horizontal fissure is stable. Dependent changes are seen in the lung bases. This likely reflects atelectasis. Pleura: No effusion or pneumothorax. Heart: The heart is not dilated. No pericardial effusion. Mild coronary artery calcification. Aorta: Thoracic aorta non-dilated. Atherosclerosis. 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 This is a normal variant. Upper abdomen: The superior aspect of the patient's known left adrenal mass is seen. Bones: Degenerative changes are seen in the spine. Tubes, Catheters, and Lines: There is a left-sided Port-A-Cath. Soft tissues: Unremarkable. IMPRESSION: 1. No evidence of pulmonary embolism, thoracic aortic dissection or aneurysm. 2. Stable mediastinal lymph nodes, right middle lobe nodule and pulmonary emphysema and bronchiectasi s. 3. Superior aspect of the patient's known left adrenal mass is identified. It is incompletely imaged . RADIATION DOSE DELIVERED: 494.26mGy.cm Total DLP DATA REPOSITORY: All CT scans at this facility are submitted to the National Radiology Data Registry (NRDR) Dose Index Registry (DIR) with the [employer] (ACR). RADIATION OPTIMIZATION: All CT scans at this facility use at least one of these dose optimization te chniques: automated exposure control; mA and/or kV adjustment per patient size (includes targeted exa ms where dose is matched to clinical indication); or iterative reconstruction.
[2019-09-26 21:31] LABS: Troponin I < 0.05 ng/mL (<0.06)
[2019-09-26] MEDS: Omnipaque 350 MG/ML 100 ML BTL IJ (22:03)
[2019-09-26] MEDS: Normal Saline - Diluent 50 ML VIAL IV (22:04)
[2019-09-26] MEDS: Normal Saline Flush 10 ML SYR IVP (22:04)
[2019-09-26 22:13] VITALS: BP 104/61; PULSE 98; RESP 26; TEMP 38.1; O2SAT 100
--- NOTE | 2019-09-26 22:23 | DI.VRAD_ITS ---
PROCEDURE INFORMATION: Exam: CT Angiography Chest With Contrast Exam date and time: 09/26/2019 9:56 PM Age: 59 years old Clinical indication: Fever and shortness of breath and other: Tachycardia; Patient HX: SOB, tachycardia, fever, HX of dvt TECHNIQUE: Imaging protocol: Computed tomographic angiography of the chest with intravenous contrast. 3D rendering: MIP and/or 3D reconstructed images were created by the technologist. COMPARISON: CT CHEST PE CTA 10/13/2018 8:33 AM FINDINGS: Tubes, catheters and devices: Left chest Port-A-Cath is noted. Pulmonary arteries: Pulmonary arteries well opacified. No evidence of pulmonary arterial embolism. Aorta: Thoracic aorta is unremarkable in appearance. 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 This is a normal variation. Lungs: Emphysematous lung changes. Multiple areas of subpleural blebs. Bronchiectasis. Interstitial septal thickening. No acute lung infiltrates or consolidation. Nonspecific right middle lobe nodule measuring 7 by 6 mm on series 5, image 374. This appears to be associated with the horizontal fissure. There is a vague small ground-glass opacification in the right upper lobe on series 5, image 151. This measures approximately 10 mm. Pleural space: No pleural effusion. Heart: Unremarkable. No cardiomegaly. No pericardial effusion. Lymph nodes: Posterior right mediastinal lymph node measuring 14 x 13 mm. See series 4, image 36. Subcarinal lymph node measuring 11 x 10 mm. Subcentimeter right paratracheal lymph node. Adrenals: Suggestion of a left adrenal mass. This is seen in a limited fashion and measures approximately 3.8 cm on this limited view. Recommend clinical correlation. Bones/joints: Degenerative thoracic spine. No acute fracture. Soft tissues: Unremarkable. IMPRESSION: 1. No evidence of pulmonary arterial embolism. 2. Emphysematous lung changes and bronchiectasis. 3. Small right middle lobe nodular focus which appears to be within the region of the horizontal fissure. 4. Ill-defined right apical ground-glass opacification measuring 10 mm. 5. Left chest Port-A-Cath suggesting patient has a known history of malignancy. Recommend clinical correlation. 6. Mildly enlarged mediastinal lymph nodes. 7. Possible left adrenal mass. Dictated and Authenticated by: Reynaldo Allan MD. Ordering:JASON Archer MD
--- NOTE | 2019-09-26 22:41 | NUR.NOTE ---
resting comfortably, reports he feels better since receiving IVF.
[2019-09-26 22:55] LABS: Bilirubin Negative (Negative); Blood Negative (Negative); Clarity Clear (Clear); Glucose Negative (Negative); Ketones Negative (Negative); Leukocyte Esterase Negative (Negative); Nitrite Negative (Negative); Specific Gravity 1.015 (1.005-1.025); Urobilinogen 0.2 EU/dL (Up TO 0.2); pH 5.5 (5-8)
[2019-09-26 22:56] LABS: Lactate 1.5 mmol/L (0.6-1.4)
[2019-09-26 23:33] VITALS: BP 113/77; PULSE 93; RESP 20; TEMP 37.7; O2SAT 97
[2019-09-27] VITALS (9 sets, daily range): BP systolic 100–129; BP diastolic 63–81; PULSE 75–92; RESP 17–20; TEMP 36.7–38.4; O2SAT 94–99
[2019-09-27] MEDS: MAGNESIUM SULFATE 2 GM/50 ML BAG IVPB (00:10)
[2019-09-27] MEDS: Acetaminophen 325 MG TAB 650 MG PO ×2 (00:45→20:12)
--- NOTE | 2019-09-27 05:36 | W.PM.HP.N ---
Date of service: 09/27/19 Time of Service: 05:36 Assessment and Plan Assessment and plan (1) Fever: Status: Acute Assessment and plan: Fever. No signs or symptoms suggestive or indicative of specific source. Will repeat CBC, lactate, HCO3 (and Mg, which was low), await blood cxx and COVID screen. History of Present Illness History of Present Illness Chief Complaint: fever Narrative: 59 male with h/o metastatic colon CA, undergoing chemo, felt feverish yesterday, temp at home >102, came to ER for eval. Did feel a little more SOB than usual, but otherwise no new or specific symptoms whatsoever. In ER findings of note for temp 38.1, WBC 3.2 with ANC 2.9, lactate 2.7 (1.5 after IVF), HCO3 19, neg U/A, chest CTA neg PE and showing baseline COPD and question vague ground glass opacity right apex. Case reviewed with oncology, advised no Abx, but inpatient observation. This morning patient states he feels fine, his usual self. No similar illness at home, no travel, no visitors. Works from home. Review of Systems All systems reviewed & are unremarkable except as noted in HPI and below [facility] Medical History (Updated 09/27/19 @ 05:47 by Rudolph Marino MD) Adrenal cancer (Acute) METS from Colon CA Encounter for central line placement (Acute ~06/23/18) Metastatic colorectal cancer (Acute) Port-A-Cath in place (Acute ~06/23/18) L Subclavian SOB (shortness of breath) on exertion (Acute) Surgical History Colonoscopy - MAC 11/18/13;[facility] Hemicolectomy 12/01/16; RIGHT @ [facility] History of partial adrenalectomy (Acute) pt. states he had right adrenal gland removed r/t to tumor. 04/10/18 History of removal of Port-a-Cath (Acute) L subclavian Family History Mother , age 82 No problems noted. Father No problems noted. Social History Smoking/Tobacco Use Status: Current-Occasional Tobacco Type: cigarettes Quit status: quit date established Smoking risk assessment performed?: Yes Alcohol Intake: former Drug use: Never Substance use type: does not use Details: no alcohol for 2 years Caregiver/Support person: Yes Household members: spouse and children Housing: house Communication Needs: None Do you need help understanding health information?: Rarely Pets and animals: Yes Sexually active: Yes Do you think of yourself as: straight/heterosexual Current gender identity: male What is your relationship status?: How often do you talk on the phone with friends or family?: three or more times per week How often do you get together with friends or relatives?: once per week How often do you attend druze or islam services?: 1-3 times per year Do you belong to any clubs or organized social groups?: no Panel score (0-1 are the most socially isolated patients): 2 What type of physical activity do you participate in: walking Duration: 30-45 minutes/day Frequency: daily Kesha/Moravian: Pentecostal Special kesha needs: No Seatbelt use: always Drive intox or ride w/intox street flusher driver: No Do you feel safe at home: Yes Do you feel safe in your relationship?: Yes Meds Home Medications and Allergies Home Medications Medication Instructions Recorded Confirmed Type acetaminophen [Tylenol] 650 mg PO BID PRN tab-cap 10/24/13 09/26/19 History cetirizine [Zyrtec] 10 mg PO HS #30 tab.chew 08/29/15 09/26/19 History vitamin B complex 1 cap PO DAILY 10/13/18 09/26/19 History apixaban 5 mg tablet 5 mg PO BID 02/18/19 09/26/19 History omeprazole 20 mg capsule,delayed 20 mg PO BID #180 tab-cap 04/29/19 09/26/19 Rx release amoxicillin-pot clavulanate 1 tab PO BID #13 tab 08/06/19 08/10/19 Rx [Augmentin] levetiracetam 500 mg PO BID 09/26/19 09/26/19 History losartan 25 mg PO DAILY PRN 09/26/19 09/26/19 History Allergies Allergy/AdvReac Type Severity Reaction Status Date / Time grass pollen Allergy Mild Verified 09/26/19 20:12 Exam Narrative Exam Narrative: 128/80, 92, 37.1, 19, 99% RA. HEENT atraumatic; neck supple; lungs diminished but clear; heart RRR w/o MRG;port site left upper chest w/o erythema or D/C; abdomen soft and NT; extremities 1+chronic lymphedema; neuro ox3, moves all 4s Results Labs Result diagrams: 09/26/19 20:50 09/26/19 20:50 Labs: Laboratory Results - last 24 hr 09/26/19 09/26/19 09/26/19 20:50 20:50 20:50 WBC 3.29 L RBC 4.36 Hgb 12.9 L Hct 39.6 L MCV 90.8 MCH 29.6 MCHC 32.6 RDW 17.5 H Plt Count 196 MPV 9.4 Immature Gran % 0.9 Neutrophils % 90.0 Lymphocytes % 3.0 Monocytes % 5.8 Eosinophils % 0.0 Basophils % 0.3 Absolute Neutrophils 2.96 Absolute Lymphocytes 0.10 L Absolute Monocytes 0.19 Absolute Eosinophils 0.00 Absolute Basophils 0.01 Sodium 137 Potassium 4.0 Chloride 104 Carbon Dioxide 19.9 L Anion Gap 13.1 H BUN 14 Creatinine 1.14 Estimated GFR/1.73 m2 >= 60.00 Glucose 163 H Lactate 2.7 H* Calcium 9.2 Magnesium 1.2 L Total Bilirubin 0.6 AST 29 ALT 43 Alkaline Phosphatase 136 H Troponin I < 0.05 Total Protein 7.2 Albumin 3.0 L Urine Color Urine Clarity Urine pH Ur Specific [place] Urine Protein Urine Ketones Urine Blood Urine Nitrite Urine Bilirubin Urine Urobilinogen Ur Leukocyte Esterase Urine Glucose 09/26/19 09/26/19 22:47 22:53 WBC RBC Hgb Hct MCV MCH MCHC RDW Plt Count MPV Immature Gran % Neutrophils % Lymphocytes % Monocytes % Eosinophils % Basophils % Absolute Neutrophils Absolute Lymphocytes Absolute Monocytes Absolute Eosinophils Absolute Basophils Sodium Potassium Chloride Carbon Dioxide Anion Gap BUN Creatinine Estimated GFR/1.73 m2 Glucose Lactate 1.5 H Calcium Magnesium Total Bilirubin AST ALT Alkaline Phosphatase Troponin I Total Protein Albumin Urine Color Yellow Urine Clarity Clear Urine pH 5.5 Ur Specific [place] 1.015 Urine Protein Negative Urine Ketones Negative Urine Blood Negative Urine Nitrite Negative Urine Bilirubin Negative Urine Urobilinogen 0.2 Ur Leukocyte Esterase Negative Urine Glucose Negative Last Vital Signs Temp 37.1 C 09/27/19 03:45 Pulse 92 H 09/27/19 01:00 Resp 19 09/27/19 01:00 BP 128/80 09/27/19 01:00 Pulse Ox 99 09/27/19 01:00 COVID-19 Screening Have you,or household,traveled outside [place] in last 14 days?: No Had IN PERSON contact w/suspected or confirmed C-19 person: No
[2019-09-27 06:39] LABS: Lactate 1.2 mmol/L (0.6-1.4)
[2019-09-27 06:40] LABS: Abs Immature Grans 0.02 10^3/uL (0.0-0.06); Absolute Basophil Count 0.01 10^3/uL (0.0-0.2); Absolute Eosinophil Count 0.01 10^3/uL (0.0-0.7); Absolute Lymphocyte Count 0.13 10^3/uL (1.2-3.4); Absolute Monocyte Count 0.16 10^3/uL (0.1-0.8); Absolute Neutrophil Count 2.49 10^3/uL (1.2-6.7); Basophils % 0.4; Eosinophils % 0.4; HCT 35.5 % (40.0-50.0); HGB 11.5 g/dL (13.5-17.5); Immature Grans % 0.7; Lymphocytes % 4.6; MCH 29.6 pg (27.0-33.0); MCHC 32.4 % (32.0-36.0); MCV 91.5 fL (80-95); MPV 9.5 fL (8.0-11.0); Monocytes % 5.7; Neutrophils % 88.2; Nucleated RBC 0 %; Platelet Count 156 10^3/uL (130-400); RBC 3.88 10^6/uL (4.36-5.78); RDW 17.7 % (11.8-14.1); RDW-SD 59.2 fL; WBC 2.82 10^3/uL (4.4-10.8)
[2019-09-27 06:51] LABS: Anion Gap 7.1 mmol/L (3-11); CO2 24.9 mmol/L (21.0-32.0); Chloride 106 mmol/L (98-107); Magnesium 1.6 mg/dL (1.8-2.4); Potassium 4.2 mmol/L (3.5-5.1); Sodium 138 mmol/L (136-145)
[2019-09-27] MEDS: Apixaban 5 MG TAB PO ×2 (07:45→20:12)
[2019-09-27] MEDS: Omeprazole 20 MG CAPCR PO ×2 (07:45→16:27)
[2019-09-27] MEDS: levETIRAcetam 500 MG TAB PO ×2 (07:45→20:12)
[2019-09-27] MEDS: MAGNESIUM SULFATE 4 GM/100 ML BAG IVPB (07:58)
--- NOTE | 2019-09-27 09:13 | PHA.REVIEW ---
Pharmacy Admission Review - Admission Clinical Review (Last Reviewed 08/06/19 @ 13:29 by Koko Tejada MD) Fever (Acute) grass pollen Allergy (Mild, Verified 09/26/19 20:12) Height 6 ft 3 in Weight 109.769 kg - Renal Dosing Renal Dosing: BUN 14 mg/dL (7-18) 09/26/19 20:50 Creatinine 1.14 mg/dL (0.70-1.30) 09/26/19 20:50 Medications needing adjustments: Reviewed (Crcl ~83 mL/min current meds okay) - Anticoagulation Anticoagulation: Hgb 11.5 g/dL (13.5-17.5) L 09/27/19 06:33 Hct 35.5 % (40.0-50.0) L 09/27/19 06:33 Plt Count 156 10^3/uL (130-400) 09/27/19 06:33 Creatinine 1.14 mg/dL (0.70-1.30) 09/26/19 20:50 DVT Prohphylaxis: N/A Therapeutic Anticoagulation: Reviewed Medications: Apixaban - Opiate Usage Evaluate Pain Scale/Pains Meds: N/A - Relevant Labs Sodium 138 mmol/L (136-145) 09/27/19 06:33 Potassium 4.2 mmol/L (3.5-5.1) 09/27/19 06:33 Chloride 106 mmol/L (98-107) 09/27/19 06:33 Magnesium 1.6 mg/dL (1.8-2.4) L 09/27/19 06:33 Electrolytes, C-Reactive P, ESR: Reviewed (IV mag replacement ordered) - DM Control DM Control: Glucose 163 mg/dL (74-106) H 09/26/19 20:50 Insulin Dosing: N/A (BG elevated some on admission, no DM noted in pt's medical history) - Heart Failure/CA Heart Failure/CA: Troponin I < 0.05 ng/mL (<0.06) 09/26/19 20:50 EF%, DOUG's, B-Blockers, Diuretics: N/A - BP Control BP Control: Blood Pressure 113/74 Blood Pressure 128/80 Blood Pressure 114/72 Blood Pressure 113/77 Blood Pressure 104/61 If elevated: N/A - Qtc Review If Elevated: N/A (no recent EKG) - IV to PO Switch IV Medications: N/A - Home Meds Home Med List reviewed: Intervened (noticed mag oxide 400 mg BID for 90 day supply from 08/28/2019 and nystatin suspension for 12 day supply from yesterday on external med history that were not on pt's home med list. Mentioned to provider.) Relevent Home Meds Not ordered & why?: cetirizine, vitamin B complex - Current meds Current Medication Order Review: Intervened (multiple PRN acetaminophen orders, mentioned to provider. Duplicate med orders and DI med orders discontinued.) - Comments Comments/Follow Ups: Watch BP (losartan has hold parameters), mag, for culture results and for med changes. Blood cultures pending. Oncology advised no empiric antibiotics per H&P.
--- NOTE | 2019-09-27 10:11 | INITIAL_ITS ---
- If Service Date Differs Date of service: 09/27/19 Time of Service: 10:11 Care Management Initial Assess REASON FOR HOSPITALIZATION:: Fever PAST MEDICAL HISTORY/PAST SURGICAL HISTORY:: Medical History. Adrenal cancer (Acute). METS from Colon CA. Encounter for central line placement (Acute ~06/23/18). Metastatic colorectal cancer (Acute). Port-A-Cath in place (Acute ~06/23/18). L Subclavian. SOB (shortness of breath) on exertion (Acute). Surgical History. Colonoscopy - MAC. 11/18/13;[facility]. Hemicolectomy. 12/01/16; RIGHT @ [facility]. History of partial adrenalectomy (Acute). pt. states he had right adrenal gland removed r/t to tumor. 04/10/18. History of removal of Port-a-Cath (Acute). L subclavian PREVIOUS FUNCTIONAL STATUS/SOCIAL/FAMILY SUPPORTS:: Low lives in [place] with his , Aury. He works at [employer], but he is working from home. He has two adult daughters, Kiarra and Paige. He reported that he has had 43 chemo treatments for his cancer, which is metastatic. He stated that he has won the many battles that he has been in, but he wishes there would not be any more battles to fight. CURRENT FUNCTIONAL STATUS:: Low was lying in bed when CM met with him. He stated that he is doing better today. He reported that his fever has subsided, and that he was being kept overnight for monitoring. He stated that his would be here in the morning to remove the infusion needle from his port-a-cath. Per MD, blood cultures are pending. CM will continue to follow. ADVANCE DIRECTIVES:: On file, Aury listed as agent. Has patient been provided with info about the portal/API?: Yes Did the patient sign up for the portal?: Yes (previously signed up) CODE STATUS:: Full Code INSURANCE COVERAGE / FINANCIAL ISSUES:: Debbie CURRENT HOME/COMMUNITY SERVICES/EQUIPMENT:: No current equipment or services in the community. PRIMARY CARE PHYSICIAN:: Dr. Pinto POTENTIAL DISCHARGE NEEDS:: Follow up appointments PATIENT/FAMILY EDUCATION NEEDS:: Review discharge instructions regarding activity levels and medications, discussion of self care needs including ask me three. ANTICIPATED BARRIERS TO DISCHARGE:: None identified at this time. TRANSPORTATION:: Via private vehicle by family. PLAN:: Anticipate Low will return home with no additional services once medically cleared. His will drive him home via private vehicle. He will follow up with his PCP and discharge plan of care. CM will continue to follow.
[2019-09-27 13:30] LABS: COVID-19 RT-PCR UVMMC Result Negative (Negative)
--- NOTE | 2019-09-27 13:30 | DI.US_ITS ---
EXAM: US EXTREMITY VENOUS BI CLINICAL HISTORY: BLE edema, L>R, concern for DVT. TECHNIQUE: Bilateral lower extremity venous ultrasound performed using grayscale, color-flow, and sp ectral Doppler analysis. COMPARISON: US US extremity venous BI from 10/13/2018 FINDINGS: The bilateral common femoral, femoral and left popliteal vein demonstrate normal compressibility, aug mentation, and color Doppler. There is hypoechoic noncompressible thrombus in the right popliteal ve in extending inferiorly through 1 of the posterior tibialis veins. It measures approximately 18 cm i n length. The left posterior tibial veins are patent. The saphenofemoral junctions are unremarkable. There is no evidence of a Bruner's cyst. The soft tissues are unremarkable. IMPRESSION: Right: DVT extending from the right popliteal vein into the posterior tibialis veins. Left: Negative for DVT DATA REPOSITORY:
--- NOTE | 2019-09-27 13:33 | PGE_ITS ---
Date of Service Date of service: 09/27/19 Time of Service: 13:33 Subjective Subjective Interval history since last seen: Patient seen in brief follow up. He states he feels great. He is presently getting his fulfox infusion via pump, which is supposed end tomorrow am at 9. His usually takes it off of him. He denies dizziness, chest pain, shortness of breath, nausea. He is having diarrhea - normal for him while on chemo. He still has a little bit of his dry chemo cough. He states that his LLE is chronically more swollen than his right after an injury. Physical exam benign. VSS. Last recorded temp 37.7. Blood cultures and COVID-19 PCR are still pending. I have added stool studies and venous dopplers of BLEs to his workup. Objective Objective Clinical Data: Abnormal lab results 09/26/19 09/26/19 09/26/19 Range/Units 20:50 20:50 20:50 WBC 3.29 L (4.4-10.8) 10^3/uL RBC (4.36-5.78) 10^6/uL Hgb 12.9 L (13.5-17.5) g/dL Hct 39.6 L (40.0-50.0) % RDW 17.5 H (11.8-14.1) % Absolute Lymphocytes 0.10 L (1.2-3.4) 10^3/uL Carbon Dioxide 19.9 L (21.0-32.0) mmol/L Anion Gap 13.1 H (3-11) mmol/L Glucose 163 H (74-106) mg/dL Lactate 2.7 H* (0.6-1.4) mmol/L Magnesium 1.2 L (1.8-2.4) mg/dL Alkaline Phosphatase 136 H (46-116) U/L Albumin 3.0 L (3.4-5.0) g/dL 09/26/19 09/27/19 09/27/19 Range/Units 22:53 06:33 06:33 WBC 2.82 L (4.4-10.8) 10^3/uL RBC 3.88 L (4.36-5.78) 10^6/uL Hgb 11.5 L (13.5-17.5) g/dL Hct 35.5 L (40.0-50.0) % RDW 17.7 H (11.8-14.1) % Absolute Lymphocytes 0.13 L (1.2-3.4) 10^3/uL Carbon Dioxide (21.0-32.0) mmol/L Anion Gap (3-11) mmol/L Glucose (74-106) mg/dL Lactate 1.5 H (0.6-1.4) mmol/L Magnesium 1.6 L (1.8-2.4) mg/dL Alkaline Phosphatase (46-116) U/L Albumin (3.4-5.0) g/dL Vital Signs Temperature 37.7 C H 09/27/19 07:51 Temperature Source Tympanic 09/27/19 07:51 Pulse 75 09/27/19 07:51 Pulse Rhythm Regular 09/27/19 07:45 Respiratory Rate 18 09/27/19 07:51 Respiratory Effort Non-Labored 09/27/19 07:45 Respiratory Depth Normal 09/27/19 07:45 Respiratory Pattern Normal 09/27/19 07:45 Blood Pressure 113/74 09/27/19 07:51 Blood Pressure Position Sitting 09/26/19 20:04 Pulse Oximetry 96 09/27/19 07:51 Oxygen Delivery Method Room Air 09/27/19 07:51 Oxygen Flow Rate 0 09/27/19 07:51 Pain Level 0 09/27/19 07:51 Comment dull throb/headache 09/26/19 20:04 Intake & Output 09/26/19 09/27/19 09/27/19 23:59 11:59 23:59 Intake Total 1000 / 999 360 / 360 Balance 1000 / 999 360 / 360 Weight 109.769 kg Intake: IV 1000 / 1000 Oral 360 / 360 Other: Voiding Methods Toilet Laboratory Results WBC 2.82 10^3/uL (4.4-10.8) L 09/27/19 06:33 RBC 3.88 10^6/uL (4.36-5.78) L 09/27/19 06:33 Hgb 11.5 g/dL (13.5-17.5) L 09/27/19 06:33 Hct 35.5 % (40.0-50.0) L 09/27/19 06:33 MCV 91.5 fL (80-95) 09/27/19 06:33 MCH 29.6 pg (27.0-33.0) 09/27/19 06:33 MCHC 32.4 % (32.0-36.0) 09/27/19 06:33 RDW 17.7 % (11.8-14.1) H 09/27/19 06:33 Plt Count 156 10^3/uL (130-400) 09/27/19 06:33 MPV 9.5 fL (8.0-11.0) 09/27/19 06:33 Immature Gran % 0.7 09/27/19 06:33 Neutrophils % 88.2 09/27/19 06:33 Lymphocytes % 4.6 09/27/19 06:33 Monocytes % 5.7 09/27/19 06:33 Eosinophils % 0.4 09/27/19 06:33 Basophils % 0.4 09/27/19 06:33 Absolute Neutrophils 2.49 10^3/uL (1.2-6.7) 09/27/19 06:33 Absolute Lymphocytes 0.13 10^3/uL (1.2-3.4) L 09/27/19 06:33 Absolute Monocytes 0.16 10^3/uL (0.1-0.8) 09/27/19 06:33 Absolute Eosinophils 0.01 10^3/uL (0.0-0.7) 09/27/19 06:33 Absolute Basophils 0.01 10^3/uL (0.0-0.2) 09/27/19 06:33 Sodium 138 mmol/L (136-145) 09/27/19 06:33 Potassium 4.2 mmol/L (3.5-5.1) 09/27/19 06:33 Chloride 106 mmol/L (98-107) 09/27/19 06:33 Carbon Dioxide 24.9 mmol/L (21.0-32.0) 09/27/19 06:33 Anion Gap 7.1 mmol/L (3-11) 09/27/19 06:33 BUN 14 mg/dL (7-18) 09/26/19 20:50 Creatinine 1.14 mg/dL (0.70-1.30) 09/26/19 20:50 Estimated GFR/1.73 m2 >= 60.00 (mL/min/1.73m2) 09/26/19 20:50 Glucose 163 mg/dL (74-106) H 09/26/19 20:50 Lactate 1.2 mmol/L (0.6-1.4) 09/27/19 06:33 Calcium 9.2 mg/dL (8.5-10.1) 09/26/19 20:50 Magnesium 1.6 mg/dL (1.8-2.4) L 09/27/19 06:33 Total Bilirubin 0.6 mg/dL (0.2-1.0) 09/26/19 20:50 AST 29 U/L (15-37) 09/26/19 20:50 ALT 43 U/L (16-63) 09/26/19 20:50 Alkaline Phosphatase 136 U/L (46-116) H 09/26/19 20:50 Troponin I < 0.05 ng/mL (<0.06) 09/26/19 20:50 Total Protein 7.2 g/dL (6.4-8.2) 09/26/19 20:50 Albumin 3.0 g/dL (3.4-5.0) L 09/26/19 20:50 Urine Color Yellow (Yellow) 09/26/19 22:47 Urine Clarity Clear (Clear) 09/26/19 22:47 Urine pH 5.5 (5-8) 09/26/19 22:47 Ur Specific [place] 1.015 (1.005-1.025) 09/26/19 22:47 Urine Protein Negative mg/dL (Negative) 09/26/19 22:47 Urine Ketones Negative mg/dL (Negative) 09/26/19 22:47 Urine Blood Negative (Negative) 09/26/19 22:47 Urine Nitrite Negative (Negative) 09/26/19 22:47 Urine Bilirubin Negative (Negative) 09/26/19 22:47 Urine Urobilinogen 0.2 EU/dL (Up TO 0.2) 09/26/19 22:47 Ur Leukocyte Esterase Negative (Negative) 09/26/19 22:47 Urine Glucose Negative mg/dL (Negative) 09/26/19 22:47 COVID-19 PCR Negative (Negative) 09/27/19 00:18 Nasopharyn COVID-19 PCR Not Applicable 09/27/19 00:18 Ref Test Perform Site [facility] 09/27/19 00:18
--- NOTE | 2019-09-28 | DI.US_ITS ---
EXAM: US UPPER EXTREMITY VENOUS LT CLINICAL HISTORY: left upper extremity edema. TECHNIQUE: Ultrasound examination of the left upper extremity venous system(s) is performed using gr ayscale, color-flow, and spectral Doppler analysis. COMPARISON: No exams were available for comparison FINDINGS: The left axillary, subclavian, cephalic, proximal and mid basilic, and brachial veins are patent with out evidence of thrombosis. There is a 2 cm in length segment of thrombus in the distal basilic vein . IMPRESSION: 2 cm length thrombus in the distal left basilic vein. DATA REPOSITORY:
[2019-09-28 03:30] VITALS: BP 117/82; PULSE 76; RESP 18; TEMP 36.8; O2SAT 96
[2019-09-28 06:40] LABS: HCT 36.7 % (40.0-50.0); HGB 11.8 g/dL (13.5-17.5); MCH 29.6 pg (27.0-33.0); MCHC 32.2 % (32.0-36.0); MPV 9.4 fL (8.0-11.0); Nucleated RBC 0 %; Platelet Count 165 10^3/uL (130-400); RBC 3.99 10^6/uL (4.36-5.78); RDW 17.9 % (11.8-14.1); RDW-SD 60.2 fL
[2019-09-28 06:52] LABS: Anion Gap 7.3 mmol/L (3-11); BUN 15 mg/dL (7-18); CO2 24.7 mmol/L (21.0-32.0); CREATININE 0.85 mg/dL (0.70-1.30); Calcium 8.4 mg/dL (8.5-10.1); Chloride 103 mmol/L (98-107); Glucose 105 mg/dL (74-106); Magnesium 2.1 mg/dL (1.8-2.4); Potassium 3.9 mmol/L (3.5-5.1); Sodium 135 mmol/L (136-145)
[2019-09-28 07:27] LABS: WBC 1.52 10^3/uL (4.4-10.8)
[2019-09-28 07:28] LABS: Absolute Eosinophil Count 0.06 10^3/uL (0.0-0.7); Absolute Lymphocyte Count 0.44 10^3/uL (1.2-3.4); Absolute Monocyte Count 0.03 10^3/uL (0.1-0.8); Absolute Neutrophil Count 0.96 10^3/uL (1.2-6.7); Diff Comment Manual Differential; Metamyelocytes % 1; Myelocytes % 1; RBC Morphology Normal
[2019-09-28] MEDS: Apixaban 5 MG TAB PO ×2 (08:02→19:35)
[2019-09-28] MEDS: levETIRAcetam 500 MG TAB PO ×2 (08:03→19:35)
[2019-09-28] MEDS: Omeprazole 20 MG CAPCR PO ×2 (08:03→15:53)
[2019-09-28 08:21] VITALS: BP 115/78; PULSE 83; RESP 20; TEMP 37; O2SAT 96
[2019-09-28 12:26] VITALS: BP 130/86; PULSE 85; RESP 18; TEMP 37.7; O2SAT 95
--- NOTE | 2019-09-28 14:05 | PGE_ITS ---
Date of Service Date of service: 09/28/19 Time of Service: 14:05 Assessment and Plan Assessment and plan (1) Neutropenic fever: Status: Acute Assessment and plan: No clear source. It is unlikely that RUE DVT is new as it is in the same location and smaller than the one seen on US in 2019. Start cefepime and await call back from [facility] onc. re GCSF. R/o DVT LUE. Await stool studies. Continue to monitor fever curve. (2) Edema of left upper extremity: Status: Acute Assessment and plan: R/o DVT LUE (3) H/O deep venous thrombosis: Status: Chronic Assessment and plan: DVT in RLE diagnosed in 2019 was more extensive than the one see on US RLE yesterday. It is likely residual of the same DVT. (4) Metastatic colorectal cancer: Status: Chronic Assessment and plan: on chemo via [facility], finished last treatment today. Will need to follow up as outpatient. (5) Discharge planning issues: Status: Acute Assessment and plan: Full code. Will need outpatient referral to palliative care (6) DVT prophylaxis: Status: Acute Assessment and plan: On therapeutic eliquis. Subjective Subjective Interval history since last seen: Mr Arriaga states he is feeling great. He does not feel sick. He is surprised to hear that he had a temperature last night (38.4). His one new complaint to me today is LUE edema - IV was bothering him. He denies dizziness, chest pain, shortness of breath, states his nonproductive cough is at his chemo baseline, denies n/v. Diarrhea is 2x/day, his normal for chemo as well. He is anxious to get home and is frustrated that he has to stay in the hospital even though he feels so well. I spoke with [facility] [place] [facility] hem/onc: because of the patient's white count trending down (ANC 0.94) and a fever last night, recommendation is to continue inpatient hospitalization, start cefepime. There may be a role for GCSF - they will get back to me. The blood clot in RLE is likely old and, therefore, no change in anticoagulation is necessary. Exam Narrative Exam Narrative: General: Very pleasant middle-aged male who looks w ell, A&Ox3, sitting comfortably in bed HEENT: EOMI, MMM Heart: RRR, no m/r/g Lungs: slight crackles at R base, otherwise CTAB Abdomen: soft, nontender, nondistended Extremities: slight edema LUE when compared to the left. Asymmetric BLE edema, LLE>RLE with hyperpigmentation of LLE (old injury) Objective Objective Clinical Data: Abnormal lab results 09/28/19 09/28/19 Range/Units 06:26 06:26 WBC 1.52 L* D (4.4-10.8) 10^3/uL RBC 3.99 L (4.36-5.78) 10^6/uL Hgb 11.8 L (13.5-17.5) g/dL Hct 36.7 L (40.0-50.0) % RDW 17.9 H (11.8-14.1) % Absolute Neutrophils 0.96 L (1.2-6.7) 10^3/uL Absolute Lymphocytes 0.44 L (1.2-3.4) 10^3/uL Absolute Monocytes 0.03 L (0.1-0.8) 10^3/uL Sodium 135 L (136-145) mmol/L Calcium 8.4 L (8.5-10.1) mg/dL Vital Signs Temperature 37.7 C H 09/28/19 12:26 Temperature Source Tympanic 09/28/19 12:26 Pulse 85 09/28/19 12:26 Pulse Rhythm Regular 09/28/19 03:15 Respiratory Rate 18 09/28/19 12:26 Respiratory Effort Non-Labored 09/28/19 03:15 Respiratory Depth Normal 09/28/19 03:15 Respiratory Pattern Normal 09/28/19 03:15 Blood Pressure 130/86 09/28/19 12:26 Blood Pressure Position Sitting 09/26/19 20:04 Pulse Oximetry 95 09/28/19 12:26 Oxygen Delivery Method Room Air 09/28/19 12:26 Oxygen Flow Rate 0 09/28/19 12:26 Pain Level 0 09/28/19 12:26 Comment 09/27/19 20:05 Intake & Output 09/27/19 09/28/19 09/28/19 23:59 11:59 23:59 Intake Total 240 / 600 250 / 490 240 / 490 Output Total 500 / 500 Balance -260 / 100 250 / 490 240 / 490 Intake: Oral 240 / 600 250 / 490 240 / 490 Output: Urine 500 / 500 Other: Urine Color Dark Princess Urine Appearance Clear Urine Odor Normal Voiding Methods Toilet Laboratory Results WBC 1.52 10^3/uL (4.4-10.8) L* D 09/28/19 06:26 RBC 3.99 10^6/uL (4.36-5.78) L 09/28/19 06:26 Hgb 11.8 g/dL (13.5-17.5) L 09/28/19 06:26 Hct 36.7 % (40.0-50.0) L 09/28/19 06:26 MCV 92.0 fL (80-95) 09/28/19 06:26 MCH 29.6 pg (27.0-33.0) 09/28/19 06:26 MCHC 32.2 % (32.0-36.0) 09/28/19 06:26 RDW 17.9 % (11.8-14.1) H 09/28/19 06:26 Plt Count 165 10^3/uL (130-400) 09/28/19 06:26 MPV 9.4 fL (8.0-11.0) 09/28/19 06:26 Immature Gran % See Differential 09/28/19 06:26 Neutrophils % 63.0 09/28/19 06:26 Lymphocytes % 29.0 09/28/19 06:26 Monocytes % 2.0 09/28/19 06:26 Eosinophils % 4.0 09/28/19 06:26 Basophils % 0.0 09/28/19 06:26 Metamyelocytes % 1 09/28/19 06:26 Myelocytes % 1 09/28/19 06:26 Absolute Neutrophils 0.96 10^3/uL (1.2-6.7) L 09/28/19 06:26 Absolute Lymphocytes 0.44 10^3/uL (1.2-3.4) L 09/28/19 06:26 Absolute Monocytes 0.03 10^3/uL (0.1-0.8) L 09/28/19 06:26 Absolute Eosinophils 0.06 10^3/uL (0.0-0.7) 09/28/19 06:26 Absolute Basophils 0.00 10^3/uL (0.0-0.2) 09/28/19 06:26 RBC Morphology Normal 09/28/19 06:26 Sodium 135 mmol/L (136-145) L 09/28/19 06:26 Potassium 3.9 mmol/L (3.5-5.1) 09/28/19 06:26 Chloride 103 mmol/L (98-107) 09/28/19 06:26 Carbon Dioxide 24.7 mmol/L (21.0-32.0) 09/28/19 06:26 Anion Gap 7.3 mmol/L (3-11) 09/28/19 06:26 BUN 15 mg/dL (7-18) 09/28/19 06:26 Creatinine 0.85 mg/dL (0.70-1.30) 09/28/19 06:26 Estimated GFR/1.73 m2 >= 60.00 (mL/min/1.73m2) 09/28/19 06:26 Glucose 105 mg/dL (74-106) D 09/28/19 06:26 Lactate 1.2 mmol/L (0.6-1.4) 09/27/19 06:33 Calcium 8.4 mg/dL (8.5-10.1) L 09/28/19 06:26 Magnesium 2.1 mg/dL (1.8-2.4) 09/28/19 06:26 Total Bilirubin 0.6 mg/dL (0.2-1.0) 09/26/19 20:50 AST 29 U/L (15-37) 09/26/19 20:50 ALT 43 U/L (16-63) 09/26/19 20:50 Alkaline Phosphatase 136 U/L (46-116) H 09/26/19 20:50 Troponin I < 0.05 ng/mL (<0.06) 09/26/19 20:50 Total Protein 7.2 g/dL (6.4-8.2) 09/26/19 20:50 Albumin 3.0 g/dL (3.4-5.0) L 09/26/19 20:50 Urine Color Yellow (Yellow) 09/26/19 22:47 Urine Clarity Clear (Clear) 09/26/19 22:47 Urine pH 5.5 (5-8) 09/26/19 22:47 Ur Specific [place] 1.015 (1.005-1.025) 09/26/19 22:47 Urine Protein Negative mg/dL (Negative) 09/26/19 22:47 Urine Ketones Negative mg/dL (Negative) 09/26/19 22:47 Urine Blood Negative (Negative) 08 22:47 Urine Nitrite Negative (Negative) 09/26/19 22:47 Urine Bilirubin Negative (Negative) 09/26/19 22:47 Urine Urobilinogen 0.2 EU/dL (Up TO 0.2) 09/26/19 22:47 Ur Leukocyte Esterase Negative (Negative) 09/26/19 22:47 Urine Glucose Negative mg/dL (Negative) 09/26/19 22:47 COVID-19 PCR Negative (Negative) 09/27/19 00:18 Nasopharyn COVID-19 PCR Not Applicable 09/27/19 00:18 Ref Test Perform Site [facility] lab 09/27/19 00:18
--- NOTE | 2019-09-28 15:07 | CHAPLAIN ---
When I visited this morning, Low said he was waiting to be discharged and frustrated that he hadn't been yet. He said both is doctor and his nurse said he'd be discharged this morning and he feels he wasn't told accurately now what would happen. He had a family member/friend with him. I explained my role and offered support.
[2019-09-28] MEDS: CEFEPIME 2 GM in Normal Saline 100 ML IVPB (15:53)
[2019-09-28] MEDS: Normal Saline Flush 10 ML SYR IVP ×2 (15:54→17:51)
[2019-09-28 16:09] VITALS: BP 128/84; PULSE 85; RESP 18; TEMP 37.6; O2SAT 95
--- NOTE | 2019-09-28 17:14 | NUR.NOTE ---
Nursing Note: when RN entered patient's room at 1633 this RN noted patient's spouse, who reportedly is a nurse, had taken the antibiotic from the pole and was holding the cefepime antibiotic bag in her hand. The cefepime was running as a IVPB with NS, and NS was backflowing into the cefepime bag. The antibiotic was hung at 1600 at 200mls /hr and the bag of cefepime bag should have been complete at 1630. This RN titrated the NS for an additional 30 ml to empty the cefepime bag, which this RN rehung on the pole.
--- NOTE | 2019-09-28 17:42 | PDOC.CMPRO ---
- If Service Date Differs Date of service: 09/28/19 Time of Service: 17:42 Care Management Progress Note S/O: Low was sitting up in bed when CM met with him. His , Aury was in the room. He stated that he was feeling ok, but per MD he would be at [facility] overnight. Per report, he had a fever overnight. The provider will consult his oncologist regarding his course of treatment. Low stated that he would like to return home, but he is agreeable to staying at [facility] for monitoring. CM will continue to follow. A: Low is a 59 year old male admitted to [facility] on 09/27/19 for fever. P: Anticipate Low will return home when medically cleared. He will follow up with his PCP, Oncologist, and discharge plan of care. His will drive him home via private vehicle. CM will continue to follow.
[2019-09-28 19:24] VITALS: BP 126/82; PULSE 82; RESP 18; TEMP 37.6; O2SAT 95
--- NOTE | 2019-09-28 23:49 | NUR.NOTE ---
Nursing Note: Pt resting in bed, awakes easily. Offers no complaints at this time. Will let rest.
[2019-09-29] MEDS: CEFEPIME 2 GM in Normal Saline 100 ML IVPB ×2 (00:24→08:11)
[2019-09-29 05:10] VITALS: BP 129/87; PULSE 66; RESP 16; TEMP 36.4
[2019-09-29 08:11] VITALS: BP 129/88; PULSE 77; RESP 18; TEMP 36.1; O2SAT 97
[2019-09-29] MEDS: Omeprazole 20 MG CAPCR PO (08:11)
[2019-09-29] MEDS: Apixaban 5 MG TAB PO (08:12)
[2019-09-29] MEDS: levETIRAcetam 500 MG TAB PO (08:12)
[2019-09-29] MEDS: Normal Saline Flush 10 ML SYR IVP ×2 (08:13→14:20)
[2019-09-29 08:23] LABS: Absolute Monocyte Count 0.05 10^3/uL (0.1-0.8); Absolute Neutrophil Count 0.88 10^3/uL (1.2-6.7); HCT 39.3 % (40.0-50.0); HGB 12.7 g/dL (13.5-17.5); MCH 29.2 pg (27.0-33.0); MCHC 32.3 % (32.0-36.0); MCV 90.3 fL (80-95); MPV 9.4 fL (8.0-11.0); Nucleated RBC 0 %; Platelet Count 168 10^3/uL (130-400); RBC 4.35 10^6/uL (4.36-5.78); RDW 17.3 % (11.8-14.1); RDW-SD 57.6 fL
[2019-09-29 08:29] LABS: Anion Gap 8.3 mmol/L (3-11); BUN 12 mg/dL (7-18); CO2 24.7 mmol/L (21.0-32.0); CREATININE 0.88 mg/dL (0.70-1.30); Calcium 8.8 mg/dL (8.5-10.1); Chloride 102 mmol/L (98-107); Glucose 110 mg/dL (74-106); Magnesium 1.9 mg/dL (1.8-2.4); Potassium 4.2 mmol/L (3.5-5.1); Sodium 135 mmol/L (136-145)
[2019-09-29 09:06] LABS: WBC 1.57 10^3/uL (4.4-10.8)
[2019-09-29 09:07] LABS: Absolute Lymphocyte Count 0.64 10^3/uL (1.2-3.4); Atypical Lymphocytes % 2; Diff Comment Manual Differential; RBC Morphology Normal
[2019-09-29] MEDS: levoFLOXacin 500 MG, levoFLOXacin 250 MG 750 MG PO (10:39)
[2019-09-29 10:41] LABS: Campylobacter PCR Negative (Negative); Salmonella PCR Negative (Negative); Shiga Toxin PCR Negative (Negative); Shigella/Enteroinvasive Ecoli Negative (Negative)
[2019-09-29 11:10] VITALS: BP 123/82; PULSE 68; RESP 17; TEMP 36.8; O2SAT 98
--- NOTE | 2019-09-29 12:19 | W.PM.DS.N ---
Date of service: 09/29/19 Time of Service: 12:19 DS: Diagnosis Discharge Diagnosis (1) Neutropenic fever: Status: Acute (2) Acute thrombosis of left basilic vein: Status: Acute (3) Edema of left upper extremity: Status: Acute (4) H/O deep venous thrombosis: Status: Chronic Asessment and Plan: Residual clot still seen in right popliteal through posterial tibialis veins (5) Metastatic colorectal cancer: Status: Chronic (6) Chronic diarrhea: Status: Acute (7) COVID-19 ruled out by laboratory testing: Status: Acute Discharge Plan Disposition Patient Disposition: HOME Condition: Stable Discharge Details Chief Complaint: Fever Reason For Visit: FEVER IN CHEMO PATIENT Admit Date/Time: 09/28/19 14:20 Admit Provider: Rudolph Marino Attending Provider: Inessa Jerry Primary Care Provider: George Pinto ED Provider: [facility] Course Hospital Course: Mr Arriaga is a 59 year old male with PMHx of metastatic colon cancer on chemotherapy with folfox, last cycle on 09/26/2019, as well as h/o RLE DVT/PE, on eliquis, hypertension, GERD, who was admitted to [facility] hospitalist service on 09/27/2019 with fever in setting of chemotherapy, though the patient was not neutropenic at that time. The fever was accompanied by rigors. The patient had negative blood cultures, including from his port, as well as no evidence of pneumonia or UTI. Because of his chronic diarrhea, we obtained stool studies including C.Diff, which were negative. Given BLE edema, the patient underwent venous doppler BLEs, which shows residual thrombus in right popliteal and posterior tibialis veins, but significantly smaller than in 2019. The patient had an IV in his LUE, where he developed pain in swelling. Venous doppler of LUE was then obtained, demonstrating a left basilic vein thrombus. Consultations were sought with hematology and oncology at [facility]: because the clot was provoked and is superficial, it is felt that this would not be considered eliquis failure and the patient can be continued on eliquis at the current dose with warm compresses. The patient's white count did start to decrease with ANC of 0.88 today, down from 2.96 on admission. The patient was initiated on cefepime, defervescing. He has remained afebrile >36 hours since then. Per my discussion with Dr Walter, a dose of neupogen was administered given the downward trend of the ANC. The patient is being switched to levofloxacin and discharged home today as he feels significantly better. He has been afebrile, feels back to normal, and is asked to follow up with oncology within 1 week. He is being given a a prescription for 4 more days of levofloxacin on discharge. He is asked to do warm compresses Q4hrs while awake. Care for patient as well as completion of his discharge summary on day of discharge took 1 hour. Home Meds and New Rx's Prescriptions: New levofloxacin [Levaquin] 750 mg Tablet 750 mg PO QAM Qty: 4 RF: 0 Continued Eliquis 5 mg tablet 5 mg PO BID RF: 0 acetaminophen [Tylenol] 325 MG tablet 650 mg PO BID PRN RF: 0 cetirizine [Zyrtec] 10 MG tablet,chewable 10 mg PO HS Qty: 30 RF: 12 omeprazole 20 mg capsule,delayed release(DR/EC) 20 mg PO BID Qty: 180 RF: 3 vitamin B complex Capsule 1 cap PO DAILY RF: 0 levetiracetam 500 mg tablet 500 mg PO BID RF: 0 losartan 25 mg tablet 25 mg PO DAILY PRNRF: 0 Discharge Instructions Instructions: Levofloxacin (By mouth), Neutropenia (DC) Additional Instructions: Return to the hospital with any fever, bleeding, chest pain, shortness of breath. Apply warm compresses to your left upper extremity Q4H x 30 minute while awake. Follow up with your PCP and with oncology within 1 week. Referrals: George Pinto DO [Primary Care Provider] - Josesito Waltre MD [ CONSULTING PHYSICIAN] - Activity:: Activity as Tolerated Equipment/Supplies:: No Equipment Needed Diet:: As Tolerated Discharge Orders Discharge Orders: Discharge Order (Routine); Ordered 09/29/19 Ordered By: Inessa Jerry DS: Summary Status at Discharge Functional status at discharge: independent ambulation Overall status at discharge: patient is back to baseline Mental Status: mental status grossly normal Speech and Movement: speech and movement normal Mood: congruent mood Affect: normal affect Exam Narrative Exam Narrative: General: Very pleasant middle-aged male who looks betterl, A&Ox3, sitting in a chair HEENT: EOMI, MMM Heart: RRR, no m/r/g Lungs: slight crackles at R base, otherwise CTAB Abdomen: soft, nontender, nondistended Extremities: slight edema LUE when compared to the left. Asymmetric BLE edema, LLE>RLE with hyperpigmentation of LLE (old injury) Psych Mental Status: mental status grossly normal Speech and Movement: speech and movement normal Mood: congruent mood Affect: normal affect DS: Data Vitals/I&O Vitals and I&O: Vital Signs Temperature 36.8 C 09/29/19 11:10 Temperature Source Temporal Artery Scan 09/29/19 11:10 Pulse 68 09/29/19 11:10 Pulse Rhythm Regular 09/29/19 10:49 Respiratory Rate 17 09/29/19 11:10 Respiratory Effort 09/29/19 10:49 Respiratory Depth Normal 09/29/19 10:49 Respiratory Pattern Normal 09/29/19 10:49 Blood Pressure 123/82 09/29/19 11:10 Blood Pressure Position Sitting 09/26/19 20:04 Pulse Oximetry 98 09/29/19 11:10 Oxygen Delivery Method Room Air 09/29/19 11:10 Oxygen Flow Rate 0 09/29/19 11:10 Pain Level 0 09/29/19 11:10 Comment 09/27/19 20:05 Intake & Output 09/28/19 09/29/19 09/29/19 23:59 11:59 23:59 Intake Total 340 / 590 740 / 740 Balance 340 / 590 740 / 740 Intake: IV 100 / 100 200 / 200 Oral 240 / 490 540 / 540 Other: Comment Per pt he has voided today independently in the toliet. Pt reports that he is urinating frequently. PHERESIS SPECIALIST did not observe urine. Voiding Methods Toilet Data Completed and Pending Completed studies during hospitalization [Text1]: CTA chest 09/26/2019: 1. No evidence of pulmonary embolism, thoracic aortic dissection or aneurysm. 2. Stable mediastinal lymph nodes, right middle lobe nodule and pulmonary emphysema and bronchiectasis. 3. Superior aspect of the patient's known left adrenal mass is identified. It is incompletely imaged. Venous doppler BLEs 09/27/2019: Right: DVT extending from the right popliteal vein into the posterior tibialis veins. Left: Negative for DVT Venous doppler LUE 09/28/2019: 2 cm length thrombus in the distal left basilic vein. Labs on day of discharge: Labs from last 24 hours 09/29/19 09/29/19 09/28/19 08:12 08:12 08:23 WBC 1.57 L* RBC 4.35 L Hgb 12.7 L Hct 39.3 L MCV 90.3 MCH 29.2 MCHC 32.3 RDW 17.3 H Plt Count 168 MPV 9.4 Immature Gran % 0.0 Neutrophils % 56.0 Lymphocytes % 39.0 Atypical Lymphs % 2 Monocytes % 3.0 Eosinophils % 0.0 Basophils % 0.0 Absolute Neutrophils 0.88 L Absolute Lymphocytes 0.64 L Absolute Monocytes 0.05 L Absolute Eosinophils 0.00 Absolute Basophils 0.00 RBC Morphology Normal Sodium 135 L Potassium 4.2 Chloride 102 Carbon Dioxide 24.7 Anion Gap 8.3 BUN 12 Creatinine 0.88 Estimated GFR/1.73 m2 >= 60.00 Glucose 110 H Calcium 8.8 Magnesium 1.9 Stool Description Stool Campylobacter PCR Negative Stool Salmonella PCR Negative Stool Shigella PCR Negative Stool Ova & Parasites Shiga Toxin (PCR) Negative 09/28/19 08:23 WBC RBC Hgb Hct MCV MCH MCHC RDW Plt Count MPV Immature Gran % Neutrophils % Lymphocytes % Atypical Lymphs % Monocytes % Eosinophils % Basophils % Absolute Neutrophils Absolute Lymphocytes Absolute Monocytes Absolute Eosinophils Absolute Basophils RBC Morphology Sodium Potassium Chloride Carbon Dioxide Anion Gap BUN Creatinine Estimated GFR/1.73 m2 Glucose Calcium Magnesium Stool Description Not Applicable Stool Campylobacter PCR Stool Salmonella PCR Stool Shigella PCR Stool Ova & Parasites See below Shiga Toxin (PCR) Preliminary micro results at discharge 09/26/19 21:18 Blood Culture - Preliminary Blood NO GROWTH 48 HOURS 09/26/19 20:50 Blood Culture - Preliminary Blood NO GROWTH 48 HOURS [facility] Medical History (Updated 09/29/19 @ 12:21 by Inessa Jerry MD) Adrenal cancer (Acute) METS from Colon CA Chronic diarrhea (Acute) Encounter for central line placement (Acute ~06/23/18) Metastatic colorectal cancer (Chronic) Port-A-Cath in place (Acute ~06/23/18) L Subclavian SOB (shortness of breath) on exertion (Acute) Surgical History Colonoscopy - [facility] 11/18/13;[facility] Hemicolectomy 12/01/16; RIGHT @ [facility] History of partial adrenalectomy (Acute) pt. states he had right adrenal gland removed r/t to tumor. 04/10/18 History of removal of Port-a-Cath (Acute) L subclavian Family History Mother , age 82 No problems noted. Father No problems noted. Social History Smoking/Tobacco Use Status: Current-Occasional Tobacco Type: cigarettes Quit status: quit date established Smoking risk assessment performed?: Yes Alcohol Intake: former Drug use: Never Substance use type: does not use Details: no alcohol for 2 years Caregiver/Support person: Yes Household members: spouse and children Housing: house Communication Needs: None Do you need help understanding health information?: Rarely Pets and animals: Yes Sexually active: Yes Do you think of yourself as: straight/heterosexual Current gender identity: male What is your relationship status?: How often do you talk on the phone with friends or family?: three or more times per week How often do you get together with friends or relatives?: once per week How often do you attend orthodoxy or bahai services?: 1-3 times per year Do you belong to any clubs or organized social groups?: no Panel score (0-1 are the most socially isolated patients): 2 What type of physical activity do you participate in: walking Duration: 30-45 minutes/day Frequency: daily Kesha/Taoist: Baptism Special kesha needs: No Seatbelt use: always Drive intox or ride w/intox regional company truck driver: No Do you feel safe at home: Yes Do you feel safe in your relationship?: Yes
[2019-09-29] MEDS: Heparin 500 UNITS/5 ML SYRINGE IVP (14:21)
--- NOTE | 2019-09-29 14:23 | PDOC.CMDIS ---
- If Service Date Differs Date of service: 09/29/19 Time of Service: 14:23 LACE Index Scoring Tool - Questions: Length of Stay (in days): 2 Acuity (Admit via E.D.?): Yes Comorbidities: Metastatic Solid Tumor E.D. Visits: 3 - Answers: Total Score: 13 Risk of Readmission: High Risk Care Management Discharge Reason for Hospitalization: Fever Discharge Plan: Low will return home with no additional services at this time. He will follow up with his PCP, oncologist, and discharge plan of care. His , Aury will drive him home when ready. He is happy to be going home. Patient/Family Education Needs: Review discharge instructions regarding activity levels and medications, discussion of self care needs and goals of care.
== END 2019-09-29 14:28 | disposition home or self-care (01) | DRG 809 ==
LOC: ER 09-27 00:15 → MS 09-27 00:41
PROVIDERS: Admitting Provider General Practice; Emergency Provider Physician Assistant; PCP Emergency Medicine; Visit Provider Internal Medicine
DX: D70.9 Neutropenia, unspecified (principal); C79.70 Secondary malignant neoplasm of unspecified adrenal gland; C79.31 Secondary malignant neoplasm of brain; I82.531 Chronic embolism and thrombosis of right popliteal vein; I82.541 Chronic embolism and thrombosis of right tibial vein; I82.622 Acute embolism and thrombosis of deep veins of left upper extremity; R50.81 Fever presenting with conditions classified elsewhere; R05 Cough; R00.0 Tachycardia, unspecified; F17.210 Nicotine dependence, cigarettes, uncomplicated; Z85.038 Personal history of other malignant neoplasm of large intestine; R19.7 Diarrhea, unspecified; Z79.01 Long term (current) use of anticoagulants
CPT/HCPCS: 36415; 71275; 80048; 80051; 80053; 87040; 87505; 96361; 96365; 99222; 99233; 99239; 99285; NC; U0003; 81003; 83605; 83735; 84484; 85025; 87177; 87324; 93970; 93971; 94667; 99219; G0378; J3475; J3490

== ENCOUNTER 2019-10-06 19:25 | Outpatient (CLI) | payer OTHER, SELFPAY ==
--- NOTE | 2019-10-06 | DI.CT_ITS ---
EXAM: CT ABDOMEN PELVIS W CLINICAL HISTORY: PRIMARY COLON CA,C18.9, F/U, RESTAGING. TECHNIQUE: Imaging Protocol: Axial computed tomography images with coronal and sagittal reformatted images were created and reviewed CONTRAST MATERIAL: Intravenous: Omnipaque 350 Contrast volume:structured data in ml Oral: yes / no COMPARISON: CT CT CHEST/ABD/PEL W from 07/27/[address] CHEST PE CTA from 09/26/2019 FINDINGS: ABDOMEN: Lung Bases: Mild dependent changes. Liver: Normal density. No measurable mass. Gallbladder and biliary tract: No radiodense calculus or dilation. Pancreas: Normal density, no abnormal calcifications or inflammatory process. Spleen: Normal. Kidneys: Normal size, contour and axis. No radiodense stones or obstructive uropathy. No masses seen. Small cyst left kidney Adrenal glands: Status post right adrenalectomy. Interval increase in size lobulated left adrenal ma ss, now measuring 7.5 by 4.3 by 8.3 cm compared with 5.7 x 3.8 cm on the previous exam. Abdominal Aorta: Abdominal portion non-dilated. PELVIS: Bladder: Symmetric distention, no gross wall thickening. Bowel: No obstruction or bowel wall thickening. Peritoneal cavity: No ascites, collection or mesenteric inflammatory response. Bones: Within normal limits. Reproductive organs: Within normal limits. Lymph nodes: Unremarkable. Impression: Continued increase in size of left adrenal mass. No evidence of adenopathy or new metastatic sites. RADIATION DOSE DELIVERED: 1,246.05mGy.cm Total DLP DATA REPOSITORY: All CT scans at this facility are submitted to the National Radiology Data Registry (NRDR) Dose Index Registry (DIR) with the [employer] (ACR). RADIATION OPTIMIZATION: All CT scans at this facility use at least one of these dose optimization te chniques: automated exposure control; mA and/or kV adjustment per patient size (includes targeted exa ms where dose is matched to clinical indication); or iterative reconstruction.
[2019-10-06] MEDS: Omnipaque 350 MG/ML 100 ML BTL IJ (13:09)
[2019-10-06] MEDS: Normal Saline - Diluent 50 ML VIAL IV (13:12)
== END 2019-10-06 19:45 ==
PROVIDERS: PCP Emergency Medicine; Visit Provider Internal Medicine Hematology & Oncology
DX: C18.9 Malignant neoplasm of colon, unspecified (principal); E27.8 Other specified disorders of adrenal gland
CPT/HCPCS: 74177; J3490

== ENCOUNTER 2019-10-09 18:27 | Emergency (ER) | payer OTHER, SELFPAY ==
[2019-10-09] VITALS (22 sets, daily range): BP systolic 130–146; BP diastolic 70–94; PULSE 79–99; RESP 16–27; TEMP 37.2–37.4; O2SAT 94–98
--- NOTE | 2019-10-09 18:57 | ED.GENADUL_ITS ---
Discharge Plan Disposition Patient Disposition: HOME Condition: Stable Discharge Details Chief Complaint: Fever Clinical Impression: Fatigue, Subjective fever, Metastatic colorectal cancer, Neutropenia Primary Care Provider: George Pinto ED Provider: Bassam Muhammad Home Meds and New Rx's Prescriptions: Continued Eliquis 5 mg tablet 5 mg PO BID RF: 0 acetaminophen [Tylenol] 325 MG tablet 650 mg PO BID PRN RF: 0 cetirizine [Zyrtec] 10 MG tablet,chewable 10 mg PO HS Qty: 30 RF: 12 omeprazole 20 mg capsule,delayed release(DR/EC) 20 mg PO BID Qty: 180 RF: 3 vitamin B complex Capsule 1 cap PO DAILY RF: 0 levetiracetam 500 mg tablet 500 mg PO BID RF: 0 losartan 25 mg tablet 25 mg PO DAILY PRNRF: 0 Discharge Instructions Instructions: Fever in Adults (ED) Additional Instructions: At this time there is no overt source of infectious etiology. Your symptoms may have been secondary to mild dehydration with working outside. Please drink plenty of fluids at home. Please contact your oncologist tomorrow morning, and follow-up closely this week. If you notice any worsening of your symptoms, or any new symptoms such as vomiting, diarrhea, fever, chills, shortness of breath, chest pain, numbness, weakness, or fainting , please return immediately to the emergency department for reevaluation. Please follow up with your primary care provider as soon as possible for reassessment and reevaluation. As always, it was a pleasure participating in your medical care today. 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 T-max 99.4 at home today. Vitals within normal limits. EKG notes a rate of 83, sinus with no acute ST-T wave ischemic changes. Patient appears in no acute distress and nontoxic. He has moderate epigastric tenderness which he states is chronic due to a previous injury but otherwise no acute findings on exam. Differential diagnosis includes neutropenic fever, pneumonia, UTI, dehydration, electrolyte abnormality. Will place an IV, bolus IV fluids, screening labs, IV Tylenol and obtain a CT chest abdomen and pelvis. 1999 -- Case endorsed Dr. Muhammad to follow-up on labs and imaging and final disposition. Medical Records Medical records reviewed: Yes I reviewed the patient's medical records. ECG Data Attestation: I personally reviewed and interpreted this ECG (s) as follows: Interpretation: Rate of 83, sinus, no acute ST elevation or depression. AL 154. QRS 102. QTc 460. <Bassam Muhammad, DO - Last Filed: 10/09/19 23:39> 59-year-old male with a history of metastatic cancer on chemotherapy presents for evaluation of fever and fatigue with a temperature at home of 99.6 ?F a T-max. Patient was signed out to me by my colleague Dr. Trish Shah pending laboratory and imaging work-up. Patient's laboratory work-up is returned, he does demonstrate evidence of neutropenia, WBC count is 2.08, absolute neutrophil count of 0.48, magnesium slightly low at 1.5, calcium slightly low at 8.4. Urinalysis negative for evidence of infection, work-up by Dr. Shah demonstrates CT scan showing stable adrenal mass, no acute findings in the abdomen or lungs. Patient on my reevaluation does state that he has had some diarrhea over the last week or so since he was initially discharged, however that is notably been improving. He cannot procure a bowel movement now. CT scan shows no evidence of colitis. After hydration patient is feeling much better. We will reach out to Dr. Queen/[facility] oncology to discuss case with them. However with the notably stable vital signs, a lack of a fever here, no other abnormalities aside from mild neutropenia, and in the clinical setting of complete resolution of his mild fatigue, with fluid administration in the historical setting of notable work outside today, I do feel that he may be appropriate for discharge home after oncology discussion. 11:38 PM I have contacted [facility] oncology, discussed the case with her. We reviewed all the aspects including the work-up, and at this time she agrees that the patient is stable and does not demonstrate the symptoms consistent with neutropenic fever. She does not feel that the patient would benefit from Neulasta at this time, and does feel that his decreasing neutrophil count is secondary to his chemotherapy. Discussed all this with the patient. I have extensively reviewed the treatment plan and discharge instructions with the patient and their family. I have addressed all patient concerns at this time. The patient and family was made aware of what symptoms to monitor for that would warrant a return to the emergency department. Discussed the plan with the patient and family, they demonstrate verbal understanding and agreement with our assessment and plan at this time. FINDINGS: There are stable interstitial opacities bilaterally. No airspace consolidation, pleural effusion or pneumothorax. No evidence of pulmonary embolism. There is a stable 3 mm nodule in the lingula. Normal thoracic aorta. An aberrant right subclavian artery is present. There are stable shotty mediastinal lymph nodes. There is a left-sided MediPort. No acute fracture. IMPRESSION: No acute findings. FINDINGS: The liver and gallbladder are unremarkable. No hydronephrosis. There is a stable left renal cyst. There is a stable left adrenal mass measuring 7.4 x 4 cm. Post right adrenalectomy. Normal pancreas and spleen. Normal abdominal aorta. Status post right hemicolectomy. No evidence of bowel obstruction. Normal urinary bladder. Unremarkable prostate gland. No free fluid free air. No significant adenopathy. No fracture. IMPRESSION: Stable left adrenal mass. No acute findings. Thank you for allowing us to participate in the care of your patient. Dictated and Authenticated by: Anuj Sousa MD 10/09/2019 10:15 PM Eastern Time ([place] & [place]) HPI <Trish Shah DO - Last Filed: 10/09/19 20:24> General Mode of arrival: ambulatory . Date/Time Provider Initiated Documentation: 10/09/19 18:30 . Limitations to Documentation: no limitations . Information obtained by: patient . HPI Narrative: Patient is a 59-year-old male with a history of colorectal cancer with metastasis to adrenal glands and brain who presents with feelings of fever, chills and lethargy today. Patient was admitted here a few weeks ago for neutropenic fever with negative blood cultures and no source found. He states he has been doing great and saw his primary care doctor a few days ago and was asymptomatic at that time. He states he has been doing a lot of yard work outside today and feels he may have pushed himself too hard and that may account for his symptoms today. His highest temp was 99.4 p.o. He admits to a mild headache 1 out of 10. He admits to occasional shortness of breath and cough but denies any chest pain. He has been sleeping well and denies any change in appetite. He has had multiple episodes of diarrhea over the past few days have been watery and brown. He admits to some dizziness upon standing quickly for the past several months. Patient was diagnosed with colorectal cancer a few years ago and has been undergoing chemotherapy with his last session 2 weeks ago. He denies any recent travel or known sick contacts. Related Data Home Medications Medication Instructions Recorded Confirmed acetaminophen [Tylenol] 650 mg PO BID PRN tab-cap 10/24/13 10/09/19 cetirizine [Zyrtec] 10 mg PO HS #30 tab.chew 08/29/15 10/09/19 vitamin B complex 1 cap PO DAILY 10/13/18 10/09/19 apixaban 5 mg tablet 5 mg PO BID 02/18/19 10/09/19 omeprazole 20 mg capsule,delayed 20 mg PO BID #180 tab-cap 04/29/19 10/09/19 release levetiracetam 500 mg PO BID 09/26/19 10/09/19 losartan 25 mg PO DAILY PRN 09/26/19 10/09/19 Previous Rx's Medication Instructions Recorded omeprazole 20 mg capsule,delayed 20 mg PO BID #180 tab-cap 04/29/19 release Allergies Allergy/AdvReac Type Severity Reaction Status Date / Time grass pollen Allergy Mild Verified 10/09/19 18:40 General Stated Complaint: Fever RUEL: 2 Review of Systems <Trish Shah DO - Last Filed: 10/09/19 20:24> All systems reviewed & are unremarkable except as noted in HPI and below Constitutional Constitutional: Reports as per HPI, Reports chills, Reports fatigue, Reports fever(s), Reports headache(s) and Reports lethargy Eyes Eyes: Denies blurry vision ENT Ears, Nose, Mouth, and Throat: Denies dizziness, Reports headache(s), Denies sore throat and Denies throat swelling Cardiovascular Cardiovascular: Denies chest pain and Reports dyspnea Respiratory Respiratory: Denies cough and Reports dyspnea Gastrointestinal Gastrointestinal: Denies abdominal pain, Denies diarrhea and Denies vomiting Genitourinary Genitourinary: Denies hematuria and Denies dysuria Musculoskeletal Musculoskeletal: Denies back pain and Denies numbness Integumentary/Breasts Skin/Breast: Denies lesions and Denies rash Neurologic Neurologic: Denies dizziness, Reports headache(s), Denies localized weakness and Denies numbness Endocrine Endocrine: Reports fatigue Allergic/Immunologic Allergic/Immunologic: Denies throat swelling PFS <Trish Shah DO - Last Filed: 10/09/19 20:24> Medical History (Updated 10/09/19 @ 23:21 by Bassam Muhammad DO) Adrenal cancer (Acute) METS from Colon CA Chronic diarrhea (Acute) Encounter for central line placement (Acute ~06/23/18) Metastatic colorectal cancer (Chronic) Port-A-Cath in place (Acute ~06/23/18) L Subclavian SOB (shortness of breath) on exertion (Acute) Surgical History Colonoscopy - MAC 11/18/13;[facility] Hemicolectomy 12/01/16; RIGHT @ [facility] History of partial adrenalectomy (Acute) pt. states he had right adrenal gland removed r/t to tumor. 04/10/18 History of removal of Port-a-Cath (Acute) L subclavian Family History Mother , age 82 No problems noted. Father No problems noted. Social History Smoking/Tobacco Use Status: Current-Occasional Tobacco Type: cigarettes Quit status: quit date established Smoking risk assessment performed?: Yes Alcohol Intake: former Drug use: Never Substance use type: does not use Details: no alcohol for 2 years Caregiver/Support person: Yes Household members: spouse and children Housing: house Communication Needs: None Do you need help understanding health information?: Rarely Pets and animals: Yes Sexually active: Yes Do you think of yourself as: straight/heterosexual Current gender identity: male What is your relationship status?: How often do you talk on the phone with friends or family?: three or more times per week How often do you get together with friends or relatives?: once per week How often do you attend episcopal or denominational services?: 1-3 times per year Do you belong to any clubs or organized social groups?: no Panel score (0-1 are the most socially isolated patients): 2 What type of physical activity do you participate in: walking Duration: 30-45 minutes/day Frequency: daily Kesha/Islam: Mosque Special kesha needs: No Seatbelt use: always Drive intox or ride w/intox delivery driver/customer service: No Do you feel safe at home: Yes Do you feel safe in your relationship?: Yes Exam <Trish Shah DO - Last Filed: 10/09/19 20:24> Const General: cooperative and no acute distress Orientation: alert, awake and oriented x3 HENMT Head: normal to inspection Ears: hearing grossly normal bilaterally and external ears normal General nose exam: external nose normal Face and sinus: normal facial exam Mouth: oral mucosae normal Teeth and gingiva: dentition normal Throat: posterior oropharynx normal Eyes General: appearance normal, both eyes and all related structures Eyelids: eyelids normal Pupils: PERRL EOM: EOM intact bilaterally Neck Neck: normal visual inspection Lymphatic: no lymphadenopathy noted Chest Chest: normal inspection of the chest Resp Effort & Inspection: normal respiratory effort and able to speak in complete s entences Auscultation: diminished lung sounds bilaterally in the lower lung rankin Cardio Rate: regular rate Rhythm: regular rhythm GI Inspection: normal to inspection Palpation: soft, not firm, no guarding, no hepatosplenomegaly, no masses and tender in the epigastrum Auscultation: normal bowel sounds Skin General skin exam: no rashes or lesions noted Neuro General: patient alert and patient awake Cognition: normal cognition Speech: speech normal Gait: normal gait Motor: muscle tone normal throughout Sensory Exam: no sensory deficits noted Extrem General: normal to inspection, full ROM, capillary refill normal and no edema Other: Fusion at left knee and ankle without normal range of motion due to previous injury years ago Psych Appearance: grossly normal Mental Status: mental status grossly normal Speech and Movement: speech and movement normal Affect: normal affect Thought Process: normal Course <Trish Shah DO - Last Filed: 10/09/19 20:24> Vital Signs Vital signs: Vital Signs Temperature 99.4 F 10/09/19 18:34 Pulse 95 H 10/09/19 18:34 Respiratory Rate 21 10/09/19 18:34 Blood Pressure 146/90 H 10/09/19 18:34 Pulse Oximetry 97 10/09/19 18:34 Temperature 99.4 F 10/09/19 18:34 Temperature Source Oral 10/09/19 18:34 Pulse 95 H 10/09/19 18:34 Respiratory Rate 21 10/09/19 18:34 Respiratory Effort Non-Labored 10/09/19 18:34 Blood Pressure 146/90 H 10/09/19 18:34 Blood Pressure Position Supine 10/09/19 18:34 Pulse Oximetry 97 10/09/19 18:34 Oxygen Delivery Method Room Air 10/09/19 18:34 Oxygen Flow Rate 0 10/09/19 18:34 Pain Level 0 10/09/19 18:34 Sign Out <Trish Shah DO - Last Filed: 10/09/19 20:24> Sign Out Data: Sign Out Comment: follow up on labs and imaging and final disposition Last updated by Trish Shah DO at 10/09/19 20:00
--- NOTE | 2019-10-09 19:00 | DI.CT_ITS ---
EXAM: CT CHEST PE ABD PELVIS W CLINICAL HISTORY: lethargy, cough, fever, TECHNIQUE: COMPARISON: CT CT ABDOMEN PELVIS W from 10/06/2019 FINDINGS: CT examination of the chest, abdomen, and pelvis was performed with bolus infusion of 100 cc of Omnip aque 350. The patient reportedly has a history of colon carcinoma with adrenal metastasis. Examination is compared with recent CT of October 05. Note is again made of marked pulmonary fibros is and emphysema. No acute consolidation. No significant pleural effusion. No pneumothorax. No ev idence of pulmonary embolic disease. Unremarkable appearance of thoracic aorta. Nonspecific mild pr ominence of central mediastinal lymph nodes noted. Liver and spleen are unremarkable. Prior hepatic flexure colonic anastomosis noted. Pancreas unrema rkable. No biliary dilatation. Left adrenal irregular heterogeneous reported metastasis noted, maxi mal diameter about 87 by 46 millimeters. No renal abnormality seen apart from left hip left renal cy st. Spleen unremarkable. No abdominal aortic aneurysm. Major visceral branches appear intact. No gross pelvic adenopathy. N o gross mesenteric or retroperitoneal adenopathy. No bowel obstruction. No significant abdominal wa ll hernia. No significant bony lesion identified in the region surveyed. IMPRESSION: No evidence of pulmonary embolic disease or other acute intrathoracic process. No acute intra-abdominal process, known left adrenal metastatic lesion again noted and unchanged from October 05. Patient has reported history of colon carcinoma. RADIATION DOSE DELIVERED: 1,502.84mGy.cm Total DLP
--- NOTE | 2019-10-09 19:15 | RT.EKG_ITS ---
APPROVED REPORT Exam: Resting ECG Patient Location: E HR:83 bpm ECG Measurements Heart Rate 83 AXIS ME 154 P 57 QRSd 102 QRS 75 QT 391 T 50 QTc 460 Conclusion Sinus rhythm...normal P axis, V-rate 60- 99. No STEMI. Nondiagnostic.
[2019-10-09] MEDS: Normal Saline 1,000 ML 1000 ML IV (19:35)
[2019-10-09] MEDS: ACETAMINOPHEN 1,000 MG/100 ML BTL 400 MG IVPB (19:42)
[2019-10-09 19:47] LABS: HCT 33.2 % (40.0-50.0); HGB 10.9 g/dL (13.5-17.5); MCH 29.6 pg (27.0-33.0); MCHC 32.8 % (32.0-36.0); MCV 90.2 fL (80-95); MPV 9.6 fL (8.0-11.0); Nucleated RBC 0 %; Platelet Count 167 10^3/uL (130-400); RBC 3.68 10^6/uL (4.36-5.78); RDW 17.7 % (11.8-14.1); RDW-SD 58.4 fL; WBC 2.08 10^3/uL (4.4-10.8)
[2019-10-09 19:48] LABS: Lactate 1.4 mmol/L (0.6-1.4)
[2019-10-09 19:59] LABS: INR 1.1 (0.9-1.1); PTT Activated 27.4 sec (21.0-31.4)
[2019-10-09 20:01] LABS: ALT 36 U/L (16-63); AST 30 U/L (15-37); Albumin 2.7 g/dL (3.4-5.0); Alkaline Phosphatase 141 U/L (46-116); Anion Gap 8.3 mmol/L (3-11); BUN 6 mg/dL (7-18); Bilirubin, Total 0.5 mg/dL (0.2-1.0); CO2 25.7 mmol/L (21.0-32.0); CREATININE 0.94 mg/dL (0.70-1.30); Calcium 8.4 mg/dL (8.5-10.1); Chloride 103 mmol/L (98-107); Glucose 102 mg/dL (74-106); Magnesium 1.5 mg/dL (1.8-2.4); Potassium 3.5 mmol/L (3.5-5.1); Sodium 137 mmol/L (136-145); Total Protein 6.4 g/dL (6.4-8.2)
[2019-10-09 20:02] LABS: Troponin I < 0.05 ng/mL (<0.06)
[2019-10-09 20:16] LABS: Absolute Eosinophil Count 0.04 10^3/uL (0.0-0.7); Absolute Lymphocyte Count 1.25 10^3/uL (1.2-3.4); Absolute Monocyte Count 0.31 10^3/uL (0.1-0.8)
[2019-10-09 20:18] LABS: Absolute Neutrophil Count 0.48 10^3/uL (1.2-6.7)
[2019-10-09 20:19] LABS: Anisocytosis 1+; Diff Comment Manual Differential
[2019-10-09] MEDS: Omnipaque 350 MG/ML 100 ML BTL IJ (21:17)
[2019-10-09] MEDS: Normal Saline - Diluent 50 ML VIAL IV (21:23)
[2019-10-09] MEDS: Normal Saline Flush 10 ML SYR IVP (21:24)
[2019-10-09 21:49] LABS: Bilirubin Negative (Negative); Blood Negative (Negative); Clarity Clear (Clear); Glucose Negative (Negative); Ketones Negative (Negative); Leukocyte Esterase Negative (Negative); Nitrite Negative (Negative); Specific Gravity 1.015 (1.005-1.025); Urobilinogen 0.2 EU/dL (Up TO 0.2)
--- NOTE | 2019-10-09 22:15 | DI.VRAD_ITS ---
PROCEDURE INFORMATION: Exam: CT Angiography Chest With Contrast Exam date and time: 10/09/2019 9:24 PM Age: 59 years old Clinical indication: Cough and fever and shortness of breath; Shortness of breath and fever and other: Cough; Prior surgery; Surgery date: 6+ months; Surgery type: Hemicolectomy, partial adrenalectomy, port a cath; Patient HX: HX of colon cancer, pe, dvt, . lethargy, cough, fever, R/O pe, acute abdominal process TECHNIQUE: Imaging protocol: Computed tomographic angiography of the chest with intravenous contrast. 3D rendering (Not supervised by radiologist): MIP and/or 3D reconstructed images were created by the technologist. Radiation optimization: All CT scans at this facility use at least one of these dose optimization techniques: automated exposure control; mA and/or kV adjustment per patient size (includes targeted exams where dose is matched to clinical indication); or iterative reconstruction. Contrast material: OMNIPAQUE 350; Contrast volume: 100 ml; Contrast route: INTRAVENOUS (IV); COMPARISON: CT CHEST PE CTA 09/26/2019 9:50 PM FINDINGS: There are stable interstitial opacities bilaterally. No airspace consolidation, pleural effusion or pneumothorax. No evidence of pulmonary embolism. There is a stable 3 mm nodule in the lingula. Normal thoracic aorta. An aberrant right subclavian artery is present. There are stable shotty mediastinal lymph nodes. There is a left-sided MediPort. No acute fracture. IMPRESSION: No acute findings. PROCEDURE INFORMATION: Exam: CT Angiography Abdomen and Pelvis With Contrast Exam date and time: 10/09/2019 9:24 PM Age: 59 years old Clinical indication: Cough and fever and shortness of breath; Shortness of breath and fever and other: Cough; Prior surgery; Surgery date: 6+ months; Surgery type: Hemicolectomy, partial adrenalectomy, port a cath; Patient HX: HX of colon cancer, pe, dvt, . lethargy, cough, fever, R/O pe, acute abdominal process TECHNIQUE: Imaging protocol: Computed tomographic angiography of the abdomen and pelvis with intravenous contrast material. 3D rendering (Not supervised by radiologist): MIP and/or 3D reconstructed images were created by the technologist. Radiation optimization: All CT scans at this facility use at least one of these dose optimization techniques: automated exposure control; mA and/or kV adjustment per patient size (includes targeted exams where dose is matched to clinical indication); or iterative reconstruction. Contrast material: OMNIPAQUE 350; Contrast volume: 100 ml; Contrast route: INTRAVENOUS (IV); COMPARISON: CT abdomen/pelvis 10/06/2019 FINDINGS: The liver and gallbladder are unremarkable. No hydronephrosis. There is a stable left renal cyst. There is a stable left adrenal mass measuring 7.4 x 4 cm. Post right adrenalectomy. Normal pancreas and spleen. Normal abdominal aorta. Status post right hemicolectomy. No evidence of bowel obstruction. Normal urinary bladder. Unremarkable prostate gland. No free fluid free air. No significant adenopathy. No fracture. IMPRESSION: Stable left adrenal mass. No acute findings. Dictated and Authenticated by: Anuj Sousa MD. Ordering:PERFECTO Chambers MD
== END 2019-10-09 23:50 | disposition home or self-care (01) ==
PROVIDERS: Physician Assistant; Emergency Provider Student in an Organized Health Care Education/Training Program; PCP Emergency Medicine
DX: R53.83 Other fatigue (principal); R50.9 Fever, unspecified; C19 Malignant neoplasm of rectosigmoid junction; D70.9 Neutropenia, unspecified
CPT/HCPCS: 36410; 71275; 74177; 80053; 87040; 93005; 96361; 96374; 99285; 81003; 83605; 83735; 84484; 85025; 85610; 85730; 93010; 99284; J0131; J3490

== ENCOUNTER 2019-10-10 20:42 | Outpatient (REF) | payer OTHER, SELFPAY | END 2019-10-10 21:02 | LOC: LBN 20:42 | PROVIDERS: PCP Emergency Medicine; Visit Provider Student in an Organized Health Care Education/Training Program | DX: R19.7 Diarrhea, unspecified (principal) | CPT/HCPCS: 87324 ==

== ENCOUNTER 2019-10-17 02:39 | Outpatient (RCR) | payer OTHER, SELFPAY ==
[2019-09-23] MEDS: Heparin 500 UNITS/5 ML SYRINGE IV (08:35)
[2019-09-23] MEDS: Normal Saline Flush 10 ML SYR IVP (08:35)
[2019-09-23 08:47] LABS: Abs Immature Grans 0.02 10^3/uL (0.0-0.06); Absolute Basophil Count 0.01 10^3/uL (0.0-0.2); Absolute Eosinophil Count 0.03 10^3/uL (0.0-0.7); Absolute Lymphocyte Count 1.52 10^3/uL (1.2-3.4); Absolute Neutrophil Count 3.37 10^3/uL (1.2-6.7); Basophils % 0.2; Eosinophils % 0.6; HCT 40.2 % (40.0-50.0); HGB 12.9 g/dL (13.5-17.5); Immature Grans % 0.4; MCH 29.9 pg (27.0-33.0); MCHC 32.1 % (32.0-36.0); MCV 93.1 fL (80-95); MPV 9.6 fL (8.0-11.0); Monocytes % 5.7; Neutrophils % 64.1; Nucleated RBC 0 %; Platelet Count 173 10^3/uL (130-400); RBC 4.32 10^6/uL (4.36-5.78); RDW 17.6 % (11.8-14.1); RDW-SD 59.8 fL; WBC 5.25 10^3/uL (4.4-10.8)
[2019-09-23 09:08] LABS: ALT 42 U/L (16-63); AST 24 U/L (15-37); Albumin 2.8 g/dL (3.4-5.0); Alkaline Phosphatase 136 U/L (46-116); Anion Gap 7.5 mmol/L (3-11); BUN 15 mg/dL (7-18); Bilirubin, Total 0.4 mg/dL (0.2-1.0); CO2 26.5 mmol/L (21.0-32.0); CREATININE 0.94 mg/dL (0.70-1.30); Calcium 8.5 mg/dL (8.5-10.1); Chloride 104 mmol/L (98-107); Glucose 116 mg/dL (74-106); Potassium 3.6 mmol/L (3.5-5.1); Sodium 138 mmol/L (136-145); Total Protein 6.8 g/dL (6.4-8.2)
[2019-09-23 10:17] LABS: Magnesium 1.8 mg/dL (1.8-2.4)
[2019-09-26 09:56] LABS: CEA 5.3 ng/mL (See Note)
[2019-10-07] MEDS: Normal Saline Flush 10 ML SYR IVP (07:30)
[2019-10-07] MEDS: Heparin 500 UNITS/5 ML SYRINGE IV (07:30)
[2019-10-07 07:51] LABS: Abs Immature Grans 0.02 10^3/uL (0.0-0.06); Absolute Eosinophil Count 0.06 10^3/uL (0.0-0.7); HCT 36.5 % (40.0-50.0); HGB 11.9 g/dL (13.5-17.5); MCH 29.7 pg (27.0-33.0); MCHC 32.6 % (32.0-36.0); MPV 9.4 fL (8.0-11.0); Nucleated RBC 0 %; Platelet Count 176 10^3/uL (130-400); RBC 4.01 10^6/uL (4.36-5.78); RDW 17.2 % (11.8-14.1); RDW-SD 56.9 fL; WBC 3.02 10^3/uL (4.4-10.8)
[2019-10-07 08:06] LABS: ALT 42 U/L (16-63); AST 30 U/L (15-37); Alkaline Phosphatase 157 U/L (46-116); Anion Gap 8.5 mmol/L (3-11); BUN 6 mg/dL (7-18); Bilirubin, Total 0.6 mg/dL (0.2-1.0); CO2 25.5 mmol/L (21.0-32.0); CREATININE 0.79 mg/dL (0.70-1.30); Calcium 8.7 mg/dL (8.5-10.1); Chloride 103 mmol/L (98-107); Glucose 101 mg/dL (74-106); Magnesium 1.5 mg/dL (1.8-2.4); Potassium 3.6 mmol/L (3.5-5.1); Sodium 137 mmol/L (136-145); Total Protein 6.9 g/dL (6.4-8.2)
[2019-10-07 08:23] LABS: Absolute Lymphocyte Count 1.87 10^3/uL (1.2-3.4); Absolute Monocyte Count 0.21 10^3/uL (0.1-0.8); Absolute Neutrophil Count 0.85 10^3/uL (1.2-6.7); Atypical Lymphocytes % 5
[2019-10-07 08:24] LABS: Absolute Basophil Count 0.03 10^3/uL (0.0-0.2); Anisocytosis 1+; Diff Comment Manual Differential; Polychromasia Present
[2019-10-10 09:32] LABS: CEA 5.2 ng/mL (See Note)
[2019-10-14] MEDS: Normal Saline Flush 10 ML SYR IVP (07:35)
[2019-10-14] MEDS: Heparin 500 UNITS/5 ML SYRINGE IV (07:35)
[2019-10-14 07:42] LABS: HCT 38.1 % (40.0-50.0); HGB 12.2 g/dL (13.5-17.5); MCH 29.3 pg (27.0-33.0); MCV 91.6 fL (80-95); MPV 9.2 fL (8.0-11.0); Nucleated RBC 0 %; Platelet Count 294 10^3/uL (130-400); RBC 4.16 10^6/uL (4.36-5.78); RDW 18.1 % (11.8-14.1); RDW-SD 60.1 fL; WBC 6.76 10^3/uL (4.4-10.8)
[2019-10-14 07:54] LABS: ALT 32 U/L (16-63); AST 32 U/L (15-37); Albumin 2.9 g/dL (3.4-5.0); Alkaline Phosphatase 164 U/L (46-116); Anion Gap 8.8 mmol/L (3-11); BUN 6 mg/dL (7-18); Bilirubin, Total 0.5 mg/dL (0.2-1.0); CO2 27.2 mmol/L (21.0-32.0); CREATININE 0.87 mg/dL (0.70-1.30); Calcium 9.1 mg/dL (8.5-10.1); Chloride 102 mmol/L (98-107); Glucose 94 mg/dL (74-106); Magnesium 1.9 mg/dL (1.8-2.4); Potassium 3.9 mmol/L (3.5-5.1); Sodium 138 mmol/L (136-145); Total Protein 7.1 g/dL (6.4-8.2)
[2019-10-14 08:07] LABS: Absolute Lymphocyte Count 4.12 10^3/uL (1.2-3.4); Absolute Monocyte Count 0.74 10^3/uL (0.1-0.8); Absolute Neutrophil Count 1.35 10^3/uL (1.2-6.7); Atypical Lymphocytes % 3; Diff Comment Manual Differential; Myelocytes % 1; Promyelocytes % 1
[2019-10-14 08:08] LABS: Anisocytosis 1+
[2019-10-17] MEDS: Normal Saline Flush 10 ML SYR IVP (07:55)
[2019-10-17 09:14] LABS: CEA 4.9 ng/mL (See Note)
== END 2019-10-17 23:59 | disposition home or self-care (01) ==
LOC: INF 02:39
PROVIDERS: PCP Emergency Medicine; Visit Provider Internal Medicine Hematology & Oncology
DX: C18.2 Malignant neoplasm of ascending colon (principal); Z45.2 Encounter for adjustment and management of vascular access device; C79.89 Secondary malignant neoplasm of other specified sites
CPT/HCPCS: 36591; 80053; 82533; 96523; 82378; 83735; 85025

== ENCOUNTER 2019-10-17 15:38 | Inpatient (IN) | payer OTHER, SELFPAY ==
[2019-10-17] VITALS (7 sets, daily range): BP systolic 96–121; BP diastolic 60–74; PULSE 105–145; RESP 20–30; TEMP 37.1–38.8; O2SAT 88–95
--- NOTE | 2019-10-17 15:45 | RT.EKG_ITS ---
APPROVED REPORT Exam: Resting ECG Patient Location: E HR:134 bpm ECG Measurements Heart Rate 134 AXIS CO 131 P 16 QRSd 89 QRS 80 QT 318 T 13 QTc 475 Conclusion EKG 16: 15 Rate 134, intervals normal, no evidence of STEMI, or significant ST elevation or depression. Sinus t achycardia. No S1Q3T3.
--- NOTE | 2019-10-17 15:54 | W.ED.GENAD ---
Discharge Plan Disposition Patient Disposition: [facility] INPATIENT Condition: Improving Discharge Details Chief Complaint: Fever Clinical Impression: Sepsis, Fever Primary Care Provider: George Pinto ED Provider: Bassam Muhammad Home Meds and New Rx's Prescriptions: No Action Eliquis 5 mg tablet 5 mg PO BID RF: 0 acetaminophen [Tylenol] 325 MG tablet 650 mg PO BID PRN RF: 0 cetirizine [Zyrtec] 10 MG tablet,chewable 10 mg PO HS Qty: 30 RF: 12 omeprazole 20 mg capsule,delayed release(DR/EC) 20 mg PO BID Qty: 180 RF: 3 vitamin B complex Capsule 1 cap PO DAILY RF: 0 levetiracetam 500 mg tablet 500 mg PO BID RF: 0 losartan 25 mg tablet 25 mg PO DAILY PRNRF: 0 Medical Decision Making 59-year-old male with a past medical history of 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 Also with a history of multiple DVTs in the past for which he now takes Eliquis. He also has had recent increase in mild neutropenia, which oncology has attributed to his chemotherapy agents. He is currently on chemotherapy with leucovorin, fluorouracil, palonosetron, oxaliplastin. He presents today for evaluation of fever. He received his chemotherapy today, and shortly after the treatment was given he developed fever, chills and did not feel well. Over the course of an hour his temperature went from 98 ?F to 100.6. He took Tylenol, which was 1 hour prior to arrival and came in for evaluation. He is seen by Dr. Walter in oncology. He does admit to a chronic cough, but denies any acute change. He denies weight gain, chest pain, or pleuritic chest pain. He denies any new swelling in his lower extremities or calf tenderness. He denies any diarrhea, stool studies that were ordered 2 weeks ago and were negative for C. difficile or the other work-up. Patient has no other complaints at this time. Physical exam is notably unremarkable. He does have mild crackles in his lung rankin, no calf tenderness. He is tachycardic. He is afebrile now but I attribute this to his recent Tylenol use. Signs and symptoms are notably consistent with a infectious septic etiology. Will rehydrate, evaluate for infectious sources, monitor closely get cultures from the port, and reassess. We will get a proBNP to evaluate for signs of heart strain 5:30 PM Patient's laboratory work-up has returned for the most part, still pending urinalysis. White count of 12.15, which is a notable jump from 3 days ago where he was less than 6. He has a notable left shift. Absolute neutrophil count of 11.28, electrolytes normal troponin and proBNP normal. Heart rate is improving with fluid administrations, he is come down from 1 44-1 17, 2 L bolus is not yet finished. Initial lactate notably elevated at 4.5. Renal function stable. Influenza negative. Chest x-ray read by virtual radiology as no acute cardiopulmonary process. There is some slight pulmonary interstitial prominence, that has been seen on prior imaging. No focal infiltrate. I did contact [facility] oncology, Dr. Erickson and discussed the case with her. She recommends broad-spectrum antibiotics until cultures return, admission to the hospital/observation until said cultures return. No other recommendations at this time. Once urinalysis returns will admit patient for further management. 5:41 PM Patient's urinalysis is returned, WBC count slightly elevated at 5-10, however negative leuk esterase negative nitrites. Doubt that this is the cause of the fever. I did contact the hospitalist Dr. Emmanuel, discussed the plan with him. He agrees on the plan for admission. I will place basic admission orders. I have extensively reviewed the treatment plan with the patient. I have addressed all patient concerns at this time. I have also discussed the plan with the admitting physician and they agree with the current assessment and plan and have agreed to assume responsibility for the patient. All parties demonstrate verbal understanding and agreement with our assessment and plan at this time. EKG 16: 15 Rate 134, intervals normal, no evidence of STEMI, or significant ST elevation or depression. Sinus tachycardia. No [id number]. FINDINGS: Tubes, catheters and devices: Surgical clips project over the left chest. Left-sided chest port terminates over the SVC. Lungs: Slightly increased pulmonary interstitial prominence likely related to chronic changes seen on prior CT. No focal consolidation Pleural space: No pneumothorax or sizable effusion. Heart/Mediastinum: normal cardiomediastinal silhouette. Bones/joints: No acute displaced fractures identified. IMPRESSION: No definite acute cardiopulmonary process. Thank you for allowing us to participate in the care of your patient. Dictated and Authenticated by: Mark Sauer DO 10/17/2019 4:58 PM Eastern Time ([place] & [place]) HPI General Date/Time Provider Initiated Documentation: 10/17/19 15:42. HPI Narrative: 59-year-old male with a past medical history of colon cancer with adrenal metastases. Also with a history of multiple DVTs in the past for which he now takes Eliquis. He also has had recent increase in mild neutropenia, which oncology has attributed to his chemotherapy agents. He is currently on chemotherapy with leucovorin, fluorouracil, palonosetron, oxaliplastin. He presents today for evaluation of fever. He received his chemotherapy today, and shortly after the treatment was given he developed fever, chills and did not feel well. Over the course of an hour his temperature went from 98 ?F to 100.6. He took Tylenol, which was 1 hour prior to arrival and came in for evaluation. He is seen by Dr. Walter in oncology. He does admit to a chronic cough, but denies any acute change. He denies weight gain, chest pain, or pleuritic chest pain. He denies any new swelling in his lower extremities or calf tenderness. He denies any diarrhea, stool studies that were ordered 2 weeks ago and were negative for C. difficile or the other work-up. Patient has no other complaints at this time. Related Data Home Medications Medication Instructions Recorded Confirmed acetaminophen [Tylenol] 650 mg PO BID PRN tab-cap 10/24/13 10/17/19 cetirizine [Zyrtec] 10 mg PO HS #30 tab.chew 08/29/15 10/17/19 vitamin B complex 1 cap PO DAILY 10/13/18 10/17/19 apixaban 5 mg tablet 5 mg PO BID 02/18/19 10/17/19 omeprazole 20 mg capsule,delayed 20 mg PO BID #180 tab-cap 04/29/19 10/17/19 release levetiracetam 500 mg PO BID 09/26/19 10/17/19 losartan 25 mg PO DAILY PRN 09/26/19 10/17/19 Previous Rx's Medication Instructions Recorded omeprazole 20 mg capsule,delayed 20 mg PO BID #180 tab-cap 04/29/19 release Allergies Allergy/AdvReac Type Severity Reaction Status Date / Time grass pollen Allergy Mild Verified 10/17/19 15:52 General Stated Complaint: Fever RUEL: 2 Review of Systems All systems reviewed & are unremarkable except as noted in HPI and below [facility] Medical History Adrenal cancer (Acute) METS from Colon CA Chronic diarrhea (Acute) Encounter for central line placement (Acute ~06/23/18) Metastatic colorectal cancer (Chronic) Port-A-Cath in place (Acute ~06/23/18) L Subclavian SOB (shortness of breath) on exertion (Acute) Surgical History Colonoscopy - MAC 11/18/13;[facility] Hemicolectomy 12/01/16; RIGHT @ [facility] History of partial adrenalectomy (Acute) pt. states he had right adrenal gland removed r/t to tumor. 04/10/18 History of removal of Port-a-Cath (Acute) L subclavian Family History Mother , age 82 No problems noted. Father No problems noted. Social History Smoking/Tobacco Use Status: Current-Occasional Tobacco Type: cigarettes Quit status: quit date established Smoking risk assessment performed?: Yes Alcohol Intake: former Drug use: Never Substance use type: does not use Details: no alcohol for 2 years Caregiver/Support person: Yes Household members: spouse and children Housing: house Communication Needs: None Do you need help understanding health information?: Rarely Pets and animals: Yes Sexually active: Yes Do you think of yourself as: straight/heterosexual Current gender identity: male What is your relationship status?: How often do you talk on the phone with friends or family?: three or more times per week How often do you get together with friends or relatives?: once per week How often do you attend sikh or christian services?: 1-3 times per year Do you belong to any clubs or organized social groups?: no Panel score (0-1 are the most socially isolated patients): 2 What type of physical activity do you participate in: walking Duration: 30-45 minutes/day Frequency: daily Kesha/Shinto: Jewish Special kesha needs: No Seatbelt use: always Drive intox or ride w/intox dinkey driver: No Do you feel safe at home: Yes Do you feel safe in your relationship?: Yes Exam Narrative Exam Narrative: 1.Const: Well-nourished, Well-developed, appearing stated age 2.Eyes: PERRL, no conjunctival injection, and symmetrical lids. 3.ENT: Atraumatic external nose and ears. Moist MM. Neck: Symmetric, trachea midline, No thyromegaly. 4.CVS: +S1/S2, No murmurs or gallops. Peripheral pulses 2+ and equal in all extremities. Brisk capillary refill in all extremities. 5.RESP: Unlabored respiratory effort. Mild crackles throughout. No rhonchi. No wheezes. 6.GI: Soft, Nontender/Nondistended, No hepatosplenomegaly. No guarding or rebound. 7.MSK: Normocephalic/Atraumatic, Extremities w/o deformity or ttp No cyanosis or clubbing, Normal movement of all extremities. No calf tenderness 8.Skin: Warm, Dry. No rashes or lesions. 9.Neuro: toolroom checker II-XII grossly intact. Sensation grossly intact, no focal neurologic deficits. 10.Psych: (AAO) x3. Appropriate mood and affect Course Vital Signs Vital signs: Vital Signs Temperature 38.1 C H 10/17/19 15:47 Pulse 145 H 10/17/19 15:47 Respiratory Rate 10/17/19 15:47 Blood Pressure 121/74 10/17/19 15:47 Pulse Oximetry 95 10/17/19 15:47 Temperature 38.1 C H 10/17/19 15:47 Pulse 145 H 10/17/19 15:47 Respiratory Rate 23 10/17/19 15:47 Blood Pressure 121/74 10/17/19 15:47 Blood Pressure Position Supine 10/17/19 15:47 Pulse Oximetry 95 10/17/19 15:47 Oxygen Delivery Method Room Air 10/17/19 15:47 Oxygen Flow Rate 0 10/17/19 15:47 Pain Level 0 10/17/19 15:47 Lab/Test Results Lab/Test Results: 10/17/19 15:51 Blood Blood Culture - Pending 10/17/19 15:51 Blood Blood Culture - Pending
[2019-10-17 16:08] LABS: Absolute Basophil Count 0.04 10^3/uL (0.0-0.2); Absolute Eosinophil Count 0.01 10^3/uL (0.0-0.7); Absolute Lymphocyte Count 0.22 10^3/uL (1.2-3.4); Absolute Monocyte Count 0.41 10^3/uL (0.1-0.8); Absolute Neutrophil Count 11.28 10^3/uL (1.2-6.7); Basophils % 0.3; Eosinophils % 0.1; Immature Grans % 1.6; Lymphocytes % 1.8; MCH 29.3 pg (27.0-33.0); MCHC 32.4 % (32.0-36.0); MCV 90.5 fL (80-95); MPV 9.7 fL (8.0-11.0); Monocytes % 3.4; Neutrophils % 92.8; Nucleated RBC 0 %; Platelet Count 302 10^3/uL (130-400); RBC 4.09 10^6/uL (4.36-5.78); RDW 18.3 % (11.8-14.1); RDW-SD 60.7 fL; WBC 12.15 10^3/uL (4.4-10.8)
[2019-10-17 16:11] LABS: Lactate 4.5 mmol/L (0.6-1.4)
[2019-10-17 16:20] LABS: PTT Activated 26.9 sec (21.0-31.4); Prothrombin Time 10.4 sec (9.3-11.0)
[2019-10-17] MEDS: Normal Saline 1,000 ML 1000 ML IV ×2 (16:23→17:00)
--- NOTE | 2019-10-17 16:30 | DI.RAD_ITS ---
EXAM: XR PORTABLE CHEST AP CLINICAL HISTORY: cough, febrile TECHNIQUE: 2D digital imaging was performed. COMPARISON: CR XR PORTABLE CHEST AP from 06/23/[address] CHEST PE ABD PELVIS W from 10/09/2019 FINDINGS: MEDIASTINUM: Normal. HEART: Normal. PULMONARY VASCULATURE: Normal. LUNGS: Interstitial markings which appears stable compared to the prior examination and are likely ch ronic. No focal consolidating infiltrates are seen. PLEURAL SPACE: No pleural effusion or pneumothorax. BONE:Within normal limits for the patient's age. OTHER FINDINGS:Stable left-sided port with the tip at the junction of the superior vena cava and righ t atrium. Surgical clips are again seen projected over the left hemithorax. IMPRESSION: No acute pulmonary findings. DATA REPOSITORY: RADIATION DOSE DELIVERED:
[2019-10-17 16:31] LABS: ALT 24 U/L (16-63); AST 29 U/L (15-37); Albumin 2.8 g/dL (3.4-5.0); Alkaline Phosphatase 156 U/L (46-116); Anion Gap 13.6 mmol/L (3-11); BUN 9 mg/dL (7-18); Bilirubin, Total 0.5 mg/dL (0.2-1.0); CO2 21.4 mmol/L (21.0-32.0); Calcium 8.5 mg/dL (8.5-10.1); Chloride 100 mmol/L (98-107); Glucose 267 mg/dL (74-106); NT-proBNP 143 pg/mL (<300); Potassium 3.9 mmol/L (3.5-5.1); Sodium 135 mmol/L (136-145); TSH (W/Ref FT4) 1.02 uIU/mL (0.36-3.74); Total Protein 7.1 g/dL (6.4-8.2); Troponin I < 0.05 ng/mL (<0.06)
--- NOTE | 2019-10-17 16:58 | DI.VRAD_ITS ---
PROCEDURE INFORMATION: Exam: XR Chest, 1 View Exam date and time: 10/17/2019 4:44 PM Age: 59 years old Clinical indication: Patient HX: Cough, febrile; Per PT: Cough started 3 years ago after starting chemo TECHNIQUE: Imaging protocol: XR of the chest Views: 1 view. COMPARISON: CT CHEST PE ABD PELVIS W 10/09/2019 9:25 PM FINDINGS: Tubes, catheters and devices: Surgical clips project over the left chest. Left-sided chest port terminates over the SVC. Lungs: Slightly increased pulmonary interstitial prominence likely related to chronic changes seen on prior CT. No focal consolidation Pleural space: No pneumothorax or sizable effusion. Heart/Mediastinum: normal cardiomediastinal silhouette. Bones/joints: No acute displaced fractures identified. IMPRESSION: No definite acute cardiopulmonary process. Dictated and Authenticated by: Mark Sauer MD. Ordering:NICKO Banegas MD
[2019-10-17 17:23] LABS: Bilirubin Negative (Negative); Blood Negative (Negative); Clarity Clear (Clear); Glucose 500 mg/dL (Negative); Ketones Negative (Negative); Leukocyte Esterase Negative (Negative); Nitrite Negative (Negative); Specific Gravity 1.025 (1.005-1.025); Urobilinogen 0.2 EU/dL (Up TO 0.2); pH 5.5 (5-8)
[2019-10-17 17:30] LABS: Bacteria Rare HPF (Negative); C & S Indicated? Yes; Casts Negative LPF (Negative); Crystals Negative HPF (Negative); Epithelial Cells Negative HPF (Negative); Mucus Negative (Negative); RBC Negative HPF (0-2)
[2019-10-17] MEDS: PIPERACILLIN/TAZO 4.5 GM in Normal Saline 100 ML IVPB (18:08)
[2019-10-17 18:09] LABS: Procalcitonin 1.7 ng/mL
[2019-10-17] MEDS: Acetaminophen 500 MG TAB (18:10)
[2019-10-17] MEDS: DOXYCYCLINE 100 MG in Normal Saline 100 ML IVPB (18:36)
[2019-10-17 19:32] LABS: Troponin I < 0.05 ng/mL (<0.06)
[2019-10-17] MEDS: VANCOMYCIN 2,000 MG in Normal Saline 500 ML 333.3333 MG IVPB (21:12)
--- NOTE | 2019-10-17 21:15 | HPE_ITS ---
Date of service: 10/17/19 Time of Service: 21:15 Assessment and Plan Assessment and plan (1) Sepsis: Status: Acute Assessment and plan: He presents with high fever and tachycardia. Blood pressures are a bit soft. Will have him on IV fluids. Start on empiric broad- spectrum antibiotics given his relative immunosuppression while on chemotherapy. He is not neutropenic. He has a moderate leukocytosis. His lactate has already shown improvement after IV fluid hydration. Blood cultures and urine cu ltures are pending. At this point the probable source is pulmonary, possibly urinary with 5-10 white cells, also possibly cellulitis of the left lower extremity given its warmth and redness. (2) Metastatic colorectal cancer: Status: Acute Assessment and plan: He is actively pursuing chemotherapy currently on leucovorin, fluorouracil, palonesetron, oxaliplastin. He has stage IV disease w ith mets to his brain as well as to both adrenals. He sees Dr. Walter at the [facility]. (3) Fever: Status: Acute Assessment and plan: Fever is likely related to an infectious etiology. Coverage with broad-spectrum antibiotics to include vancomycin, levofloxacin, and doxycycline. Blood cultures and urine cultures are pending. (4) COVID-19 ruled out by laboratory testing: Status: Acute Assessment and plan: Given his fever in the midst of the pandemic he is being ruled out as a PUI with COVID testing pending. He has been tested twice in the last 2 weeks which were both negative. (5) H/O deep venous thrombosis: Status: Chronic Assessment and plan: He is on Eliquis. Will continue Eliquis as well as sequential compression device. (6) Discharge planning issues: Status: Acute Assessment and plan: He is a full code. He is admitted to observation however it seems like he will stay beyond 48 hours given his fever and the need to fully rule out sepsis given his immunosuppressed state. History of Present Illness History of Present Illness Chief Complaint: Sepsis syndrome Narrative: This is a 59-year-old male with stage IV colon cancer. He was at the [facility] today receiving chemotherapy when he developed a fever, chills and malaise. His temperature at home was recorded 100.6. He took Tylenol prior to arrival in the emergency room. In the emergency room he was initially afebrile. Labs revealed a white count of 12.15 thousand with a left shift. His chest x-ray was read officially as negative though clinically he had crackles in both lung rankin. His lactate was elevated at 4.5 a repeat 2 hours later came down to 2.0. Dr. Muhammad spoke with Dr. Erickson at [facility] oncology. He recommended broad-spectrum antibiotics once blood and urine cultures were obtained. He received levofloxacin and dox ycycline in the emergency room. His vancomycin dose [facility] he developed a temperature of 38.7. Review of Systems Narrative: He has had a chronic cough for the last 2 years. He developed a fever today during his chemotherapy infusion. He states this happened 2 weeks ago with prior chemotherapy infusion and he spent a few days in the hospital. Cande remy feels tired and weak. He feels better since receiving some IV fluids. He had no prodrome of upper respiratory symptoms. He has chronic diarrhea. He is not having any abdominal pain. No trouble with urination. No new musculoskeletal complaints. No new neurologic complaints. He denies any chest pain. His cough is chronic and is relatively unchanged. [facility] Medical History (Updated 10/17/19 @ 21:22 by Mushtaq Fernandez MD) Adrenal cancer (Acute) METS from Colon CA Chronic diarrhea (Acute) Encounter for central line placement (Acute ~06/23/18) Metastatic colorectal cancer (Chronic) Port-A-Cath in place (Acute ~06/23/18) L Subclavian SOB (shortness of breath) on exertion (Acute) Surgical History Colonoscopy - MAC 11/18/13;[facility] Hemicolectomy 12/01/16; RIGHT @ [facility] History of partial adrenalectomy (Acute) pt. states he had right adrenal gland removed r/t to tumor. 04/10/18 History of removal of Port-a-Cath (Acute) L subclavian Family History Mother , age 82 No problems noted. Father No problems noted. Social History Smoking/Tobacco Use Status: Current-Occasional Tobacco Type: cigarettes Quit status: quit date established Smoking risk assessment performed?: Yes Alcohol Intake: former Drug use: Never Substance use type: does not use Details: no alcohol for 2 years Caregiver/Support person: Yes Household members: spouse and children Housing: house Communication Needs: None Do you need help understanding health information?: Rarely Pets and animals: Yes Sexually active: Yes Do you think of yourself as: straight/heterosexual Current gender identity: male What is your relationship status?: How often do you talk on the phone with friends or family?: three or more times per week How often do you get together with friends or relatives?: once per week How often do you attend latter day or rastafari services?: 1-3 times per year Do you belong to any clubs or organized social groups?: no Panel score (0-1 are the most socially isolated patients): 2 What type of physical activity do you participate in: walking Duration: 30-45 minutes/day Frequency: daily Kesha/Church: [employer] Special kesha needs: No Seatbelt use: always Drive intox or ride w/intox 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 Do you feel safe at home: Yes Do you feel safe in your relationship?: Yes Meds Home Medications and Allergies Home Medications Medication Instructions Recorded Confirmed Type acetaminophen [Tylenol] 650 mg PO BID PRN tab-cap 10/24/13 10/17/19 History cetirizine [Zyrtec] 10 mg PO HS #30 tab.chew 08/29/15 10/17/19 History vitamin B complex 1 cap PO DAILY 10/13/18 10/17/19 History apixaban 5 mg tablet 5 mg PO BID 02/18/19 10/17/19 History omeprazole 20 mg capsule,delayed 20 mg PO BID #180 tab-cap 04/29/19 10/17/19 Rx release levetiracetam 500 mg PO BID 09/26/19 10/17/19 History losartan 25 mg PO DAILY PRN 09/26/19 10/17/19 History Allergies Allergy/AdvReac Type Severity Reaction Status Date / Time grass pollen Allergy Mild Verified 10/17/19 15:52 Exam Narrative Exam Narrative: On exam he is fully awake alert and coherent. He cooperates well with exam. He remembers me from an encounter many years ago. His breathing is not at all labored. He had no coughing during my encounter with him. His lung exam was notable for scattered rhonchi throughout both lung rankin. No focal densities were apparent. His heart sounded strong and regular. His abdomen was completely benign, soft, nontender. The lower extremities he has chronic swelling in the left lower extremity after a severe fibula tibia fracture. This site feels warm, shows no open sores or drainage. The right lower extremity showed no significant edema no warmth. Neurologically he makes good eye contact he showed no facial asymmetry his speech was clear his cognition and mentation appeared to be normal. Motor function appeared to be symmetrical and without any apparent deficits. Results Imaging Chest x-ray: report reviewed (Read as without infiltrates. There are no effusions. There is an overall appearance of some congestion.) Labs Result diagrams: 10/17/19 15:55 10/17/19 15:55 Labs: Laboratory Results - last 24 hr 10/17/19 10/17/19 10/17/19 15:55 15:55 15:55 WBC 12.15 H RBC 4.09 L Hgb 12.0 L Hct 37.0 L MCV 90.5 MCH 29.3 MCHC 32.4 RDW 18.3 H Plt Count 302 MPV 9.7 Immature Gran % 1.6 Neutrophils % 92.8 Lymphocytes % 1.8 Monocytes % 3.4 Eosinophils % 0.1 Basophils % 0.3 Nucleated RBC % 0 Absolute Neutrophils 11.28 H Absolute Lymphocytes 0.22 L Absolute Monocytes 0.41 Absolute Eosinophils 0.01 Absolute Basophils 0.04 PT INR APTT VBG Lactate 4.5 H* Sodium 135 L Potassium 3.9 Chloride 100 Carbon Dioxide 21.4 Anion Gap 13.6 H BUN 9 Creatinine 1.30 Estimated GFR/1.73 m2 56.50 Glucose 267 H Calcium 8.5 Total Bilirubin 0.5 AST 29 ALT 24 Alkaline Phosphatase 156 H Troponin I < 0.05 NT-Pro-B Natriuret Pep 143 Total Protein 7.1 Albumin 2.8 L Procalcitonin TSH 1.02 Urine Color Urine Clarity Urine pH Ur Specific [place] Urine Protein Urine Ketones Urine Blood Urine Nitrite Urine Bilirubin Urine Urobilinogen Ur Leukocyte Esterase Urine RBC Urine WBC Ur Epithelial Cells Urine Crystals Urine Bacteria Urine Casts Urine Mucus Ur Culture Indicated? Urine Glucose 10/17/19 10/17/19 10/17/19 15:55 15:55 17:00 WBC RBC Hgb Hct MCV MCH MCHC RDW Plt Count MPV Immature Gran % Neutrophils % Lymphocytes % Monocytes % Eosinophils % Basophils % Nucleated RBC % Absolute Neutrophils Absolute Lymphocytes Absolute Monocytes Absolute Eosinophils Absolute Basophils PT 10.4 INR 1.0 APTT 26.9 VBG Lactate Sodium Potassium Chloride Carbon Dioxide Anion Gap BUN Creatinine Estimated GFR/1.73 m2 Glucose Calcium Total Bilirubin AST ALT Alkaline Phosphatase Troponin I NT-Pro-B Natriuret Pep Total Protein Albumin Procalcitonin 1.7 TSH Urine Color Yellow Urine Clarity Clear Urine pH 5.5 Ur Specific [place] 1.025 Urine Protein Trace H Urine Ketones Negative Urine Blood Negative Urine Nitrite Negative Urine Bilirubin Negative Urine Urobilinogen 0.2 Ur Leukocyte Esterase Negative Urine RBC Negative Urine WBC 5-10 Ur Epithelial Cells Negative Urine Crystals Negative Urine Bacteria Rare Urine Casts Negative Urine Mucus Negative Ur Culture Indicated? Yes Urine Glucose 500 H 10/17/19 10/17/19 17:45 18:55 WBC RBC Hgb Hct MCV MCH MCHC RDW Plt Count MPV Immature Gran % Neutrophils % Lymphocytes % Monocytes % Eosinophils % Basophils % Nucleated RBC % Absolute Neutrophils Absolute Lymphocytes Absolute Monocytes Absolute Eosinophils Absolute Basophils PT INR APTT VBG Lactate 2.0 H Sodium Potassium Chloride Carbon Dioxide Anion Gap BUN Creatinine Estimated GFR/1.73 m2 Glucose Calcium Total Bilirubin AST ALT Alkaline Phosphatase Troponin I < 0.05 NT-Pro-B Natriuret Pep Total Protein Albumin Procalcitonin TSH Urine Color Urine Clarity Urine pH Ur Specific [place] Urine Protein Urine Ketones Urine Blood Urine Nitrite Urine Bilirubin Urine Urobilinogen Ur Leukocyte Esterase Urine RBC Urine WBC Ur Epithelial Cells Urine Crystals Urine Bacteria Urine Casts Urine Mucus Ur Culture Indicated? Urine Glucose Last Vital Signs Temp 38.7 C H 10/17/19 20:40 Pulse 116 H 10/17/19 20:40 Resp 20 10/17/19 20:40 BP 96/60 L 10/17/19 20:40 Pulse Ox 88 L 10/17/19 20:40 COVID-19 Screening Have you,or household,traveled outside [place] in last 14 days?: No Had IN PERSON contact w/suspected or confirmed C-19 person: No
[2019-10-17] MEDS: Cetirizine 10 MG TAB PO (22:58)
[2019-10-17] MEDS: Apixaban 5 MG TAB PO (22:58)
[2019-10-17] MEDS: levETIRAcetam 500 MG TAB PO (22:58)
[2019-10-18] VITALS (7 sets, daily range): BP systolic 98–124; BP diastolic 66–79; PULSE 88–103; RESP 18–20; TEMP 36.9–38.8; O2SAT 90–96
--- NOTE | 2019-10-18 | DI.CT_ITS ---
EXAM: CT CHEST PE CTA CLINICAL HISTORY: shortness of breath, hypoxia, concern for PE. TECHNIQUE: Imaging Protocol: Axial CT angiography was performed with multi-slice acquisition and mu lti-planar and/or 3D reconstructions. CONTRAST MATERIAL: Intravenous: Omnipaque 350 Contrast volume:100 mL COMPARISON: CT CT CHEST PE ABD PELVIS W from 10/09/2019 FINDINGS: Pulmonary Arteries: No evidence of filling defect to suggest pulmonary emboli. Tracheobronchial tree: Patent where visualized. Mediastinum and Rebekah: Mildly enlarged nonspecific mediastinal lymph nodes. Note is made of an aberra nt right subclavian artery. Pulmonary parenchyma: Bilateral basilar infiltrates. These may represent atelectasis or pneumonia. Centrilobular and paraseptal emphysema. 0.9 cm pulmonary nodule in the medial aspect of the right up per lobe. Chronic interstitial disease. Pleura: Small bilateral pleural effusions. No pneumothorax. Heart: The heart is not dilated. Mild coronary artery calcification. No significant pericardial effu eliceo. Aorta: Thoracic aorta non-dilated. Upper abdomen: There has been slight interval increase in size of the left adrenal mass measuring 8. 3 x 5.5 cm. Bones: Degenerative changes. Tubes, Catheters, and Lines: There is a left-sided infusion port. Soft tissues: Unremarkable. IMPRESSION: 1. No evidence of pulmonary embolism, thoracic aortic dissection or aneurysm. 2. Stable mediastinal lymph nodes. 3. Left adrenal gland metastasis. Slight increase in size. 4. Bilateral lower lobe infiltrates which may represent atelectasis or pneumonia. These are new comp ared to the prior examination. 5. New small bilateral pleural effusions. RADIATION DOSE DELIVERED: 462.52mGy.cm Total DLP DATA REPOSITORY: All CT scans at this facility are submitted to the National Radiology Data Registry (NRDR) Dose Index Registry (DIR) with the [employer] (ACR). RADIATION OPTIMIZATION: All CT scans at this facility use at least one of these dose optimization te chniques: automated exposure control; mA and/or kV adjustment per patient size (includes targeted exa ms where dose is matched to clinical indication); or iterative reconstruction.
[2019-10-18] MEDS: Lactated Ringers 1,000 ML 125 ML IV (00:18)
[2019-10-18] MEDS: Acetaminophen 325 MG TAB 650 MG PO (00:19)
[2019-10-18] MEDS: DOXYCYCLINE 100 MG in Normal Saline 100 ML IVPB ×2 (04:16→16:58)
[2019-10-18] MEDS: PIPERACILLIN/TAZO 3.375 GM in Normal Saline 100 ML IVPB (06:20)
[2019-10-18 06:55] LABS: Abs Immature Grans 0.12 10^3/uL (0.0-0.06); Absolute Basophil Count 0.05 10^3/uL (0.0-0.2); Absolute Eosinophil Count 0.02 10^3/uL (0.0-0.7); Absolute Lymphocyte Count 0.27 10^3/uL (1.2-3.4); Absolute Neutrophil Count 14.74 10^3/uL (1.2-6.7); Basophils % 0.3; Eosinophils % 0.1; HCT 31.7 % (40.0-50.0); HGB 10.2 g/dL (13.5-17.5); Immature Grans % 0.8; Lymphocytes % 1.7; MCH 29.1 pg (27.0-33.0); MCHC 32.2 % (32.0-36.0); MCV 90.6 fL (80-95); MPV 10.1 fL (8.0-11.0); Monocytes % 3.6; Neutrophils % 93.5; Nucleated RBC 0 %; Platelet Count 197 10^3/uL (130-400); RDW 19.1 % (11.8-14.1); RDW-SD 63.1 fL; WBC 15.76 10^3/uL (4.4-10.8)
[2019-10-18 06:59] LABS: Absolute Monocyte Count 0.57 10^3/uL (0.1-0.8)
[2019-10-18 07:09] LABS: Anion Gap 7.1 mmol/L (3-11); BUN 13 mg/dL (7-18); CO2 24.9 mmol/L (21.0-32.0); Calcium 7.8 mg/dL (8.5-10.1); Chloride 108 mmol/L (98-107); Glucose 113 mg/dL (74-106); Potassium 4.5 mmol/L (3.5-5.1); Sodium 140 mmol/L (136-145)
[2019-10-18 08:27] LABS: COVID-19 RT-PCR UVMMC Result Negative (Negative)
[2019-10-18] MEDS: levETIRAcetam 500 MG TAB PO ×2 (08:44→20:32)
[2019-10-18] MEDS: Lactated Ringers 1,000 ML 1000 ML IV (08:44)
[2019-10-18] MEDS: Omeprazole 20 MG CAPCR PO ×2 (08:44→20:32)
[2019-10-18] MEDS: Apixaban 5 MG TAB PO ×2 (08:44→20:32)
--- NOTE | 2019-10-18 11:12 | CHAPLAIN ---
Low was in bed when I visited. He had a family member of friend with him. I explained my role and offered support. Low said he is hoping to be discharged today. He wasn't interested in further conversation.
[2019-10-18] MEDS: PIPERACILLIN/TAZO 3.375 GM in Normal Saline 50 ML IVPB ×2 (12:10→19:06)
--- NOTE | 2019-10-18 13:47 | PGE_ITS ---
Date of Service Date of service: 10/18/19 Time of Service: 13:47 Assessment and Plan Assessment and plan (1) Sepsis: Status: Acute Assessment and plan: Fever and leucocytosis in setting of chemotherapy. COVID-19 ruled out. DDx: infected infusaport/bacteremia, infectious diarrhea such as C.Diff, pneumonia not picked up on CXR. Obtain CTA chest to also rule out PE. Await blood culture results. Obtain stool for C.Diff/stool cultures. Treat thrush. (2) Hypoxia: Status: Acute Assessment and plan: As above - ?PNA or new PE. Obtain CTA. (3) History of deep venous thrombosis or pulmonary embolus: Status: Chronic Assessment and plan: On anticoagulation with apixaban. Check CTA chest given the degree of hypoxia. The patient did have a L basilic vein thrombus on last admission, for which the anticoagulation was not changed, as per heme/onc recommendations. (4) Metastatic colorectal cancer: Status: Chronic Assessment and plan: Continue prophylactic keppra. Will discuss case with Dr Walter once culture results are back. (5) Thrush, oral: Status: Acute Assessment and plan: Rx liquid nystatin (6) Discharge planning issues: Status: Acute Assessment and plan: Full code. Continues to require hospitalization (7) DVT prophylaxis: Status: Acute Assessment and plan: On therapeutic apixaban (8) COVID-19 ruled out by laboratory testing: Status: Ruled-out Subjective Subjective Interval history since last seen: Mr Arriaga states he feels better. Endorses a little dizziness, denies chest pain, shortness of breath at rest (but does get short of breath with activity), nausea. Is having diarrhea. States he has been occasionally losing his voice. Exam Narrative Exam Narrative: General: Very pleasant middle-aged male, A&Ox3, does look sick, on 4L of O2 without tachypnea/dyspnea HEENT: EOMI, MMM, thrush Heart: RRR, no m/r/g Lungs: CTAB Abdomen: soft, nontender, nondistended Extremities: LLE at baseline level of edema with signs of well healed prior injury; RLE w/ trace edema Objective Objective Clinical Data: Abnormal lab results 10/17/19 10/17/19 10/17/19 Range/Units 15:55 15:55 15:55 WBC 12.15 H (4.4-10.8) 10^3/uL RBC 4.09 L (4.36-5.78) 10^6/uL Hgb 12.0 L (13.5-17.5) g/dL Hct 37.0 L (40.0-50.0) % RDW 18.3 H (11.8-14.1) % Absolute Neutrophils 11.28 H (1.2-6.7) 10^3/uL Absolute Lymphocytes 0.22 L (1.2-3.4) 10^3/uL VBG Lactate 4.5 H* (0.6-1.4) mmol/L Sodium 135 L (136-145) mmol/L Chloride (98-107) mmol/L Anion Gap 13.6 H (3-11) mmol/L Glucose 267 H (74-106) mg/dL Calcium (8.5-10.1) mg/dL Alkaline Phosphatase 156 H (46-116) U/L Albumin 2.8 L (3.4-5.0) g/dL Urine Protein (Negative) mg/dL Urine Glucose (Negative) mg/dL 10/17/19 10/17/19 10/18/19 Range/Units 17:00 17:45 06:30 WBC (4.4-10.8) 10^3/uL RBC (4.36-5.78) 10^6/uL Hgb (13.5-17.5) g/dL Hct (40.0-50.0) % RDW (11.8-14.1) % Absolute Neutrophils (1.2-6.7) 10^3/uL Absolute Lymphocytes (1.2-3.4) 10^3/uL VBG Lactate 2.0 H (0.6-1.4) mmol/L Sodium (136-145) mmol/L Chloride 108 H (98-107) mmol/L Anion Gap (3-11) mmol/L Glucose 113 H D (74-106) mg/dL Calcium 7.8 L (8.5-10.1) mg/dL Alkaline Phosphatase (46-116) U/L Albumin (3.4-5.0) g/dL Urine Protein Trace H (Negative) mg/dL Urine Glucose 500 H (Negative) mg/dL 10/18/19 Range/Units 06:30 WBC 15.76 H (4.4-10.8) 10^3/uL RBC 3.50 L (4.36-5.78) 10^6/uL Hgb 10.2 L (13.5-17.5) g/dL Hct 31.7 L (40.0-50.0) % RDW 19.1 H (11.8-14.1) % Absolute Neutrophils 14.74 H (1.2-6.7) 10^3/uL Absolute Lymphocytes 0.27 L (1.2-3.4) 10^3/uL VBG Lactate (0.6-1.4) mmol/L Sodium (136-145) mmol/L Chloride (98-107) mmol/L Anion Gap (3-11) mmol/L Glucose (74-106) mg/dL Calcium (8.5-10.1) mg/dL Alkaline Phosphatase (46-116) U/L Albumin (3.4-5.0) g/dL Urine Protein (Negative) mg/dL Urine Glucose (Negative) mg/dL Vital Signs Temperature 37.5 C 10/18/19 11:39 Temperature Source Tympanic 10/18/19 11:39 Pulse 90 10/18/19 11:39 Pulse Rhythm Regular 10/17/19 20:40 Respiratory Rate 19 10/18/19 11:39 Respiratory Effort 10/17/19 20:40 Respiratory Depth Normal 10/17/19 20:40 Respiratory Pattern Normal 10/17/19 20:40 Blood Pressure 115/70 10/18/19 11:39 Blood Pressure Position Supine 10/17/19 15:47 Pulse Oximetry 96 10/18/19 11:39 Oxygen Delivery Method Nasal Cannula 10/18/19 11:39 Oxygen Flow Rate 4 10/18/19 08:56 Pain Level 0 10/18/19 11:39 Intake & Output 10/17/19 10/18/19 10/18/19 23:59 11:59 23:59 Intake Total 954.167 / 1204.167 250 / 1204.167 Balance 954.167 / 1204.167 250 / 1204.167 Weight 107.1 kg Intake: IV 954.167 / 1204.167 250 / 1204.167 Laboratory Results WBC 15.76 10^3/uL (4.4-10.8) H 10/18/19 06:30 RBC 3.50 10^6/uL (4.36-5.78) L 10/18/19 06:30 Hgb 10.2 g/dL (13.5-17.5) L 10/18/19 06:30 Hct 31.7 % (40.0-50.0) L 10/18/19 06:30 MCV 90.6 fL (80-95) 10/18/19 06:30 MCH 29.1 pg (27.0-33.0) 10/18/19 06:30 MCHC 32.2 % (32.0-36.0) 10/18/19 06:30 RDW 19.1 % (11.8-14.1) H 10/18/19 06:30 Plt Count 197 10^3/uL (130-400) D 10/18/19 06:30 MPV 10.1 fL (8.0-11.0) 10/18/19 06:30 Immature Gran % 0.8 10/18/19 06:30 Neutrophils % 93.5 10/18/19 06:30 Lymphocytes % 1.7 10/18/19 06:30 Monocytes % 3.6 10/18/19 06:30 Eosinophils % 0.1 10/18/19 06:30 Basophils % 0.3 10/18/19 06:30 Nucleated RBC % 0 % 10/18/19 06:30 Absolute Neutrophils 14.74 10^3/uL (1.2-6.7) H 10/18/19 06:30 Absolute Lymphocytes 0.27 10^3/uL (1.2-3.4) L 10/18/19 06:30 Absolute Monocytes 0.57 10^3/uL (0.1-0.8) 10/18/19 06:30 Absolute Eosinophils 0.02 10^3/uL (0.0-0.7) 10/18/19 06:30 Absolute Basophils 0.05 10^3/uL (0.0-0.2) 10/18/19 06:30 PT 10.4 sec (9.3-11.0) 10/17/19 15:55 INR 1.0 (0.9-1.1) 10/17/19 15:55 APTT 26.9 sec (21.0-31.4) 10/17/19 15:55 VBG Lactate 2.0 mmol/L (0.6-1.4) H 10/17/19 17:45 Sodium 140 mmol/L (136-145) 10/18/19 06:30 Potassium 4.5 mmol/L (3.5-5.1) 10/18/19 06:30 Chloride 108 mmol/L (98-107) H 10/18/19 06:30 Carbon Dioxide 24.9 mmol/L (21.0-32.0) 10/18/19 06:30 Anion Gap 7.1 mmol/L (3-11) 10/18/19 06:30 BUN 13 mg/dL (7-18) 10/18/19 06:30 Creatinine 1.00 mg/dL (0.70-1.30) 10/18/19 06:30 Estimated GFR/1.73 m2 >= 60.00 (mL/min/1.73m2) 10/18/19 06:30 Glucose 113 mg/dL (74-106) H D 10/18/19 06:30 Calcium 7.8 mg/dL (8.5-10.1) L 10/18/19 06:30 Total Bilirubin 0.5 mg/dL (0.2-1.0) 10/17/19 15:55 AST 29 U/L (15-37) 10/17/19 15:55 ALT 24 U/L (16-63) 10/17/19 15:55 Alkaline Phosphatase 156 U/L (46-116) H 10/17/19 15:55 Troponin I < 0.05 ng/mL (<0.06) 10/17/19 18:55 NT-Pro-B Natriuret Pep 143 pg/mL (<300) 10/17/19 15:55 Total Protein 7.1 g/dL (6.4-8.2) 10/17/19 15:55 Albumin 2.8 g/dL (3.4-5.0) L 10/17/19 15:55 Procalcitonin 1.7 ng/mL 10/17/19 15:55 TSH 1.02 uIU/mL (0.36-3.74) 10/17/19 15:55 Urine Color Yellow (Yellow) 10/17/19 17:00 Urine Clarity Clear (Clear) 10/17/19 17:00 Urine pH 5.5 (5-8) 10/17/19 17:00 Ur Specific [place] 1.025 (1.005-1.025) 10/17/19 17:00 Urine Protein Trace mg/dL (Negative) H 10/17/19 17:00 Urine Ketones Negative mg/dL (Negative) 10/17/19 17:00 Urine Blood Negative (Negative) 10/17/19 17:00 Urine Nitrite Negative (Negative) 10/17/19 17:00 Urine Bilirubin Negative (Negative) 10/17/19 17:00 Urine Urobilinogen 0.2 EU/dL (Up TO 0.2) 10/17/19 17:00 Ur Leukocyte Esterase Negative (Negative) 10/17/19 17:00 Urine RBC Negative HPF (0-2) 10/17/19 17:00 Urine WBC 5-10 HPF (0-5) 10/17/19 17:00 Ur Epithelial Cells Negative HPF (Negative) 10/17/19 17:00 Urine Crystals Negative HPF (Negative) 10/17/19 17:00 Urine Bacteria Rare HPF (Negative) 10/17/19 17:00 Urine Casts Negative LPF (Negative) 10/17/19 17:00 Urine Mucus Negative (Negative) 10/17/19 17:00 Ur Culture Indicated? Yes 10/17/19 17:00 Urine Glucose 500 mg/dL (Negative) H 10/17/19 17:00 COVID-19 PCR Negative (Negative) 10/17/19 16:25 Nasopharyn COVID-19 PCR Not Applicable 10/17/19 16:25 Ref Test Perform Site [facility] lab 10/17/19 16:25
[2019-10-18] MEDS: Nystatin 500000 UNITS/5 ML SUSP 5ML CUP PO ×3 (14:50→20:51)
[2019-10-18] MEDS: Omnipaque 350 MG/ML 100 ML BTL IV (16:49)
[2019-10-18] MEDS: Normal Saline - Diluent 50 ML VIAL IV (16:50)
[2019-10-18] MEDS: Normal Saline Flush 10 ML SYR IVP ×2 (16:59→21:47)
--- NOTE | 2019-10-18 17:25 | DI.VRAD_ITS ---
PROCEDURE INFORMATION: Exam: CT Angiography Chest With Contrast Exam date and time: 10/18/2019 4:39 PM Age: 59 years old Clinical indication: Other: Shortness of breath, hypoxia, concern for pe TECHNIQUE: Imaging protocol: Computed tomographic angiography of the chest with intravenous contrast. 3D rendering (Not supervised by radiologist): MIP and/or 3D reconstructed images were created by the technologist. Radiation optimization: All CT scans at this facility use at least one of these dose optimization techniques: automated exposure control; mA and/or kV adjustment per patient size (includes targeted exams where dose is matched to clinical indication); or iterative reconstruction. Contrast material: OMNIPAQUE 350; Contrast volume: 100 ml; Contrast route: INTRAVENOUS (IV); COMPARISON: CT CHEST PE ABD PELVIS W 10/09/2019 9:25 PM FINDINGS: Pulmonary arteries: No pulmonary arterial embolism. Aorta: Aberrancy right subclavian artery. The thoracic aorta is otherwise unremarkable. Lungs: Paraseptal and centrilobular pulmonary emphysema. Prominent reticular markings within the peripheral aspects of both lungs consistent with interstitial disease, likely chronic. Bilateral lower lobe atelectasis, worsened since the previous exam. Pleural space: Trace bilateral pleural effusions, new. Heart: Unremarkable. No cardiomegaly. No pericardial effusion. Lymph nodes: Mild mediastinal and bilateral hilar lymphadenopathy, unchanged. Adrenals: Left adrenal gland mass measuring 8 cm x 4.5 cm, unchanged. Bones/joints: Unremarkable. No acute fracture. Soft tissues: Unremarkable. IMPRESSION: 1. No pulmonary arterial embolism. 2. Stable mediastinal and bilateral hilar lymphadenopathy. 3. Pulmonary emphysema. 4. Prominent reticular markings within both lungs consistent with interstitial disease, unchanged 5. Bilateral lower lobe atelectasis, increased since the previous exam. 6. Trace bilateral pleural effusions, new. 7. Left adrenal gland mass, unchanged. Dictated and Authenticated by: Jason Miranda MD. Ordering:TIEN Wylie MD
--- NOTE | 2019-10-18 17:56 | PDOC.CMIN ---
- If Service Date Differs Date of service: 10/18/19 Time of Service: 17:56 Care Management Initial Assess REASON FOR HOSPITALIZATION:: Fever, Sepsis PAST MEDICAL HISTORY/PAST SURGICAL HISTORY:: Medical History. Adrenal cancer (Acute). METS from Colon CA. Encounter for central line placement (Acute ~06/23/18). Metastatic colorectal cancer (Acute). Port-A-Cath in place (Acute ~06/23/18). L Subclavian. SOB (shortness of breath) on exertion (Acute). Surgical History. Colonoscopy - [facility]. 11/18/13;[facility]. Hemicolectomy. 12/01/16; RIGHT @ [facility]. History of partial adrenalectomy (Acute). pt. states he had right adrenal gland removed r/t to tumor. 04/10/18. History of removal of Port-a-Cath (Acute). L subclavian PREVIOUS FUNCTIONAL STATUS/SOCIAL/FAMILY SUPPORTS:: Low lives in [place] with his , Aury. He works at [employer], but he is working from home. He has two adult daughters, Kiarra and Paige. He reported that he has had 43 chemo treatments for his cancer, which is metastatic. He stated that he has won the many battles that he has been in, but he wishes there would not be any more battles to fight. CURRENT FUNCTIONAL STATUS:: Low was lying in bed when CM met with him, his was visiting. He reported that every time he has his chemo treatment, he ends up with a fever that brings him in. Per MD, blood cultures are pending from his port. CM will continue to follow. ADVANCE DIRECTIVES:: On file, Aury listed as agent. Has patient been provided with info about the portal/API?: Yes Did the patient sign up for the portal?: Yes CODE STATUS:: Full Code INSURANCE COVERAGE / FINANCIAL ISSUES:: [employer] CURRENT HOME/COMMUNITY SERVICES/EQUIPMENT:: No current equipment or services in the community. PRIMARY CARE PHYSICIAN:: Dr. Pitno POTENTIAL DISCHARGE NEEDS:: Follow up appointments PATIENT/FAMILY EDUCATION NEEDS:: Review discharge instructions regarding activity levels and medications, discussion of self care needs including ask me three. ANTICIPATED BARRIERS TO DISCHARGE:: None identified. TRANSPORTATION:: Via private vehicle by family. PLAN:: Anticipate Low will return home with no additional services once medically cleared. His will drive him home via private vehicle. He will follow up with his PCP and discharge plan of care. CM will continue to follow. Readmission - Within the Past 30 Days Yes or No: Y - Date of First Admission Date of 1st Admission: 09/27/19 - Date of this Admission Date of Admission: 10/17/19 This admission was: Through ED - Office Visit Since 1st Admission Have you seen your PCP in the office since discharge?: Yes Date of PCP Appointment: 10/05/19 - I. Interview patient and/or Family Difficulty reaching your doctor or getting an office appt?: No Have you had trouble purchasing/ or taking medication?: No Have you had trouble with getting meals at home?: No Did you feel ready for discharge when you left the last time: Yes If patient did not receive services, were there orders at: No Reason there were no orders at discharge: None needed. Did you call your physician beore you came to the ED?: No - ED visits How many ED visits in the past 12 months: 4 - Assessment for Readmission Summary of readmission circumstances, based upon interviews: Low stated that he felt ready for discharge his last admission, and that he feels that every time he receives chemo, he gets a fever and is back in the ER. He appeared frustrated during the conversation. Per MD, blood cultures are pending from his port. CM will continue to follow.
[2019-10-18] MEDS: Normal Saline 1,000 ML 125 ML IV (20:33)
[2019-10-18] MEDS: Heparin 500 UNITS/5 ML SYRINGE (21:47)
[2019-10-19] VITALS (8 sets, daily range): BP systolic 120–135; BP diastolic 74–90; PULSE 80–103; RESP 17–20; TEMP 36.7–37.5; O2SAT 91–97
[2019-10-19] MEDS: PIPERACILLIN/TAZO 3.375 GM in Normal Saline 50 ML IVPB ×5 (00:39→23:27)
[2019-10-19] MEDS: DOXYCYCLINE 100 MG in Normal Saline 100 ML IVPB ×3 (04:21→15:54)
[2019-10-19 05:32] LABS: Vancomycin, Trough 18.6 ug/mL (10.0-20.0)
[2019-10-19] MEDS: Nystatin 500000 UNITS/5 ML SUSP 5ML CUP PO ×5 (05:33→20:32)
[2019-10-19] MEDS: levETIRAcetam 500 MG TAB PO ×2 (07:54→20:27)
[2019-10-19] MEDS: Apixaban 5 MG TAB PO ×2 (07:55→20:27)
[2019-10-19] MEDS: Omeprazole 20 MG CAPCR PO ×2 (07:55→20:27)
[2019-10-19 08:07] LABS: Abs Immature Grans 0.09 10^3/uL (0.0-0.06); Absolute Basophil Count 0.05 10^3/uL (0.0-0.2); Absolute Eosinophil Count 0.36 10^3/uL (0.0-0.7); Absolute Lymphocyte Count 0.79 10^3/uL (1.2-3.4); Absolute Monocyte Count 0.66 10^3/uL (0.1-0.8); Basophils % 0.6; Eosinophils % 4.2; HGB 10.3 g/dL (13.5-17.5); Immature Grans % 1.1; Lymphocytes % 9.3; MCH 29.5 pg (27.0-33.0); MCHC 32.2 % (32.0-36.0); MCV 91.7 fL (80-95); Monocytes % 7.8; Nucleated RBC 0 %; Platelet Count 201 10^3/uL (130-400); RBC 3.49 10^6/uL (4.36-5.78); RDW 19.1 % (11.8-14.1); RDW-SD 63.8 fL; WBC 8.51 10^3/uL (4.4-10.8)
[2019-10-19 08:10] LABS: Absolute Neutrophil Count 6.55 10^3/uL (1.2-6.7)
[2019-10-19 08:14] LABS: Anion Gap 5.9 mmol/L (3-11); BUN 13 mg/dL (7-18); CO2 25.1 mmol/L (21.0-32.0); CREATININE 0.98 mg/dL (0.70-1.30); Calcium 8.1 mg/dL (8.5-10.1); Chloride 106 mmol/L (98-107); Glucose 100 mg/dL (74-106); Magnesium 1.8 mg/dL (1.8-2.4); Potassium 3.9 mmol/L (3.5-5.1); Sodium 137 mmol/L (136-145)
[2019-10-19 08:21] LABS: Hemoglobin A1C 6.2 % (<5.7)
--- NOTE | 2019-10-19 11:02 | RESPIRATORY ---
Pt on 4L nc Sp02 @ 100%. Placed on RA for 10 min. and pt is resting at 94%. upon ambulation pt Sp02 did not decrease below 90. Pt asked is he feels SOB and states he feels out of shape and weak from being on steroids and not being able to work out and walk around the last 6 weeks.
[2019-10-19] MEDS: Normal Saline 1,000 ML 125 ML IV (11:35)
[2019-10-19] MEDS: MAGNESIUM SULFATE 2 GM/50 ML BAG IVPB (11:36)
--- NOTE | 2019-10-19 14:18 | PDOC.CMPRO ---
- If Service Date Differs Date of service: 10/19/19 Time of Service: 14:18 Care Management Progress Note S/O: Low was sitting up in bed when CM met with him. He reported that he is frustrated because it seems like every time he has a chemo treatment, he ends up with a fever and admitted to [facility]. Per report, blood cultures are pending currently. He stated that he does not feel that he needs to be here to wait for the blood cultures, and he feels that it is a waste of time for both him and his RN. He reported that his is a nurse and takes good care of him at home. CM will relay this information and the patient's wishes to the provider. CM will continue to follow. A: Low is a 59 year old male admitted to [facility] on 10/18/19 with Fever, Sepsis. P: Anticipate Low will return home with no additional services once medically cleared. His will drive him home via private vehicle. He will follow up with his Oncologist and discharge plan of care. CM will continue to support pt with discharge planning considerations.
--- NOTE | 2019-10-19 15:52 | W.PM.PROGNOT ---
Date of Service Date of service: 10/19/19 Time of Service: 15:52 Assessment and Plan Assessment and plan (1) Sepsis: Status: Acute Assessment and plan: Fever and leucocytosis in setting of chemotherapy. COVID-19 ruled out. CTA negative for a PE, but does show a possible LLL pneumonia. Patient has clearly improved. Discussed with [facility] pulmonology, who feel that this is an atypical pneumonia and to continue abx. Blood cultures are negative. (2) Hypoxia: Status: Resolved Assessment and plan: As above; additionally, has small pleural effusions - will diingrise. (3) History of deep venous thrombosis or pulmonary embolus: Status: Chronic Assessment and plan: On anticoagulation with apixaban. No recurrences of PE noted. (4) Metastatic colorectal cancer: Status: Chronic Assessment and plan: Continue prophylactic keppra. Will discuss case with Dr Walter. (5) Thrush, oral: Status: Acute Assessment and plan: Rx liquid nystatin (6) Discharge planning issues: Status: Acute Assessment and plan: Full code. Continues to require hospitalization - plan for discharge home tomorrow. (7) DVT prophylaxis: Status: Acute Assessment and plan: On therapeutic apixaban (8) COVID-19 ruled out by laboratory testing: Status: Ruled-out Subjective Subjective Interval history since last seen: Mr Arriaga states that he is feeling better today. He denies dizziness, chest pain, he is still short of breath, but less than yesterday. he denies n/v. He would really like to be discharged tomorrow. Exam Narrative Exam Narrative: General: Very pleasant middle-aged male, A&Ox3, on room air, looks better HEENT: EOMI, MMM Heart: RRR, no m/r/g Lungs: slight crackles at B bases Abdomen: soft, nontender, nondistended Extremities: LLE at baseline level of edema with signs of well healed prior injury; RLE w/ trace edema Objective Objective Clinical Data: Abnormal lab results 10/19/19 10/19/19 10/19/19 Range/Units 07:50 07:50 07:50 RBC 3.49 L (4.36-5.78) 10^6/uL Hgb 10.3 L (13.5-17.5) g/dL Hct 32.0 L (40.0-50.0) % RDW 19.1 H (11.8-14.1) % Absolute Lymphocytes 0.79 L (1.2-3.4) 10^3/uL Hemoglobin A1c 6.2 H (<5.7) % Calcium 8.1 L (8.5-10.1) mg/dL Vital Signs Temperature 37.5 C 10/19/19 11:22 Temperature Source Tympanic 10/19/19 11:22 Pulse 95 H 10/19/19 11:22 Pulse Rhythm Regular 10/19/19 07:50 Respiratory Rate 17 10/19/19 11:22 Respiratory Effort 10/19/19 07:50 Respiratory Depth Normal 10/19/19 07:50 Respiratory Pattern Normal 10/19/19 07:50 Blood Pressure 132/84 10/19/19 11:22 Blood Pressure Position Supine 10/17/19 15:47 Pulse Oximetry 92 L 10/19/19 11:22 Oxygen Delivery Method Room Air 10/19/19 11:22 Oxygen Flow Rate 0 10/19/19 11:22 Pain Level 0 10/19/19 11:22 Comment 10/19/19 07:25 Intake & Output 10/18/19 10/19/19 10/19/19 23:59 11:59 23:59 Intake Total 720 / 2674.167 1100 / 1550 450 / 1550 Balance 720 / 2674.167 1100 / 1550 450 / 1550 Weight 109.1 kg Intake: IV 720 / 2674.167 1100 / 1100 Oral 450 / 450 Other: Urine Appearance Clear Voiding Methods Toilet Laboratory Results WBC 8.51 10^3/uL (4.4-10.8) D 10/19/19 07:50 RBC 3.49 10^6/uL (4.36-5.78) L 10/19/19 07:50 Hgb 10.3 g/dL (13.5-17.5) L 10/19/19 07:50 Hct 32.0 % (40.0-50.0) L 10/19/19 07:50 MCV 91.7 fL (80-95) 10/19/19 07:50 MCH 29.5 pg (27.0-33.0) 10/19/19 07:50 MCHC 32.2 % (32.0-36.0) 10/19/19 07:50 RDW 19.1 % (11.8-14.1) H 10/19/19 07:50 Plt Count 201 10^3/uL (130-400) 10/19/19 07:50 MPV 10.0 fL (8.0-11.0) 10/19/19 07:50 Immature Gran % 1.1 10/19/19 07:50 Neutrophils % 77.0 10/19/19 07:50 Lymphocytes % 9.3 10/19/19 07:50 Monocytes % 7.8 10/19/19 07:50 Eosinophils % 4.2 10/19/19 07:50 Basophils % 0.6 10/19/19 07:50 Nucleated RBC % 0 % 10/19/19 07:50 Absolute Neutrophils 6.55 10^3/uL (1.2-6.7) 10/19/19 07:50 Absolute Lymphocytes 0.79 10^3/uL (1.2-3.4) L 10/19/19 07:50 Absolute Monocytes 0.66 10^3/uL (0.1-0.8) 10/19/19 07:50 Absolute Eosinophils 0.36 10^3/uL (0.0-0.7) 10/19/19 07:50 Absolute Basophils 0.05 10^3/uL (0.0-0.2) 10/19/19 07:50 PT 10.4 sec (9.3-11.0) 10/17/19 15:55 INR 1.0 (0.9-1.1) 10/17/19 15:55 APTT 26.9 sec (21.0-31.4) 10/17/19 15:55 VBG Lactate 2.0 mmol/L (0.6-1.4) H 10/17/19 17:45 Sodium 137 mmol/L (136-145) 10/19/19 07:50 Potassium 3.9 mmol/L (3.5-5.1) 10/19/19 07:50 Chloride 106 mmol/L (98-107) 10/19/19 07:50 Carbon Dioxide 25.1 mmol/L (21.0-32.0) 10/19/19 07:50 Anion Gap 5.9 mmol/L (3-11) 10/19/19 07:50 BUN 13 mg/dL (7-18) 10/19/19 07:50 Creatinine 0.98 mg/dL (0.70-1.30) 10/19/19 07:50 Estimated GFR/1.73 m2 >= 60.00 (mL/min/1.73m2) 10/19/19 07:50 Glucose 100 mg/dL (74-106) 10/19/19 07:50 Hemoglobin A1c 6.2 % (<5.7) H 10/19/19 07:50 Calcium 8.1 mg/dL (8.5-10.1) L 10/19/19 07:50 Magnesium 1.8 mg/dL (1.8-2.4) 10/19/19 07:50 Total Bilirubin 0.5 mg/dL (0.2-1.0) 10/17/19 15:55 AST 29 U/L (15-37) 10/17/19 15:55 ALT 24 U/L (16-63) 10/17/19 15:55 Alkaline Phosphatase 156 U/L (46-116) H 10/17/19 15:55 Troponin I < 0.05 ng/mL (<0.06) 10/17/19 18:55 NT-Pro-B Natriuret Pep 143 pg/mL (<300) 10/17/19 15:55 Total Protein 7.1 g/dL (6.4-8.2) 10/17/19 15:55 Albumin 2.8 g/dL (3.4-5.0) L 10/17/19 15:55 Procalcitonin 1.7 ng/mL 10/17/19 15:55 TSH 1.02 uIU/mL (0.36-3.74) 10/17/19 15:55 Urine Color Yellow (Yellow) 10/17/19 17:00 Urine Clarity Clear (Clear) 10/17/19 17:00 Urine pH 5.5 (5-8) 10/17/19 17:00 Ur Specific [place] 1.025 (1.005-1.025) 10/17/19 17:00 Urine Protein Trace mg/dL (Negative) H 10/17/19 17:00 Urine Ketones Negative mg/dL (Negative) 10/17/19 17:00 Urine Blood Negative (Negative) 10/17/19 17:00 Urine Nitrite Negative (Negative) 10/17/19 17:00 Urine Bilirubin Negative (Negative) 10/17/19 17:00 Urine Urobilinogen 0.2 EU/dL (Up TO 0.2) 10/17/19 17:00 Ur Leukocyte Esterase Negative (Negative) 10/17/19 17:00 Urine RBC Negative HPF (0-2) 10/17/19 17:00 Urine WBC 5-10 HPF (0-5) 10/17/19 17:00 Ur Epithelial Cells Negative HPF (Negative) 10/17/19 17:00 Urine Crystals Negative HPF (Negative) 10/17/19 17:00 Urine Bacteria Rare HPF (Negative) 10/17/19 17:00 Urine Casts Negative LPF (Negative) 10/17/19 17:00 Urine Mucus Negative (Negative) 10/17/19 17:00 Ur Culture Indicated? Yes 10/17/19 17:00 Urine Glucose 500 mg/dL (Negative) H 10/17/19 17:00 Vancomycin Trough 18.6 ug/mL (10.0-20.0) 10/19/19 05:15 COVID-19 PCR Negative (Negative) 10/17/19 16:25 Nasopharyn COVID-19 PCR Not Applicable 10/17/19 16:25 Ref Test Perform Site [facility] lab 10/17/19 16:25
[2019-10-19] MEDS: Furosemide 20 MG/2 ML VIAL IVP (17:03)
[2019-10-20] MEDS: DOXYCYCLINE 100 MG in Normal Saline 100 ML IVPB (03:31)
[2019-10-20] MEDS: Nystatin 500000 UNITS/5 ML SUSP 5ML CUP PO ×2 (05:31→09:45)
[2019-10-20] MEDS: PIPERACILLIN/TAZO 3.375 GM in Normal Saline 50 ML IVPB (05:31)
[2019-10-20 07:21] VITALS: BP 126/88; PULSE 99; RESP 17; TEMP 36.3
[2019-10-20 07:28] LABS: BUN 10 mg/dL (7-18); CREATININE 0.87 mg/dL (0.70-1.30); Calcium 8.2 mg/dL (8.5-10.1); Chloride 105 mmol/L (98-107); Glucose 99 mg/dL (74-106); Magnesium 1.8 mg/dL (1.8-2.4); Potassium 3.4 mmol/L (3.5-5.1); Sodium 138 mmol/L (136-145)
[2019-10-20 07:34] LABS: Abs Immature Grans 0.07 10^3/uL (0.0-0.06); Absolute Basophil Count 0.05 10^3/uL (0.0-0.2); Absolute Lymphocyte Count 1.33 10^3/uL (1.2-3.4); Absolute Monocyte Count 0.56 10^3/uL (0.1-0.8); Absolute Neutrophil Count 3.34 10^3/uL (1.2-6.7); Basophils % 0.9; HCT 31.2 % (40.0-50.0); HGB 10.3 g/dL (13.5-17.5); Immature Grans % 1.2; Lymphocytes % 23.1; MCH 29.3 pg (27.0-33.0); MCV 88.6 fL (80-95); MPV 10.3 fL (8.0-11.0); Monocytes % 9.7; Neutrophils % 58.1; Nucleated RBC 0 %; Platelet Count 215 10^3/uL (130-400); RBC 3.52 10^6/uL (4.36-5.78); RDW 18.6 % (11.8-14.1); RDW-SD 60.6 fL; WBC 5.75 10^3/uL (4.4-10.8)
[2019-10-20] MEDS: Omeprazole 20 MG CAPCR PO (07:35)
[2019-10-20] MEDS: levETIRAcetam 500 MG TAB PO (07:35)
[2019-10-20] MEDS: Apixaban 5 MG TAB PO (07:35)
[2019-10-20 07:40] VITALS: O2SAT 97
[2019-10-20] MEDS: Potassium Chloride 20 MEQ TABCR 40 MEQ PO (09:45)
[2019-10-20] MEDS: Amoxicillin 875/Clav. 125 TAB PO (10:12)
[2019-10-20 10:14] VITALS: PULSE 101; PULSE 104; PULSE 106; RESP 16; O2SAT 91; O2SAT 96
--- NOTE | 2019-10-20 10:15 | W.PM.DS.N ---
Date of service: 10/20/19 Time of Service: 10:16 DS: Diagnosis Discharge Diagnosis (1) Sepsis: Status: Acute (2) Pneumonia: Status: Acute (3) Hypoxia: Status: Resolved (4) Thrush, oral: Status: Acute (5) Metastatic colorectal cancer: Status: Chronic (6) Small pleural effusion: Status: Acute (7) History of deep venous thrombosis or pulmonary embolus: Status: Chronic (8) Hypokalemia: Status: Acute (9) COVID-19 ruled out by laboratory testing: Status: Ruled-out Discharge Plan Disposition Patient Disposition: HOME Condition: Good Discharge Details Chief Complaint: Fever Clinical Impression: Sepsis, Fever Reason For Visit: SEPSIS, FEVER Admit Date/Time: 10/18/19 10:20 Admit Provider: Mushtaq Fernandez Attending Provider: Mushtaq Fernandez Primary Care Provider: George Pinto ED Provider: Bassam Muhammad Hospital Course Hospital Course: Mr Arriaga is a 59 year old male wiht PMHx of metastatic colon cancer, on chemotherapy with FOLFOX via an infusaport, as well as h/o DVT/PE on eliquis, seizure disorder in setting of brain metastases, on keppra, and hypertension, who was a patient on [facility] hospitalist service from 10/17/2019 until 10/20/2019 for sepsis due to pneumonia with hypoxia, having presented with a fever shortly after initiating the latest cycle of chemotherapy. COVID-19 was ruled out with a negative nasopharyngeal PCR. While his initial CXR was negative, he did have a CTA which was interpreted as a bilateral lower lobe infiltrates: atelectasis vs pneumonia and reviewed by [facility] pulmonology who agreed that this was likely atypical appearance of pneumonia rather than pneumonitis or another etiology. The patient had negative blood cultures, including from his infusaport. He had a negative urinalysis and a urine culture. He has chronic diarrhea due to chemo and tested negative for C.Diff. He ruled out for a PE with a CTA of the chest. The patient's oxygen requirement resolved with our empiric therapy of vancomycin, augmentin, and doxycycline. Twenty four hours prior to discharge, vancomycin was discontinued without recurrence of fever. I have spoken with Dr Walter about the fact that, given this trend of patient having fevers shortly after initiating chemotherapy with negative blood cultures, he may choose to repeat blood cultures once the patient is done with antibiotics and is not on chemo to ensure that the port remains sterile. Finally, should hypoxia recur with the next cycle of chemo, pneumonitis due to FOLFOX should be considered. The patient is medically stable for discharge home today with 5 days of doxycycline and augmentin. Care for patient as well as completion of his discharge summary on day of discharge took 45 minutes. Home Meds and New Rx's Prescriptions: New amoxicillin-pot clavulanate 875-125 mg Tablet 1 tab PO BID Qty: 10 RF: 0 doxycycline hyclate 100 mg capsule 100 mg PO BID Qty: 10 RF: 0 Continued Eliquis 5 mg tablet 5 mg PO BID RF: 0 acetaminophen [Tylenol] 325 MG tablet 650 mg PO BID PRN RF: 0 cetirizine [Zyrtec] 10 MG tablet,chewable 10 mg PO HS Qty: 30 RF: 12 omeprazole 20 mg capsule,delayed release(DR/EC) 20 mg PO BID Qty: 180 RF: 3 vitamin B complex Capsule 1 cap PO DAILY RF: 0 levetiracetam 500 mg tablet 500 mg PO BID RF: 0 losartan 25 mg tablet 25 mg PO DAILY PRNRF: 0 Discharge Instructions Instructions: Doxycycline (By mouth), Amoxicillin/Clavulanate Potassium (By mouth), Bacterial Pneumonia (DC) Additional Instructions: Finish your antibiotics as prescribed. Remember that doxycycline can cause sun sensitivity. Return to the hospital with any new fevers/chills, shortness of breath, bleeding, or chest pain. Follow up with Dr Walter as scheduled. Follow up with Dr Pinto in 1-2 weeks. Referrals: George Pinto, [Primary Care Provider] - Activity:: Activity as Tolerated Equipment/Supplies:: No Equipment Needed Diet:: As Tolerated Discharge Orders Discharge Orders: Discharge Order (Routine); Ordered 10/20/19 Ordered By: Inessa Jerry DS: Summary Status at Discharge Functional status at discharge: independent ambulation Overall status at discharge: patient is progressing back to baseline Mental Status: mental status grossly normal Speech and Movement: speech and movement normal Mood: congruent mood Affect: normal affect Exam Narrative Exam Narrative: General: Very pleasant middle-aged male, A&Ox3, looks much better than yesterday HEENT: EOMI, MMM Heart: RRR, no m/r/g Lungs: CTAB Abdomen: soft, nontender, nondistended Extremities: LLE at baseline level of edema with signs of well healed prior injury; RLE w/ trace edema Psych Mental Status: mental status grossly normal Speech and Movement: speech and movement normal Mood: congruent mood Affect: normal affect DS: Data Vitals/I&O Vitals and I&O: Vital Signs Temperature 36.3 C L 10/20/19 07:21 Temperature Source Temporal Artery Scan 10/20/19 07:21 Pulse 99 H 10/20/19 07:21 Pulse Rhythm Regular 10/20/19 07:40 Respiratory Rate 17 10/20/19 07:21 Respiratory Effort 10/20/19 07:40 Respiratory Depth Normal 10/20/19 07:40 Respiratory Pattern Normal 10/20/19 07:40 Blood Pressure 126/88 10/20/19 07:21 Blood Pressure Position Supine 10/17/19 15:47 Pulse Oximetry 97 10/20/19 07:40 Oxygen Delivery Method Room Air 10/20/19 07:40 Oxygen Flow Rate 0 10/20/19 07:40 Pain Level 0 10/20/19 07:21 Comment 10/19/19 07:25 Intake & Output 10/19/19 10/19/19 10/20/19 11:59 23:59 11:59 Intake Total 1200 / 2090 890 / 2090 50 / 50 Output Total 1400 / 1400 800 / 800 Balance 1200 / 690 -510 / 690 -750 / -750 Weight 109.1 kg 107.3 kg Intake: IV 1200 / 1400 200 / 1400 50 / 50 Oral 690 / 690 Output: Urine 1400 / 1400 800 / 800 Other: Urine Color Straw Yellow Urine Appearance Clear Clear Clear Urine Odor None None Comment pt voids independently in the toilet Voiding Methods Toilet Urinal Urinal Data Completed and Pending Completed studies during hospitalization [Text1]: CXR 10/17/2019: No acute pulmonary findings. CTA chest 10/18/2019: 1. No evidence of pulmonary embolism, thoracic aortic dissection or aneurysm. 2. Stable mediastinal lymph nodes. 3. Left adrenal gland metastasis. Slight increase in size. 4. Bilateral lower lobe infiltrates which may represent atelectasis or pneumonia. These are new compared to the prior examination. 5. New small bilateral pleural effusions. Labs on day of discharge: Labs from last 24 hours 10/20/19 10/20/19 10/19/19 06:21 06:21 09:35 WBC 5.75 D RBC 3.52 L Hgb 10.3 L Hct 31.2 L MCV 88.6 D MCH 29.3 MCHC 33.0 RDW 18.6 H Plt Count 215 MPV 10.3 Immature Gran % 1.2 Neutrophils % 58.1 Lymphocytes % 23.1 Monocytes % 9.7 Eosinophils % 7.0 Basophils % 0.9 Nucleated RBC % 0 Absolute Neutrophils 3.34 Absolute Lymphocytes 1.33 Absolute Monocytes 0.56 Absolute Eosinophils 0.40 Absolute Basophils 0.05 Sodium 138 Potassium 3.4 L Chloride 105 Carbon Dioxide 24.0 Anion Gap 9.0 BUN 10 Creatinine 0.87 Estimated GFR/1.73 m2 >= 60.00 Glucose 99 Calcium 8.2 L Magnesium 1.8 Stool Campylobacter PCR Pending Stool Salmonella PCR Pending Stool Shigella PCR Pending Shiga Toxin (PCR) Pending Preliminary micro results at discharge 10/17/19 15:50 Blood Culture - Preliminary Blood NO GROWTH 48 HOURS 10/17/19 15:55 Blood Culture - Preliminary Blood NO GROWTH 48 HOURS [facility] Medical History (Updated 10/20/19 @ 10:16 by Inessa Jerry MD) Adrenal cancer (Acute) METS from Colon CA Chronic diarrhea (Acute) Encounter for central line placement (Acute ~06/23/18) Metastatic colorectal cancer (Chronic) Port-A-Cath in place (Acute ~06/23/18) L Subclavian SOB (shortness of breath) on exertion (Acute) Surgical History Colonoscopy - [facility] 11/18/13;[facility] Hemicolectomy 12/01/16; RIGHT @ [facility] History of partial adrenalectomy (Acute) pt. states he had right adrenal gland removed r/t to tumor. 04/10/18 History of removal of Port-a-Cath (Acute) L subclavian Family History Mother , age 82 No problems noted. Father No problems noted. Social History Smoking/Tobacco Use Status: Current-Occasional Tobacco Type: cigarettes Quit status: quit date established Smoking risk assessment performed?: Yes Alcohol Intake: former Drug use: Never Substance use type: does not use Details: no alcohol for 2 years Caregiver/Support person: Yes Household members: spouse and children Housing: house Communication Needs: None Do you need help understanding health information?: Rarely Pets and animals: Yes Sexually active: Yes Do you think of yourself as: straight/heterosexual Current gender identity: male What is your relationship status?: How often do you talk on the phone with friends or family?: three or more times per week How often do you get together with friends or relatives?: once per week How often do you attend moravian or scientology services?: 1-3 times per year Do you belong to any clubs or organized social groups?: no Panel score (0-1 are the most socially isolated patients): 2 What type of physical activity do you participate in: walking Duration: 30-45 minutes/day Frequency: daily Kesha/Methodist: Yarsanism Special kesha needs: No Seatbelt use: always Drive intox or ride w/intox school bus driver/mechanic: No Do you feel safe at home: Yes Do you feel safe in your relationship?: Yes
[2019-10-20 11:35] VITALS: BP 146/101; PULSE 94; RESP 18; TEMP 36.3; O2SAT 97
--- NOTE | 2019-10-20 17:46 | PDOC.CMDIS ---
- If Service Date Differs Date of service: 10/20/19 Time of Service: 17:46 LACE Index Scoring Tool - Questions: Length of Stay (in days): 2 Acuity (Admit via E.D.?): Yes Comorbidities: Metastatic Solid Tumor E.D. Visits: 4 - Answers: Total Score: 14 Risk of Readmission: High Risk Care Management Discharge Reason for Hospitalization: Fever, Sepsis Discharge Plan: Low will return home with no additional services at this time. He will be driven home by his via private vehicle. He will follow up with his Oncologist and discharge plan of care. He is very happy to be going home. Patient/Family Education Needs: Review of discharge instructions regarding activity levels and medications, discussion of self care needs including ask me three.
[2019-11-01 08:28] LABS: Misc Referral (VDH) See Comments
== END 2019-10-20 13:06 | disposition home or self-care (01) | DRG 871 ==
LOC: ER 17:43 → MS 19:47
PROVIDERS: Internal Medicine; Admitting Provider Family Medicine; Emergency Provider Student in an Organized Health Care Education/Training Program; PCP Emergency Medicine; Visit Provider Family Medicine
DX: A41.9 Sepsis, unspecified organism (principal); J18.9 Pneumonia, unspecified organism; C79.71 Secondary malignant neoplasm of right adrenal gland; C79.31 Secondary malignant neoplasm of brain; B37.0 Candidal stomatitis; J91.8 Pleural effusion in other conditions classified elsewhere; R05 Cough; Z85.038 Personal history of other malignant neoplasm of large intestine; Z86.718 Personal history of other venous thrombosis and embolism; Z79.01 Long term (current) use of anticoagulants; F17.210 Nicotine dependence, cigarettes, uncomplicated; R09.02 Hypoxemia; E87.6 Hypokalemia
CPT/HCPCS: 36415; 36591; 71275; 80048; 80053; 84145; 87040; 87449; 87505; 93005; 96361; 96365; 96366; 96368; 99220; 99232; 99233; 99239; 99285; U0003; 71045; 80202; 81003; 81015; 83036; 83605; 83735; 83880; 84443; 84484; 85025; 85610; 85730; 87086; 87324; 93010; 93225; G0378; J1941; J2543; J3370; J3490

== ENCOUNTER 2019-11-04 03:59 | Outpatient (RCR) | payer OTHER, SELFPAY ==
[2019-11-04 09:45] LABS: Abs Immature Grans 0.03 10^3/uL (0.0-0.06); Absolute Lymphocyte Count 3.03 10^3/uL (1.2-3.4); Absolute Monocyte Count 0.81 10^3/uL (0.1-0.8); Absolute Neutrophil Count 4.48 10^3/uL (1.2-6.7); Eosinophils % 11.5; HCT 37.7 % (40.0-50.0); HGB 12.3 g/dL (13.5-17.5); Immature Grans % 0.3; Lymphocytes % 31.7; MCH 30.1 pg (27.0-33.0); MCHC 32.6 % (32.0-36.0); MCV 92.2 fL (80-95); MPV 9.8 fL (8.0-11.0); Monocytes % 8.5; Nucleated RBC 0 %; Platelet Count 301 10^3/uL (130-400); RBC 4.09 10^6/uL (4.36-5.78); RDW 17.6 % (11.8-14.1); RDW-SD 59.6 fL; WBC 9.55 10^3/uL (4.4-10.8)
[2019-11-04 09:57] LABS: ALT 18 U/L (16-63); AST 30 U/L (15-37); Albumin 3.1 g/dL (3.4-5.0); Alkaline Phosphatase 130 U/L (46-116); Anion Gap 8.1 mmol/L (3-11); BUN 7 mg/dL (7-18); Bilirubin, Total 0.6 mg/dL (0.2-1.0); CO2 26.9 mmol/L (21.0-32.0); CREATININE 0.91 mg/dL (0.70-1.30); Calcium 9.2 mg/dL (8.5-10.1); Chloride 98 mmol/L (98-107); Glucose 95 mg/dL (74-106); Magnesium 1.9 mg/dL (1.8-2.4); Sodium 133 mmol/L (136-145); Total Protein 8.2 g/dL (6.4-8.2)
[2019-11-09 09:09] LABS: CEA 3.7 ng/mL (See Note)
== END 2019-11-16 23:59 | disposition home or self-care (01) ==
LOC: INF 03:59
PROVIDERS: PCP Emergency Medicine; Visit Provider Radiology Radiation Oncology
DX: C18.2 Malignant neoplasm of ascending colon (principal); Z45.2 Encounter for adjustment and management of vascular access device
CPT/HCPCS: 36415; 80053; 82378; 83735; 85025

== ENCOUNTER 2019-11-30 01:31 | Outpatient (CLI) | payer OTHER, SELFPAY ==
--- NOTE | 2019-11-30 08:45 | DI.CT_ITS ---
EXAM: CT CERVICAL SPINE W CLINICAL HISTORY: neck pain. colon cancer with brain mets,M54.2. TECHNIQUE: Imaging Protocol: Axial computed tomography images with coronal and sagittal reformatted images were created and reviewed CONTRAST MATERIAL: Intravenous: Omnipaque 350 Contrast volume:100 mL contrast route:IV - Oral: No COMPARISON: No exams were available for comparison FINDINGS: Bones: No fracture or dislocations are seen. The alignment of the cervical spine is normal including the cervicovertebral junction and cervicothoracic junction. No lytic or sclerotic lesion is identifie d. Moderate degenerative changes are seen in the cervical spine. The findings are most marked at C5 -6 and C6-C7. C2-3: No central spinal canal or neural foraminal stenosis. C3-4: No central spinal canal or neural foraminal stenosis. C4-5: No central spinal canal or neural foraminal stenosis. C5-6: Degenerative changes are present. No significant central spinal canal or neural foraminal sten osis is present. C6-7: There is prominence of the osteophyte disc complex. Degenerative changes of the uncovertebral joints are noted resulting in mild bilateral neural foraminal stenosis. C7-T1: Normal. Soft Tissues: The soft tissues of the neck are unremarkable. Enhancement: No abnormal enhancement is seen in the cervical spine. IMPRESSION: 1. Multilevel degenerative changes in the cervical spine. The findings are most marked at the C5-6 a nd C6-C7 levels. These are described above. 2. No lytic or sclerotic lesion to suggest metastatic disease. 3. No abnormal enhancement is seen in the cervical spine. RADIATION DOSE DELIVERED: 542.59mGy.cm Total DLP DATA REPOSITORY: All CT scans at this facility are submitted to the National Radiology Data Registry (NRDR) Dose Index Registry (DIR) with the [employer] (ACR). RADIATION OPTIMIZATION: All CT scans at this facility use at least one of these dose optimization te chniques: automated exposure control; mA and/or kV adjustment per patient size (includes targeted exa ms where dose is matched to clinical indication); or iterative reconstruction.
[2019-11-30] MEDS: Normal Saline - Diluent 50 ML VIAL IV (15:03)
[2019-11-30] MEDS: Normal Saline Flush 10 ML SYR IVP (15:03)
== END 2019-11-30 01:51 ==
PROVIDERS: PCP Emergency Medicine; Visit Provider Emergency Medicine
DX: M47.812 Spondylosis without myelopathy or radiculopathy, cervical region (principal); C79.31 Secondary malignant neoplasm of brain; C18.9 Malignant neoplasm of colon, unspecified
CPT/HCPCS: 72126

== ENCOUNTER 2019-12-07 01:02 | Outpatient (CLI) | payer OTHER, SELFPAY ==
--- NOTE | 2019-12-07 | DI.CT_ITS ---
EXAM: CT ABDOMEN PELVIS W CLINICAL HISTORY: PRIMARY COLON CA WITH METS, C18.9, STAGE IV, ON CHEMO,INCREASED PAIN, RESTAGING E XAM TECHNIQUE: Imaging Protocol: Axial computed tomography images with coronal and sagittal reformatted images were created and reviewed CONTRAST MATERIAL: Intravenous: Omnipaque 350 Contrast volume:100 cc Oral: no COMPARISON: CT CT CHEST PE ABD PELVIS W from 10/09/[address] CHEST PE CTA from 10/18/2019 FINDINGS: ABDOMEN: Lung Bases: Normal where visualized. Liver: Normal density. No measurable mass. Gallbladder and biliary tract: No radiodense calculus or dilation. Pancreas: Normal density, no abnormal calcifications or inflammatory process. Spleen: Normal. Kidneys: Normal size, contour and axis. No radiodense stones or obstructive uropathy. No masses seen. Adrenal glands: Status post right adrenalectomy. There is slight interval increase in size of the pre viously noted adrenal mass, now measuring 8.7 cm in greatest dimension. Lymph nodes: There are now innumerable abnormally enlarged lymph nodes in the left para-aortic region extending from the level of the left adrenal mass through to the aortic bifurcation. Abdominal Aorta : Abdominal portion non-dilated. PELVIS: Bladder: Symmetric distention, no gross wall thickening. Bowel: Partial colectomy with anastomosis at the level of the hepatic flexure. No obstruction or lobito l wall thickening. Peritoneal cavity: No ascites, collection or mesenteric inflammatory response. Bones: New metastatic lesion seen in the posterior aspect of the L3 vertebral body. A lucency is also seen in the right posterior ilium as well as right superior pubic ramus. There is also question of a lytic lesion in the anterior right 7th rib. Reproductive organs: Within normal limits. Lymph nodes: No pelvic adenopathy is identified. Impression: Marked interval increase in size of left para-aortic adenopathy. New bony metastases seen in the L3 v ertebral body and several in the right side of the pelvis. Mild interval increase in left adrenal met astasis. RADIATION DOSE DELIVERED: 1,482.25mGy.cm Total DLP DATA REPOSITORY: All CT scans at this facility are submitted to the National Radiology Data Registry (NRDR) Dose Index Registry (DIR) with the [employer] (ACR). RADIATION OPTIMIZATION: All CT scans at this facility use at least one of these dose optimization te chniques: automated exposure control; mA and/or kV adjustment per patient size (includes targeted exa ms where dose is matched to clinical indication); or iterative reconstruction.
--- NOTE | 2019-12-07 09:15 | DI.NM_ITS ---
EXAM: NM BONE SCAN WHOLE BODY GRP CLINICAL HISTORY: PRIMARY COLON CA WITH METS, C18.9, STAGE IV, INC. Hip and groin pain TECHNIQUE: Injected Dose: 27 mCi Tc-99m MDP Delayed Images: 2-3 hours. COMPARISON: CT CT CERVICAL SPINE W from 11/30/[address] ABDOMEN PELVIS W from 12/07/2019 FINDINGS: Bilateral renal excretion is identified. There are abnormal foci of increased labeling seen in the r ight anterior 7th rib and the lateral right 3rd rib. Increased labeling is seen in the mid thoracic spine. There are several small foci of abnormally increased labeling in the right superior pubic tutu us and near the right acetabulum. A focus of abnormal increased activity is seen in the proximal femo ral shaft. No increased activity is seen in the L3 vertebral body where there was a lytic lesion see n on the CT. There is also increased labeling in the right side of the skull and a question of a sm all focus of increased activity in the left frontal region. There is a small focus of increased acti vity in the right side of the cervical spine. A small lucency is noted on the previous CT. IMPRESSION: 1. Findings consistent with multiple sites of bony metastases as described above. DATA REPOSITORY:
[2019-12-07] MEDS: Omnipaque 350 MG/ML 50 ML BTL IJ (09:35)
[2019-12-07] MEDS: Breeza Beverage 473 ML BTL PO ×2 (09:38)
[2019-12-07] MEDS: Omnipaque 350 MG/ML 100 ML BTL IV (10:46)
== END 2019-12-07 01:22 ==
PROVIDERS: PCP Emergency Medicine; Visit Provider Internal Medicine Hematology & Oncology
DX: C18.9 Malignant neoplasm of colon, unspecified (principal); C79.51 Secondary malignant neoplasm of bone; C79.72 Secondary malignant neoplasm of left adrenal gland
CPT/HCPCS: 78306; 74177; J3490; Q9967

== ENCOUNTER 2019-12-09 05:48 | Outpatient (RCR) | payer OTHER, SELFPAY ==
[2019-11-18 08:21] LABS: Abs Immature Grans 0.03 10^3/uL (0.0-0.06); Absolute Basophil Count 0.05 10^3/uL (0.0-0.2); Absolute Eosinophil Count 0.67 10^3/uL (0.0-0.7); Absolute Lymphocyte Count 2.54 10^3/uL (1.2-3.4); Absolute Neutrophil Count 6.09 10^3/uL (1.2-6.7); Basophils % 0.5; Eosinophils % 6.8; HCT 36.3 % (40.0-50.0); HGB 11.4 g/dL (13.5-17.5); Immature Grans % 0.3; Lymphocytes % 25.7; MCH 29.5 pg (27.0-33.0); MCHC 31.4 % (32.0-36.0); MCV 93.8 fL (80-95); MPV 9.8 fL (8.0-11.0); Monocytes % 5.1; Neutrophils % 61.6; Nucleated RBC 0 %; Platelet Count 254 10^3/uL (130-400); RBC 3.87 10^6/uL (4.36-5.78); RDW 16.6 % (11.8-14.1); RDW-SD 57.1 fL; WBC 9.88 10^3/uL (4.4-10.8)
[2019-11-18 08:29] LABS: ALT 18 U/L (16-63); AST 22 U/L (15-37); Alkaline Phosphatase 111 U/L (46-116); Anion Gap 8.4 mmol/L (3-11); BUN 9 mg/dL (7-18); Bilirubin, Total 0.5 mg/dL (0.2-1.0); CO2 26.6 mmol/L (21.0-32.0); CREATININE 0.91 mg/dL (0.70-1.30); Chloride 105 mmol/L (98-107); Glucose 106 mg/dL (74-106); Potassium 3.2 mmol/L (3.5-5.1); Sodium 140 mmol/L (136-145); Total Protein 7.4 g/dL (6.4-8.2)
[2019-11-18 12:08] LABS: Magnesium 1.8 mg/dL (1.8-2.4)
[2019-11-18 18:12] LABS: CEA 4.7 ng/mL (See Note)
[2019-11-25 07:53] LABS: Abs Immature Grans 0.01 10^3/uL (0.0-0.06); Absolute Basophil Count 0.06 10^3/uL (0.0-0.2); Absolute Eosinophil Count 0.55 10^3/uL (0.0-0.7); Absolute Lymphocyte Count 2.39 10^3/uL (1.2-3.4); Absolute Monocyte Count 0.48 10^3/uL (0.1-0.8); Absolute Neutrophil Count 3.72 10^3/uL (1.2-6.7); Basophils % 0.8; Eosinophils % 7.6; HCT 36.3 % (40.0-50.0); HGB 11.5 g/dL (13.5-17.5); Immature Grans % 0.1; Lymphocytes % 33.1; MCH 29.4 pg (27.0-33.0); MCHC 31.7 % (32.0-36.0); MCV 92.8 fL (80-95); MPV 9.7 fL (8.0-11.0); Monocytes % 6.7; Neutrophils % 51.7; Nucleated RBC 0 %; Platelet Count 284 10^3/uL (130-400); RBC 3.91 10^6/uL (4.36-5.78); RDW 16.1 % (11.8-14.1); WBC 7.21 10^3/uL (4.4-10.8)
[2019-11-25 08:18] LABS: ALT 20 U/L (16-63); AST 23 U/L (15-37); Albumin 3.2 g/dL (3.4-5.0); Alkaline Phosphatase 113 U/L (46-116); Anion Gap 8.7 mmol/L (3-11); BUN 11 mg/dL (7-18); Bilirubin, Total 0.7 mg/dL (0.2-1.0); CO2 27.3 mmol/L (21.0-32.0); Calcium 9.1 mg/dL (8.5-10.1); Chloride 102 mmol/L (98-107); Glucose 98 mg/dL (74-106); Potassium 3.6 mmol/L (3.5-5.1); Sodium 138 mmol/L (136-145); Total Protein 7.8 g/dL (6.4-8.2)
[2019-11-25 19:07] LABS: CEA 4.9 ng/mL (See Note)
[2019-12-09 08:08] LABS: Abs Immature Grans 0.04 10^3/uL (0.0-0.06); Absolute Basophil Count 0.05 10^3/uL (0.0-0.2); Absolute Eosinophil Count 0.34 10^3/uL (0.0-0.7); Absolute Lymphocyte Count 2.78 10^3/uL (1.2-3.4); Absolute Monocyte Count 0.25 10^3/uL (0.1-0.8); Absolute Neutrophil Count 5.74 10^3/uL (1.2-6.7); Basophils % 0.5; Eosinophils % 3.7; HCT 36.5 % (40.0-50.0); HGB 11.4 g/dL (13.5-17.5); Immature Grans % 0.4; Lymphocytes % 30.2; MCH 29.5 pg (27.0-33.0); MCHC 31.2 % (32.0-36.0); MCV 94.3 fL (80-95); MPV 9.1 fL (8.0-11.0); Monocytes % 2.7; Neutrophils % 62.5; Nucleated RBC 0 %; Platelet Count 298 10^3/uL (130-400); RBC 3.87 10^6/uL (4.36-5.78); RDW 14.7 % (11.8-14.1); RDW-SD 50.5 fL
[2019-12-09 08:23] LABS: ALT 25 U/L (16-63); AST 25 U/L (15-37); Albumin 3.5 g/dL (3.4-5.0); Alkaline Phosphatase 124 U/L (46-116); Anion Gap 7.6 mmol/L (3-11); BUN 14 mg/dL (7-18); Bilirubin, Total 0.6 mg/dL (0.2-1.0); CO2 25.4 mmol/L (21.0-32.0); CREATININE 1.02 mg/dL (0.70-1.30); Calcium 9.4 mg/dL (8.5-10.1); Chloride 101 mmol/L (98-107); Glucose 136 mg/dL (74-106); Magnesium 1.9 mg/dL (1.8-2.4); Potassium 3.9 mmol/L (3.5-5.1); Sodium 134 mmol/L (136-145); Total Protein 8.3 g/dL (6.4-8.2)
[2019-12-09 21:45] LABS: CEA 6.2 ng/mL (See Note)
== END 2019-12-17 23:59 | disposition home or self-care (01) ==
LOC: INF 05:48
PROVIDERS: PCP Emergency Medicine; Visit Provider Internal Medicine Hematology & Oncology
DX: C18.2 Malignant neoplasm of ascending colon (principal)
CPT/HCPCS: 36415; 80053; 82378; 83735; 85025

== ENCOUNTER 2019-12-20 15:08 | Outpatient (REF) | payer OTHER, SELFPAY ==
[2019-12-20 18:46] LABS: Abs Immature Grans 0.01 10^3/uL (0.0-0.06); Absolute Eosinophil Count 0.06 10^3/uL (0.0-0.7); Absolute Lymphocyte Count 0.99 10^3/uL (1.2-3.4); Absolute Monocyte Count 0.45 10^3/uL (0.1-0.8); Absolute Neutrophil Count 1.57 10^3/uL (1.2-6.7); Eosinophils % 1.9; HCT 29.3 % (40.0-50.0); Immature Grans % 0.3; Lymphocytes % 32.1; MCH 29.7 pg (27.0-33.0); MCHC 30.7 % (32.0-36.0); MCV 96.7 fL (80-95); MPV 10.7 fL (8.0-11.0); Monocytes % 14.6; Neutrophils % 51.1; Nucleated RBC 0 %; RBC 3.03 10^6/uL (4.36-5.78); RDW 15.6 % (11.8-14.1); WBC 3.08 10^3/uL (4.4-10.8)
[2019-12-20 18:57] LABS: Diff Comment PLT Morph Reviewed; Platelet Count 150 10^3/uL (130-400)
[2019-12-20 18:58] LABS: Anisocytosis 1+; Poikilocytes 1+; Polychromasia Present
[2019-12-20 19:05] LABS: ALT 18 U/L (16-63); AST 20 U/L (15-37); Albumin 3.4 g/dL (3.4-5.0); Alkaline Phosphatase 158 U/L (46-116); Anion Gap 6.9 mmol/L (3-11); BUN 20 mg/dL (7-18); Bilirubin, Total 0.5 mg/dL (0.2-1.0); CO2 26.1 mmol/L (21.0-32.0); CREATININE 0.86 mg/dL (0.70-1.30); Calcium 8.6 mg/dL (8.5-10.1); Chloride 100 mmol/L (98-107); Glucose 102 mg/dL (74-106); Potassium 4.2 mmol/L (3.5-5.1); Sodium 133 mmol/L (136-145); Total Protein 6.9 g/dL (6.4-8.2)
[2019-12-22 14:52] LABS: CEA 7.7 ng/ml
== END 2019-12-20 15:28 ==
LOC: LBN 15:08
PROVIDERS: PCP Emergency Medicine; Visit Provider Internal Medicine Hematology & Oncology
DX: C18.9 Malignant neoplasm of colon, unspecified (principal); C79.31 Secondary malignant neoplasm of brain
CPT/HCPCS: 80053; 82378; 85025

== ENCOUNTER 2019-12-27 01:05 | Outpatient (CLI) | payer OTHER, SELFPAY ==
[2019-12-27] MEDS: Gadoterate meglumine 20 ML VIAL 10 ML IVP (15:14)
--- NOTE | 2019-12-27 15:16 | DI.MRI_ITS ---
EXAM: MR BRAIN WO/W CLINICAL HISTORY: COLORECTAL CA WITH BRAIN METS,S/P RADIOSURGERY FOR 2 METS,SUSPECT NEW MET. TECHNIQUE: Multiplanar multisequence MRI of the brain was performed. CONTRAST MATERIAL: IV Contrast: 20 ML of Dotarem contrast administered. COMPARISON: MR MR BRAIN WO/W from 08/31/2019 FINDINGS: VENTRICLES AND EXTRA AXIAL SPACES: Normal in size and morphology for the patient's age. HEMORRHAGE: None. CEREBRAL PARENCHYMA: No focus of restricted diffusion to suggest acute infarct. There has been interv al decrease in size of the enhancing lesion in the right caudate. Currently, it measures 2.1 AP by 1 .9 transverse by 2.2 craniocaudad. There is mild mass effect on the adjacent lateral ventricle. Thi s compares with 2.5 AP by 2.3 transverse by 2.7 craniocaudad on the prior examination. There has als o been decrease in size of the enhancing lesion in the right parietal lobe currently measuring 0.6 x 0.7 cm. There is a new enhancing lesion in the right cerebellum measuring 2.2 transverse by 1.6 AP b y 1.6 craniocaudad. There is surrounding edema near all of these lesions. MIDLINE SHIFT: None. BRAINSTEM/CEREBELLUM: Normal. CALVARIUM: Normal. ENHANCEMENT: Please see the above discussion. VISUALIZED PARANASAL SINUSES/MASTOIDS: There is increased signal seen on the T2 weighted images in th e right mastoid air cells. This has progressed since the prior examination. The remaining sinuses a re clear. OTHER FINDINGS: There is now hyperintense signal seen in the head of the left mandibular condyle. Th ere does appear to be absence of the anterior medial aspect of the cortex. There is also increased s ignal on the T2 weighted images in the adjacent pterygoid muscles. The findings are suspicious for m etastatic disease. IMPRESSION: 1. New enhancing lesion in the right cerebellum consistent with metastatic disease. 2. Interval decrease in size of the 2 previously noted metastasis. 3. Interval development of a destructive lesion involving the head of the left mandibular condyle akil picious for metastatic disease. 4. Progressive right mastoid disease since the prior examination. DATA REPOSITORY:
== END 2019-12-27 01:25 ==
PROVIDERS: PCP Emergency Medicine; Visit Provider Radiology Radiation Oncology
DX: G93.89 Other specified disorders of brain (principal); C19 Malignant neoplasm of rectosigmoid junction; C79.31 Secondary malignant neoplasm of brain
CPT/HCPCS: 70553

== ENCOUNTER 2020-01-06 05:04 | Outpatient (RCR) | payer OTHER, SELFPAY ==
[2019-12-30 07:47] LABS: Abs Immature Grans 0.05 10^3/uL (0.0-0.06); Absolute Basophil Count 0.01 10^3/uL (0.0-0.2); Absolute Eosinophil Count 0.01 10^3/uL (0.0-0.7); Absolute Lymphocyte Count 1.32 10^3/uL (1.2-3.4); Absolute Monocyte Count 0.45 10^3/uL (0.1-0.8); Basophils % 0.2; Eosinophils % 0.2; HCT 37.8 % (40.0-50.0); HGB 11.9 g/dL (13.5-17.5); Immature Grans % 0.9; Lymphocytes % 22.6; MCH 29.6 pg (27.0-33.0); MCHC 31.5 % (32.0-36.0); MPV 9.1 fL (8.0-11.0); Monocytes % 7.7; Neutrophils % 68.4; Nucleated RBC 0 %; Platelet Count 500 10^3/uL (130-400); RBC 4.02 10^6/uL (4.36-5.78); RDW 16.3 % (11.8-14.1); RDW-SD 55.7 fL; WBC 5.84 10^3/uL (4.4-10.8)
[2019-12-30 08:09] LABS: ALT 58 U/L (16-63); AST 34 U/L (15-37); Albumin 3.3 g/dL (3.4-5.0); Alkaline Phosphatase 224 U/L (46-116); Anion Gap 11.1 mmol/L (3-11); BUN 26 mg/dL (7-18); Bilirubin, Total 0.5 mg/dL (0.2-1.0); CO2 26.9 mmol/L (21.0-32.0); CREATININE 1.07 mg/dL (0.70-1.30); Chloride 96 mmol/L (98-107); Glucose 135 mg/dL (74-106); Magnesium 2.1 mg/dL (1.8-2.4); Potassium 4.3 mmol/L (3.5-5.1); Sodium 134 mmol/L (136-145); Total Protein 8.3 g/dL (6.4-8.2)
[2020-01-06] MEDS: Normal Saline Flush 10 ML SYR IVP (07:35)
[2020-01-06 07:55] LABS: Abs Immature Grans 0.08 10^3/uL (0.0-0.06); Absolute Basophil Count 0.01 10^3/uL (0.0-0.2); Absolute Eosinophil Count 0.02 10^3/uL (0.0-0.7); Absolute Lymphocyte Count 1.22 10^3/uL (1.2-3.4); Absolute Monocyte Count 0.51 10^3/uL (0.1-0.8); Absolute Neutrophil Count 9.69 10^3/uL (1.2-6.7); Basophils % 0.1; Eosinophils % 0.2; HCT 39.8 % (40.0-50.0); HGB 12.6 g/dL (13.5-17.5); Immature Grans % 0.7; Lymphocytes % 10.6; MCH 29.9 pg (27.0-33.0); MCHC 31.7 % (32.0-36.0); MCV 94.3 fL (80-95); MPV 9.1 fL (8.0-11.0); Monocytes % 4.4; Nucleated RBC 0 %; Platelet Count 341 10^3/uL (130-400); RBC 4.22 10^6/uL (4.36-5.78); RDW 16.8 % (11.8-14.1); RDW-SD 57.1 fL; WBC 11.53 10^3/uL (4.4-10.8)
[2020-01-06 08:06] LABS: ALT 44 U/L (16-63); AST 24 U/L (15-37); Albumin 3.4 g/dL (3.4-5.0); Alkaline Phosphatase 207 U/L (46-116); Anion Gap 7.3 mmol/L (3-11); BUN 29 mg/dL (7-18); Bilirubin, Total 0.4 mg/dL (0.2-1.0); CO2 27.7 mmol/L (21.0-32.0); CREATININE 0.89 mg/dL (0.70-1.30); Calcium 9.6 mg/dL (8.5-10.1); Chloride 98 mmol/L (98-107); Glucose 108 mg/dL (74-106); Potassium 4.2 mmol/L (3.5-5.1); Sodium 133 mmol/L (136-145); Total Protein 8.5 g/dL (6.4-8.2)
[2020-01-09 15:20] LABS: CEA 7.7 ng/ml
== END 2020-01-16 23:59 | disposition home or self-care (01) ==
LOC: INF 05:04
PROVIDERS: PCP Emergency Medicine; Visit Provider Internal Medicine Hematology & Oncology
DX: C18.2 Malignant neoplasm of ascending colon (principal)
CPT/HCPCS: 36415; 80053; 82378; 83735; 85025

== ENCOUNTER 2020-01-31 00:31 | Outpatient (CLI) | payer OTHER, SELFPAY ==
[2020-01-31] MEDS: Omnipaque 350 MG/ML 50 ML BTL IJ (11:27)
[2020-01-31] MEDS: Breeza Beverage 473 ML BTL PO ×3 (11:28→11:31)
--- NOTE | 2020-01-31 11:30 | DI.CT_ITS ---
EXAM: CT CHEST/ABD/PEL W CLINICAL HISTORY: COLON CA METASTASIZED TO SITES,C18.9,ON CHEMO, RESTAGING EXAM TECHNIQUE: Imaging Protocol: Axial computed tomography images with coronal and sagittal reformatted images were created and reviewed CONTRAST MATERIAL: Intravenous: Omnipaque 350 Contrast volume:100 mL Oral: Yes COMPARISON: CT CT ABDOMEN PELVIS W from 12/07/2019 FINDINGS: CHEST: Tracheobronchial tree: Patent where visualized. Mediastinum and Rebekah: There are enlarged mediastinal lymph nodes. The largest measures 1.5 x 2.3 cm. 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 Pulmonary parenchyma: Centrilobular emphysematous changes are present in the lungs. Dependent atelec tasis is seen in the lung bases. No focal consolidating infiltrates are present. No pulmonary nodul es are present. Pleura: No effusion or pneumothorax. Heart: The heart is not dilated. Mild coronary artery calcification. No pericardial effusion. Aorta: Thoracic aorta non-dilated. Lymph nodes: Please see above. Bones:There are lytic lesions seen in the posterior elements of C7, the lateral aspect of the right 3 rd rib, and the posterior aspect of the left 6th and 7th ribs. Soft tissues: Unremarkable. ABDOMEN: Liver: Normal density. No measurable mass. Portal, Superior Mesenteric, and Splenic Veins: Unremarkable. Gallbladder and Biliary Tract: No radiodense calculus or dilation. Pancreas: Normal density, no abnormal calcifications or inflammatory process. Spleen: Normal. Adrenals: There has been a right adrenalectomy. The left adrenal mass measures 8.7 cm in length. Kidneys: Normal size, contour and axis. No radiodense stones or obstructive uropathy. There is a stab le left renal cyst. Abdominal Aorta: Abdominal portion non-dilated. Mild atherosclerosis. Bowel: No obstruction or bowel wall thickening. There is a right enterocolic anastomosis. There is a large amount of retained stool in the colon. Peritoneal Cavity: No ascites, collection or mesenteric inflammatory response. Lymph Nodes: There is persistent retroperitoneal adenopathy predominantly in the left periaortic prashanth on. There has been a increase in size of a few of the enlarged left periaortic lymph nodes. For exa mple, there is a 1.6 x 1.2 cm lymph node (series 10 image image 359) which previously measured 1.3 x 0.9 cm. The majority of the left. The lymph nodes are are stable in size. Bones: Since the prior examination the L3 vertebral body, right pubic and right iliac bone lesions vanegas ve all increased in size. There are now also lesions in the anterior aspect of the right acetabulum, posterior elements of the L3 and the S2 segment of the sacrum. Soft Tissues: Unremarkable. PELVIS: Bladder: Symmetric distention, no gross wall thickening. Reproductive Organs: Unremarkable as visualized. Lymph Nodes: Within normal limits. Bones: Please see above. IMPRESSION: 1. Interval increase in size and number of osseous metastases. 2. Persistent retroperitoneal adenopathy with slight increase in size of a few lymph nodes. 3. Stable left adrenal mass. 4. Mediastinal adenopathy. 5. Centrilobular emphysema. RADIATION DOSE DELIVERED: 1,890.23mGy.cm Total DLP DATA REPOSITORY: All CT scans at this facility are submitted to the National Radiology Data Registry (NRDR) Dose Index Registry (DIR) with the [employer] (ACR). RADIATION OPTIMIZATION: All CT scans at this facility use at least one of these dose optimization te chniques: automated exposure control; mA and/or kV adjustment per patient size (includes targeted exa ms where dose is matched to clinical indication); or iterative reconstruction.
[2020-01-31] MEDS: Omnipaque 350 MG/ML 100 ML BTL IJ (12:33)
[2020-01-31] MEDS: Normal Saline - Diluent 50 ML VIAL IV (12:34)
== END 2020-01-31 00:51 ==
PROVIDERS: PCP Emergency Medicine; Visit Provider Internal Medicine Hematology & Oncology
DX: C18.9 Malignant neoplasm of colon, unspecified (principal); C79.51 Secondary malignant neoplasm of bone; R59.0 Localized enlarged lymph nodes; J43.2 Centrilobular emphysema
CPT/HCPCS: 74177; 71260; J3490; Q9967

== ENCOUNTER 2020-02-03 04:27 | Outpatient (RCR) | payer OTHER, SELFPAY ==
[2020-01-20 08:27] LABS: Abs Immature Grans 0.03 10^3/uL (0.0-0.06); Absolute Eosinophil Count 0.02 10^3/uL (0.0-0.7); Absolute Lymphocyte Count 0.73 10^3/uL (1.2-3.4); Absolute Monocyte Count 0.13 10^3/uL (0.1-0.8); Absolute Neutrophil Count 3.18 10^3/uL (1.2-6.7); Eosinophils % 0.5; HCT 34.9 % (40.0-50.0); HGB 11.2 g/dL (13.5-17.5); Immature Grans % 0.7; Lymphocytes % 17.8; MCH 29.9 pg (27.0-33.0); MCHC 32.1 % (32.0-36.0); MCV 93.3 fL (80-95); MPV 9.7 fL (8.0-11.0); Monocytes % 3.2; Neutrophils % 77.8; Nucleated RBC 1 %; Platelet Count 122 10^3/uL (130-400); RBC 3.74 10^6/uL (4.36-5.78); RDW 16.7 % (11.8-14.1); RDW-SD 55.9 fL; WBC 4.09 10^3/uL (4.4-10.8)
[2020-01-20 08:40] LABS: ALT 39 U/L (16-63); AST 17 U/L (15-37); Albumin 3.2 g/dL (3.4-5.0); Alkaline Phosphatase 193 U/L (46-116); Anion Gap 5.9 mmol/L (3-11); BUN 33 mg/dL (7-18); Bilirubin, Total 0.5 mg/dL (0.2-1.0); CO2 27.1 mmol/L (21.0-32.0); CREATININE 0.85 mg/dL (0.70-1.30); Calcium 8.6 mg/dL (8.5-10.1); Chloride 101 mmol/L (98-107); Glucose 101 mg/dL (74-106); Potassium 4.5 mmol/L (3.5-5.1); Sodium 134 mmol/L (136-145); Total Protein 7.1 g/dL (6.4-8.2)
[2020-01-20 17:41] LABS: CEA 8.7 ng/mL (See Note)
[2020-02-03] MEDS: Normal Saline Flush 10 ML SYR IVP (07:42)
[2020-02-03 07:49] LABS: Abs Immature Grans 0.06 10^3/uL (0.0-0.06); Absolute Eosinophil Count 0.01 10^3/uL (0.0-0.7); Absolute Lymphocyte Count 0.76 10^3/uL (1.2-3.4); Absolute Monocyte Count 0.42 10^3/uL (0.1-0.8); Absolute Neutrophil Count 2.05 10^3/uL (1.2-6.7); Eosinophils % 0.3; HCT 37.3 % (40.0-50.0); HGB 12.1 g/dL (13.5-17.5); Immature Grans % 1.8; MCH 30.5 pg (27.0-33.0); MCHC 32.4 % (32.0-36.0); MPV 9.1 fL (8.0-11.0); Monocytes % 12.7; Neutrophils % 62.2; Nucleated RBC 0 %; Platelet Count 207 10^3/uL (130-400); RBC 3.97 10^6/uL (4.36-5.78); RDW 19.7 % (11.8-14.1); RDW-SD 65.2 fL
[2020-02-03 08:02] LABS: ALT 35 U/L (16-63); AST 28 U/L (15-37); Albumin 3.4 g/dL (3.4-5.0); Alkaline Phosphatase 224 U/L (46-116); Anion Gap 8.7 mmol/L (3-11); BUN 25 mg/dL (7-18); Bilirubin, Total 0.7 mg/dL (0.2-1.0); CO2 28.3 mmol/L (21.0-32.0); CREATININE 0.93 mg/dL (0.70-1.30); Calcium 9.1 mg/dL (8.5-10.1); Chloride 95 mmol/L (98-107); Glucose 98 mg/dL (74-106); Potassium 3.8 mmol/L (3.5-5.1); Sodium 132 mmol/L (136-145); Total Protein 7.9 g/dL (6.4-8.2)
[2020-02-03 18:36] LABS: CEA 14.3 ng/mL (See Note)
== END 2020-02-16 23:59 | disposition home or self-care (01) ==
LOC: INF 04:27
PROVIDERS: PCP Emergency Medicine; Visit Provider Internal Medicine Hematology & Oncology
DX: C18.2 Malignant neoplasm of ascending colon (principal)
CPT/HCPCS: 36415; 80053; 82378; 83735; 85025

== ENCOUNTER 2020-02-09 07:41 | Outpatient (CLI) | payer OTHER, SELFPAY ==
--- NOTE | 2020-02-09 | DI.RAD_ITS ---
EXAM: XR FEMUR RT CLINICAL HISTORY: COLON CANCER METASTASIZED TO MULTIPLE SITES C18.9, INCREASED UPPER LEG PAIN. TECHNIQUE: 2D digital imaging was performed. COMPARISON: [place] NM BONE SCAN WHOLE BODY GRP from 12/07/2019 FINDINGS: BONES: No acute fracture is present. Osteolytic areas are seen in the intertrochanteric region and th e proximal shaft of the right femur. The findings are consistent with metastatic disease. Visualize d portion of knee and hip joints are unremarkable. SOFT TISSUE: Normal. IMPRESSION: 1. Findings consistent with metastatic disease of the proximal femur and shaft. 2. No acute fracture or dislocation. DATA REPOSITORY: RADIATION DOSE DELIVERED:
--- NOTE | 2020-02-09 | DI.MRI_ITS ---
EXAM: MR LUMBAR SPINE WO/W CLINICAL HISTORY: COLON CANCER METASTASIZED TO MULTIPLE SITES C18.9, INCREASED UPPER LEG PAIN. TECHNIQUE: Multiplanar multisequence MRI was performed. 19 milliliters of Dotarem was administered IV. COMPARISON: CT CT CHEST/ABD/PEL W from 01/31/[address] CHEST/ABD/PEL W from 01/31/2020 CR,XR XR FEMUR RT from 02/09/2020 FINDINGS: There is an abnormal rounded high signal lesion star imaging in the L3 vertebral body eccentric towar d the left which shows contrast enhancement. There is extension into the left pedicle. There is no significant extension into the spinal canal. There is abnormal thickening and enhancement of the rig ht lamina at the same level. There is a small lesion in the L5 vertebral body. There is a metastati c lesion involving the left S 1 vertebral body with invasion into the foramen. There is a large per ipherally enhancing lesion measuring 3.5 cm seen at the S2 level on the left. This also extends to t he neural foramen. There is a 2.7 centimeter lesion of all vein the right ilium which shows some cor tical breakthrough and slow and some enhancement in the adjacent muscle. There is a large mass involving the left adrenal gland as well as para-aortic adenopathy, better seen on previous CT. IMPRESSION: Metastatic lesions at L3, L4-5, S1 and S2 as well as right ilium. DATA REPOSITORY:
--- NOTE | 2020-02-09 | DI.MRI_ITS ---
EXAM: MR THORACIC SPINE WO/W CLINICAL HISTORY: COLON CANCER METASTASIZED TO MULTIPLE SITES C18.9, INCREASED UPPER LEG PAIN. TECHNIQUE: Multiplanar multisequence MRI of the Thoracic spine was performed. CONTRAST MATERIAL: IV Contrast: 19 mL of Dotarem contrast administered. COMPARISON: CT CT CHEST/ABD/PEL W from 01/31/2020 FINDINGS: Bones: The vertebral body heights are well maintained. Alignment is satisfactory. There are low T1, h igh T2 signal lesions seen in the vertebral bodies of C7, T1, T7 and T8. A lesion is noted at within the posterior elements at T4 on the right. There is a large expansile lesion infiltrating the left side of the posterior elements at T7. This causes some encroachment into the canal in deviation of t he cord toward the right side. There is also involvement of the adjacent left posterior rib and exte nsion into the paraspinal soft tissues.. There is mild enhancement within the canal at this level. There is no abnormal enhancement within the spinal cord. There is a lesion involving the proximal en d of the right 12th rib. Discs: No disc herniation or bulge is present. IMPRESSION: Multiple sites of thoracic vertebral body and posterior element metastases. The largest is at C7 whi ch involves both posterior elements and vertebral body and extends into the canal causing mild cord d eviation. DATA REPOSITORY:
--- NOTE | 2020-02-09 13:22 | DI.VRAD_ITS ---
PROCEDURE INFORMATION: Exam: XR Right Femur Exam date and time: 02/09/2020 1:15 PM Age: 59 years old Clinical indication: Thigh; Right; Patient HX: Increased pain upper leg; Colon cancer metastasized to mult sites TECHNIQUE: Imaging protocol: XR Right femur. Views: 2 views. COMPARISON: No relevant prior studies available. FINDINGS: Bones/joints: Multiple osteolytic lesions are seen in the right femur, in the projection of the lesser trochanter, the sub trochanteric region and mid shaft. These are consistent with history of metastatic colon cancer. No fractures are seen. Soft tissues: Unremarkable. IMPRESSION: 1. Multiple osteolytic lesions in the proximal femur and mid shaft consistent with metastatic colon cancer. 2. No fracture seen. Dictated and Authenticated by: Josué Arauz MD. Ordering:LEAH Bellamy MD
[2020-02-09] MEDS: Normal Saline Flush 10 ML SYR IVP (15:01)
[2020-02-09] MEDS: Gadoterate meglumine 20 ML VIAL 19 ML IVP (15:02)
--- NOTE | 2020-02-09 15:42 | DI.VRAD_ITS ---
Addendum created by Hari Gomez MD on 02/09/2020 3:48:58 PM EST: THIS REPORT CONTAINS FINDINGS THAT MAY BE CRITICAL TO PATIENT CARE. The findings were verbally communicated via telephone conference with Rosita Barragan RN at 3:48 PM EST on 02/09/2020. The findings were acknowledged and understood. Initial report created on 02/09/2020 3:42:32 PM EST: PROCEDURE INFORMATION: Exam: MR Thoracic Spine Without and With Contrast Exam date and time: 02/09/2020 3:17 PM Age: 59 years old Clinical indication: Pain in thoracic spine; With radiculopathy; Bilateral; Patient HX: Back pain and leg pain, ? cord compression, known colon cancer with mets TECHNIQUE: Imaging protocol: Multiplanar magnetic resonance images of the thoracic spine without and with intravenous contrast. Contrast material: DOTAREM; Contrast volume: 19 ml; Contrast route: INTRAVENOUS (IV); COMPARISON: No relevant prior studies available. FINDINGS: Vertebrae: Alignment of the thoracic vertebral bodies is normal. No acute compression deformities. Involvement of the left 6 rib. There is tumor involvement of the extradural space on the left at T6. Slight shift of the cord. Spinal cord: Signal the spinal cord is normal. T1-T2: No significant disc disease. No significant spinal canal stenosis. T2-T3: No significant disc disease. No significant spinal canal stenosis. T3-T4: No significant disc disease. No significant spinal canal stenosis. T4-T5: No significant disc disease. No significant spinal canal stenosis. T5-T6: No significant disc disease. No significant spinal canal stenosis. T6-T7: Tumor extension into the left transverse process and spinous process as well as the left pedicle at T6. T7-T8: No significant disc disease. No significant spinal canal stenosis. T8-T9: No significant disc disease. No significant spinal canal stenosis. T9-T10: No significant disc disease. No significant spinal canal stenosis. T10-T11: No significant disc disease. No significant spinal canal stenosis. T11-T12: No significant disc disease. No significant spinal canal stenosis. Other bones/joints: There are multiple marrow replacing metastasis present. This includes the bodies of T6 T7, C6, C7 and T1. There is tumor metastatic disease to bilateral ribs. Lymph nodes: Redemonstrated is retroperitoneal adenopathy. Adrenals: Redemonstrated is left adrenal mass. Soft tissues: Unremarkable. IMPRESSION: 1. Extensive metastatic disease involving the bodies of C6, C7, T1, T6 and T7. 2. Tumor extension at T6 extends into the transverse and posterior elements. There is dural extension in the left aspect of the canal with slight displacement of the cord. No evidence of cord compromise. 3. Bilateral rib metastatic disease. 4. Left adrenal mass. 5. Retroperitoneal adenopathy. Dictated and Authenticated by: Hari Gomez MD. Ordering:LEAH Bellamy MD
--- NOTE | 2020-02-09 15:49 | DI.VRAD_ITS ---
PROCEDURE INFORMATION: Exam: MR Lumbar Spine Without and With Contrast. Exam date and time: 02/09/2020 3:32 PM Age: 59 years old Clinical indication: Low back pain; Patient HX: Colon cancer with known mets, back and leg pain ? cord compression TECHNIQUE: Imaging protocol: Multiplanar magnetic resonance images of the lumbar spine without and with intravenous contrast. Contrast material: DOTAREM; Contrast volume: 19 ml; Contrast route: INTRAVENOUS (IV); COMPARISON: No relevant prior studies available. FINDINGS: Vertebrae: The height and the alignment of the lumbar vertebral bodies is normal. Metastatic involvement of L3 also involves the left pedicle Spinal cord: Normal signal. No cord compression. L1-L2: No significant disc disease. No significant spinal canal stenosis. No neural foraminal stenosis. L2-L3: No significant disc disease. No significant spinal canal stenosis. No neural foraminal stenosis. L3-L4: No significant disc disease. No significant spinal canal stenosis. No neural foraminal stenosis. L4-L5: Concentric disc bulge which flattens the anterior sac. Bilateral lateral recess narrowing. L5-S1: L5-S1. Mild disc bulge. Sacrum/coccyx: There is metastatic involvement of the body of L3, S1 and S2. Other bones/joints: Metastatic involvement of the right ilium. Lymph nodes: Retroperitoneal adenopathy. Adrenals: Left adrenal mass. Kidneys and ureters: Left renal cyst measuring 2.9 cm. Soft tissues: Unremarkable. IMPRESSION: 1. Metastatic disease involving the bodies of L3, S1 and S2. Left L3 pedicle involvement. 2. No evidence of central canal stenosis or tumor involvement. 3. Right ilium metastasis. 4. Left adrenal metastasis. 5. Retroperitoneal adenopathy. Dictated and Authenticated by: Hari Gomez MD. Ordering:LEAH Bellamy MD
== END 2020-02-09 08:01 ==
PROVIDERS: PCP Emergency Medicine; Visit Provider Internal Medicine Hematology & Oncology
DX: C18.9 Malignant neoplasm of colon, unspecified (principal); C79.51 Secondary malignant neoplasm of bone
CPT/HCPCS: 72158; 73552; 72157

== ENCOUNTER 2020-02-29 10:40 | Emergency (ER) | payer BC, SELFPAY ==
[2020-02-29] VITALS (42 sets, daily range): BP systolic 91–126; BP diastolic 63–94; PULSE 70–111; RESP 9–29; TEMP 36.1; O2SAT 79–100
--- NOTE | 2020-02-29 10:30 | RT.EKG_ITS ---
APPROVED REPORT Exam: Resting ECG Patient Location: E HR:106 bpm ECG Measurements Heart Rate 106 AXIS AR 139 P 77 QRSd 90 QRS 87 QT 315 T 58 QTc 418 Conclusion Sinus tachycardia. Narrow QRS.
--- NOTE | 2020-02-29 10:43 | ED.GENADUL_ITS ---
Discharge Plan Disposition Patient Disposition: HOME Condition: Improving Discharge Details Clinical Impression: Metastatic colorectal cancer, Acute dehydration Primary Care Provider: eGorge Pinto ED Provider: Mario Beaver Home Meds and New Rx's Prescriptions: Continued losartan 50 mg tablet 50 mg PO DAILY Qty: 90 RF: 3 potassium chloride 20 mEq tablet extended release 20 meq PO DAILY RF: 0 Eliquis 5 mg tablet 5 mg PO BID RF: 0 fluticasone propionate [Flonase Allergy Relief] 50 mcg/actuation spray,susp ension 1 spray intranasal BID Qty: 15.8 RF: 0 acetaminophen [Tylenol] 325 MG tablet 650 mg PO BID PRN RF: 0 cetirizine [Zyrtec] 10 MG tablet,chewable 10 mg PO HS Qty: 30 RF: 12 omeprazole 40 mg capsule,delayed release(DR/EC) 40 mg PO DAILY Qty: 90 RF: 3 hydrocortisone 5 mg tablet 5 mg PO BID RF: 0 hydromorphone 4 mg tablet 4 mg PO BID PRN PRNRF: 0 mirtazapine 15 mg tablet 30 mg PO HS RF: 0 dexamethasone 4 mg tablet 4 mg PO BID PRN PRNRF: 0 docusate sodium 100 mg Capsule 100 mg PO BID RF: 0 omeprazole 20 mg Capsule,Delayed Release(Dr/Ec) 20 mg PO BID RF: 0 levetiracetam 500 mg tablet 500 mg PO BID RF: 0 Discharge Instructions Instructions: Dehydration (ED) Additional Instructions: Please follow-up with Dr. Walter in clinic on Thursday as planned. As discussed with care management, we will initiate home health and palliative care consultations. Continue your routine medications. Return for any acute concerns. Medical Decision Making 59-year-old male presents from home via EMS. 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 He has undergone colectomy, adrenalectomy, resection of brain mets. He underwent focused radiation therapy 5 /5 days last week for bony metastatic disease. He reports this did result in some increased pain for which he was encouraged to take oral Dilaudid at home. He now reports generalized weakness, left jaw pain, decreased p.o. intake. Patient arrives afebrile, pulse was 105 at rest, he is oxygenating normally with a blood pressure of 103/68. Differential diagnosis includes dehydration, electrolyte abnormalities, would exclude tumor lysis syndrome. IV access established, laboratories obtained, patient given fluids and analgesia. Sodium 132, potassium 5.0, BUN 57, creatinine 1.2. Prerenal dehydration versus comparison/baseline. LDH 717, uric acid 4.4. Following fluids, patient's pulse corrected, able to take a popsicle and juice by mouth. Subjectively felt improved. Most consistent with dehydration, and mild exacerbation of expected pain response. Next oncology appointment is this Thursday with Dr. Walter. Patient seen by care management. He will accept home health care as well as palliative care consultation. He is stable and improving. Lab Data Lab results reviewed: Yes I reviewed the patient's lab results. Labs: Laboratory Results - last 24 hr 02/29/20 02/29/20 02/29/20 10:55 10:55 10:55 WBC 6.67 RBC 2.76 L Hgb 8.5 L Hct 25.9 L MCV 93.8 MCH 30.8 MCHC 32.8 RDW 20.7 H Plt Count 174 MPV 9.6 Immature Gran % See Differential Neutrophils % 78.0 Band Neutrophils % 2 Lymphocytes % 3.0 Atypical Lymphs % 1.0 Monocytes % 10.0 Eosinophils % 0.0 Basophils % 0.0 Metamyelocytes % 4 Myelocytes % 2 Absolute Neutrophils 5.34 Absolute Lymphocytes 0.27 L Absolute Monocytes 0.67 Absolute Eosinophils 0.00 Absolute Basophils 0.00 RBC Morphology See below Polychromasia Present Poikilocytosis 1+ Anisocytosis 2+ Macrocytosis 1+ PT 10.6 INR 1.1 APTT 24.7 Sodium 132 L Potassium 5.0 Chloride 96 L Carbon Dioxide 28.5 Anion Gap 7.5 BUN 57 H Creatinine 1.22 Estimated GFR/1.73 m2 >= 60.00 Glucose 112 H Uric Acid Calcium 9.3 Magnesium 2.3 Total Bilirubin 0.5 AST 37 ALT 35 Alkaline Phosphatase 239 H Lactate Dehydrogenase Troponin I < 0.05 Total Protein 7.1 Albumin 2.6 L 02/29/20 10:55 WBC RBC Hgb Hct MCV MCH MCHC RDW Plt Count MPV Immature Gran % Neutrophils % Band Neutrophils % Lymphocytes % Atypical Lymphs % Monocytes % Eosinophils % Basophils % Metamyelocytes % Myelocytes % Absolute Neutrophils Absolute Lymphocytes Absolute Monocytes Absolute Eosinophils Absolute Basophils RBC Morphology Polychromasia Poikilocytosis Anisocytosis Macrocytosis PT INR APTT Sodium Potassium Chloride Carbon Dioxide Anion Gap BUN Creatinine Estimated GFR/1.73 m2 Glucose Uric Acid 4.4 Calcium Magnesium Total Bilirubin AST ALT Alkaline Phosphatase Lactate Dehydrogenase 717 H Troponin I Total Protein Albumin HPI General Mode of arrival: EMS . Date/Time Provider Initiated Documentation: 02/29/20 10:45 . Limitations to Documentation: no limitations . Information obtained by: patient and EMS . History of Present Illness 59 year old M presents to the emergency department with the chief complaint of Generally weak, pain since undergoing 5 days of radiation last week, described as moderate, Quality is described as dull and constant, and is localized to the mouth, back and pelvis. Patient reports no radiation. Patient started experiencing this hour(s) and it has been constant. No relieving factors improve symptom(s), No exacerbating factors reported . Patient notes loss of appetite; denies fever/chills and nausea/vomiting. Patient did receive the following treatments prior to arrival, none Related Data Home Medications Medication Instructions Recorded Confirmed acetaminophen [Tylenol] 650 mg PO BID PRN tab-cap 10/24/13 02/29/20 cetirizine [Zyrtec] 10 mg PO HS #30 tab.chew 08/29/15 12/28/19 apixaban 5 mg tablet 5 mg PO BID 02/18/19 02/29/20 levetiracetam 500 mg PO BID 09/26/19 02/29/20 losartan 50 mg tablet 50 mg PO DAILY #90 tab 10/25/19 02/29/20 potassium chloride 20 mEq 20 meq PO DAILY 11/23/19 12/28/19 tablet,extended release fluticasone propionate 50 1 spray INTRANASAL BID #15.8 ml 12/06/19 12/28/19 mcg/actuation nasal spray,suspension omeprazole 40 mg capsule,delayed 40 mg PO DAILY #90 cap 01/20/20 release dexamethasone 4 mg PO BID PRN PRN 02/29/20 02/29/20 docusate sodium 100 mg PO BID 02/29/20 02/29/20 hydrocortisone 5 mg PO BID 02/29/20 02/29/20 hydromorphone 4 mg PO BID PRN PRN 02/29/20 02/29/20 mirtazapine 30 mg PO HS 02/29/20 02/29/20 omeprazole 20 mg PO BID 02/29/20 02/29/20 Previous Rx's Medication Instructions Recorded losartan 50 mg tablet 50 mg PO DAILY #90 tab 10/25/19 fluticasone propionate 50 1 spray INTRANASAL BID #15.8 ml 12/06/19 mcg/actuation nasal spray,suspension omeprazole 40 mg capsule,delayed 40 mg PO DAILY #90 cap 01/20/20 release Allergies Allergy/AdvReac Type Severity Reaction Status Date / Time grass pollen Allergy Mild Verified 02/29/20 10:49 General RUEL: 2 Review of Systems Narrative: Taking Dilaudid and morphine at home. Generally weak. Feels pain in back, hip, jaw where he had focused radiation treatments 5 days last week. 7 systems reviewed and otherwise negative. 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 toe Edema of left upper extremity Encounter for central line placement (~06/23/18) Essential hypertension Fever Gastroesophageal reflux disease without esophagitis (10/17/15) H/O deep venous thrombosis Hiatal hernia (~03/03/18) History of deep venous thrombosis or pulmonary embolus Hypokalemia Hypoxia Lymph node enlargement (01/15/17) Metastatic colorectal cancer Neck pain (01/15/17) Neutropenic fever Otitis media Pneumonia, organism unspecified (05/18/12) Port-A-Cath in place (~06/23/18) L Subclavian Pulmonary embolism Sepsis Small pleural effusion Smoker (04/20/15) SOB (shortness of breath) on exertion Thrush, oral Weakness Surgical History Colonoscopy - [facility] 11/18/13;[facility] Hemicolectomy 12/01/16; RIGHT @ [facility] History of partial adrenalectomy pt. states he had right adrenal gland removed r/t to tumor. 04/10/18 History of removal of Port-a-Cath L subclavian Family History Mother , age 82 No problems noted. Father No problems noted. Social History Smoking/Tobacco Use Status: Current-Occasional Tobacco Type: cigarettes Quit status: quit date established Smoking risk assessment performed?: Yes Alcohol Intake: former Drug use: Never Substance use type: does not use Details: no alcohol for 2 years Caregiver/Support person: Yes Household members: spouse and children Housing: house Communication Needs: None Do you need help understanding health information?: Rarely Pets and animals: Yes Sexually active: Yes Do you think of yourself as: straight/heterosexual Current gender identity: male What is your relationship status?: How often do you talk on the phone with friends or family?: three or more times per week How often do you get together with friends or relatives?: once per week How often do you attend faith or mu-ism services?: 1-3 times per year Do you belong to any clubs or organized social groups?: no Panel score (0-1 are the most socially isolated patients): 2 What type of physical activity do you participate in: walking Duration: 30-45 minutes/day Frequency: daily Kesha/Gnosticism: Baptist Special kesha needs: No Seatbelt use: always Drive intox or ride w/intox patient transportation driver: No Do you feel safe at home: Yes Do you feel safe in your relationship?: Yes Exam Narrative Exam Narrative: GEN: awake, alert, oriented 3. Pleasant, well groomed, interactive. HEAD: Normocephalic, atraumatic ENT: Mucous membranes dry, mild trismus, External ear exam unremarkable EYES: PERRL, EOMI NECK: Full ROM, no BIJU, no menigismus CHEST/RESP: Nontender, clear to auscultation bilateral, no wheeze/rhonchi/rales CARDIOVASCULAR: Regular and tachycardic, no murmur, rub arcelia. 2+ Rad pulse bilateral ABDOMEN: Soft, no significant tenderness, no mass. +Bowel sounds EXT: Full ROM, no edema, no rash, left lower extremity surgical scarring distal tibia Neuro: Grossly normal neurologic exam, conversant, interactive. Psych: Speech fluent, thoughts congruent, affect normal
[2020-02-29] MEDS: Normal Saline 1,000 ML 1000 ML IV ×2 (11:14→12:22)
[2020-02-29 11:15] LABS: HCT 25.9 % (40.0-50.0); HGB 8.5 g/dL (13.5-17.5); MCH 30.8 pg (27.0-33.0); MCHC 32.8 % (32.0-36.0); MCV 93.8 fL (80-95); MPV 9.6 fL (8.0-11.0); Platelet Count 174 10^3/uL (130-400); RBC 2.76 10^6/uL (4.36-5.78); RDW 20.7 % (11.8-14.1); RDW-SD 66.6 fL; WBC 6.67 10^3/uL (4.4-10.8)
[2020-02-29] MEDS: Ondansetron 4 MG/2 ML VIAL IVP (11:15)
[2020-02-29] MEDS: HYDROmorphone 2 MG/ML VIAL IVP (11:18)
[2020-02-29 11:30] LABS: ALT 35 U/L (16-63); AST 37 U/L (15-37); Albumin 2.6 g/dL (3.4-5.0); Alkaline Phosphatase 239 U/L (46-116); Anion Gap 7.5 mmol/L (3-11); BUN 57 mg/dL (7-18); Bilirubin, Total 0.5 mg/dL (0.2-1.0); CO2 28.5 mmol/L (21.0-32.0); CREATININE 1.22 mg/dL (0.70-1.30); Calcium 9.3 mg/dL (8.5-10.1); Chloride 96 mmol/L (98-107); Glucose 112 mg/dL (74-106); Magnesium 2.3 mg/dL (1.8-2.4); Sodium 132 mmol/L (136-145); Total Protein 7.1 g/dL (6.4-8.2); Troponin I < 0.05 ng/mL (<0.06)
[2020-02-29 11:34] LABS: Absolute Neutrophil Count 5.34 10^3/uL (1.2-6.7); Bands % 2; Diff Comment Manual Differential
[2020-02-29 11:35] LABS: Absolute Lymphocyte Count 0.27 10^3/uL (1.2-3.4); Absolute Monocyte Count 0.67 10^3/uL (0.1-0.8)
[2020-02-29 11:36] LABS: Metamyelocytes % 4; Myelocytes % 2
[2020-02-29 11:37] LABS: INR 1.1 (0.9-1.1); PTT Activated 24.7 sec (21.0-27.5); Prothrombin Time 10.6 sec (9.3-11.0)
[2020-02-29 11:39] LABS: Anisocytosis 2+; Macrocytosis 1+; Poikilocytes 1+; Polychromasia Present
[2020-02-29 11:42] LABS: LDH 717 U/L (85-227); Uric Acid 4.4 mg/dL (3.5-7.2)
--- NOTE | 2020-02-29 15:53 | PDOC.ERCMPRO ---
- If Service Date Differs Date of service: 02/29/20 Time of Service: 15:53 Care Management Progress Note Low is seen in the ED today for dehydration. At the request of Dr. Beaver, ASHELY meets with Low to discuss available in-home services. He is agreeable to Home Health and Palliative Care but is not ready to accept hospice at this time. ASHELY coordinates referrals to Home Health for nursing and Palliative Care.
== END 2020-02-29 14:48 | disposition home or self-care (01) ==
PROVIDERS: Emergency Provider Emergency Medicine; PCP Emergency Medicine
DX: E86.0 Dehydration (principal); G89.3 Neoplasm related pain (acute) (chronic); C19 Malignant neoplasm of rectosigmoid junction; Z92.3 Personal history of irradiation; I10 Essential (primary) hypertension
CPT/HCPCS: 36415; 80053; 93005; 96361; 96374; 96375; 99284; 83615; 83735; 84484; 84550; 85025; 85610; 85730; 93010; J2405

== ENCOUNTER 2020-03-02 05:39 | Outpatient (RCR) | payer BC, SELFPAY | END 2020-03-08 23:59 | disposition home or self-care (01) | LOC: INF 05:39 | PROVIDERS: PCP Emergency Medicine; Visit Provider Internal Medicine Hematology & Oncology | DX: Z53.9 Procedure and treatment not carried out, unspecified reason (principal) ==